=== PATIENT | female | born 1975 | race Caucasian/White ===

== ENCOUNTER 2020-02-24 18:01 | Emergency (ER) | payer OTHER, SELFPAY ==
[2020-02-24] VITALS (7 sets, daily range): BP systolic 132–161; BP diastolic 82–96; PULSE 98–150; RESP 18–24; TEMP 36.7–37.9; O2SAT 97–99; BMI 25.7
--- NOTE | 2020-02-24 18:25 | XRR_ITS ---
PROCEDURE INFORMATION: Exam: XR Chest, 1 View Exam date and time: 02/24/2020 6:40 PM Age: 44 years old Clinical indication: Cough and dyspnea; Additional info: Chest pain TECHNIQUE: Imaging protocol: XR of the chest Views: 1 view. COMPARISON: No relevant prior studies available. FINDINGS: Lungs: Unremarkable. No consolidation. Pleural space: Unremarkable. No pleural effusion. No pneumothorax. Heart/Mediastinum: There is borderline cardiomegaly. Bones/joints: No acute abnormality. XR/XR chest 1V portable [id number] IMPRESSION: No acute findings.
--- NOTE | 2020-02-24 18:26 | ECG_ITS ---
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 Measurements Intervals [place] Rate: 138 P: 66 AL: 134 QRS: 67 QRSD: 73 T: 43 QT: 294 QTc: 447 Interpretive Statements SINUS TACHYCARDIA MINIMAL VOLTAGE CRITERIA FOR LVH, CONSIDER NORMAL VARIANT MODERATE ST DEPRESSION [0.05+ mV ST DEPRESSION] Compared to ECG 08/16/2017 20:55:45 ST (T wave) deviation now present Electronically Signed On 02-25-2020 15:10:17 CDT by Gilma Liu M.D. [id number] f
[2020-02-24 18:36] LABS: Basophils # 0.1 10^3/uL (0.0-0.1); Basophils % 0.4 %; Eosinophils # 0.1 10^3/uL (0.0-0.8); Eosinophils % 0.5 %; Hematocrit 40.6 % (37.0-47.0); Hemoglobin 13.5 g/dL (11.5-15.3); Lymphocytes # 0.9 10^3/uL (0.8-4.8); Lymphocytes % 6.7 %; Mean Corpuscular HGB Conc 33.3 g/dL (30.0-36.0); Mean Corpuscular Hemoglobin 32.3 pg (28.0-34.0); Mean Corpuscular Volume 97.1 fL (81-99); Mean Platelet Volume 9.5 fL (7.4-10.4); Monocytes # 0.3 10^3/uL (0.2-0.9); Monocytes % 2.4 %; Neutrophils # 11.42 10^3/uL (1.8-7.7); Neutrophils % 89.4 %; Nucleated Red Blood Cells % 0 %; Platelet Count 234 10^3/cmm (130-400); Red Blood Count 4.18 10^6/uL (4.1-5.3); Red Cell Distribution Width 14.1 % (12.1-15.1); White Blood Count 12.8 10^3/uL (4.0-10.0)
--- NOTE | 2020-02-24 18:40 | ED_ITS ---
HPI - General Adult General: Chief complaint: General Medical Stated complaint: multiple complaints Time Seen by Provider: 02/24/20 18:24 History of Present Illness: HPI narrative: 44-year-old female presents with body aches, shortness of breath, elevated temperature, and chest tightness. Symptoms developed today per she was walking home from work, and they begin to worsen. Symptoms actually started out with back pain, what she called sciatica , as well as aches in her lower body particularly her thighs and shins. Onset (ago): hour(s) Location: head, chest, back and lower extremity Radiation: non-radiation Severity: moderate Quality: aching Pain Consistency: constant Associated symptoms: Reports chest pain, cough, dyspnea, fevers/chills, headache(s) and short of breath; Deny confusion, nausea, rash or vomiting Review of Systems Const: Reports: fever(s) and chills Eyes: Denies: blurry vision ENMT: Denies: swelling of lips/tongue or sinus pain Card: Reports: chest pain Resp: Reports: dyspnea and non-productive cough; Denies: productive cough or wheezing GI: Denies: abdominal pain, nausea or vomiting : Denies: dysuria or hematuria Musc: Reports: back pain; Denies: neck pain, joint redness or joint warmth Skin/Breast: Denies: rash or erythema Neuro: Reports: headache(s); Denies: dizziness, vertigo or confusion Psych: Denies: anxiety or auditory hallucinations Physical Exam Const: GENERAL APPEARANCE: well developed ORIENTATION/CONSCIOUSNESS: Yes oriented to person, Yes oriented to place and Yes oriented to time HENMT: COMMON NORMALS: normocephalic, external ears normal and Normal external nose present HEAD & SCALP: normocephalic FACE & SINUS: normal facial exam NOSE: Normal external nose present and No nasal discharge present EXTERNAL EAR: Yes external ears normal Eye: COMMON NORMALS: Equal, round and reactive pupils present, EOMs intact bilaterally and conjunctivae normal EYELID: eyelids normal CONJUNCTIVA: Yes conjunctivae normal PUPIL: Yes Equal, round and reactive pupils present Neck/C-Spine: COMMON NORMALS: full ROM GENERAL: No tracheal deviation CERVICAL SPINE: Yes normal cervical lordosis and No Cervical spine tenderness Chest: COMMONS NORMALS: normal inspection of the chest CHEST: No tenderness Resp: COMMON NORMALS: clear to auscultation bilaterally EFFORT & INSPECTION: Yes tachypneic, Yes respiratory distress, No retractions, No uses accessory muscles and No tracheal deviation AUSCULTATION: clear to auscultation bilaterally, no rhonchi, no wheezes and diminished lung sounds Cardio: COMMON NORMALS: regular rhythm RATE: tachycardic RHYTHM: regular rhythm HEART SOUNDS: no murmurs PERIPHERAL PULSES: radial pulses present GI: INSPECTION: No abdominal distension AUSCULTATION: No Hyperactive bowel sounds present and No Hypoactive bowel sounds present PALPATION: No Guarding due to palpation present (GI) and No Rigid due to palpation PERCUSSION: no dullness to percussion and no tympanic to percussion Neuro: SENSORIUM/ORIENTATION: Yes oriented to person, Yes oriented to place and Yes oriented to time Psych: COMMON NORMALS: mental status grossly normal Course Vital Signs: Vital signs: Vital Signs Temperature 98.1 F 02/24/20 22:56 Pulse Rate 98 02/24/20 22:56 Respiratory Rate 20 H 02/24/20 22:56 Blood Pressure 145/88 02/24/20 22:56 Pulse Oximetry 99 02/24/20 22:56 MDM - General Adult MDM Narrative: Medical decision making narrative: This lady presents tachycardic in the 140s, with tachypnea, and symptoms of shortness of breath. EKG reveals sinus tachycardia. No acute ST changes. Her white blood cell count is 12.8. Hemoglobin 13.5. Bicarbonate level is 21. Blood gas reveals a mild respiratory alkalosis with mild decrease in PO2. She has a negative chest x- ray. Her d-dimer was elevated slightly. CTA of the chest reveals no PE. There are findings of pneumonitis that is mild bilaterally. She has a mild elevation in her troponin level. It did not elevate at 2 hours. After a couple liters of fluid, some pain medication, and 1 dose of dexamethasone her heart rate is gone from 140s to 100. Her blood pressure is 138/78. Her temperature after Tylenol is much improved. Her oxygen saturation has been 97 to 98% on room air, and her respiratory rate is come down to 20. She was offered observation, as she likely has COVID-19 given her presentation, and with pneumonitis she could worsen. She would like to go home since she is not requiring oxygen. She was told to drink plenty of fluids, and to come back immediately if she begins to get short of breath. She knows the risks of going home. Despite encouraging her to stay, she remains adamant about going home. We will allow this. Lab Data: Labs: Lab Results 02/24/20 02/24/20 02/24/20 Range/Units 18:20 18:20 18:20 WBC 12.8 H (4.0-10.0) 10^3/ uL RBC 4.18 (4.1-5.3) 10^6/u L Hgb 13.5 (11.5-15.3) g/dL Hct 40.6 (37.0-47.0) % MCV 97.1 (81-99) fL MCH 32.3 (28.0-34.0) pg MCHC 33.3 (30.0-36.0) g/dL RDW 14.1 (12.1-15.1) % Plt Count 234 (130-400) 10^3/c mm MPV 9.5 (7.4-10.4) fL Neut % (Auto) 89.4 % Lymph % (Auto) 6.7 % [place] % (Auto) 2.4 % Eos % (Auto) 0.5 % Baso % (Auto) 0.4 % Neut # (Auto) 11.42 H (1.8-7.7) 10^3/u L Lymph # (Auto) 0.9 (0.8-4.8) 10^3/u L [place] # (Auto) 0.3 (0.2-0.9) 10^3/u L Eos # (Auto) 0.1 (0.0-0.8) 10^3/u L Baso # (Auto) 0.1 (0.0-0.1) 10^3/u L Nucleated RBC % (a uto) 0 % Nucleated RBCs # 0.0 /100WBC PT 12.30 (12.1-14.9) SECO NDS INR 0.89 (0.8-1.2) APTT 24.5 (23.9-36.7) SECO NDS D-Dimer 0.70 H (0-0.59) ug/mIFE U Specimen Type Sample Site ABG pH (7.35-7.45) ABG pCO2 (35-45) mmHg ABG pO2 (80.0-100.0) mmH g ABG HCO3 (22-26) mmol/L ABG Base Excess (-2.0-2.0) mmol/ L Patricio Test Hematocrit (37-47) % O2 Delivery Device FiO2 % Concrete Truck Driver ID Sodium 138 (136-145) mmol/L Potassium 3.5 (3.5-5.1) mmol/L Chloride 103 (98-107) mmol/L Carbon Dioxide 21 L (22-29) mmol/L Anion Gap 17.5 (5-19) BUN 12 (6-20) mg/dL Creatinine 0.6 (0.5-0.9) mg/dL GFR Calculation 108.1 (90-130) mL/min Glucose 111 (65-115) mg/dL Calculated Osmolal ity 283 L (285-295) mOsm/k g Calcium 8.9 (8.5-10.5) mg/dL Magnesium 1.6 L (1.7-2.3) mg/dL Total Bilirubin 0.3 (0.15-1.2) mg/dL AST 29 (0-32) U/L ALT 26 (0-33) U/L Alkaline Phosphata se 80 (35-105) IU/L Creatine Kinase (26-192) U/L Troponin T Baselin e (0-10) ng/L Troponin T 120 Min douglas (0-10) ng/L Delta Troponin T (0-10) ABS# NT-Pro-B Natriuret Pep 340 H (0-125) pg/mL Total Protein 6.9 (6.6-8.7) g/dL Albumin 4.4 (3.5-5.2) g/dL Globulin 2.5 (1.3-4.6) g/dL Free T4 1.05 (0.82-1.77) ng/d L HCG, Qual (Negative) Urine Color (Yellow) Urine Appearance (CLEAR) Urine pH (5-7) Ur Specific Gravit y (1.005-1.030) Urine Protein (Negative) Urine Glucose (UA) (Normal) Urine Ketones (Negative) Urine Blood (Negative) Urine Nitrate (Negative) Urine Bilirubin (NEGATIVE) Urine Urobilinogen (Negative) mg/dL Ur Leukocyte Laila ase (Negative) 02/24/20 02/24/20 02/24/20 Range/Units 18:20 18:20 18:20 WBC (4.0-10.0) 10^3/ uL RBC (4.1-5.3) 10^6/u L Hgb (11.5-15.3) g/dL Hct (37.0-47.0) % MCV (81-99) fL MCH (28.0-34.0) pg MCHC (30.0-36.0) g/dL RDW (12.1-15.1) % Plt Count (130-400) 10^3/c mm MPV (7.4-10.4) fL Neut % (Auto) % Lymph % (Auto) % [place] % (Auto) % Eos % (Auto) % Baso % (Auto) % Neut # (Auto) (1.8-7.7) 10^3/u L Lymph # (Auto) (0.8-4.8) 10^3/u L [place] # (Auto) (0.2-0.9) 10^3/u L Eos # (Auto) (0.0-0.8) 10^3/u L Baso # (Auto) (0.0-0.1) 10^3/u L Nucleated RBC % (a uto) % Nucleated RBCs # /100WBC PT (12.1-14.9) SECO NDS INR (0.8-1.2) APTT (23.9-36.7) SECO NDS D-Dimer (0-0.59) ug/mIFE U Specimen Type Sample Site ABG pH (7.35-7.45) ABG pCO2 (35-45) mmHg ABG pO2 (80.0-100.0) mmH g ABG HCO3 (22-26) mmol/L ABG Base Excess (-2.0-2.0) mmol/ L Patricio Test Hematocrit (37-47) % O2 Delivery Device FiO2 % Concrete Truck Driver ID Sodium (136-145) mmol/L Potassium (3.5-5.1) mmol/L Chloride (98-107) mmol/L Carbon Dioxide (22-29) mmol/L Anion Gap (5-19) BUN (6-20) mg/dL Creatinine (0.5-0.9) mg/dL GFR Calculation (90-130) mL/min Glucose (65-115) mg/dL Calculated Osmolal ity (285-295) mOsm/k g Calcium (8.5-10.5) mg/dL Magnesium (1.7-2.3) mg/dL Total Bilirubin (0.15-1.2) mg/dL AST (0-32) U/L ALT (0-33) U/L Alkaline Phosphata se (35-105) IU/L Creatine Kinase 110 (26-192) U/L Troponin T Baselin e 17 H (0-10) ng/L Troponin T 120 Min douglas (0-10) ng/L Delta Troponin T (0-10) ABS# NT-Pro-B Natriuret Pep (0-125) pg/mL Total Protein (6.6-8.7) g/dL Albumin (3.5-5.2) g/dL Globulin (1.3-4.6) g/dL Free T4 (0.82-1.77) ng/d L HCG, Qual Negative (Negative) Urine Color (Yellow) Urine Appearance (CLEAR) Urine pH (5-7) Ur Specific Gravit y (1.005-1.030) Urine Protein (Negative) Urine Glucose (UA) (Normal) Urine Ketones (Negative) Urine Blood (Negative) Urine Nitrate (Negative) Urine Bilirubin (NEGATIVE) Urine Urobilinogen (Negative) mg/dL Ur Leukocyte Laila ase (Negative) 02/24/20 02/24/20 02/24/20 Range/Units 18:38 18:45 20:35 WBC (4.0-10.0) 10^3/ uL RBC (4.1-5.3) 10^6/u L Hgb (11.5-15.3) g/dL Hct (37.0-47.0) % MCV (81-99) fL MCH (28.0-34.0) pg MCHC (30.0-36.0) g/dL RDW (12.1-15.1) % Plt Count (130-400) 10^3/c mm MPV (7.4-10.4) fL Neut % (Auto) % Lymph % (Auto) % [place] % (Auto) % Eos % (Auto) % Baso % (Auto) % Neut # (Auto) (1.8-7.7) 10^3/u L Lymph # (Auto) (0.8-4.8) 10^3/u L [place] # (Auto) (0.2-0.9) 10^3/u L Eos # (Auto) (0.0-0.8) 10^3/u L Baso # (Auto) (0.0-0.1) 10^3/u L Nucleated RBC % (a uto) % Nucleated RBCs # /100WBC PT (12.1-14.9) SECO NDS INR (0.8-1.2) APTT (23.9-36.7) SECO NDS D-Dimer (0-0.59) ug/mIFE U Specimen Type Arterial Sample Site Radial, left ABG pH 7.47 H (7.35-7.45) ABG pCO2 33.8 L (35-45) mmHg ABG pO2 84.2 (80.0-100.0) mmH g ABG HCO3 24.4 (22-26) mmol/L ABG Base Excess 1.2 (-2.0-2.0) mmol/ L Patricio Test Pos Hematocrit 43.0 (37-47) % O2 Delivery Device None FiO2 21.0 % Concrete Truck Driver ID Ed Sodium (136-145) mmol/L Potassium (3.5-5.1) mmol/L Chloride (98-107) mmol/L Carbon Dioxide (22-29) mmol/L Anion Gap (5-19) BUN (6-20) mg/dL Creatinine (0.5-0.9) mg/dL GFR Calculation (90-130) mL/min Glucose (65-115) mg/dL Calculated Osmolal ity (285-295) mOsm/k g Calcium (8.5-10.5) mg/dL Magnesium (1.7-2.3) mg/dL Total Bilirubin (0.15-1.2) mg/dL AST (0-32) U/L ALT (0-33) U/L Alkaline Phosphata se (35-105) IU/L Creatine Kinase (26-192) U/L Troponin T Baselin e (0-10) ng/L Troponin T 120 Min douglas 16.78 H (0-10) ng/L Delta Troponin T -0.22 L (0-10) ABS# NT-Pro-B Natriuret Pep (0-125) pg/mL Total Protein (6.6-8.7) g/dL Albumin (3.5-5.2) g/dL Globulin (1.3-4.6) g/dL Free T4 (0.82-1.77) ng/d L HCG, Qual (Negative) Urine Color Yellow (Yellow) Urine Appearance Clear (CLEAR) Urine pH 7 (5-7) Ur Specific Gravit y 1.000 L (1.005-1.030) Urine Protein Neg (Negative) Urine Glucose (UA) Norm (Normal) Urine Ketones Negative (Negative) Urine Blood Neg (Negative) Urine Nitrate Negative (Negative) Urine Bilirubin Neg (NEGATIVE) Urine Urobilinogen Norm (Negative) mg/dL Ur Leukocyte Laila ase Negative (Negative) Discharge Plan Discharge Patient Disposition: Home Clinical Impression: COVID-19, Pneumonia due to virus Condition: Stable Prescriptions: [place] 7.5-325 mg tablet 1 tab PO Q6H PRN (Reason: pain) Qty: 10 RF: 0 dexamethasone 4 mg tablet 6 mg PO DAILY Qty: 8 RF: 0 No Action Tylenol Extra Strength 500 mg Tablet 1,000 mg PO PRN RF: 0 ibuprofen 200 mg Tablet 600 - 800 mg PO PRN RF: 0 Discharge Orders: Discharge Order (Routine); Ordered 02/24/20 Ordered By: Miki Gar Discharge Diet: Advance as tolerated Discharge Activity: Limit activity as instructed Patient Instructions: Viral Pneumonia (ED) Activity Restrictions/Additional Instructions: Drink plenty of liquids, and control your fever with Tylenol. Return immediately to the emergency department for any worsening shortness of breath. Return also for worsening chest discomfort, worsening headache despite treatment, mental status changes, other concerning symptoms. You should quarantine until you hear back from your COVID-19 test. Discharge Date/Time: 02/24/20 23:23 Coding Level of Care Code ED Chauffeur Motorbus for Isiah Fwharman Exam Comprehensive
[2020-02-24 18:43] LABS: INR 0.89 (0.8-1.2); Partial Thromboplastin Time 24.5 SECONDS (23.9-36.7)
[2020-02-24 18:49] LABS: ABG PCO2 33.8 mmHg (35-45); ABG PH Result 7.47 (7.35-7.45); Base Excess ABG 1.2 mmol/L (-2.0-2.0); Blood Gas Allen Test Pos; Blood Gas Operator Identificat ED; Blood Gas Sample Site Radial, left; Blood Gas Sample Type Arterial; HCO3 ABG 24.4 mmol/L (22-26); PO2 ABG 84.2 mmHg (80.0-100.0)
[2020-02-24 18:49] LABS: HCG, Serum Qual Negative (Negative)
[2020-02-24 18:52] LABS: Troponin(5th) Baseline 17 ng/L (0-10)
[2020-02-24] MEDS: sodium chloride 0.9% 1,000 ML 999 ML IV (18:54)
[2020-02-24] MEDS: fentaNYL 50 mcg/mL INJ 2mL 100 MCG IVP (18:54)
[2020-02-24] MEDS: sodium chloride 0.9% 1,000 ML 100 ML IV (19:00)
[2020-02-24 19:02] LABS: Alanine Aminotransferase 26 U/L (0-33); Albumin Level 4.4 g/dL (3.5-5.2); Alkaline Phosphatase 80 IU/L (35-105); Anion Gap 17.5 (5-19); Aspartate Amino Transferase 29 U/L (0-32); Blood Urea Nitrogen 12 mg/dL (6-20); Calcium 8.9 mg/dL (8.5-10.5); Carbon Dioxide 21 mmol/L (22-29); Chloride 103 mmol/L (98-107); Globulin 2.5 g/dL (1.3-4.6); Glomerular Filtration Rate 108.1 mL/min (90-130); Glucose 111 mg/dL (65-115); Magnesium 1.6 mg/dL (1.7-2.3); NT Pro B Type Natriuretic Pept 340 pg/mL (0-125); Osmolality Calculated 283 mOsm/kg (285-295); Potassium 3.5 mmol/L (3.5-5.1); Sodium 138 mmol/L (136-145); Total Bilirubin 0.3 mg/dL (0.15-1.2); Total Protein 6.9 g/dL (6.6-8.7)
[2020-02-24] MEDS: acetaminophen 500 mg Tablet 1000 MG PO (19:10)
--- NOTE | 2020-02-24 19:22 | CTR_ITS ---
PROCEDURE INFORMATION: Exam: CT Angiography Chest With Contrast Exam date and time: 02/24/2020 8:18 PM Age: 44 years old Clinical indication: Shortness of breath; Patient HX: C/O SOB weakness fatigue; Additional info: Chest pain TECHNIQUE: Imaging protocol: Computed tomographic angiography of the chest with intravenous contrast. 3D rendering (Not supervised by radiologist): MIP and/or 3D reconstructed images were created by the technologist. Radiation optimization: All CT scans at this facility use at least one of these dose optimization techniques: automated exposure control; mA and/or kV adjustment per patient size (includes targeted exams where dose is matched to clinical indication); or iterative reconstruction. Contrast material: OMNI 350; Contrast volume: 95 ml; Contrast route: INTRAVENOUS (IV); COMPARISON: CR XR chest 1V portable [id number] 02/24/2020 6:24 PM RADIATION DOSE METRICS: Total DLP (mGy-cm): 624.24 FINDINGS: Pulmonary arteries: There is no pulmonary embolus. Aorta: Unremarkable. No aortic aneurysm. No aortic dissection. Lungs: There is mild bibasilar ground-glass opacity compatible with mild atelectasis versus pneumonitis. There is no lobar consolidation. Pleural space: Unremarkable. No pneumothorax. No pleural effusion. Heart: Unremarkable. No cardiomegaly. No pericardial effusion. Lymph nodes: Unremarkable. No enlarged lymph nodes. Bones/joints: Unremarkable. No acute fracture. Soft tissues: Unremarkable. CT/CT angio chest PE protcl [id number] IMPRESSION: 1. There is no pulmonary embolus. 2. There is mild bibasilar ground-glass opacity compatible with mild atelectasis versus pneumonitis. Radiation Dose CTDIVOL = (mGy): DLP = 624.24 (mGy-cm)
[2020-02-24 19:26] LABS: Creatine Phosphokinase 110 U/L (26-192)
[2020-02-24 20:10] LABS: Add Urine Microscopic? NO
[2020-02-24] MEDS: dexamethasone 10 mg/mL INJ IVP (20:10)
--- NOTE | 2020-02-24 20:26 | ECG_ITS ---
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 Measurements Intervals [place] Rate: 105 P: 64 FL: 116 QRS: 64 QRSD: 82 T: 50 QT: 358 QTc: 475 Interpretive Statements SINUS TACHYCARDIA WITH SHORT FL INTERVAL POSSIBLE LEFT ATRIAL ENLARGEMENT [-0.1mV P WAVE IN V1/V2] ABNORMAL RHYTHM ECG Compared to ECG 08/16/2017 20:55:45 Short FL interval now present Left ventricular hypertrophy no longer present Electronically Signed On 02-25-2020 20:56:25 CDT by Bryon Fontanez M.D. [id number]
[2020-02-24 20:27] LABS: Bilirubin Urine Neg (NEGATIVE); Blood Urine Neg (Negative); Glucose Urine UA Norm (Normal); Ketones Urine Negative (Negative); Leukocyte Esterase Urine Negative (Negative); Nitrate Urine Negative (Negative); Protein Urine Neg (Negative); Urine Appearance Clear (CLEAR); Urine Color Yellow (Yellow); Urobilinogen Urine Norm (Negative); pH Urine 7 (5-7)
[2020-02-24 20:35] LABS: Free T4 Free Thyroxine 1.05 ng/dL (0.82-1.77)
[2020-02-24] MEDS: iohexol 350 mg/mL 100 mL Btl IV (20:51)
[2020-02-24 21:02] LABS: Troponin 5 2HR 16.78 ng/L (0-10)
[2020-02-24 21:04] LABS: Troponin 5 2HR Delta -0.22 ABS# (0-10)
[2020-02-24] MEDS: fentaNYL 50 mcg/mL INJ 2mL IVP (22:25)
[2020-02-24] MEDS: ketorolac 30 mg/mL INJ IVP (22:33)
[2020-02-24] MEDS: metoprolol tartrate 1 mg/1 mL SDV 5 mL 5 MG IV (22:44)
[2020-02-24] MEDS: metoprolol tartrate 1 mg/1 mL SDV 5 mL 2.5 MG IV (22:44)
[2020-02-25 18:17] LABS: Coronavirus Lab Test PTC Negative
--- NOTE | 2020-02-25 18:46 | PC.NURSE ---
Pt called requesting her COVID results, pt notified of negative results.
--- NOTE | 2020-02-27 10:43 | PC.NURSE ---
Pt had critical blood culture results, returned to ED on 02/27/20, seen and treated by physician in ED for BC.
== END 2020-02-24 23:23 | disposition home or self-care (01) ==
PROVIDERS: Emergency Medicine; Emergency Provider Emergency Medicine
DX: U07.1 COVID-19 (principal); J12.89 Other viral pneumonia; R07.9 Chest pain, unspecified; R50.9 Fever, unspecified
CPT/HCPCS: 12345; 36600; 71045; 71275; 80053; 81003; 82550; 82803; 83735; 83880; 84439; 84484; 84703; 85025; 85378; 85610; 85730; 87040; 87077; 87205; 87635; 93005; 96361; 96374; 96375; 96376; 99283; 99284; J1100; J1885; J3010; J3490; J7030; Q9967

== ENCOUNTER 2020-02-27 07:22 | Emergency (ER) | payer SELFPAY ==
[2020-02-27 07:27] VITALS: BP 151/89; PULSE 108; RESP 18; TEMP 36.8; O2SAT 97; BMI 25.7
--- NOTE | 2020-02-27 07:35 | ED_ITS ---
HPI - Fall General: Chief Complaint: Fall Stated Complaint: R HAND & R FOOT INJURY Time Seen by Provider: 02/27/20 07:29 History of Present Illness: HPI Narrative: 44-year-old female presents after a fall over the weekend she has complaints of right wrist and right ankle pain. She fell 2 days ago off a porch. She denies striking her head denies any loss conscious no other injuries. She was seen last week for a upper respiratory infection thought to have COVID. Her nasal swab was negative. She did have positive blood cultures 2 out of 4. She is not been running a fever through the weekend or having any upper respiratory infections MD complaint: fall Onset (ago): day(s) (2) Fall from: from height (distance) (About 3 feet) Fall witnessed: yes, by family Place fall occurred: home Loss of consciousness: None Prolonged down time: no Symptoms prior to fall: none Context: tripped/slipped Location of injury - extremities: Right: hand and ankle Severity: moderate Quality: aching and throbbing Associated symptoms-after fall: Reports no associated symptoms; Denies abdominal pain or chest pain Review of Systems Const: Denies: fever(s), chills, body aches, change in appetite, fatigue or malaise ENMT: Denies: throat pain, ear or mastoid pain, nasal discharge or nasal congestion Card: Denies: chest pain, edema, dyspnea on exertion or orthopnea Resp: Denies: dyspnea, productive cough or non-productive cough GI: Denies: abdominal pain, nausea, vomiting, hematemesis, coffee ground emesis, diarrhea, constipation, bloating, hematochezia or melena : Denies: flank pain, difficulty voiding, dysuria, urinary frequency or urinary urgency Skin/Breast: Denies: rash or pruritus Physical Exam Const: COMMON NORMALS: no acute distress GENERAL APPEARANCE: cooperative and comfortable ORIENTATION/CONSCIOUSNESS: Yes awake, Yes oriented to person, Yes oriented to place and Yes oriented to time HENMT: COMMON NORMALS: normocephalic, atraumatic and hearing grossly normal bilaterally HEAD & SCALP: normocephalic and atraumatic Eye: COMMON NORMALS: Equal, round and reactive pupils present, EOMs intact bilaterally, conjunctivae normal and no scleral icterus CONJUNCTIVA: Yes conjunctivae normal PUPIL: Yes Equal, round and reactive pupils present Neck/C-Spine: COMMON NORMALS: no JVD Resp: COMMON NORMALS: normal respiratory effort, No retractions, No use of accessory muscles and clear to auscultation bilaterally AUSCULTATION: clear to auscultation bilaterally Cardio: COMMON NORMALS: no JVD, regular rate, regular rhythm and No murmurs present (Cardio) RATE: regular rate RHYTHM: regular rhythm GI: COMMON NORMALS: Soft to palpation and No hepatosplenomegaly present AUSCULTATION: Yes normoactive bowel sounds PALPATION: Yes Soft to palpation, No Tenderness to palpation present (GI), No Guarding due to palpation present (GI) and Yes No hepatosplenomegaly present Extremity: COMMON NORMALS: normal to inspection, capillary refill normal, no clubbing, cyanosis or edema, no calf tenderness and no pedal edema Neuro: SENSORIUM/ORIENTATION: Yes oriented to person, Yes oriented to place and Yes oriented to time Skin: COMMON NORMALS: no rashes or lesions noted GENERAL SKIN EXAM: no rashes or lesions noted Course Vital Signs: Vital signs: Vital Signs Temperature 98.3 F 02/27/20 07:27 Pulse Rate 85 02/27/20 09:43 Respiratory Rate 20 H 02/27/20 09:43 Blood Pressure 125/85 02/27/20 09:43 Pulse Oximetry 97 02/27/20 09:43 MDM - Fall MDM Narrative: Medical decision making narrative: Right ankle x-ray is negative there is a question of a small avulsion fracture on proximal metacarpals on lateral film we will splint her hand and refer to Ortho for that. Finally that she was recently here and had a positive blood culture was started on cefdinir for that it was 2 out of 4 positive bottles. If she has any worsening or change symptoms return. Discharge Plan Discharge Patient Disposition: Home Clinical Impression: Fracture, metacarpal, Positive blood culture Condition: Stable Prescriptions: New cefdinir 300 mg capsule 300 mg PO BID 10 Days Qty: 20 RF: 0 No Action Tylenol Extra Strength 500 mg Tablet 1,000 mg PO PRN RF: 0 ibuprofen 200 mg Tablet 600 - 800 mg PO PRN RF: 0 [place] 7.5-325 mg tablet 1 tab PO Q6H PRN (Reason: pain) Qty: 10 RF: 0 dexamethasone 4 mg tablet 6 mg PO DAILY Qty: 8 RF: 0 Discharge Orders: Discharge Order (Routine); Ordered 02/27/20 Ordered By: Oziel Walton Discharge Diet: Usual diet Discharge Activity: Limit activity as instructed Activity Restrictions/Additional Instructions: No use of the right hand. Keep the hand in a splint until removed by orthopedics. Case management will call with an appointment for orthopedics for further evaluation. Your blood culture from previous visit was positive in 2 out of 4 bottles. As a precaution we are prescribing antibiotics for 10 days. Follow-up with your primary care doctor Stand Alone Forms: Work/School Release Discharge Date/Time: 02/27/20 09:46 Coding Level of Care Code ED Sound Installation Worker for Aceg Fwd Exam Comprehensive
--- NOTE | 2020-02-27 07:37 | XR_ITS ---
WS: [id number] RIGHT ANKLE: 3 VIEW(S) TECHNIQUE: AP, oblique(s) and lateral. HISTORY: pain trauma COMPARISON: 02/15/2011 Normal anatomic alignment with no fracture or dislocation. Small well-circumscribed osseous density s een on the lateral projection in the anterior calcaneus were present on the prior study from 2010. No joint effusion or widening of the ankle mortise. No significant degenerative changes at the joint spaces. No soft tissue abnormality. XR/XR ankle RT min 3V* [id number] IMPRESSION: Normal RIGHT ankle.
--- NOTE | 2020-02-27 07:37 | XR_ITS ---
WS: [id number] RIGHT WRIST: 3 VIEW(S) TECHNIQUE: PA, oblique and lateral. HISTORY: pain COMPARISON: None available. Seen on the oblique projection along the dorsal surface of the hand at the level of the proximal meta carpals is a possible small avulsion fracture without displacement. There is adjacent soft tissue arthur ma. No joint space abnormality. Soft tissue edema along the dorsal surface of the hand. XR/XR wrist RT min 3V* [id number] IMPRESSION: 1. Indeterminate for nondisplaced avulsion fracture from one of the proximal m etacarpals. This may be due to the third or fourth metacarpal. 2. Soft tissue edema along the dorsal surface of the hand.
[2020-02-27 09:43] VITALS: BP 125/85; PULSE 85; RESP 20; O2SAT 97
--- NOTE | 2020-02-27 12:05 | DCPLANNER ---
international logistics manager was asked to schedule a follow up appointment for patient with ortho. international logistics manager called the ortho clinic, spoke with Pat, gave clinic the patients information. international logistics manager was told that patients information would be printed and reviewed. Clinic will call patient with appointment information.
--- NOTE | 2020-02-28 14:08 | DCPLANNER ---
Patient has a follow up appointment scheduled for Monday, March 02, 2020 at 8:[address] Black. Clinic will call patient with appointment information.
--- NOTE | 2020-03-08 07:45 | DCPLANNER ---
Patient did attend appointment scheduled for 03.02.20 with ortho.
== END 2020-02-27 09:46 | disposition home or self-care (01) ==
PROVIDERS: Emergency Provider Family Medicine
DX: S62.399A Other fracture of unspecified metacarpal bone, initial encounter for closed fracture (principal); W19.XXXA Unspecified fall, initial encounter
CPT/HCPCS: 12345; 29105; 73110; 73610; 99281; 99283; A4590

== ENCOUNTER → 2020-03-02 08:57 | Outpatient (BNVA) | payer SELFPAY | PROVIDERS: Referring Provider Family Medicine; Visit Provider Orthopaedic Surgery | DX: M25.572 Pain in left ankle and joints of left foot (principal) | CPT/HCPCS: 73610 ==

== ENCOUNTER 2020-03-10 09:35 | Emergency (ER) | payer SELFPAY ==
[2020-03-10 09:45] VITALS: BP 193/119; PULSE 122; RESP 18; TEMP 36.5; O2SAT 98; BMI 26.2
--- NOTE | 2020-03-10 09:52 | XRR_ITS ---
PROCEDURE INFORMATION: Exam: XR Right Wrist Exam date and time: 03/10/2020 9:55 AM Age: 44 years old Clinical indication: Swelling; Hand; Right; Additional info: Recent injury/continued pain TECHNIQUE: Imaging protocol: XR Right wrist. Views: 3 or more views. 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 No relevant prior studies available. FINDINGS: Bones/joints: Normal. Soft tissues: Normal. XR/XR wrist RT min 3V* [id number] IMPRESSION: No acute findings.
--- NOTE | 2020-03-10 09:52 | XRR_ITS ---
PROCEDURE INFORMATION: Exam: XR Left Ankle Exam date and time: 03/10/2020 9:55 AM Age: 44 years old Clinical indication: Swelling, leg or foot; Additional info: Injury/swelling TECHNIQUE: Imaging protocol: XR Left ankle. Views: 3 or more views. COMPARISON: No relevant prior studies available. FINDINGS: Bones/joints: No evidence of fracture or dislocation. Normal ankle mortise. Soft tissues: Diffuse soft tissue swelling. XR/XR ankle LT min 3V* [id number] IMPRESSION: No evidence of fracture or dislocation. Diffuse soft tissue swelling.
--- NOTE | 2020-03-10 09:52 | XRR_ITS ---
PROCEDURE INFORMATION: Exam: XR Right Hand Exam date and time: 03/10/2020 9:55 AM Age: 44 years old Clinical indication: Swelling; Hand; Right; Additional info: Recent injury/continued pain TECHNIQUE: Imaging protocol: XR Right hand. Views: 3 or more views. COMPARISON: Dress Designer right wrist. No relevant prior studies available. FINDINGS: Bones/joints: Normal. Soft tissues: Normal. XR/XR hand RT min 3V* [id number] IMPRESSION: No acute findings.
[2020-03-10 09:59] VITALS: BP 150/96; PULSE 118; RESP 18; O2SAT 98
--- NOTE | 2020-03-10 10:02 | ED_ITS ---
HPI - Extremity Problem General: Chief complaint: Extremity Problem,Nontraumatic Stated complaint: LEFT ANKLE AND RIGHT ELBOW AND FACE SWELLING Time Seen by Provider: 03/10/20 09:38 Source: patient Mode of arrival: ambulatory Limitations: no limitations History of Present Illness: HPI Narrative: Patient is a 44-year-old female who presents to ED today for reevaluation of several extremity injuries. Patient was seen here recently after a fall and injured her right hand and right ankle. On that visit there was a questionable fracture of the right hand so patient was splinted and sent to orthopedics. Dr. Black did not believe the abnormality on the x-ray represented an acute fracture. She was placed in a Velcro wrist splint and given follow-up for this Thursday. At that visit she was also complaining of left ankle pain therefore x-rays were obtained and found to be normal. Patient is here in the emergency department again because she continues to have pain in her right hand but also her right wrist. She has been ambulatory on the ankle and stating it continues to hurt and has noticed worsening swelling. MD Complaint: extremity pain, extremity swelling, joint swelling and joint pain Onset (ago): day(s) Exacerbating factors: range of motion, weight bearing and palpation Associated symptoms: Reports no associated symptoms; Deny chest pain, fever(s) or rash Review of Systems Const: Denies: fever(s), chills, body aches or fatigue Card: Denies: chest pain Resp: Denies: dyspnea GI: Denies: abdominal pain, nausea or vomiting Musc: Reports: extremity pain, extremity swelling, joint pain and joint swelling; Denies: neck pain or back pain Skin/Breast: Denies: rash, erythema, sores or new lesions Neuro: Denies: numbness in extremities or sensory changes Physical Exam Const: COMMON NORMALS: no acute distress, patient oriented x3, no limitations and alert Extremity: GENERAL: Yes normal exam except as noted OTHER: TTP throughout ulnar R wrist and dorsum of R hand; there is mild swelling noted here; no redness or obvious deformity noted; radial pulses and cap refill normal; maintains full but painful ROM pt with TTP and moderate swelling/pitting edema throughout lateral L ankle; ecchymosis present; DP/PT pulses and cap refill normal; no swelling to remainder of leg or calf; negative Cyn's Neuro: COMMON NORMALS: patient oriented x3, moves all extremities, no focal motor deficits and no sensory deficits noted SENSORIUM/ORIENTATION: Yes alert GAIT: Yes Other gait observations present (limping gait) Skin: COMMON NORMALS: no rashes or lesions noted GENERAL SKIN EXAM: no rashes or lesions noted Course Vital Signs: Vital signs: Vital Signs Temperature 97.7 F 03/10/20 09:45 Pulse Rate 118 H 03/10/20 09:59 Respiratory Rate 18 03/10/20 09:59 Blood Pressure 150/96 03/10/20 09:59 Pulse Oximetry 98 03/10/20 09:59 MDM - Extremity (Nontraumatic) MDM Narrative: Medical decision making narrative: repeat XRs showing no changes from previous films-no fractures noted at this time; pt told to continue to wear wrist splint; will ROLAN wrap and give crutches for her L ankle pain and swelling; pt to follow up with orthopedics as scheduled on Thursday Imaging Data^: XR L ankle: Radiologist's impression: [place] [address] XRay Report Signed Patient: Jaz Posada Unit #: [id number] : 1975 Age/Sex: 44 / F ADM Date: 03/10/20 Loc: ER Room/Bed: Attending Dr: Ordering Provider/Ordering MD: Donna Gonsalez Date of Service: 03/10/20 Procedure(s): XR ankle LT min 3V* 21930 Accession Number(s): [id number] Report Number: [id number] PROCEDURE INFORMATION: Exam: XR Left Ankle Exam date and time: 03/10/2020 9:55 AM Age: 44 years old Clinical indication: Swelling, leg or foot; Additional info: Injury/swelling TECHNIQUE: Imaging protocol: XR Left ankle. Views: 3 or more views. COMPARISON: No relevant prior studies available. FINDINGS: Bones/joints: No evidence of fracture or dislocation. Normal ankle mortise. Soft tissues: Diffuse soft tissue swelling. XR/XR ankle LT min 3V* [id number] IMPRESSION: No evidence of fracture or dislocation. Diffuse soft tissue swelling. Dictated By: Ant Power MD Signed By: Ant Power MD Signed Date/Time: 03/10/20 1026 DD/ 1025 XR R wrist: Radiologist's impression: [address] [address] XRay Report Signed Patient: Jaz Posada Unit #: [id number] : 1975 Age/Sex: 44 / F ADM Date: 03/10/20 Loc: ER Room/Bed: Attending Dr: Ordering Provider/Ordering MD: Donna Gonsalez Date of Service: 03/10/20 Procedure(s): XR wrist RT min 3V* 16415 Accession Number(s): [id number] Report Number: [id number] PROCEDURE INFORMATION: Exam: XR Right Wrist Exam date and time: 03/10/2020 9:55 AM Age: 44 years old Clinical indication: Swelling; Hand; Right; Additional info: Recent injury/continued pain TECHNIQUE: Imaging protocol: XR Right wrist. Views: 3 or more views. COMPARISON: Registered Nurse Fetal right hand. No relevant prior studies available. FINDINGS: Bones/joints: Normal. Soft tissues: Normal. XR/XR wrist RT min 3V* [id number] IMPRESSION: No acute findings. Dictated By: Ant Power MD Signed By: Ant Power MD Signed Date/Time: 03/10/20 1031 DD/ 1030 XR R hand: Radiologist's impression: [address] [address] XRay Report Signed Patient: Jaz Posada Unit #: [id number] : 1975 Age/Sex: 44 / F ADM Date: 03/10/20 Loc: ER Room/Bed: Attending Dr: Ordering Provider/Ordering MD: Donna Gonsalez Date of Service: 03/10/20 Procedure(s): XR hand RT min 3V* 17941 Accession Number(s): [id number] Report Number: [id number] PROCEDURE INFORMATION: Exam: XR Right Hand Exam date and time: 03/10/2020 9:55 AM Age: 44 years old Clinical indication: Swelling; Hand; Right; Additional info: Recent injury/continued pain TECHNIQUE: Imaging protocol: XR Right hand. Views: 3 or more views. COMPARISON: Registered Nurse Fetal right wrist. No relevant prior studies available. FINDINGS: Bones/joints: Normal. Soft tissues: Normal. XR/XR hand RT min 3V* [id number] IMPRESSION: No acute findings. Dictated By: Ant Power MD Signed By: Ant Power MD Signed Date/Time: 03/10/20 103 DD/ 103 Discharge Plan Discharge Patient Disposition: Home Clinical Impression: Sprain of right wrist Qualifiers: Encounter type: initial encounter Qualified Code(s): S63.501A - Unspecified sprain of right wrist, initial encounter Sprain of left ankle Qualifiers: Encounter type: initial encounter Involved ligament of ankle: unspecified ligament Qualified Code(s): S93.402A - Sprain of unspecified ligament of left ankle, initial encounter Condition: Stable Prescriptions: No Action (DME) cock up wrist splint See Rx Instructions .Route .MEDSUPPLY Qty: 1 RF: 0 (DME) Air cast Air-stirrup ankle brace See Rx Instructions .Route .MEDSUPPLY Qty: 1 RF: 0 hydrocodone-acetaminophen [[place]] 5-325 mg tablet 1 tab PO Q4H PRN (Reason: pain) 7 Days Qty: 30 RF: 0 Tylenol Extra Strength 500 mg Tablet 1,000 mg PO PRN RF: 0 ibuprofen 200 mg Tablet 600 - 800 mg PO PRN RF: 0 [place] 7.5-325 mg tablet 1 tab PO Q6H PRN (Reason: pain) Qty: 10 RF: 0 dexamethasone 4 mg tablet 6 mg PO DAILY Qty: 8 RF: 0 Discharge Orders: Discharge Order (Routine); Ordered 03/10/20 Ordered By: Donna Gonsalez Activity Restrictions/Additional Instructions: Followup with Dr. Black on Thursday as scheduled. Discharge Date/Time: 03/10/20 10:39 Coding Level of Care Code ED Car Audio Installer for Isiah Mao
[2020-03-10 10:36] VITALS: BP 144/76; PULSE 110; RESP 14; O2SAT 97
== END 2020-03-10 10:39 | disposition home or self-care (01) ==
PROVIDERS: Emergency Provider Family Medicine
DX: S63.501A Unspecified sprain of right wrist, initial encounter (principal); S93.402A Sprain of unspecified ligament of left ankle, initial encounter; W19.XXXA Unspecified fall, initial encounter
CPT/HCPCS: 12345; 73110; 73130; 73610; 99281; 99283; E0114

== ENCOUNTER → 2020-03-21 08:32 | Outpatient (BNVA) | payer SELFPAY | PROVIDERS: Visit Provider Orthopaedic Surgery | DX: S63.501A Unspecified sprain of right wrist, initial encounter (principal); X58.XXXA Exposure to other specified factors, initial encounter | CPT/HCPCS: 73110 ==

== ENCOUNTER 2020-04-26 12:30 | Emergency (ER) | payer SELFPAY ==
[2020-04-26 12:44] VITALS: BP 169/98; PULSE 113; RESP 20; TEMP 36.7; O2SAT 97; BMI 26.1
--- NOTE | 2020-04-26 13:07 | XR_ITS ---
WS: [id number] Exam: XR chest 1V portable [id number] Date/Time of Exam: 04/26/2020 1:07 PM Reason For Exam: syncope Comparison 02/24/2020. Findings: The lungs are clear and fully expanded. Costophrenic angles are sharp. No infiltrates. Bronchovascula r relief appears normal. Cardiac silhouette is unremarkable. Bony elements are intact. XR/XR chest 1V portable [id number] IMPRESSION: Unremarkable chest radiograph.
--- NOTE | 2020-04-26 13:08 | ECG_ITS ---
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
--- NOTE | 2020-04-26 13:08 | W.ED.SOB ---
HPI - SOB/Dyspnea General: Chief Complaint: Shortness of Breath/Dyspnea Stated Complaint: CONGESTION, TROUBLE BREATHING Time Seen by Provider: 04/26/20 12:58 History of Present Illness: HPI Narrative: 44-year-old female patient presents to the emergency department due to shortness of breath, heart racing, palpitations and chest discomfort. She reports nausea vomiting x48 hours with last emesis episode this morning. She reports positive cough, production of green sputum, positive hoarseness that started several weeks ago. States diagnosed with pneumonia back in January 2020, states symptoms never resolved, has felt worse past 2 weeks. She denies fever chills. Reports large amount of emotional stress, recent separation from her for 25 years. Reports drinking 1 pint of whiskey daily due to anxiety. She reports history of hysterectomy, denies diabetes hypertension or cardiac disease. Reports also stressed in regards to right wrist surgery. Reports no health insurance and inability to have needed surgery of the right wrist due to financial restraints. MD elicited complaint: shortness of breath, cough, chest pain and anxiety Onset (ago): week(s) (2) Timing: progressively worsening Severity: moderate Exacerbating factors: exertion and coughing Relieving factors: rest Associated symptoms: Reports chest congestion, chest pain, cough, lightheadedness, nausea, palpitations and vomiting; Deny fever(s) or hemoptysis Treatment prior to arrival: none Review of Systems General: Reports: 10 or more systems reviewed and unremarkable except in HPI and below Const: Reports: change in appetite, fatigue and malaise; Denies: fever(s) or chills Eyes: Denies: blurry vision or eye redness ENMT: Denies: throat pain, dental pain or disequilibrium Card: Reports: chest pain, palpitations and lightheadedness Resp: Reports: productive cough, change in phlegm color and chest congestion; Denies: dyspnea, non-productive cough, wheezing or hemoptysis GI: Reports: nausea and vomiting : Denies: difficulty voiding or dysuria Musc: Denies: neck pain or back pain Skin/Breast: Denies: rash or pruritus Neuro: Denies: headache(s), weakness in extremities or behavioral changes Psych: Reports: anxiety, depression, panic attacks and change in appetite; Denies: visual hallucinations, auditory hallucinations, suicidal ideation or homicidal ideation Vlad/Lymph: Denies: easy bruising Physical Exam Const: COMMON NORMALS: patient oriented x3, healthy appearing, alert and well nourished GENERAL APPEARANCE: cooperative, anxious and well hydrated; no odor of alcohol detected ORIENTATION/CONSCIOUSNESS: Yes awake, Yes oriented to person, Yes oriented to place and Yes oriented to time HENMT: COMMON NORMALS: normocephalic, atraumatic, EAC's normal, TM's normal bilaterally, Normal external nose present and moist oral mucous membranes HEAD & SCALP: normal to inspection, normocephalic and atraumatic FACE & SINUS: normal facial exam, sinuses nontender and face symmetric NOSE: Normal external nose present EXTERNAL AUDITORY CANAL: EAC's normal TYMPANIC MEMBRANE: TM's normal bilaterally MOUTH: Normal oral and palatal mucosa present THROAT: posterior oropharynx normal Eye: COMMON NORMALS: Equal, round and reactive pupils present and EOMs intact bilaterally GENERAL EYE: appearance normal, both eyes and all related structures PUPIL: Yes Equal, round and reactive pupils present Neck/C-Spine: COMMON NORMALS: full ROM and no lymphadenopathy GENERAL: Yes normal visual inspection and Yes trachea midline CERVICAL SPINE: Yes cervical ROM normal Lymph: LYMPHATIC: no lymphadenopathy noted Chest: COMMONS NORMALS: normal inspection of the chest and normal palpation of entire chest wall CHEST: No localized rib tenderness with anteroposterior compression Resp: COMMON NORMALS: normal respiratory effort and clear to auscultation bilaterally EFFORT & INSPECTION: No paradoxical thoraco-abdominal movements AUSCULTATION: clear to auscultation bilaterally Cardio: COMMON NORMALS: regular rhythm, S1 normal heart sound present, S2 normal heart sound present and Peripheral pulses 2+ throughout RHYTHM: regular rhythm HEART SOUNDS: S1 normal heart sound present and S2 normal heart sound present PERIPHERAL PULSES: Peripheral pulses 2+ throughout GI: COMMON NORMALS: Normal to inspection, nondistended, normoactive bowel sounds present and Soft to palpation; negative for No hepatosplenomegaly present INSPECTION: Yes normal to inspection PALPATION: Yes Soft to palpation, Yes Tenderness to palpation present (GI) Details: other (epigastric tenderness - mild), No No hepatosplenomegaly present, No Splenomegaly present, No Hernia present and No Rebound tenderness present : COMMON NORMALS: Yes no CVA tenderness BLADDER/KIDNEY EXAM: Yes no CVA tenderness EXTERNAL FEMALE EXAM: No Hernia present Back/Pelvis: COMMON NORMALS: no CVA tenderness and thoracic and lumbar spine normal to inspection THORACIC SPINE/UPPER BACK: Yes normal to inspection LUMBAR SPINE/LOWER BACK: Yes normal to inspection Extremity: COMMON NORMALS: normal to inspection and capillary refill normal NARRATIVE EXTREMITY EXAM: Right wrist Velcro splint in place, distal circulation intact. Neuro: COMMON NORMALS: patient oriented x3 and no focal motor deficits SENSORIUM/ORIENTATION: Yes alert, Yes oriented to person, Yes oriented to place and Yes oriented to time Psych: COMMON NORMALS: mental status grossly normal, Normal thought process present, cooperative and speech normal ACTIVITY/MOTOR BEHAVIOR: Yes appropriate eye contact SPEECH: Yes normal speech MOOD & AFFECT: Yes anxious and Yes tearful THOUGHT PROCESS: Normal thought process present ATTENTION/CONCENTRATION: Yes attention grossly intact MEMORY/COGNITION: Yes memory grossly intact JUDGEMENT: Good judgement present (Psych) Skin: COMMON NORMALS: no rashes or lesions noted and turgor normal GENERAL SKIN EXAM: no rashes or lesions noted and turgor normal Course ED course: 44-year-old female patient presents to the emergency department with acute bronchitis, anxiety symptoms. Lorazepam 0.5 mg administered here in the ED due to anxiety symptoms. She was complaining of palpitations, bronchial, Covid symptoms. D-dimer found to be slightly elevated, CTA chest, PE protocol without pulmonary emboli or pneumonia/Covid findings present. Cardiac enzymes negative for elevation. Potassium found to be low, 3.1 and was supplemented. Discussed with patient my concern with anxiety, she agrees to follow-up with behavioral health, agrees to follow-up with a primary care provider next week for repeat potassium level and follow-up with hypertension. Clonidine administered here in the ED due to elevated blood pressure 180/120, she is requesting to go home, she states that the longer she stays, the more anxious she gets which correlates with elevation of blood pressure. Will supply of Vistaril to help with anxiety. Lisinopril prescription due to hypertension. I discussed with her alcohol intake and hypertension. She states will think about cutting back. Serology and radiology results discussed with the patient, I also discussed case with Dr. Wise. No further orders. She agrees to return to the emergency department for worsening /concerning symptoms. Vital Signs: Vital signs: Vital Signs Temperature 98.1 F 04/26/20 12:44 Pulse Rate 100 04/26/20 14:55 Respiratory Rate 18 04/26/20 14:55 Blood Pressure 166/105 04/26/20 16:37 Pulse Oximetry 95 04/26/20 14:55 MDM - SOB/Dyspnea Lab Data: Labs: Lab Results 04/26/20 04/26/20 04/26/20 Range/Units 13:35 13:35 13:35 WBC 7.2 (4.0-10.0) 10^3/ uL RBC 4.32 (4.1-5.3) 10^6/u L Hgb 13.9 (11.5-15.3) g/dL Hct 42.0 (37.0-47.0) % MCV 97.2 (81-99) fL MCH 32.2 (28.0-34.0) pg MCHC 33.1 (30.0-36.0) g/dL RDW 14.5 (12.1-15.1) % Plt Count 226 (130-400) 10^3/c mm MPV 9.5 (7.4-10.4) fL Neut % (Auto) 48.8 % Lymph % (Auto) 32.5 % [place] % (Auto) 14.4 % Eos % (Auto) 3.2 % Baso % (Auto) 0.8 % Neut # (Auto) 3.52 (1.8-7.7) 10^3/u L Lymph # (Auto) 2.4 (0.8-4.8) 10^3/u L [place] # (Auto) 1.0 H (0.2-0.9) 10^3/u L Eos # (Auto) 0.2 (0.0-0.8) 10^3/u L Baso # (Auto) 0.1 (0.0-0.1) 10^3/u L Nucleated RBC % (a uto) 0 % Nucleated RBCs # 0.0 /100WBC D-Dimer 1.00 H (0-0.59) ug/mIFE U Sodium 139 (136-145) mmol/L Potassium 3.1 L (3.5-5.1) mmol/L Chloride 104 (98-107) mmol/L Carbon Dioxide 23 (22-29) mmol/L Anion Gap 15.1 (5-19) BUN 12 (6-20) mg/dL Creatinine 0.5 (0.5-0.9) mg/dL GFR Calculation 133.4 H (90-130) mL/min Glucose 102 (65-115) mg/dL Calculated Osmolal ity 288 (285-295) mOsm/k g Calcium 8.8 (8.5-10.5) mg/dL Total Bilirubin 0.2 (0.15-1.2) mg/dL AST 80 H (0-32) U/L ALT 51 H (0-33) U/L Alkaline Phosphata se 118 H (35-105) IU/L Troponin T Baselin e (0-10) ng/L Troponin T 120 Min richard (0-10) ng/L Delta Troponin T (0-10) ABS# Total Protein 7.3 (6.6-8.7) g/dL Albumin 4.2 (3.5-5.2) g/dL Globulin 3.1 (1.3-4.6) g/dL Lipase 16 (13-60) U/L 04/26/20 04/26/20 Range/Units 13:35 16:15 WBC (4.0-10.0) 10^3/ uL RBC (4.1-5.3) 10^6/u L Hgb (11.5-15.3) g/dL Hct (37.0-47.0) % MCV (81-99) fL MCH (28.0-34.0) pg MCHC (30.0-36.0) g/dL RDW (12.1-15.1) % Plt Count (130-400) 10^3/c mm MPV (7.4-10.4) fL Neut % (Auto) % Lymph % (Auto) % [place] % (Auto) % Eos % (Auto) % Baso % (Auto) % Neut # (Auto) (1.8-7.7) 10^3/u L Lymph # (Auto) (0.8-4.8) 10^3/u L [place] # (Auto) (0.2-0.9) 10^3/u L Eos # (Auto) (0.0-0.8) 10^3/u L Baso # (Auto) (0.0-0.1) 10^3/u L Nucleated RBC % (a uto) % Nucleated RBCs # /100WBC D-Dimer (0-0.59) ug/mIFE U Sodium (136-145) mmol/L Potassium (3.5-5.1) mmol/L Chloride (98-107) mmol/L Carbon Dioxide (22-29) mmol/L Anion Gap (5-19) BUN (6-20) mg/dL Creatinine (0.5-0.9) mg/dL GFR Calculation (90-130) mL/min Glucose (65-115) mg/dL Calculated Osmolal ity (285-295) mOsm/k g Calcium (8.5-10.5) mg/dL Total Bilirubin (0.15-1.2) mg/dL AST (0-32) U/L ALT (0-33) U/L Alkaline Phosphata se (35-105) IU/L Troponin T Baselin e 6 (0-10) ng/L Troponin T 120 Min richard 9.49 (0-10) ng/L Delta Troponin T 3.49 (0-10) ABS# Total Protein (6.6-8.7) g/dL Albumin (3.5-5.2) g/dL Globulin (1.3-4.6) g/dL Lipase (13-60) U/L Imaging Data^: CXR: Radiologist's impression: [address] [address] XRay Report Signed Patient: Jaz Posada Unit #: [id number] : 1975 Age/Sex: 44 / F ADM Date: 04/26/20 Loc: ER Room/Bed: Attending Dr: Ordering Provider/Ordering MD: Rekha Harris Date of Service: 04/26/20 Procedure(s): XR chest 1V portable [id number] Accession Number(s): [id number] Report Number: [id number] WS: [id number] Exam: XR chest 1V portable [id number] Date/Time of Exam: 04/26/2020 1:07 PM Reason For Exam: syncope Comparison 02/24/2020. Findings: The lungs are clear and fully expanded. Costophrenic angles are sharp. No infiltrates. Bronchovascular relief appears normal. Cardiac silhouette is unremarkable. Bony elements are intact. XR/XR chest 1V portable [id number] IMPRESSION: Unremarkable chest radiograph. Dictated By: Huseyin Rascon DO Signed By: Huseyin Rascon DO Signed Date/Time: 04/26/20 1351 DD/ 1351 CT Chest: Radiologist's impression: [facility] [address] [place] [address] CT Scan Report Signed Patient: Jaz Posada Unit #: [id number] : 1975 Age/Sex: 44 / F ADM Date: 04/26/20 Loc: ER Room/Bed: Attending Dr: Ordering Provider/Ordering MD: Rekha Harris Date of Service: 04/26/20 Procedure(s): CT angio chest PE protcl [id number] Accession Number(s): [id number] Report Number: [id number] WS: [id number] CT CHEST ANGIOGRAPHY WITH REFORMATS HISTORY: elevated d-dimer TECHNIQUE: Contiguous axial images are obtained through the chest during arterial injection of intravenous contrast. Images are reconstructed to evaluate the pulmonary arteries. MIP imaging also reviewed. All CT scans at [facility] use at least one of these dose optimization techniques: automated exposure control; mA and/or kV adjustment per patient size (includes targeted exams where dose is matched to clinical indication); or iterative reconstruction. CONTRAST: Omnipaque 350; 95 mL IV. DLP: 613.91 mGy.cm COMPARISON: 02/24/2020 Very good opacification of the pulmonary arteries. There are no filling defects or pulmonary emboli. Normal size aorta. No dissection or aneurysm. Normal size pulmonary artery. Heart size is normal with no pericardial or pleural effusions. Lungs are clear. Small benign-appearing hilar lymph nodes. Largest diameter 7 mm on the RIGHT. Moderate hepatomegaly and hepatic steatosis. No adrenal mass. No osteoblastic or osteolytic bone disease. CT/CT angio chest PE protcl [id number] IMPRESSION: 1. No pulmonary embolism. 2. No pneumonia. Dictated By: Eli Stephens DO Signed By: Eli Stephens DO Signed Date/Time: 04/26/20 1554 DD/ 1550 EKG Data^: EKG 1: EKG Interpretation Date: 04/26/20 EKG interpretation time: 13:10 Computer Generated Interpretation: Sinus rhythm, possible left atrial enlargement, possible left ventricular hypertrophy, abnormal ECG EKG 2: EKG Interpretation Date: 04/26/20 EKG interpretation time: 15:21 Prior EKG tracings: available for review Computer Generated Interpretation: Sinus rhythm with occasional PVCs, possible left atrial enlargement, abnormal ECG, possible left ventricular hypertrophy Discharge Plan Discharge Patient Disposition: Home Clinical Impression: Anxiety HTN (hypertension) Qualifiers: Hypertension type: essential hypertension Qualified Code(s): I10 - Essential (primary) hypertension Acute bronchitis Qualifiers: Bronchitis organism: other organism Qualified Code(s): J20.8 - Acute bronchitis due to other specified organisms Condition: Stable Prescriptions: New lisinopril 20 mg tablet 20 mg PO DAILY Qty: 20 RF: 0 hydroxyzine HCl 25 mg tablet 50 mg PO TID PRN (Reason: anxiety) Qty: 30 RF: 0 Zofran 4 mg tablet 4 mg PO TID PRN (Reason: nausea and vomiting) 4 Days Qty: 6 RF: 0 Discontinued dexamethasone 4 mg tablet 6 mg PO DAILY Qty: 8 RF: 0 No Action (DME) cock up wrist splint See Rx Instructions .Route .MEDSUPPLY Qty: 1 RF: 0 (DME) Air cast Air-stirrup ankle brace See Rx Instructions .Route .MEDSUPPLY Qty: 1 RF: 0 hydrocodone-acetaminophen [[place]] 5-325 mg tablet 1 tab PO Q4H PRN (Reason: pain) 7 Days Qty: 30 RF: 0 hydrocodone-acetaminophen [[place]] 5-325 mg tablet 1 tab PO Q4H PRN (Reason: pain) 7 Days Qty: 30 RF: 0 tramadol 50 mg tablet 50 mg PO Q6H PRN (Reason: pain) Qty: 30 RF: 0 hydrocodone-acetaminophen [[place]] 5-325 mg tablet 1 tab PO Q4H PRN (Reason: pain) 7 Days Qty: 30 RF: 0 Tylenol Extra Strength 500 mg Tablet 1,000 mg PO PRN RF: 0 ibuprofen 200 mg Tablet 600 - 800 mg PO PRN RF: 0 [place] 7.5-325 mg tablet 1 tab PO Q6H PRN (Reason: pain) Qty: 10 RF: 0 Discharge Orders: Discharge Order (Routine); Ordered 04/26/20 Ordered By: Rekha Harris Discharge Diet: Cardiac and Low Salt Discharge Activity: Limit activity as instructed Patient Instructions: Hypokalemia (ED), Acute Bronchitis (ED), Hypertension (ED), Anxiety (ED) Activity Restrictions/Additional Instructions: Take your blood pressure daily, at rest, record readings and take to your primary care provider at follow-up Low-salt diet recommended Avoid fried greasy fatty meals as this could cause stomach upset Take blood pressure medication daily, lisinopril Contact behavioral health, open appointments are daily at 8 AM to talk to somebody about your anxiety and stress, medication sometimes is not recommended but counseling can be helpful Return to the emergency department if you experience chest pain, increased shortness of breath, worsening symptoms Take Vistaril, hydroxyzine 1 to 2 tablets as needed for anxiety. Note that refills provided today will not be prescribed to the emergency department, you will need to contact your primary care provider for refills. Coding Level of Care Code ED Graphite Disk Assembler for Chg Fwd Exam Comprehensive
[2020-04-26 13:24] VITALS: BP 154/109; PULSE 102; RESP 18; O2SAT 95
[2020-04-26] MEDS: ondansetron 2 mg/ML SDV 2 mL 4 MG IVP (13:24)
[2020-04-26] MEDS: LORazepam 0.5 mg Tablet 0.25 MG PO (13:24)
[2020-04-26 13:47] LABS: Basophils # 0.1 10^3/uL (0.0-0.1); Basophils % 0.8 %; Eosinophils # 0.2 10^3/uL (0.0-0.8); Eosinophils % 3.2 %; Hemoglobin 13.9 g/dL (11.5-15.3); Lymphocytes # 2.4 10^3/uL (0.8-4.8); Lymphocytes % 32.5 %; Mean Corpuscular HGB Conc 33.1 g/dL (30.0-36.0); Mean Corpuscular Hemoglobin 32.2 pg (28.0-34.0); Mean Corpuscular Volume 97.2 fL (81-99); Mean Platelet Volume 9.5 fL (7.4-10.4); Monocytes % 14.4 %; Neutrophils # 3.52 10^3/uL (1.8-7.7); Neutrophils % 48.8 %; Nucleated Red Blood Cells % 0 %; Platelet Count 226 10^3/cmm (130-400); Red Blood Count 4.32 10^6/uL (4.1-5.3); Red Cell Distribution Width 14.5 % (12.1-15.1); White Blood Count 7.2 10^3/uL (4.0-10.0)
[2020-04-26 14:08] LABS: Alanine Aminotransferase 51 U/L (0-33); Albumin Level 4.2 g/dL (3.5-5.2); Alkaline Phosphatase 118 IU/L (35-105); Anion Gap 15.1 (5-19); Aspartate Amino Transferase 80 U/L (0-32); Blood Urea Nitrogen 12 mg/dL (6-20); Calcium 8.8 mg/dL (8.5-10.5); Carbon Dioxide 23 mmol/L (22-29); Chloride 104 mmol/L (98-107); Globulin 3.1 g/dL (1.3-4.6); Glomerular Filtration Rate 133.4 mL/min (90-130); Glucose 102 mg/dL (65-115); Lipase 16 U/L (13-60); Osmolality Calculated 288 mOsm/kg (285-295); Potassium 3.1 mmol/L (3.5-5.1); Sodium 139 mmol/L (136-145); Total Bilirubin 0.2 mg/dL (0.15-1.2); Total Protein 7.3 g/dL (6.6-8.7)
[2020-04-26 14:10] LABS: Troponin(5th) Baseline 6 ng/L (0-10)
--- NOTE | 2020-04-26 14:17 | CT_ITS ---
WS: [id number] CT CHEST ANGIOGRAPHY WITH REFORMATS HISTORY: elevated d-dimer TECHNIQUE: Contiguous axial images are obtained through the chest during arterial injection of intrav enous contrast. Images are reconstructed to evaluate the pulmonary arteries. MIP imaging also reviewe d. All CT scans at [facility] use at least one of these dose optimization techniques: aut omated exposure control; mA and/or kV adjustment per patient size (includes targeted exams where dose is matched to clinical indication); or iterative reconstruction. CONTRAST: Omnipaque 350; 95 mL IV. DLP: 613.91 mGy.cm COMPARISON: 02/24/2020 Very good opacification of the pulmonary arteries. There are no filling defects or pulmonary emboli. Normal size aorta. No dissection or aneurysm. Normal size pulmonary artery. Heart size is normal with no pericardial or pleural effusions. Lungs are clear. Small benign-appearing hilar lymph nodes. Larg est diameter 7 mm on the RIGHT. Moderate hepatomegaly and hepatic steatosis. No adrenal mass. No osteoblastic or osteolytic bone dise ase. CT/CT angio chest PE protcl [id number] IMPRESSION: 1. No pulmonary embolism. 2. No pneumonia.
[2020-04-26 14:55] VITALS: BP 165/104; PULSE 100; RESP 18; O2SAT 95
[2020-04-26] MEDS: potassium chloride ER 10 mEq Tablet 40 MEQ PO (14:55)
--- NOTE | 2020-04-26 15:08 | ECG_ITS ---
[facility] Test Date: 2020-04-26 Pat Name: Jaz Posada Department: Room: Gender: Female Analyst Sales: : 1975 Requested By: Rekha Levi Order Number: [id number] Reading MD: FRANCINE BORRERO Measurements Intervals [place] Rate: 97 P: 65 NE: 146 QRS: 62 QRSD: 80 T: 39 QT: 377 QTc: 479 Interpretive Statements SINUS RHYTHM WITH OCCASIONAL SUPRAVENTRICULAR PREMATURE COMPLEXES POSSIBLE LEFT ATRIAL ENLARGEMENT [-0.1mV P WAVE IN V1/V2] POSSIBLE LEFT VENTRICULAR HYPERTROPHY [VOLTAGE CRITERIA PLUS LAE OR QRS WIDENING] WARNING: DATA QUALITY MAY AFFECT INTERPRETATION Compared to ECG 04/26/2020 13:09:27 No significant changes Electronically Signed On 04-26-2020 21:05:40 CDT by FRANCINE BORRERO [id number] f
[2020-04-26] MEDS: iohexol 350 mg/mL 100 mL Btl IV (15:48)
[2020-04-26 16:37] VITALS: BP 166/105
[2020-04-26] MEDS: cloNIDine 0.1 mg Tablet PO (16:37)
[2020-04-26 17:00] LABS: Troponin 5 2HR 9.49 ng/L (0-10); Troponin 5 2HR Delta 3.49 ABS# (0-10)
[2020-04-26 17:30] VITALS: BP 185/120; PULSE 101; RESP 20; O2SAT 95
--- NOTE | 2020-04-27 09:10 | DCPLANNER ---
millinery department manager had message to speak with patient about getting established with a primary care physician. millinery department manager called phone number [phone], unable to speak with anyone at this time, just got a busy signal when calling that number. millinery department manager unable to speak with patient or leave a voicemail for patient.
[2020-04-28 10:03] LABS: Quest SARS-CoV-2 RNA NOT DETECTED (NOT DETECTED)
== END 2020-04-26 17:23 | disposition home or self-care (01) ==
PROVIDERS: Emergency Provider Nurse Practitioner Family
DX: F41.9 Anxiety disorder, unspecified (principal); I10 Essential (primary) hypertension; J20.8 Acute bronchitis due to other specified organisms
CPT/HCPCS: 12345; 71045; 71275; 80053; 83690; 84484; 85025; 85378; 87635; 93005; 96374; 96375; 99283; 99284; J2405; Q9967

== ENCOUNTER 2020-05-12 04:33 | Emergency (ER) | payer SELFPAY ==
[2020-05-12 04:37] VITALS: BP 171/111; PULSE 124; RESP 18; TEMP 36.2; O2SAT 95; BMI 25.7
--- NOTE | 2020-05-12 04:48 | PC.NURSE ---
EKG done at 0440 and shown to ER doctor
[2020-05-12 04:50] VITALS: BP 171/111; PULSE 116; RESP 15; O2SAT 97
--- NOTE | 2020-05-12 04:53 | XRR_ITS ---
PROCEDURE INFORMATION: Exam: XR Chest, 1 View Exam date and time: 05/12/2020 5:02 AM Age: 44 years old Clinical indication: Shortness of breath; Chest pain; Additional info: Cp TECHNIQUE: Imaging protocol: XR of the chest Views: 1 view. COMPARISON: CR XR chest 1V portable [id number] 04/26/2020 1:11 PM FINDINGS: Lungs: Unremarkable. No consolidation. Pleural space: Unremarkable. No pleural effusion. No pneumothorax. Heart/Mediastinum: Unremarkable. No cardiomegaly. Bones/joints: Unremarkable. XR/XR chest 1V portable [id number] IMPRESSION: No acute findings.
--- NOTE | 2020-05-12 04:53 | ECG_ITS ---
[facility] Test Date: 2020-05-12 Pat Name: Jaz Posada Department: Room: Gender: Female Revenue Specialist: : 1975 Requested By: Miki Cerna Order Number: [id number] Nellie MD: Bryon Fontanez M.D. Measurements Intervals [place] Rate: 122 P: 67 PA: 112 QRS: 74 QRSD: 80 T: 43 QT: 320 QTc: 456 Interpretive Statements SINUS TACHYCARDIA WITH SHORT PA INTERVAL MODERATE ST DEPRESSION [0.05+ mV ST DEPRESSION] Compared to ECG 04/26/2020 15:20:33 Short PA interval now present ST (T wave) deviation now present Sinus rhythm no longer present Electronically Signed On 05-12-2020 18:55:30 MATURITY CHECKER by Bryon Fontanez M.D. [id number]
[2020-05-12 05:06] LABS: Basophils # 0.1 10^3/uL (0.0-0.1); Eosinophils # 0.6 10^3/uL (0.0-0.8); Hematocrit 43.2 % (37.0-47.0); Hemoglobin 14.2 g/dL (11.5-15.3); Lymphocytes # 5.1 10^3/uL (0.8-4.8); Lymphocytes % 43.8 %; Mean Corpuscular HGB Conc 32.9 g/dL (30.0-36.0); Mean Corpuscular Volume 97.3 fL (81-99); Mean Platelet Volume 9.5 fL (7.4-10.4); Monocytes # 0.8 10^3/uL (0.2-0.9); Neutrophils # 4.98 10^3/uL (1.8-7.7); Neutrophils % 42.9 %; Nucleated Red Blood Cells % 0 %; Platelet Count 314 10^3/cmm (130-400); Red Blood Count 4.44 10^6/uL (4.1-5.3); Red Cell Distribution Width 14.4 % (12.1-15.1); White Blood Count 11.6 10^3/uL (4.0-10.0)
[2020-05-12] MEDS: LORazepam 2 mg/mL INJ 1 mL IVP (05:08)
[2020-05-12] MEDS: metoprolol tartrate 1 mg/1 mL SDV 5 mL 5 MG IV (05:08)
[2020-05-12 05:10] LABS: INR 0.91 (0.8-1.2)
[2020-05-12 05:17] LABS: Alanine Aminotransferase 29 U/L (0-33); Albumin Level 4.2 g/dL (3.5-5.2); Alkaline Phosphatase 94 IU/L (35-105); Anion Gap 17.3 (5-19); Aspartate Amino Transferase 67 U/L (0-32); Blood Urea Nitrogen 11 mg/dL (6-20); Calcium 8.9 mg/dL (8.5-10.5); Carbon Dioxide 24 mmol/L (22-29); Chloride 105 mmol/L (98-107); Creatine Phosphokinase 110 U/L (26-192); Globulin 2.4 g/dL (1.3-4.6); Glomerular Filtration Rate 108.1 mL/min (90-130); Glucose 107 mg/dL (65-115); Osmolality Calculated 296 mOsm/kg (285-295); Potassium 3.3 mmol/L (3.5-5.1); Sodium 143 mmol/L (136-145); Total Bilirubin 0.2 mg/dL (0.15-1.2); Total Protein 6.6 g/dL (6.6-8.7)
[2020-05-12 05:18] LABS: Troponin(5th) Baseline 6 ng/L (0-10)
[2020-05-12 05:25] VITALS: BP 146/104; PULSE 83; RESP 21; O2SAT 94
--- NOTE | 2020-05-12 05:43 | ED_ITS ---
HPI - Chest Pain General: Chief Complaint: Chest Pain Stated Complaint: Chest Pain Time Seen by Provider: 05/12/20 04:42 History of Present Illness: HPI narrative: 44-year-old female with a history of alcoholism, anxiety, and bronchitis presents with chest discomfort, and some shortness of breath. She awoke this way acutely this morning. states her last drink was just before midnight. She complains of heart racing, chest discomfort, trouble breathing, nausea, and feeling very anxious. She was recently treated from the ER for bronchitis. She has had of couple of COVID-19 tests that have been negative. She has not had any known contact with anyone with the virus. MD complaint: chest pain Pertinent past history: other Onset (ago): minute(s) Timing of current episode: constant Prior episodes: Yes Onset: during rest and awoke with symptoms Pain location: left chest and right chest Pain radiation: none Severity: moderate Relieving factors: nothing Exacerbating factors: nothing Context: recent illness Associated symptoms: Reports dyspnea, nausea and palpitations; Deny fever(s), leg edema or vomiting Review of Systems Const: Denies: fever(s) Eyes: Denies: change in vision ENMT: Denies: odynophagia or sinus pain Card: Reports: chest pain and palpitations; Denies: irregular heart rhythm Resp: Reports: dyspnea GI: Reports: nausea; Denies: vomiting : Denies: dysuria, urinary frequency or hematuria Musc: Denies: neck pain or joint warmth Skin/Breast: Denies: rash or erythema Neuro: Denies: headache(s), dizziness or vertigo Psych: Reports: anxiety Physical Exam Const: GENERAL APPEARANCE: in distress and anxious ORIENTATION/CONSCIOUSNESS: Yes oriented to person, Yes oriented to place and Yes oriented to time HENMT: COMMON NORMALS: normocephalic, external ears normal and Normal external nose present HEAD & SCALP: normocephalic FACE & SINUS: normal facial exam NOSE: Normal external nose present and No nasal discharge present EXTERNAL EAR: Yes external ears normal Eye: COMMON NORMALS: Equal, round and reactive pupils present, EOMs intact bilaterally and conjunctivae normal EYELID: eyelids normal CONJUNCTIVA: Yes conjunctivae normal PUPIL: Yes Equal, round and reactive pupils present Neck/C-Spine: GENERAL: No tracheal deviation Chest: COMMONS NORMALS: normal inspection of the chest CHEST: Yes tenderness Resp: COMMON NORMALS: clear to auscultation bilaterally EFFORT & INSPECTION: Yes tachypneic, No respiratory distress, No retractions, No uses accessory muscles and No tracheal deviation AUSCULTATION: clear to auscultation bilaterally, no rhonchi, no wheezes and lung sounds not diminished Cardio: COMMON NORMALS: regular rhythm RATE: tachycardic RHYTHM: regular rhythm HEART SOUNDS: no murmurs PERIPHERAL PULSES: radial pulses present GI: INSPECTION: No abdominal distension AUSCULTATION: No Hyperactive bowel sounds present and No Hypoactive bowel sounds present PALPATION: No Guarding due to palpation present (GI) and No Rigid due to palpation PERCUSSION: no dullness to percussion and no tympanic to percussion Neuro: SENSORIUM/ORIENTATION: Yes oriented to person, Yes oriented to place and Yes oriented to time Psych: COMMON NORMALS: mental status grossly normal Skin: COMMON NORMALS: no rashes or lesions noted GENERAL SKIN EXAM: no rashes or lesions noted Course Vital Signs: Vital signs: Vital Signs Temperature 97.2 F L 05/12/20 04:37 Pulse Rate 76 05/12/20 05:45 Respiratory Rate 23 H 05/12/20 05:45 Blood Pressure 139/91 05/12/20 05:45 Pulse Oximetry 93 05/12/20 05:45 MDM - Chest Pain MDM Narrative: Medical decision making narrative: She was quite tachycardic on arrival. She was shaking and quite anxious. White blood cell count is 11.6. Hemoglobin 14. Potassium is 3.3 and will be repleted. She was hypertensive as well. Her first troponin is 6. She was given Ativan and metoprolol. This resolved her tachycardia, which is sinus at 75 currently. She is feeling improved. Will await the second troponin, if negative will allow home. Suspect alcohol withdrawal. Lab Data: Labs: Lab Results 05/12/20 05/12/20 05/12/20 Range/Units 04:43 04:43 04:43 WBC 11.6 H (4.0-10.0) 10^3/ uL RBC 4.44 (4.1-5.3) 10^6/u L Hgb 14.2 (11.5-15.3) g/dL Hct 43.2 (37.0-47.0) % MCV 97.3 (81-99) fL MCH 32.0 (28.0-34.0) pg MCHC 32.9 (30.0-36.0) g/dL RDW 14.4 (12.1-15.1) % Plt Count 314 (130-400) 10^3/c mm MPV 9.5 (7.4-10.4) fL Neut % (Auto) 42.9 % Lymph % (Auto) 43.8 % [place] % (Auto) 7.0 % Eos % (Auto) 5.0 % Baso % (Auto) 1.0 % Neut # (Auto) 4.98 (1.8-7.7) 10^3/u L Lymph # (Auto) 5.1 H (0.8-4.8) 10^3/u L [place] # (Auto) 0.8 (0.2-0.9) 10^3/u L Eos # (Auto) 0.6 (0.0-0.8) 10^3/u L Baso # (Auto) 0.1 (0.0-0.1) 10^3/u L Nucleated RBC % (a uto) 0 % Nucleated RBCs # 0.0 /100WBC PT 12.50 (12.1-14.9) SECO NDS INR 0.91 (0.8-1.2) Sodium 143 (136-145) mmol/L Potassium 3.3 L (3.5-5.1) mmol/L Chloride 105 (98-107) mmol/L Carbon Dioxide 24 (22-29) mmol/L Anion Gap 17.3 (5-19) BUN 11 (6-20) mg/dL Creatinine 0.6 (0.5-0.9) mg/dL GFR Calculation 108.1 (90-130) mL/min Glucose 107 (65-115) mg/dL Calculated Osmolal ity 296 H (285-295) mOsm/k g Calcium 8.9 (8.5-10.5) mg/dL Total Bilirubin 0.2 (0.15-1.2) mg/dL AST 67 H (0-32) U/L ALT 29 (0-33) U/L Alkaline Phosphata se 94 (35-105) IU/L Creatine Kinase 110 (26-192) U/L Troponin T Baselin e (0-10) ng/L Total Protein 6.6 (6.6-8.7) g/dL Albumin 4.2 (3.5-5.2) g/dL Globulin 2.4 (1.3-4.6) g/dL 05/12/20 Range/Units 04:43 WBC (4.0-10.0) 10^3/ uL RBC (4.1-5.3) 10^6/u L Hgb (11.5-15.3) g/dL Hct (37.0-47.0) % MCV (81-99) fL MCH (28.0-34.0) pg MCHC (30.0-36.0) g/dL RDW (12.1-15.1) % Plt Count (130-400) 10^3/c mm MPV (7.4-10.4) fL Neut % (Auto) % Lymph % (Auto) % [place] % (Auto) % Eos % (Auto) % Baso % (Auto) % Neut # (Auto) (1.8-7.7) 10^3/u L Lymph # (Auto) (0.8-4.8) 10^3/u L [place] # (Auto) (0.2-0.9) 10^3/u L Eos # (Auto) (0.0-0.8) 10^3/u L Baso # (Auto) (0.0-0.1) 10^3/u L Nucleated RBC % (a uto) % Nucleated RBCs # /100WBC PT (12.1-14.9) SECO NDS INR (0.8-1.2) Sodium (136-145) mmol/L Potassium (3.5-5.1) mmol/L Chloride (98-107) mmol/L Carbon Dioxide (22-29) mmol/L Anion Gap (5-19) BUN (6-20) mg/dL Creatinine (0.5-0.9) mg/dL GFR Calculation (90-130) mL/min Glucose (65-115) mg/dL Calculated Osmolal ity (285-295) mOsm/k g Calcium (8.5-10.5) mg/dL Total Bilirubin (0.15-1.2) mg/dL AST (0-32) U/L ALT (0-33) U/L Alkaline Phosphata se (35-105) IU/L Creatine Kinase (26-192) U/L Troponin T Baselin e 6 (0-10) ng/L Total Protein (6.6-8.7) g/dL Albumin (3.5-5.2) g/dL Globulin (1.3-4.6) g/dL Discharge Plan Discharge Patient Disposition: Home Clinical Impression: Atypical chest pain Alcohol withdrawal Qualifiers: Complication of substance-induced condition: with unspecified complication Qualified Code(s): F10.239 - Alcohol dependence with withdrawal, unspecified Condition: Stable Prescriptions: New chlordiazepoxide HCl 25 mg capsule 25 mg PO TID Qty: 20 RF: 0 No Action (DME) cock up wrist splint See Rx Instructions .Route .MEDSUPPLY Qty: 1 RF: 0 (DME) Air cast Air-stirrup ankle brace See Rx Instructions .Route .MEDSUPPLY Qty: 1 RF: 0 hydrocodone-acetaminophen [[place]] 5-325 mg tablet 1 tab PO Q4H PRN (Reason: pain) 7 Days Qty: 30 RF: 0 hydrocodone-acetaminophen [[place]] 5-325 mg tablet 1 tab PO Q4H PRN (Reason: pain) 7 Days Qty: 30 RF: 0 tramadol 50 mg tablet 50 mg PO Q6H PRN (Reason: pain) Qty: 30 RF: 0 hydrocodone-acetaminophen [[place]] 5-325 mg tablet 1 tab PO Q4H PRN (Reason: pain) 7 Days Qty: 30 RF: 0 lisinopril 20 mg tablet 20 mg PO DAILY Qty: 20 RF: 0 hydroxyzine HCl 25 mg tablet 50 mg PO TID PRN (Reason: anxiety) Qty: 30 RF: 0 Tylenol Extra Strength 500 mg Tablet 1,000 mg PO PRN RF: 0 ibuprofen 200 mg Tablet 600 - 800 mg PO PRN RF: 0 [place] 7.5-325 mg tablet 1 tab PO Q6H PRN (Reason: pain) Qty: 10 RF: 0 Discharge Orders: Discharge Order (Routine); Ordered 05/12/20 Ordered By: Miki Gar Discharge Diet: Advance as tolerated Discharge Activity: Resume usual activity Patient Instructions: Chest Pain (ED), Alcohol Withdrawal (ED) Activity Restrictions/Additional Instructions: Take the medication as prescribed for alcohol withdrawal. It can help prevent shaking and anxiety symptoms. Abstain from alcohol while on the medication. Return for continued chest pain, fever greater than 100, worsening shortness of breath despite treatment, other concerning symptoms. Coding Level of Care Code ED Pants Cutter for Isiah Fwharman Exam Comprehensive
[2020-05-12 05:45] VITALS: BP 139/91; PULSE 76; RESP 23; O2SAT 93
[2020-05-12 06:15] VITALS: BP 137/79; PULSE 95; RESP 17; O2SAT 96
== END 2020-05-12 06:15 | disposition home or self-care (01) ==
PROVIDERS: Emergency Provider Emergency Medicine
DX: R07.89 Other chest pain (principal); F10.239 Alcohol dependence with withdrawal, unspecified
CPT/HCPCS: 12345; 71045; 80053; 82550; 84484; 85025; 85610; 93005; 96374; 96375; 99283; 99284; J2060; J3490

== ENCOUNTER 2020-05-18 07:53 | Emergency (ER) | payer SELFPAY ==
[2020-05-18 08:02] VITALS: BP 176/111; PULSE 110; RESP 20; TEMP 36.7; O2SAT 96; BMI 25.7
--- NOTE | 2020-05-18 08:05 | XR_ITS ---
WS: [id number] PORTABLE CHEST HISTORY: dyspnea/cough COMPARISON: 05/12/2020 Mild pulmonary interstitial thickening. No dense consolidation or pneumonia. Most significant thicken ing at the RIGHT lung base. No pleural effusion or pneumothorax. Cardiac size: Normal. Mediastinum/Aorta: Normal mediastinum. No osseous abnormality seen. XR/XR chest 1V portable [id number] IMPRESSION: Mild emphysema and interstitial thickening. No acute findings.
--- NOTE | 2020-05-18 08:05 | ECG_ITS ---
[facility] Test Date: 2020-05-18 Pat Name: Jaz Posada Department: Room: Gender: Female Director Of Cloud Services: : 1975 Requested By: Oziel Mcclure Order Number: [id number] Nellie MD: Gilma Liu M.D. Measurements Intervals [place] Rate: 102 P: 61 [place]: 145 QRS: 52 QRSD: 76 T: 37 QT: 352 QTc: 459 Interpretive Statements SINUS TACHYCARDIA POSSIBLE LEFT ATRIAL ENLARGEMENT [-0.1mV P WAVE IN V1/V2] Compared to ECG 05/12/2020 04:38:30 Short [place] interval no longer present ST (T wave) deviation no longer present Electronically Signed On 05-18-2020 10:24:36 WATER PUMPING STATION ENGINEER by Gilma Liu M.D. [id number] f
[2020-05-18 09:17] LABS: Basophils # 0.1 10^3/uL (0.0-0.1); Basophils % 1.2 %; Eosinophils # 0.3 10^3/uL (0.0-0.8); Eosinophils % 4.5 %; Hematocrit 41.6 % (37.0-47.0); Hemoglobin 13.7 g/dL (11.5-15.3); Lymphocytes # 1.7 10^3/uL (0.8-4.8); Lymphocytes % 26.7 %; Mean Corpuscular HGB Conc 32.9 g/dL (30.0-36.0); Mean Corpuscular Hemoglobin 31.8 pg (28.0-34.0); Mean Corpuscular Volume 96.5 fL (81-99); Mean Platelet Volume 9.7 fL (7.4-10.4); Monocytes # 0.9 10^3/uL (0.2-0.9); Monocytes % 13.2 %; Neutrophils # 3.48 10^3/uL (1.8-7.7); Neutrophils % 54.2 %; Nucleated Red Blood Cells % 0 %; Platelet Count 212 10^3/cmm (130-400); Red Blood Count 4.31 10^6/uL (4.1-5.3); Red Cell Distribution Width 14.1 % (12.1-15.1); White Blood Count 6.4 10^3/uL (4.0-10.0)
[2020-05-18 09:32] LABS: Alanine Aminotransferase 77 U/L (0-33); Albumin Level 4.3 g/dL (3.5-5.2); Alcohol Level 49 mg/dL (0-10); Alkaline Phosphatase 83 IU/L (35-105); Anion Gap 17.4 (5-19); Aspartate Amino Transferase 123 U/L (0-32); Blood Urea Nitrogen 16 mg/dL (6-20); Calcium 8.9 mg/dL (8.5-10.5); Carbon Dioxide 22 mmol/L (22-29); Chloride 104 mmol/L (98-107); Globulin 2.4 g/dL (1.3-4.6); Glomerular Filtration Rate 133.4 mL/min (90-130); Glucose 91 mg/dL (65-115); Osmolality Calculated 291 mOsm/kg (285-295); Potassium 3.4 mmol/L (3.5-5.1); Sodium 140 mmol/L (136-145); Total Bilirubin 0.3 mg/dL (0.15-1.2); Total Protein 6.7 g/dL (6.6-8.7)
[2020-05-18 09:34] LABS: Troponin(5th) Baseline 6 ng/L (0-10)
[2020-05-18 09:45] VITALS: BP 169/97; PULSE 98; RESP 17; O2SAT 99
--- NOTE | 2020-05-18 09:56 | W.ED.CHESTPA ---
HPI - Chest Pain General: Chief Complaint: Chest Pain Stated Complaint: cp Time Seen by Provider: 05/18/20 08:04 History of Present Illness: HPI narrative: 44-year-old female presents emergency room complaining of which she describes as chest pain, panic attacks, stress. She was seen last week and given Librium for alcohol withdrawal she has been taking that regularly and is still having what she describes as anxiety attacks. She feels a pressure in the center of her chest she feels very anxious at times with numbness and tingling perioral and in her distal extremities. She states the only thing that seems to help is drinking alcohol her last drink was 48 hours ago. MD complaint: chest discomfort Pertinent past history: other (Alcoholism) Onset (ago): day(s) Timing of current episode: episodic Prior episodes: Yes Onset: during rest Pain location: substernal Pain radiation: none Severity: mild Quality: tightness Relieving factors: other (drinking alcohol) Exacerbating factors: stress Context: other (attempting to abstain from ETOH) Associated symptoms: Reports diaphoresis, dyspnea, nausea, palpitations and sense of impending doom; Deny abdominal pain, fever(s), leg edema, syncope or vomiting Treatment prior to arrival: other (Librium, alcohol) Review of Systems Const: Reports: diaphoresis; Denies: fever(s) ENMT: Denies: throat pain, ear or mastoid pain, nasal discharge or nasal congestion Card: Reports: palpitations; Denies: syncope Resp: Reports: dyspnea GI: Reports: nausea; Denies: abdominal pain or vomiting : Denies: flank pain, difficulty voiding, dysuria, urinary frequency or urinary urgency Skin/Breast: Denies: rash or pruritus PFS ED PFSH: Medical History (Updated 05/18/20 @ 10:10 by Oziel Walton DO) Hidradenitis HTN (hypertension) Seizures Surgical History (Updated 05/18/20 @ 10:05 by Oziel Walton DO) History of hysterectomy Physical Exam Const: COMMON NORMALS: no acute distress GENERAL APPEARANCE: anxious and disheveled ORIENTATION/CONSCIOUSNESS: Yes awake, Yes oriented to person, Yes oriented to place and Yes oriented to time HENMT: COMMON NORMALS: normocephalic, atraumatic and hearing grossly normal bilaterally HEAD & SCALP: normocephalic and atraumatic Eye: COMMON NORMALS: Equal, round and reactive pupils present, EOMs intact bilaterally, conjunctivae normal and no scleral icterus CONJUNCTIVA: Yes conjunctivae normal PUPIL: Yes Equal, round and reactive pupils present Neck/C-Spine: COMMON NORMALS: no JVD Resp: COMMON NORMALS: normal respiratory effort, No retractions, No use of accessory muscles and clear to auscultation bilaterally AUSCULTATION: clear to auscultation bilaterally Cardio: COMMON NORMALS: no JVD, regular rate, regular rhythm and No murmurs present (Cardio) RATE: regular rate RHYTHM: regular rhythm GI: COMMON NORMALS: Soft to palpation and No hepatosplenomegaly present AUSCULTATION: Yes normoactive bowel sounds PALPATION: Yes Soft to palpation, No Tenderness to palpation present (GI), No Guarding due to palpation present (GI) and Yes No hepatosplenomegaly present Extremity: COMMON NORMALS: normal to inspection, capillary refill normal, no clubbing, cyanosis or edema, no calf tenderness and no pedal edema Neuro: SENSORIUM/ORIENTATION: Yes oriented to person, Yes oriented to place and Yes oriented to time Skin: COMMON NORMALS: no rashes or lesions noted GENERAL SKIN EXAM: no rashes or lesions noted Course Vital Signs: Vital signs: Vital Signs Temperature 98.0 F 05/18/20 08:02 Pulse Rate 98 05/18/20 09:45 Respiratory Rate 17 05/18/20 09:45 Blood Pressure 169/97 05/18/20 09:45 Pulse Oximetry 99 05/18/20 09:45 MDM - Chest Pain MDM Narrative: Medical decision making narrative: Patient became extremely anxious to talk with her discussed that we cannot ensure that she does not have a cardiac issue going on if we do not complete the last time she has been along and if we did seem to do an EKG and 1 more troponin she refuses to have those done despite the warnings. Discussed with her that if it were to be a cardiac problem it could cause serious injury to her health or even she expresses understanding of this discussed further further I think most of this is driven by her dealing with anxiety as she is to maintain abstinence. Offered referral to treatment programs. Her significant other who is with her became quite angry and confrontational demanded that we let her go immediately that they were not putting her in any kind of treatment program but they would handle this. Encouraged him to reconsider offered to him at any point they can return and we would be happy to provide assistance and further evaluate. She continues to refuse. Lab Data: Labs: Lab Results 05/18/20 05/18/20 05/18/20 Range/Units 08:55 08:55 08:55 WBC 6.4 (4.0-10.0) 10^3/ uL RBC 4.31 (4.1-5.3) 10^6/u L Hgb 13.7 (11.5-15.3) g/dL Hct 41.6 (37.0-47.0) % MCV 96.5 (81-99) fL MCH 31.8 (28.0-34.0) pg MCHC 32.9 (30.0-36.0) g/dL RDW 14.1 (12.1-15.1) % Plt Count 212 (130-400) 10^3/c mm MPV 9.7 (7.4-10.4) fL Neut % (Auto) 54.2 % Lymph % (Auto) 26.7 % [place] % (Auto) 13.2 % Eos % (Auto) 4.5 % Baso % (Auto) 1.2 % Neut # (Auto) 3.48 (1.8-7.7) 10^3/u L Lymph # (Auto) 1.7 (0.8-4.8) 10^3/u L [place] # (Auto) 0.9 (0.2-0.9) 10^3/u L Eos # (Auto) 0.3 (0.0-0.8) 10^3/u L Baso # (Auto) 0.1 (0.0-0.1) 10^3/u L Nucleated RBC % (a uto) 0 % Nucleated RBCs # 0.0 /100WBC Sodium 140 (136-145) mmol/L Potassium 3.4 L (3.5-5.1) mmol/L Chloride 104 (98-107) mmol/L Carbon Dioxide 22 (22-29) mmol/L Anion Gap 17.4 (5-19) BUN 16 (6-20) mg/dL Creatinine 0.5 (0.5-0.9) mg/dL GFR Calculation 133.4 H (90-130) mL/min Glucose 91 (65-115) mg/dL Calculated Osmolal ity 291 (285-295) mOsm/k g Calcium 8.9 (8.5-10.5) mg/dL Total Bilirubin 0.3 (0.15-1.2) mg/dL AST 123 H (0-32) U/L ALT 77 H (0-33) U/L Alkaline Phosphata se 83 (35-105) IU/L Troponin T Baselin e 6 (0-10) ng/L Total Protein 6.7 (6.6-8.7) g/dL Albumin 4.3 (3.5-5.2) g/dL Globulin 2.4 (1.3-4.6) g/dL Ethyl Alcohol 49 H (0-10) mg/dL Discharge Plan Discharge Patient Disposition: Left Against Medical Advice Clinical Impression: Atypical chest pain, ETOH abuse, Anxiety Condition: Stable Prescriptions: No Action (DME) cock up wrist splint See Rx Instructions .Route .MEDSUPPLY Qty: 1 RF: 0 (DME) Air cast Air-stirrup ankle brace See Rx Instructions .Route .MEDSUPPLY Qty: 1 RF: 0 hydrocodone-acetaminophen [[place]] 5-325 mg tablet 1 tab PO Q4H PRN (Reason: pain) 7 Days Qty: 30 RF: 0 hydrocodone-acetaminophen [[place]] 5-325 mg tablet 1 tab PO Q4H PRN (Reason: pain) 7 Days Qty: 30 RF: 0 tramadol 50 mg tablet 50 mg PO Q6H PRN (Reason: pain) Qty: 30 RF: 0 hydrocodone-acetaminophen [[place]] 5-325 mg tablet 1 tab PO Q4H PRN (Reason: pain) 7 Days Qty: 30 RF: 0 lisinopril 20 mg tablet 20 mg PO DAILY Qty: 20 RF: 0 hydroxyzine HCl 25 mg tablet 50 mg PO TID PRN (Reason: anxiety) Qty: 30 RF: 0 Tylenol Extra Strength 500 mg Tablet 1,000 mg PO PRN RF: 0 ibuprofen 200 mg Tablet 600 - 800 mg PO PRN RF: 0 [place] 7.5-325 mg tablet 1 tab PO Q6H PRN (Reason: pain) Qty: 10 RF: 0 chlordiazepoxide HCl 25 mg capsule 25 mg PO TID Qty: 20 RF: 0 Coding Level of Care Code ED Newspaper Illustrator for Isiah Mao
== END 2020-05-18 10:12 | disposition left against medical advice (07) ==
PROVIDERS: Emergency Provider Family Medicine
DX: R07.89 Other chest pain (principal); F10.10 Alcohol abuse, uncomplicated; F41.9 Anxiety disorder, unspecified; Z53.21 Procedure and treatment not carried out due to patient leaving prior to being seen by health care provider; I10 Essential (primary) hypertension
CPT/HCPCS: 12345; 71045; 80053; 80307; 84484; 85025; 93005; 99281; 99283

== ENCOUNTER 2020-05-19 20:57 | Emergency (ER) | payer SELFPAY ==
[2020-05-19 21:18] VITALS: BP 143/94; PULSE 102; RESP 30; TEMP 37; O2SAT 99; BMI 25.7
[2020-05-19] MEDS: sodium chloride 0.9% 1,000 ML 999 ML IV (21:44)
[2020-05-19] MEDS: LORazepam 2 mg/mL INJ 1 mL 1 MG IVP (21:44)
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
[2020-05-19 22:13] LABS: Basophils # 0.1 10^3/uL (0.0-0.1); Eosinophils # 0.4 10^3/uL (0.0-0.8); Eosinophils % 4.6 %; Hematocrit 40.9 % (37.0-47.0); Hemoglobin 13.8 g/dL (11.5-15.3); Lymphocytes # 3.8 10^3/uL (0.8-4.8); Lymphocytes % 48.3 %; Mean Corpuscular HGB Conc 33.7 g/dL (30.0-36.0); Mean Corpuscular Hemoglobin 31.9 pg (28.0-34.0); Mean Corpuscular Volume 94.5 fL (81-99); Mean Platelet Volume 9.9 fL (7.4-10.4); Monocytes # 0.7 10^3/uL (0.2-0.9); Monocytes % 8.4 %; Neutrophils # 2.94 10^3/uL (1.8-7.7); Neutrophils % 37.4 %; Nucleated Red Blood Cells % 0 %; Platelet Count 231 10^3/cmm (130-400); Red Blood Count 4.33 10^6/uL (4.1-5.3); Red Cell Distribution Width 14.2 % (12.1-15.1); White Blood Count 7.9 10^3/uL (4.0-10.0)
[2020-05-19 22:24] LABS: Total Protein 6.8 g/dL (6.6-8.7)
[2020-05-19 22:33] LABS: HCG, Serum Qual Negative (Negative)
[2020-05-19 22:34] LABS: Alanine Aminotransferase 81 U/L (0-33); Alcohol Level 284 mg/dL (0-10); Anion Gap 19.4 (5-19); Aspartate Amino Transferase 125 U/L (0-32); Blood Urea Nitrogen 11 mg/dL (6-20); Calcium 9.3 mg/dL (8.5-10.5); Carbon Dioxide 20 mmol/L (22-29); Chloride 108 mmol/L (98-107); Glomerular Filtration Rate 108.1 mL/min (90-130); Glucose 178 mg/dL (65-115); Lipase 51 U/L (13-60); Osmolality Calculated 304 mOsm/kg (285-295); Sodium 145 mmol/L (136-145); Total Bilirubin 0.2 mg/dL (0.15-1.2)
[2020-05-19 22:35] LABS: Albumin Level 4.3 g/dL (3.5-5.2); Alkaline Phosphatase 82 IU/L (35-105); Globulin 2.5 g/dL (1.3-4.6); Potassium 2.4 mmol/L (3.5-5.1)
[2020-05-19 23:17] LABS: Magnesium 1.8 mg/dL (1.7-2.3)
[2020-05-19 23:36] VITALS: BP 157/96; PULSE 113; RESP 22; O2SAT 97
[2020-05-19] MEDS: potassium chloride ER 10 mEq Tablet 40 MEQ PO (23:36)
[2020-05-19] MEDS: potassium chloride premix 100 ML 25 MEQ IV (23:36)
[2020-05-20 02:32] LABS: Magnesium 1.6 mg/dL (1.7-2.3); Potassium 3.9 mmol/L (3.5-5.1)
[2020-05-20 03:04] VITALS: BP 142/76; PULSE 81; RESP 16; O2SAT 97
== END 2020-05-20 03:05 | disposition home or self-care (01) ==
PROVIDERS: Emergency Medicine; Emergency Provider Emergency Medicine
DX: F41.9 Anxiety disorder, unspecified (principal); F10.10 Alcohol abuse, uncomplicated; E87.6 Hypokalemia; Y90.8 Blood alcohol level of 240 mg/100 ml or more; I10 Essential (primary) hypertension
CPT/HCPCS: 12345; 80053; 80307; 83690; 83735; 84132; 84703; 85025; 96365; 96366; 96375; 99282; 99284; J2060; J3480; J7030

== ENCOUNTER 2020-05-21 20:27 | Emergency (ER) | payer SELFPAY ==
[2020-05-21 20:34] VITALS: BP 167/115; PULSE 91; RESP 18; TEMP 36.7; O2SAT 94
--- NOTE | 2020-05-21 20:48 | ECG_ITS ---
[facility] Test Date: 2020-05-21 Pat Name: Jaz Posada Department: Room: Gender: Female Sheet Heater: MAURICE : 1975 Requested By: Afia Clark Order Number: [id number] Nellie MD: FRANCINE BORRERO Measurements Intervals [place] Rate: 91 P: 75 [place]: 144 QRS: 79 QRSD: 79 T: 52 QT: 375 QTc: 462 Interpretive Statements SINUS RHYTHM POSSIBLE RIGHT ATRIAL ENLARGEMENT [0.25mV P WAVE] Compared to ECG 05/18/2020 08:10:27 Sinus tachycardia no longer present Electronically Signed On 05-24-2020 15:28:55 BUILDING SERVICEMAN by FRANCINE BORRERO [id number]
== END 2020-05-21 20:50 | disposition left against medical advice (07) ==
LOC: ER 20:33
DX: Z53.21 Procedure and treatment not carried out due to patient leaving prior to being seen by health care provider (principal)
CPT/HCPCS: 93005; 99281

== ENCOUNTER 2020-06-14 14:21 | Emergency (ER) | payer SELFPAY ==
[2020-06-14 14:24] VITALS: BP 156/106; PULSE 105; RESP 18; TEMP 37; O2SAT 95; BMI 25.7
[2020-06-14] MEDS: LORazepam 1 mg Tablet PO (15:23)
[2020-06-14 15:30] VITALS: BP 125/78; PULSE 90; RESP 18; O2SAT 97
[2020-06-14] MEDS: folic acid 1 MG, multivitamin inj 10 ML, thiamine 100 MG in sodium chloride 0.9% 1,000 ML 252.8 MG IV (15:30)
[2020-06-14 15:58] LABS: Add Urine Microscopic? NO
[2020-06-14 16:03] LABS: Basophils # 0.1 10^3/uL (0.0-0.1); Eosinophils # 0.9 10^3/uL (0.0-0.8); Eosinophils % 8.9 %; Hematocrit 41.8 % (37.0-47.0); Lymphocytes # 4.3 10^3/uL (0.8-4.8); Lymphocytes % 45.3 %; Mean Corpuscular HGB Conc 33.5 g/dL (30.0-36.0); Mean Corpuscular Hemoglobin 31.7 pg (28.0-34.0); Mean Corpuscular Volume 94.8 fL (81-99); Mean Platelet Volume 9.9 fL (7.4-10.4); Monocytes # 0.9 10^3/uL (0.2-0.9); Monocytes % 9.3 %; Neutrophils # 3.35 10^3/uL (1.8-7.7); Neutrophils % 35.2 %; Nucleated Red Blood Cells % 0 %; Platelet Count 272 10^3/cmm (130-400); Red Blood Count 4.41 10^6/uL (4.1-5.3); Red Cell Distribution Width 13.7 % (12.1-15.1); White Blood Count 9.5 10^3/uL (4.0-10.0)
[2020-06-14 16:18] LABS: Urine Appearance Clear (CLEAR); Urine Color Straw (Yellow)
[2020-06-14 16:19] LABS: Bilirubin Urine Neg (Negative); Blood Urine Neg (Negative); Glucose Urine UA Norm (Normal); Ketones Urine Negative (Negative); Leukocyte Esterase Urine Negative (Negative); Nitrate Urine Negative (Negative); Protein Urine Neg (Negative); Specific Gravity, Urine 1.005 (1.005-1.030); Urobilinogen Urine Norm (Negative)
[2020-06-14 16:20] LABS: HCG Qualitative Urine. Negative (Negative)
[2020-06-14 16:22] LABS: Alanine Aminotransferase 26 U/L (0-33); Alkaline Phosphatase 73 IU/L (35-105); Anion Gap 13.9 (5-19); Aspartate Amino Transferase 39 U/L (0-32); Blood Urea Nitrogen 11 mg/dL (6-20); C Reactive Protein 0.8 mg/L (0.0-4.9); Calcium 8.9 mg/dL (8.5-10.5); Carbon Dioxide 26 mmol/L (22-29); Chloride 103 mmol/L (98-107); Creatine Phosphokinase 59 U/L (26-192); Globulin 2.5 g/dL (1.3-4.6); Glomerular Filtration Rate 90.5 mL/min (90-130); Glucose 89 mg/dL (65-115); Lipase 30 U/L (13-60); Magnesium 1.8 mg/dL (1.7-2.3); Osmolality Calculated 287 mOsm/kg (285-295); Potassium 3.9 mmol/L (3.5-5.1); Sodium 139 mmol/L (136-145); Total Bilirubin 0.2 mg/dL (0.15-1.2); Total Protein 6.5 g/dL (6.6-8.7)
--- NOTE | 2020-06-14 16:26 | W.ED.RECABL ---
HPI - Recheck/Abnormal Lab/Rx General: Chief Complaint: Recheck/Abnormal Lab/Rx Stated Complaint: WANTING MEDS FOR DETOX Time Seen by Provider: 06/14/20 14:25 Source: patient and family (Boyfriend) History of Present Illness: HPI narrative: The patient is a 44-year-old female with a history of alcoholism. She was seen here about a month ago for chest pain and at that time she was discharged home with Librium for alcohol withdrawal. At that time she had good support and was willing to quit. She was already on Librium but on a low-dose and the doctor discharge her home with a higher dose. She however did not fill her prescription until yesterday and when she went to the pharmacy there was a note on the prescription that says this is a copy and so it was not filled. We usually get the message when the prescription is printed out twice on the same day from this facility. She has been out of Librium and she said she was going into withdrawal so she drank 1/5 of vodka yesterday. She is feeling bad and would like a refill of Librium. She has a history of hypokalemia and would like to get her potassium checked. Review of Systems General: Reports: 10 or more systems reviewed and unremarkable except in HPI and below Const: Denies: fever(s), chills or body aches Eyes: Denies: change in vision or blurry vision ENMT: Denies: throat pain, enlarged tonsils, odynophagia, hoarseness, mouth pain or swelling of lips/tongue Card: Denies: palpitations, irregular heart rhythm, edema or swelling of feet/ankles Resp: Denies: dyspnea, productive cough or non-productive cough GI: Denies: abdominal pain, nausea or vomiting : Denies: flank pain, difficulty voiding, dysuria, urinary frequency, urinary urgency or urinary hesitancy Musc: Denies: neck pain, back pain or extremity swelling Skin/Breast: Denies: rash, pruritus or erythema Neuro: Denies: headache(s), numbness in extremities or weakness in extremities Psych: Reports: anxiety Endo: Denies: polyuria, polydipsia or tired all the time PFS ED PFSH: Medical History Hidradenitis HTN (hypertension) Seizures Surgical History History of hysterectomy Physical Exam Const: COMMON NORMALS: no acute distress, average body habitus, patient oriented x3, no limitations, healthy appearing, alert and well nourished HENMT: COMMON NORMALS: normocephalic, atraumatic and moist oral mucous membranes HEAD & SCALP: normocephalic and atraumatic Neck/C-Spine: COMMON NORMALS: no meningeal signs and no JVD Resp: COMMON NORMALS: normal respiratory effort, No retractions, No use of accessory muscles, clear to auscultation bilaterally and percussion normal AUSCULTATION: clear to auscultation bilaterally PERCUSSION: percussion normal Cardio: COMMON NORMALS: no JVD, regular rate, regular rhythm, S1 normal heart sound present, S2 normal heart sound present, No gallops present (Cardio), No clicks present (Cardio), No murmurs present (Cardio), No rub (Cardio) and Peripheral pulses 2+ throughout RATE: regular rate RHYTHM: regular rhythm HEART SOUNDS: S1 normal heart sound present and S2 normal heart sound present PERIPHERAL PULSES: Peripheral pulses 2+ throughout GI: COMMON NORMALS: Normal to inspection, nondistended, normoactive bowel sounds present, Soft to palpation, non-tender, No hepatosplenomegaly present, no masses and no bruits PALPATION: Yes Soft to palpation and Yes No hepatosplenomegaly present Extremity: COMMON NORMALS: normal to inspection, full ROM, capillary refill normal, no calf tenderness and no pedal edema Neuro: COMMON NORMALS: patient oriented x3 SENSORIUM/ORIENTATION: Yes alert MENINGEAL SIGNS: Yes no meningeal signs Psych: COMMON NORMALS: mental status grossly normal and Normal thought process present MOOD & AFFECT: Yes tearful (she is crying throughout her visit) THOUGHT PROCESS: Normal thought process present Skin: COMMON NORMALS: no rashes or lesions noted, no wounds, turgor normal, no jaundice, no petechiae and no mottling GENERAL SKIN EXAM: no rashes or lesions noted and turgor normal Course Reevaluation(s): Reevaluation #1: Discussed her labs with her. Negative for acute findings. Her potassium is normal. We will discharge her home with a prescription for Librium and she understands that she is to taper it. She promises to pick it up today. Her boyfriend is with her and he appears to be quite supportive. She is in agreement with the plan. Time: 16:45 Vital Signs: Vital signs: Vital Signs Temperature 98.6 F 06/14/20 14:24 Pulse Rate 90 06/14/20 17:37 Respiratory Rate 18 06/14/20 17:37 Blood Pressure 125/75 06/14/20 17:37 Pulse Oximetry 97 06/14/20 17:37 MDM - Recheck/Abnormal Lab/Rx MDM Narrative: Medical decision making narrative: 44-year-old female patient who is a known alcoholic and who is trying to get off alcohol. She had been on Librium in the past and was given a prescription for the same about a month ago but was not able to fill it due to logistic reasons and when she eventually tried to fill it yesterday the prescription had not printed out correctly. Because she was going into withdrawal she drank some alcohol to prevent that. She therefore came here for a refill of the Librium. She has a history of hypokalemia but her potassium today was normal. Evaluation was unremarkable and she has discharged home with a prescription for Librium. She was strongly counseled on the dangers of continued alcohol use and its detrimental effect on her health. She promised to be compliant with the Librium and to taper as instructed. Medical Records: Attestation: I reviewed the patient's medical records. Lab Data: Attestation: I reviewed the patient's lab results. Labs: Lab Results 06/14/20 06/14/20 06/14/20 Range/Units 15:37 15:37 15:37 WBC 9.5 (4.0-10.0) 10^3/ uL RBC 4.41 (4.1-5.3) 10^6/u L Hgb 14.0 (11.5-15.3) g/dL Hct 41.8 (37.0-47.0) % MCV 94.8 (81-99) fL MCH 31.7 (28.0-34.0) pg MCHC 33.5 (30.0-36.0) g/dL RDW 13.7 (12.1-15.1) % Plt Count 272 (130-400) 10^3/c mm MPV 9.9 (7.4-10.4) fL Neut % (Auto) 35.2 % Lymph % (Auto) 45.3 % [place] % (Auto) 9.3 % Eos % (Auto) 8.9 % Baso % (Auto) 1.0 % Neut # (Auto) 3.35 (1.8-7.7) 10^3/u L Lymph # (Auto) 4.3 (0.8-4.8) 10^3/u L [place] # (Auto) 0.9 (0.2-0.9) 10^3/u L Eos # (Auto) 0.9 H (0.0-0.8) 10^3/u L Baso # (Auto) 0.1 (0.0-0.1) 10^3/u L Nucleated RBC % (a uto) 0 % Nucleated RBCs # 0.0 /100WBC Sodium 139 (136-145) mmol/L Potassium 3.9 (3.5-5.1) mmol/L Chloride 103 (98-107) mmol/L Carbon Dioxide 26 (22-29) mmol/L Anion Gap 13.9 (5-19) BUN 11 (6-20) mg/dL Creatinine 0.7 (0.5-0.9) mg/dL GFR Calculation 90.5 (90-130) mL/min Glucose 89 (65-115) mg/dL Calculated Osmolal ity 287 (285-295) mOsm/k g Calcium 8.9 (8.5-10.5) mg/dL Magnesium 1.8 (1.7-2.3) mg/dL Total Bilirubin 0.2 (0.15-1.2) mg/dL AST 39 H (0-32) U/L ALT 26 (0-33) U/L Alkaline Phosphata se 73 (35-105) IU/L Creatine Kinase 59 (26-192) U/L C-Reactive Protein 0.8 (0.0-4.9) mg/L Total Protein 6.5 L (6.6-8.7) g/dL Albumin 4.0 (3.5-5.2) g/dL Globulin 2.5 (1.3-4.6) g/dL Lipase 30 (13-60) U/L HCG, Qual Negative (Negative) Urine Color (Yellow) Urine Appearance (CLEAR) Urine pH (5-7) Ur Specific Gravit y (1.005-1.030) Urine Protein (Negative) Urine Glucose (UA) (Normal) Urine Ketones (Negative) Urine Blood (Negative) Urine Nitrate (Negative) Urine Bilirubin (Negative) Urine Urobilinogen (Negative) mg/dL Ur Leukocyte Laila ase (Negative) 06/14/20 Range/Units 15:37 WBC (4.0-10.0) 10^3/ uL RBC (4.1-5.3) 10^6/u L Hgb (11.5-15.3) g/dL Hct (37.0-47.0) % MCV (81-99) fL MCH (28.0-34.0) pg MCHC (30.0-36.0) g/dL RDW (12.1-15.1) % Plt Count (130-400) 10^3/c mm MPV (7.4-10.4) fL Neut % (Auto) % Lymph % (Auto) % [place] % (Auto) % Eos % (Auto) % Baso % (Auto) % Neut # (Auto) (1.8-7.7) 10^3/u L Lymph # (Auto) (0.8-4.8) 10^3/u L [place] # (Auto) (0.2-0.9) 10^3/u L Eos # (Auto) (0.0-0.8) 10^3/u L Baso # (Auto) (0.0-0.1) 10^3/u L Nucleated RBC % (a uto) % Nucleated RBCs # /100WBC Sodium (136-145) mmol/L Potassium (3.5-5.1) mmol/L Chloride (98-107) mmol/L Carbon Dioxide (22-29) mmol/L Anion Gap (5-19) BUN (6-20) mg/dL Creatinine (0.5-0.9) mg/dL GFR Calculation (90-130) mL/min Glucose (65-115) mg/dL Calculated Osmolal ity (285-295) mOsm/k g Calcium (8.5-10.5) mg/dL Magnesium (1.7-2.3) mg/dL Total Bilirubin (0.15-1.2) mg/dL AST (0-32) U/L ALT (0-33) U/L Alkaline Phosphata se (35-105) IU/L Creatine Kinase (26-192) U/L C-Reactive Protein (0.0-4.9) mg/L Total Protein (6.6-8.7) g/dL Albumin (3.5-5.2) g/dL Globulin (1.3-4.6) g/dL Lipase (13-60) U/L HCG, Qual (Negative) Urine Color Straw (Yellow) Urine Appearance Clear (CLEAR) Urine pH 7.0 (5-7) Ur Specific Gravit y 1.005 (1.005-1.030) Urine Protein Neg (Negative) Urine Glucose (UA) Norm (Normal) Urine Ketones Negative (Negative) Urine Blood Neg (Negative) Urine Nitrate Negative (Negative) Urine Bilirubin Neg (Negative) Urine Urobilinogen Norm (Negative) mg/dL Ur Leukocyte Laila ase Negative (Negative) Discharge Plan Discharge Patient Disposition: Home Clinical Impression: Alcohol withdrawal Qualifiers: Complication of substance-induced condition: uncomplicated Qualified Code(s): F10.230 - Alcohol dependence with withdrawal, uncomplicated Condition: Stable Prescriptions: New chlordiazepoxide HCl 25 mg capsule 50 mg PO Q4H PRN (Reason: alcohol withdrawal) Qty: 30 RF: 0 Continued (DME) cock up wrist splint See Rx Instructions .Route .MEDSUPPLY Qty: 1 RF: 0 (DME) Air cast Air-stirrup ankle brace See Rx Instructions .Route .MEDSUPPLY Qty: 1 RF: 0 hydroxyzine HCl 25 mg tablet 50 mg PO TID PRN (Reason: anxiety) Qty: 30 RF: 0 lisinopril 20 mg tablet 20 mg PO DAILY@0800 RF: 0 ibuprofen 200 mg Tablet 600 - 800 mg PO Q6H PRN (Reason: Pain) RF: 0 Discontinued chlordiazepoxide HCl 25 mg capsule 50 mg PO Q4H PRN (Reason: alcohol withdrawal) Qty: 30 RF: 0 Discharge Orders: Discharge ED (Routine); Ordered 06/14/20 Ordered By: Isabella Wise Discharge Diet: Usual diet Discharge Activity: Resume usual activity Patient Instructions: Alcohol Withdrawal (ED) Activity Restrictions/Additional Instructions: Return for any new or worsening symptoms. Follow-up with your primary care provider within 3 days. Use the medication as prescribed but gradually reduce the dose of the medication every 2 days. Start by taking it every 4 hours as needed, then every 6 hours as needed, and then every 12 hours, then 1 tablet every 12 hours until you can quit. It is important that you do not resume alcohol as of you take alcohol with this medication you may and the long-term effects of alcohol abuse on your health could be pretty devastating. Coding Level of Care Code ED Sales Support Administrator for [facility]iah Fwd Exam Comprehensive
[2020-06-14 16:30] VITALS: BP 148/91; PULSE 93; RESP 18; O2SAT 90
[2020-06-14] MEDS: ondansetron 2 mg/ML SDV 2 mL 4 MG IVP (16:32)
[2020-06-14 17:30] VITALS: BP 97/48; PULSE 96; RESP 20; O2SAT 94
[2020-06-14 17:37] VITALS: BP 125/75; PULSE 90; RESP 18; O2SAT 97
== END 2020-06-14 17:53 | disposition home or self-care (01) ==
PROVIDERS: Emergency Provider Family Medicine
DX: F10.230 Alcohol dependence with withdrawal, uncomplicated (principal); I10 Essential (primary) hypertension
CPT/HCPCS: 12345; 80053; 81003; 81025; 82550; 83690; 83735; 85025; 86140; 96361; 96374; 96375; 99282; 99283; J2405; J3411; J3490; J7030

== ENCOUNTER 2020-06-15 19:48 | Emergency (ER) | payer SELFPAY ==
[2020-06-15 20:01] VITALS: BP 158/112; PULSE 95; RESP 22; TEMP 37.1; O2SAT 95; BMI 25.7
--- NOTE | 2020-06-15 20:08 | CTR_ITS ---
PROCEDURE INFORMATION: Exam: CT Abdomen And Pelvis With Contrast Exam date and time: 06/15/2020 8:14 PM Age: 44 years old Clinical indication: Abdominal pain; Localized; Right lower quadrant (rlq); Patient HX: Rlq pain this p. M. TECHNIQUE: Imaging protocol: Computed tomography of the abdomen and pelvis with intravenous contrast. Radiation optimization: All CT scans at this facility use at least one of these dose optimization techniques: automated exposure control; mA and/or kV adjustment per patient size (includes targeted exams where dose is matched to clinical indication); or iterative reconstruction. Contrast material: OMNI 300; Contrast volume: 95 ml; Contrast route: INTRAVENOUS (IV); COMPARISON: CR Pelvis AP 1 or 2 views* [id number] 08/16/2017 5:42 PM RADIATION DOSE METRICS: Total DLP (mGy-cm): 648.92 FINDINGS: Mediastinal space: A small hiatal hernia is present. Liver: There is a diffuse decrease in hepatic parenchymal density, consistent with fatty infiltration. Gallbladder and bile ducts: Normal. No calcified stones. No ductal dilation. Pancreas: Normal. No ductal dilation. Spleen: Normal. No splenomegaly. Adrenal glands: Normal. No mass. Kidneys and ureters: There is no evidence of hydronephrosis. There is no evidence of renal calcifications. Stomach and bowel: There is diffuse small bowel wall thickening, consistent with infectious, ischemic, or inflammatory enteritis. There is wall thickening of the cecum and ascending colon with haziness of the adjacent fat compatible with colitis. Appendix: A normal appendix is identified. Intraperitoneal space: Unremarkable. No free air. No significant fluid collection. Vasculature: The aorta demonstrates mild atherosclerotic calcification. Lymph nodes: Unremarkable.No enlarged lymph nodes. Urinary bladder: There is nonspecific bladder wall thickening. This may be related to incomplete distention. Reproductive: There has been a hysterectomy. There are 2 [id number] left ovarian cysts with a combined measurement of 3.8 x 3.6 cm in size. The right ovary is not visualized. The right adnexa is unremarkable. Bones/joints: There are moderate to severe degenerative changes in the lower lumbar spine. No acute bony abnormality. Soft tissues: Unremarkable. CT/CT abdomen pelvis w con* [id number] IMPRESSION: 1. There is diffuse small bowel wall thickening, consistent with infectious, ischemic, or inflammatory enteritis. 2. There is wall thickening of the cecum and ascending colon with haziness of the adjacent fat compatible with colitis. Radiation Dose CTDIVOL = (mGy): DLP = 648.92 (mGy-cm)
--- NOTE | 2020-06-15 20:08 | W.ED.ABDPA2 ---
HPI - Abdominal Pain General: Chief Complaint: Abdominal Pain Stated Complaint: lower rt abdominal pain Time Seen by Provider: 06/15/20 19:59 History of Present Illness: HPI narrative: Patient arrives with complain about right lower quadrant pain been going on for day. Patient is tearful. Patient's been dry for the last couple weeks 7 to the last 2 days when she said that she encountered her ex- and she started drinking again because they got into an argument. She denies fever chills bowel or bladder problems MD elicited complaint: abdominal pain Pertinent past history: other (Alcoholism) Onset (ago): day(s) Pain Consistency: constant Location: RLQ Severity: moderate Quality: stabbing and aching Radiation: none Migration to: no migration Relieving factors: nothing Associated Symptoms: Reports no associated symptoms; Denies chills, fever(s), nausea and vomiting Review of Systems Const: Denies: fever(s), chills or body aches Eyes: Denies: change in vision or blurry vision ENMT: Denies: throat pain or nasal congestion Card: Denies: chest pain or dyspnea on exertion Resp: Denies: dyspnea, productive cough or non-productive cough GI: Reports: abdominal pain (Since yesterday worse today); Denies: nausea or vomiting Musc: Denies: extremity pain Skin/Breast: Denies: rash Neuro: Denies: headache(s) Psych: Denies: anxiety or depression Vlad/Lymph: Denies: easy bruising PFSH ED PFSH: Medical History (Reviewed 06/14/20 @ 16:37 by Isabella Wise MD, [facility] [place]) Hidradenitis HTN (hypertension) Seizures Surgical History (Reviewed 06/14/20 @ 16:37 by Isabella Wise MD, [facility] [place]) History of hysterectomy Physical Exam Const: COMMON NORMALS: no acute distress, average body habitus and patient oriented x3 HENMT: COMMON NORMALS: normocephalic HEAD & SCALP: normal to inspection and normocephalic FACE & SINUS: normal facial exam Eye: COMMON NORMALS: conjunctivae normal GENERAL EYE: appearance normal, both eyes and all related structures CONJUNCTIVA: Yes conjunctivae normal Neck/C-Spine: COMMON NORMALS: no JVD Chest: COMMONS NORMALS: normal inspection of the chest Resp: COMMON NORMALS: normal respiratory effort and clear to auscultation bilaterally AUSCULTATION: clear to auscultation bilaterally Cardio: COMMON NORMALS: no JVD, regular rate and regular rhythm RATE: regular rate RHYTHM: regular rhythm GI: COMMON NORMALS: Normal to inspection, nondistended, normoactive bowel sounds present PALPATION: Yes Tenderness to palpation present (GI) Details: RLQ and RUQ Extremity: COMMON NORMALS: normal to inspection and full ROM Neuro: COMMON NORMALS: patient oriented x3 Course Vital Signs: Vital signs: Vital Signs Temperature 98.7 F 06/15/20 20:01 Pulse Rate 83 06/15/20 20:52 Respiratory Rate 22 H 06/15/20 20:01 Blood Pressure 158/112 06/15/20 20:01 Pulse Oximetry 96 06/15/20 20:52 MDM - Abdominal Pain MDM Narrative: Medical decision making narrative: Discussed case with Dr. Wise. Patient states he is unable to provide us a stool sample said she is had diarrhea approximately week ago but had normal bowel movement since then. Lab Data: Labs: Lab Results 06/15/20 06/15/20 06/15/20 Range/Units 20:15 20:15 20:15 WBC 9.9 (4.0-10.0) 10^3/ uL RBC 4.33 (4.1-5.3) 10^6/u L Hgb 14.0 (11.5-15.3) g/dL Hct 40.4 (37.0-47.0) % MCV 93.3 (81-99) fL MCH 32.3 (28.0-34.0) pg MCHC 34.7 (30.0-36.0) g/dL RDW 13.3 (12.1-15.1) % Plt Count 249 (130-400) 10^3/c mm MPV 9.3 (7.4-10.4) fL Neut % (Auto) 38.7 % Lymph % (Auto) 43.8 % [place] % (Auto) 8.5 % Eos % (Auto) 7.8 % Baso % (Auto) 0.9 % Neut # (Auto) 3.84 (1.8-7.7) 10^3/u L Lymph # (Auto) 4.3 (0.8-4.8) 10^3/u L [place] # (Auto) 0.8 (0.2-0.9) 10^3/u L Eos # (Auto) 0.8 (0.0-0.8) 10^3/u L Baso # (Auto) 0.1 (0.0-0.1) 10^3/u L Nucleated RBC % (a uto) 0 % Nucleated RBCs # 0.0 /100WBC Sodium 141 (136-145) mmol/L Potassium 4.0 (3.5-5.1) mmol/L Chloride 104 (98-107) mmol/L Carbon Dioxide 27 (22-29) mmol/L Anion Gap 14.0 (5-19) BUN 12 (6-20) mg/dL Creatinine 0.7 (0.5-0.9) mg/dL GFR Calculation 90.5 (90-130) mL/min Glucose 102 (65-115) mg/dL Calculated Osmolal ity 292 (285-295) mOsm/k g Calcium 8.9 (8.5-10.5) mg/dL Total Bilirubin 0.2 (0.15-1.2) mg/dL AST 50 H (0-32) U/L ALT 27 (0-33) U/L Alkaline Phosphata se 78 (35-105) IU/L Total Protein 6.7 (6.6-8.7) g/dL Albumin 3.7 (3.5-5.2) g/dL Globulin 3.0 (1.3-4.6) g/dL Lipase 29 (13-60) U/L HCG, Qual Negative (Negative) Amorphous Sediment Ethyl Alcohol 251 H (0-10) mg/dL 06/15/20 Range/Units 21:04 WBC (4.0-10.0) 10^3/ uL RBC (4.1-5.3) 10^6/u L Hgb (11.5-15.3) g/dL Hct (37.0-47.0) % MCV (81-99) fL MCH (28.0-34.0) pg MCHC (30.0-36.0) g/dL RDW (12.1-15.1) % Plt Count (130-400) 10^3/c mm MPV (7.4-10.4) fL Neut % (Auto) % Lymph % (Auto) % [place] % (Auto) % Eos % (Auto) % Baso % (Auto) % Neut # (Auto) (1.8-7.7) 10^3/u L Lymph # (Auto) (0.8-4.8) 10^3/u L [place] # (Auto) (0.2-0.9) 10^3/u L Eos # (Auto) (0.0-0.8) 10^3/u L Baso # (Auto) (0.0-0.1) 10^3/u L Nucleated RBC % (a uto) % Nucleated RBCs # /100WBC Sodium (136-145) mmol/L Potassium (3.5-5.1) mmol/L Chloride (98-107) mmol/L Carbon Dioxide (22-29) mmol/L Anion Gap (5-19) BUN (6-20) mg/dL Creatinine (0.5-0.9) mg/dL GFR Calculation (90-130) mL/min Glucose (65-115) mg/dL Calculated Osmolal ity (285-295) mOsm/k g Calcium (8.5-10.5) mg/dL Total Bilirubin (0.15-1.2) mg/dL AST (0-32) U/L ALT (0-33) U/L Alkaline Phosphata se (35-105) IU/L Total Protein (6.6-8.7) g/dL Albumin (3.5-5.2) g/dL Globulin (1.3-4.6) g/dL Lipase (13-60) U/L HCG, Qual (Negative) Amorphous Sediment Not Reportable Ethyl Alcohol (0-10) mg/dL Discharge Plan Discharge Prescriptions: No Action (DME) cock up wrist splint See Rx Instructions .Route .MEDSUPPLY Qty: 1 RF: 0 (DME) Air cast Air-stirrup ankle brace See Rx Instructions .Route .MEDSUPPLY Qty: 1 RF: 0 lisinopril 20 mg tablet 20 mg PO DAILY@0800 RF: 0 chlordiazepoxide HCl 25 mg capsule 50 mg PO Q4H PRN (Reason: alcohol withdrawal) Qty: 30 RF: 0 hydroxyzine HCl 25 mg tablet 25 - 50 mg PO TID PRN (Reason: anxiety) RF: 0 ibuprofen 200 mg Tablet 600 - 800 mg PO PRN RF: 0 Coding Level of Care Code ED Octave Board Assembler for Chg Fwd Exam Comprehensive
[2020-06-15] MEDS: iohexol 300 mg/mL 100 mL Btl IV (20:21)
[2020-06-15 20:25] LABS: Basophils # 0.1 10^3/uL (0.0-0.1); Basophils % 0.9 %; Eosinophils # 0.8 10^3/uL (0.0-0.8); Eosinophils % 7.8 %; Hematocrit 40.4 % (37.0-47.0); Lymphocytes # 4.3 10^3/uL (0.8-4.8); Lymphocytes % 43.8 %; Mean Corpuscular HGB Conc 34.7 g/dL (30.0-36.0); Mean Corpuscular Hemoglobin 32.3 pg (28.0-34.0); Mean Corpuscular Volume 93.3 fL (81-99); Mean Platelet Volume 9.3 fL (7.4-10.4); Monocytes # 0.8 10^3/uL (0.2-0.9); Monocytes % 8.5 %; Neutrophils # 3.84 10^3/uL (1.8-7.7); Neutrophils % 38.7 %; Nucleated Red Blood Cells % 0 %; Platelet Count 249 10^3/cmm (130-400); Red Blood Count 4.33 10^6/uL (4.1-5.3); Red Cell Distribution Width 13.3 % (12.1-15.1); White Blood Count 9.9 10^3/uL (4.0-10.0)
[2020-06-15] MEDS: sodium chloride 0.9% 1,000 ML 999 ML IV (20:37)
[2020-06-15] MEDS: LORazepam 2 mg/mL INJ 1 mL IVP (20:37)
[2020-06-15 20:43] LABS: HCG, Serum Qual Negative (Negative)
[2020-06-15 20:48] LABS: Alanine Aminotransferase 27 U/L (0-33); Albumin Level 3.7 g/dL (3.5-5.2); Alcohol Level 251 mg/dL (0-10); Alkaline Phosphatase 78 IU/L (35-105); Aspartate Amino Transferase 50 U/L (0-32); Blood Urea Nitrogen 12 mg/dL (6-20); Calcium 8.9 mg/dL (8.5-10.5); Carbon Dioxide 27 mmol/L (22-29); Chloride 104 mmol/L (98-107); Glomerular Filtration Rate 90.5 mL/min (90-130); Glucose 102 mg/dL (65-115); Lipase 29 U/L (13-60); Osmolality Calculated 292 mOsm/kg (285-295); Sodium 141 mmol/L (136-145); Total Bilirubin 0.2 mg/dL (0.15-1.2); Total Protein 6.7 g/dL (6.6-8.7)
[2020-06-15] MEDS: ondansetron 2 mg/ML SDV 2 mL 8 MG IVP (20:49)
[2020-06-15 20:52] VITALS: PULSE 83; O2SAT 96
[2020-06-15 21:29] VITALS: BP 144/92; PULSE 93; O2SAT 95
[2020-06-15 21:29] LABS: Bilirubin Urine Neg (Negative); Blood Urine Neg (Negative); Glucose Urine UA Norm (Normal); Ketones Urine Negative (Negative); Leukocyte Esterase Urine Negative (Negative); Nitrate Urine Negative (Negative); Protein Urine Neg (Negative); RBC Urine 0-4 /hpf (0-2); Squamous Epithelial Cell Urine 0-4 /hpf (0-5); Sulfosalicylic Acid Urine Negative (Negative); Urine Appearance Clear (CLEAR); Urine Color Yellow (Yellow); Urobilinogen Urine Norm (Negative); WBC Urine 0-4 /hpf (0-5); pH Urine 8 (5-7)
[2020-06-15 21:30] LABS: Add Urine Culture? No; Bacteria Urine TRACE /hpf
[2020-06-15 21:37] LABS: Lactate (Lactic Acid level) 1.3 mmol/L (0.5-2.2)
[2020-06-15 21:48] VITALS: PULSE 88; O2SAT 96
== END 2020-06-15 21:49 | disposition home or self-care (01) ==
PROVIDERS: Emergency Medicine; Emergency Provider Nurse Practitioner Family
DX: R10.9 Unspecified abdominal pain (principal); I10 Essential (primary) hypertension
CPT/HCPCS: 12345; 74177; 80053; 80307; 81001; 83605; 83690; 84703; 85025; 96361; 96374; 96375; 99283; J2060; J2405; J7030; Q9967

== ENCOUNTER 2020-06-16 15:02 | Emergency (ER) | payer SELFPAY ==
[2020-06-16 15:06] VITALS: BP 151/95; PULSE 103; RESP 18; TEMP 36.6; O2SAT 97; BMI 25.7
[2020-06-16 15:10] VITALS: BP 157/97; PULSE 98; RESP 18; O2SAT 105
--- NOTE | 2020-06-16 15:17 | XRR_ITS ---
PROCEDURE INFORMATION: Exam: XR Left Ankle Exam date and time: 06/16/2020 3:20 PM Age: 44 years old Clinical indication: Injury or trauma; Fall; Blunt trauma; Ankle; Left TECHNIQUE: Imaging protocol: XR Left ankle. Views: 3 or more views. COMPARISON: No relevant prior studies available. FINDINGS: Bones/joints: Tiny calcification adjacent to the fibula is noted compatible with age indeterminate avulsion fracture fragment. The talar dome is smooth. There is no osteochondral defect. The ankle mortise is intact. No additional acute fracture. No dislocation. Soft tissues: There is lateral soft tissue edema. No foreign body. XR/XR ankle LT min 3V* [id number] IMPRESSION: There is soft tissue edema with age-indeterminate tiny avulsion fracture of the tip of the fibula.
[2020-06-16 15:19] VITALS: PULSE 107
--- NOTE | 2020-06-16 15:24 | ED_ITS ---
HPI - Extremity Problem General: Chief complaint: Extremity Injury, Lower Stated complaint: LLE INJURY Time Seen by Provider: 06/16/20 15:17 Source: patient Mode of arrival: ambulatory Limitations: no limitations History of Present Illness: HPI Narrative: 44-year-old female comes in with injury to the left lower extremity. Patient reports stepping off the porch and misjudging it causing her to twist her left ankle. Patient states that she felt a pop and became real nauseated. Patient appears well. Patient reports pain to the lateral side of the ankle. No obvious deformity is noted. Some mild swelling is noted to the lateral ankle. Complaint: extremity pain Review of Systems General: Reports: 10 or more systems reviewed and unremarkable except in HPI and below Musc: Reports: other [facility] ED PFSH: Medical History Hidradenitis HTN (hypertension) Seizures Surgical History History of hysterectomy Physical Exam Const: COMMON NORMALS: no acute distress and patient oriented x3 GENERAL APPEARANCE: cooperative HENMT: COMMON NORMALS: normocephalic and Normal external nose present HEAD & SCALP: normal to inspection and normocephalic NOSE: Normal external nose present MOUTH: Normal oral and palatal mucosa present Eye: GENERAL EYE: appearance normal, both eyes and all related structures Neck/C-Spine: COMMON NORMALS: full ROM Chest: COMMONS NORMALS: normal inspection of the chest Resp: COMMON NORMALS: normal respiratory effort EFFORT & INSPECTION: Yes able to speak in complete sentences Cardio: COMMON NORMALS: regular rate and regular rhythm RATE: regular rate RHYTHM: regular rhythm GI: COMMON NORMALS: non-tender Back/Pelvis: COMMON NORMALS: thoracic and lumbar spine normal to inspection Extremity: NARRATIVE EXTREMITY EXAM: Swelling and tenderness is noted to the posterior lateral left ankle. Pulses are intact to the dorsal pedis and tibia. No obvious deformity is noted. Neuro: COMMON NORMALS: patient oriented x3 and moves all extremities Psych: COMMON NORMALS: mental status grossly normal and cooperative Skin: COMMON NORMALS: no rashes or lesions noted GENERAL SKIN EXAM: no rashes or lesions noted Course Vital Signs: Vital signs: Vital Signs Temperature 97.9 F 06/16/20 15:06 Pulse Rate 107 H 06/16/20 15:19 Respiratory Rate 18 06/16/20 15:10 Blood Pressure 157/97 06/16/20 15:10 Pulse Oximetry 105 H 06/16/20 15:10 MDM - Extremity (Nontraumatic) MDM Narrative: Medical decision making narrative: 44-year-old female comes in with injury to the left ankle to be evaluated. On exam there is some tenderness and swelling to the left lateral ankle. Pulses are intact. No obvious deformity. Differential diagnosis includes fracture, sprain, contusion. X-ray noted no fractures. Exam noted only tenderness to the distal fibula area. Reviewed exam with patient recommended limit activity, use crutches, Jose Ramon wrap. Patient reported understanding agreed to plan. Discharge Plan Discharge Patient Disposition: Home Clinical Impression: Ankle sprain and strain Condition: Stable Prescriptions: No Action (DME) cock up wrist splint See Rx Instructions .Route .MEDSUPPLY Qty: 1 RF: 0 (DME) Air cast Air-stirrup ankle brace See Rx Instructions .Route .MEDSUPPLY Qty: 1 RF: 0 lisinopril 20 mg tablet 20 mg PO DAILY@0800 RF: 0 chlordiazepoxide HCl 25 mg capsule 50 mg PO Q4H PRN (Reason: alcohol withdrawal) Qty: 30 RF: 0 hydroxyzine HCl 25 mg tablet 25 - 50 mg PO TID PRN (Reason: anxiety) RF: 0 Zofran 4 mg tablet 4 mg PO TID PRN (Reason: nausea and vomiting) 3 Days Qty: 10 RF: 0 ibuprofen 200 mg Tablet 600 - 800 mg PO PRN RF: 0 Discharge Orders: Discharge ED (Routine); Ordered 06/16/20 Ordered By: Edilson Dickens Discharge Diet: Usual diet Discharge Activity: Use walker/crutches as instructed Patient Instructions: Ankle Sprain (ED) Activity Restrictions/Additional Instructions: Activity as tolerated. Use Jose Ramon wrap for comfort. Use crutches until he can bear weight comfortably. Use acetaminophen and ibuprofen for pain. Follow-up with primary care for further treatment. Return to the emergency department for new concerns. Coding Level of Care Code ED Quality Engineer Medical Device for Isiah Fwharman Exam Comprehensive
[2020-06-16] MEDS: ibuprofen 800 mg tablet PO (15:29)
[2020-06-16 16:05] VITALS: BP 153/105; PULSE 104; RESP 18; TEMP 36.6; O2SAT 96
== END 2020-06-16 16:12 | disposition home or self-care (01) ==
PROVIDERS: Emergency Provider Nurse Practitioner Family
DX: S93.402A Sprain of unspecified ligament of left ankle, initial encounter (principal); S96.912A Strain of unspecified muscle and tendon at ankle and foot level, left foot, initial encounter; I10 Essential (primary) hypertension; X50.1XXA Overexertion from prolonged static or awkward postures, initial encounter
CPT/HCPCS: 12345; 73610; 99281; 99283

== ENCOUNTER 2020-11-11 11:20 | Emergency (ER) | payer SELFPAY ==
[2020-11-11] VITALS (7 sets, daily range): BP systolic 125–174; BP diastolic 70–111; PULSE 59–93; RESP 15–23; TEMP 36.9–37; O2SAT 93–98; BMI 25.2
--- NOTE | 2020-11-11 11:38 | XRR_ITS ---
PROCEDURE INFORMATION: Exam: XR Chest Exam date and time: 11/11/2020 12:00 PM Age: 45 years old Clinical indication: Pain; Chest pressure; Additional info: Cp TECHNIQUE: Imaging protocol: XR of the chest. Views: 1 view. COMPARISON: CR XR chest 1V portable [id number] 05/18/2020 8:12 AM FINDINGS: Lungs: There is unchanged hyperinflation with mild reticular density in the lung bases compatible probable mild atelectasis versus mild fibrosis. No consolidation. Pulmonary vascularity is within normal limits. Pleural spaces: Unremarkable. No pleural effusion. No pneumothorax. Heart/Mediastinum: Borderline cardiomegaly. Bones/joints: No acute abnormality. XR/XR chest 1V portable [id number] IMPRESSION: No acute findings. Unchanged exam.
--- NOTE | 2020-11-11 11:38 | ECG_ITS ---
[facility] Test Date: 2020-11-11 Pat Name: Jaz Posada Department: Room: Gender: Female Manager Of Product: : 1975 Requested By: Isabella Wise I Order Number: [id number] Nellie MD: Bryon Fontanez M.D. Measurements Intervals [place] Rate: 74 P: 56 OR: 131 QRS: 68 QRSD: 83 T: 41 QT: 419 QTc: 466 Interpretive Statements SINUS RHYTHM POSSIBLE LEFT ATRIAL ENLARGEMENT [-0.1mV P WAVE IN V1/V2] Compared to ECG 05/21/2020 20:38:57 No significant changes Electronically Signed On 11-11-2020 20:45:57 CDT by Bryon Fontanez M.D. [id number]
--- NOTE | 2020-11-11 11:41 | ED_ITS ---
HPI - Chest Pain General: Chief Complaint: Chest Pain Stated Complaint: CP Time Seen by Provider: 11/11/20 11:26 Source: patient and family () Mode of arrival: ambulatory Limitations: no limitations History of Present Illness: HPI narrative: 45-year-old female patient with no cardiac history, but has a history of anxiety presents to the emergency department with complaints of chest pain of 1 weeks duration. She has an extensive family history of cardiac illness including her father. She smokes at least 1 pack of cigarettes a day and drinks a lot of alcohol but am unable to get how much she drinks. She states that she is trying to quit alcohol. Chest pain has been more in the epigastric region for the last week and has been constant, however today while they were driving about an hour ago the pain started radiating to her left shoulder and down her left upper extremity. She also has some associated numbness there. This worried her and so she decided to come to the emergency department to be evaluated. She denies any nausea, but has some dizziness. No diaphoresis. MD complaint: chest pain Onset (ago): week(s) (1) Timing of current episode: constant Prior episodes: No Onset: during rest Pain location: epigastric Pain radiation: left arm and left shoulder Severity: moderate Quality: heaviness Relieving factors: nothing Exacerbating factors: nothing Associated symptoms: Deny abdominal pain, diaphoresis, dyspnea, fever(s), leg edema, nausea, palpitations, sense of impending doom, syncope or vomiting Treatment prior to arrival: none Review of Systems General: Reports: 10 or more systems reviewed and unremarkable except in HPI and below Const: Denies: fever(s) or diaphoresis Card: Denies: palpitations or syncope Resp: Denies: dyspnea GI: Denies: abdominal pain, nausea or vomiting [facility] ED PFSH: Medical History (Reviewed 11/11/20 @ 11:45 by Isabella Wise MD, [facility] [place]) Hidradenitis HTN (hypertension) Seizures Surgical History (Reviewed 11/11/20 @ 11:45 by Isabella Wise MD, [facility] [place]) History of hysterectomy Physical Exam Const: COMMON NORMALS: no acute distress, average body habitus, patient oriented x3, no limitations, healthy appearing, alert and well nourished HENMT: COMMON NORMALS: normocephalic, atraumatic and moist oral mucous membranes HEAD & SCALP: normocephalic and atraumatic Neck/C-Spine: COMMON NORMALS: no meningeal signs and no JVD Chest: COMMONS NORMALS: normal inspection of the chest and normal palpation of entire chest wall Resp: COMMON NORMALS: normal respiratory effort, No retractions, No use of accessory muscles, clear to auscultation bilaterally and percussion normal AUSCULTATION: clear to auscultation bilaterally PERCUSSION: percussion normal Cardio: COMMON NORMALS: no JVD, regular rate, regular rhythm, S1 normal heart sound present, S2 normal heart sound present, No gallops present (Cardio), No clicks present (Cardio), No murmurs present (Cardio), No rub (Cardio) and Peripheral pulses 2+ throughout RATE: regular rate RHYTHM: regular rhythm HEART SOUNDS: S1 normal heart sound present and S2 normal heart sound present PERIPHERAL PULSES: Peripheral pulses 2+ throughout GI: COMMON NORMALS: Normal to inspection, nondistended, normoactive bowel sounds present, Soft to palpation, No hepatosplenomegaly present, no masses and no bruits PALPATION: Yes Soft to palpation, Yes Tenderness to palpation present (GI) (epigastric) and Yes No hepatosplenomegaly present Extremity: COMMON NORMALS: normal to inspection, full ROM, capillary refill normal, no calf tenderness and no pedal edema Neuro: COMMON NORMALS: patient oriented x3 SENSORIUM/ORIENTATION: Yes alert MENINGEAL SIGNS: Yes no meningeal signs Skin: COMMON NORMALS: no rashes or lesions noted, no wounds, turgor normal, no jaundice, no petechiae and no mottling GENERAL SKIN EXAM: no rashes or lesions noted and turgor normal Course Reevaluation(s): Reevaluation #1: Pain much improved following the GI cocktail. Discussed her lab and imaging findings with her. Negative high-sensi tivity troponin x2. Negative lipase, other tests and imaging negative. Will discharge her home and manage as a case of gastritis. She voiced understanding and is in agreement with the plan. Time: 15:18 Vital Signs: Vital signs: Vital Signs Temperature 98.4 F 11/11/20 15:36 Pulse Rate 76 11/11/20 15:36 Respiratory Rate 18 11/11/20 15:36 Blood Pressure 153/89 11/11/20 15:36 Pulse Oximetry 96 11/11/20 15:36 MDM - Chest Pain MDM Narrative: Medical decision making narrative: 45-year-old female patient presents with epigastric pain which he described as chest pain. Evaluation in the emergency department is consistent with alcoholic gastritis. She takes a significant amount of alcohol and has been having epigastric pain for about a week. GI cocktail relieved her pain. She is discharged home with a prescription for a PPI and sucralfate. Medical Records: Attestation: I reviewed the patient's medical records. Lab Data: Attestation: I reviewed the patient's lab results. Labs: Lab Results 11/11/20 11/11/20 11/11/20 Range/Units 12:03 12:03 12:03 WBC 7.4 (4.0-10.0) 10^3/ uL RBC 4.63 (4.1-5.3) 10^6/u L Hgb 14.9 (11.5-15.3) g/dL Hct 44.0 (37.0-47.0) % MCV 95.0 (81-99) fL MCH 32.2 (28.0-34.0) pg MCHC 33.9 (30.0-36.0) g/dL RDW 13.7 (12.1-15.1) % Plt Count 257 (130-400) 10^3/c mm MPV 10.1 (7.4-10.4) fL Neut % (Auto) 43.5 % Lymph % (Auto) 36.9 % [place] % (Auto) 11.5 % Eos % (Auto) 6.9 % Baso % (Auto) 1.1 % Neut # (Auto) 3.23 (1.8-7.7) 10^3/u L Lymph # (Auto) 2.7 (0.8-4.8) 10^3/u L [place] # (Auto) 0.9 (0.2-0.9) 10^3/u L Eos # (Auto) 0.5 (0.0-0.8) 10^3/u L Baso # (Auto) 0.1 (0.0-0.1) 10^3/u L Nucleated RBC % (a uto) 0 % Nucleated RBCs # 0.0 /100WBC Sodium 136 (136-145) mmol/L Potassium 3.4 L (3.5-5.1) mmol/L Chloride 101 (98-107) mmol/L Carbon Dioxide 27 (22-29) mmol/L Anion Gap 11.4 (5-19) BUN 18 (6-20) mg/dL Creatinine 0.5 (0.5-0.9) mg/dL GFR Calculation 132.8 H (90-130) mL/min Glucose 98 (65-115) mg/dL Calculated Osmolal ity 284 L (285-295) mOsm/k g Calcium 8.9 (8.5-10.5) mg/dL Total Bilirubin 0.4 (0.15-1.2) mg/dL AST 25 (0-32) U/L ALT 18 (0-33) U/L Alkaline Phosphata se 77 (35-105) IU/L Troponin T Baselin e 6 (0-10) ng/L Troponin T 120 Min [place] (0-10) ng/L Delta Troponin T (0-10) ABS# NT-Pro-B Natriuret Pep 194 H (0-125) pg/mL Total Protein 6.8 (6.6-8.7) g/dL Albumin 4.1 (3.5-5.2) g/dL Globulin 2.7 (1.3-4.6) g/dL Lipase 13 (13-60) U/L /16/ Range/Units 14:25 WBC (4.0-10.0) 10^3/ uL RBC (4.1-5.3) 10^6/u L Hgb (11.5-15.3) g/dL Hct (37.0-47.0) % MCV (81-99) fL MCH (28.0-34.0) pg MCHC (30.0-36.0) g/dL RDW (12.1-15.1) % Plt Count (130-400) 10^3/c mm MPV (7.4-10.4) fL Neut % (Auto) % Lymph % (Auto) % [place] % (Auto) % Eos % (Auto) % Baso % (Auto) % Neut # (Auto) (1.8-7.7) 10^3/u L Lymph # (Auto) (0.8-4.8) 10^3/u L [place] # (Auto) (0.2-0.9) 10^3/u L Eos # (Auto) (0.0-0.8) 10^3/u L Baso # (Auto) (0.0-0.1) 10^3/u L Nucleated RBC % (a uto) % Nucleated RBCs # /100WBC Sodium (136-145) mmol/L Potassium (3.5-5.1) mmol/L Chloride (98-107) mmol/L Carbon Dioxide (22-29) mmol/L Anion Gap (5-19) BUN (6-20) mg/dL Creatinine (0.5-0.9) mg/dL GFR Calculation (90-130) mL/min Glucose (65-115) mg/dL Calculated Osmolal ity (285-295) mOsm/k g Calcium (8.5-10.5) mg/dL Total Bilirubin (0.15-1.2) mg/dL AST (0-32) U/L ALT (0-33) U/L Alkaline Phosphata se (35-105) IU/L Troponin T Baselin e (0-10) ng/L Troponin T 120 Min [place] 6.00 (0-10) ng/L Delta Troponin T 0 (0-10) ABS# NT-Pro-B Natriuret Pep (0-125) pg/mL Total Protein (6.6-8.7) g/dL Albumin (3.5-5.2) g/dL Globulin (1.3-4.6) g/dL Lipase (13-60) U/L Imaging Data^: CXR: Attestation: I personally reviewed and interpreted this imaging study as follows: Radiologist's impression: [address] [id number] ReportSigned Patient: Jaz Posada #: [id number]: 1975Acct#:[id number]/Sex: 45 / FADM Date: 11/11/20Loc: ERRoom/Bed:Attending Dr: Ordering Provider/Ordering MD: Isabella Wise MD, [facility] [place] Date of Service: 11/11/20 Procedure(s): XR chest 1V portable [id number] Accession Number(s): [id number] Report Number: [id number] PROCEDURE INFORMATION: Exam: XR Chest Exam date and time: 11/11/2020 12:00 PM Age: 45 years old Clinical indication: Pain; Chest pressure; Additional info: Cp TECHNIQUE: Imaging protocol: XR of the chest. Views: 1 view. COMPARISON: CR XR chest 1V portable [id number] 05/18/2020 8:12 AM FINDINGS: Lungs: There is unchanged hyperinflation with mild reticular density in the lung bases compatible probable mild atelectasis versus mild fibrosis. No consolidation. Pulmonary vascularity is within normal limits. Pleural spaces: Unremarkable. No pleural effusion. No pneumothorax. Heart/Mediastinum: Borderline cardiomegaly. Bones/joints: No acute abnormality. XR/XR chest 1V portable [id number] IMPRESSION: No acute findings. Unchanged exam. Dictated By:Roberta Bandaigned By:Matilda Banda Date/Time:11/11/20 1400DD/ 1359 EKG Data^: EKG 1: Attestation: I personally reviewed and interpreted this EKG as follows: EKG interpretation date: 11/11/20 EKG interpretation time: 11:30 Prior EKG tracings: not available for review Interpretation: Sinus tachycardia with occasional PVCs. Heart rate 103 bpm. Left atrial enlargement. No ST changes. EKG 2: Attestation: I personally reviewed and interpreted this EKG as follows: EKG interpretation date: 11/11/20 EKG interpretation time: 13:56 Prior EKG tracings: available for review Interpretation: Sinus bradycardia. Heart rate 57 bpm. Left atrial enlargement. No ST changes. Discharge Plan Discharge Patient Disposition: Home Clinical Impression: Gastritis Qualifiers: Gastritis type: alcoholic Chronicity: acute Gastritis bleeding: without bleeding Qualified Code(s): K29.20 - Alcoholic gastritis without bleeding Condition: Stable Prescriptions: New omeprazole 40 mg capsule,delayed release(DR/EC) 40 mg PO DAILY 28 Days RF: 0 sucralfate 1 gram tablet 1 g PO TID 28 Days Qty: 84 RF: 0 Discharge Orders: Discharge ED (Routine); Ordered 11/11/20 Ordered By: Isabella Wise Discharge Diet: As Directed Discharge Activity: Resume usual activity Patient Instructions: Gastritis (ED), Diet for Ulcers and Gastritis (ED) Activity Restrictions/Additional Instructions: Return for any new or worsening symptoms. Follow-up with your primary care provider within 3 days. Take your medications as prescribed. Coding Level of Care Code ED Cloth Winder for Aceg Fwd Exam Comprehensive
[2020-11-11] MEDS: lidocaine 2% viscous 15 ML, aluminum-mag hydrox-simethicon 30 ML, sucralfate oral liq 1 GM PO (11:53)
[2020-11-11] MEDS: aspirin 81 mg Chew Tablet 324 MG PO (11:53)
[2020-11-11] MEDS: nitroglycerin 1 gm/inch oint Pkt 0.5 INCH TOPICAL (11:53)
[2020-11-11 12:10] LABS: Basophils # 0.1 10^3/uL (0.0-0.1); Basophils % 1.1 %; Eosinophils # 0.5 10^3/uL (0.0-0.8); Eosinophils % 6.9 %; Hemoglobin 14.9 g/dL (11.5-15.3); Lymphocytes # 2.7 10^3/uL (0.8-4.8); Lymphocytes % 36.9 %; Mean Corpuscular HGB Conc 33.9 g/dL (30.0-36.0); Mean Corpuscular Hemoglobin 32.2 pg (28.0-34.0); Mean Platelet Volume 10.1 fL (7.4-10.4); Monocytes # 0.9 10^3/uL (0.2-0.9); Monocytes % 11.5 %; Neutrophils # 3.23 10^3/uL (1.8-7.7); Neutrophils % 43.5 %; Nucleated Red Blood Cells % 0 %; Platelet Count 257 10^3/cmm (130-400); Red Blood Count 4.63 10^6/uL (4.1-5.3); Red Cell Distribution Width 13.7 % (12.1-15.1); White Blood Count 7.4 10^3/uL (4.0-10.0)
[2020-11-11 12:31] LABS: Troponin(5th) Baseline 6 ng/L (0-10)
[2020-11-11 12:40] LABS: Alanine Aminotransferase 18 U/L (0-33); Albumin Level 4.1 g/dL (3.5-5.2); Alkaline Phosphatase 77 IU/L (35-105); Anion Gap 11.4 (5-19); Aspartate Amino Transferase 25 U/L (0-32); Blood Urea Nitrogen 18 mg/dL (6-20); Calcium 8.9 mg/dL (8.5-10.5); Carbon Dioxide 27 mmol/L (22-29); Chloride 101 mmol/L (98-107); Globulin 2.7 g/dL (1.3-4.6); Glomerular Filtration Rate 132.8 mL/min (90-130); Glucose 98 mg/dL (65-115); Lipase 13 U/L (13-60); NT Pro B Type Natriuretic Pept 194 pg/mL (0-125); Osmolality Calculated 284 mOsm/kg (285-295); Potassium 3.4 mmol/L (3.5-5.1); Sodium 136 mmol/L (136-145); Total Bilirubin 0.4 mg/dL (0.15-1.2); Total Protein 6.8 g/dL (6.6-8.7)
--- NOTE | 2020-11-11 13:38 | ECG_ITS ---
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 Measurements Intervals [place] Rate: 57 P: 46 WV: 150 QRS: 64 QRSD: 80 T: 47 QT: 479 QTc: 469 Interpretive Statements SINUS BRADYCARDIA POSSIBLE LEFT ATRIAL ENLARGEMENT [-0.1mV P WAVE IN V1/V2] PROLONGED QT INTERVAL Compared to ECG 11/11/2020 12:17:53 Prolonged QT interval now present Sinus rhythm no longer present Electronically Signed On 11-11-2020 20:52:01 CDT by Bryon Fontanez M.D. [email or web address]/[id number]
[2020-11-11 14:55] LABS: Troponin 5 2HR Delta 0 ABS# (0-10)
--- NOTE | 2020-11-11 17:38 | ECG_ITS ---
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 Measurements Intervals [place] Rate: 103 P: 59 ID: [id number] QRS: 57 QRSD: 79 T: 33 QT: 368 QTc: 483 Interpretive Statements SINUS TACHYCARDIA WITH OCCASIONAL VENTRICULAR PREMATURE COMPLEXES POSSIBLE LEFT ATRIAL ENLARGEMENT [-0.1mV P WAVE IN V1/V2] POSSIBLE LEFT VENTRICULAR HYPERTROPHY [VOLTAGE CRITERIA PLUS LAE OR QRS WIDENING] Compared to ECG 05/21/2020 20:38:57 Ventricular premature complex(es) now present Sinus rhythm no longer present Electronically Signed On 11-11-2020 20:50:40 CDT by Bryon Fontanez M.D. [email or web address]/[id number] f
== END 2020-11-11 15:44 | disposition home or self-care (01) ==
PROVIDERS: Emergency Provider Family Medicine
DX: K29.20 Alcoholic gastritis without bleeding (principal); I10 Essential (primary) hypertension
CPT/HCPCS: 36415; 71045; 80053; 83690; 83880; 84484; 85025; 93005; 99284

== ENCOUNTER 2021-01-28 00:57 | Emergency (ER) | payer MEDICAID, SELFPAY ==
[2021-01-28 01:07] VITALS: BP 155/90; PULSE 101; RESP 23; TEMP 36.6; O2SAT 96; BMI 26.6
[2021-01-28] MEDS: ondansetron 2 mg/ML SDV 2 mL 4 MG IVP (01:59)
[2021-01-28] MEDS: sodium chloride 0.9% 1,000 ML 999 ML IV (02:00)
[2021-01-28 02:20] VITALS: BP 181/121; PULSE 92; RESP 18; O2SAT 97
[2021-01-28 02:31] LABS: Basophils % 0.5 %; Eosinophils # 0.3 10^3/uL (0.0-0.8); Eosinophils % 3.6 %; Hematocrit 41.2 % (37.0-47.0); Hemoglobin 14.5 g/dL (11.5-15.3); Lymphocytes # 1.6 10^3/uL (0.8-4.8); Lymphocytes % 20.9 %; Mean Corpuscular HGB Conc 35.2 g/dL (30.0-36.0); Mean Corpuscular Hemoglobin 32.8 pg (28.0-34.0); Mean Corpuscular Volume 93.2 fL (81-99); Mean Platelet Volume 9.4 fL (7.4-10.4); Monocytes # 0.9 10^3/uL (0.2-0.9); Monocytes % 11.9 %; Neutrophils # 4.66 10^3/uL (1.8-7.7); Nucleated Red Blood Cells % 0 %; Platelet Count 259 10^3/cmm (130-400); Red Blood Count 4.42 10^6/uL (4.1-5.3); Red Cell Distribution Width 13.3 % (12.1-15.1); White Blood Count 7.4 10^3/uL (4.0-10.0)
[2021-01-28] MEDS: lidocaine 2% viscous 15 ML, aluminum-mag hydrox-simethicon 30 ML, sucralfate oral liq 1 GM PO (02:37)
[2021-01-28] MEDS: morphine 4 mg/mL SDV 1 mL IVP (02:41)
[2021-01-28] MEDS: metoprolol tartrate 1 mg/1 mL SDV 5 mL 5 MG IV (02:41)
[2021-01-28] MEDS: LORazepam 2 mg/mL INJ 1 mL 1.5 MG IVP (02:41)
[2021-01-28 02:43] LABS: Alanine Aminotransferase 22 U/L (0-33); Alcohol Level 121 mg/dL (0-10); Alkaline Phosphatase 95 IU/L (35-105); Anion Gap 14.3 (5-19); Aspartate Amino Transferase 48 U/L (0-32); Blood Urea Nitrogen 11 mg/dL (6-20); C Reactive Protein 0.3 mg/L (0.0-4.9); Calcium 8.5 mg/dL (8.5-10.5); Carbon Dioxide 23 mmol/L (22-29); Chloride 106 mmol/L (98-107); Globulin 2.6 g/dL (1.3-4.6); Glomerular Filtration Rate 107.6 mL/min (90-130); Glucose 109 mg/dL (65-115); Lipase 25 U/L (13-60); Magnesium 1.9 mg/dL (1.7-2.3); Osmolality Calculated 290 mOsm/kg (285-295); Potassium 3.3 mmol/L (3.5-5.1); Sodium 140 mmol/L (136-145); Total Bilirubin 0.3 mg/dL (0.15-1.2); Total Protein 6.6 g/dL (6.6-8.7)
[2021-01-28 03:18] LABS: Add Urine Microscopic? YES; Bilirubin Urine Neg (Negative); Blood Urine 2+ (Negative); Glucose Urine UA Norm (Normal); Ketones Urine Negative (Negative); Leukocyte Esterase Urine Negative (Negative); Nitrate Urine Negative (Negative); Protein Urine Neg (Negative); Urine Appearance Clear (CLEAR); Urine Color Yellow (Yellow); Urobilinogen Urine Norm (Negative); pH Urine 7 (5-7)
[2021-01-28 03:25] LABS: Amphetamines Screen Urine Negative (Negative); Barbiturates Screen Urine Negative (Negative); Benzodiazepines Screen Urine Negative (Negative); Cocaine Screen Urine Negative (Negative); Opiate Screen Urine Positive (Negative); PCP Screen Urine Negative (Negative); THC Screen Urine Positive (Negative)
[2021-01-28 03:29] LABS: Add Urine Culture? No; Amorphous Sediment Urine 1+ /hpf; Bacteria Urine TRACE /hpf; RBC Urine 0-4 /hpf (0-2); Squamous Epithelial Cell Urine 0-4 /hpf (0-5); WBC Urine 0-4 /hpf (0-5)
[2021-01-28 03:41] VITALS: BP 169/119; PULSE 90; RESP 18; O2SAT 97
[2021-01-28] MEDS: potassium chloride ER 20 mEq Tablet 40 MEQ PO (04:00)
[2021-01-28 04:05] VITALS: BP 156/117; PULSE 80; RESP 16; O2SAT 94
--- NOTE | 2021-01-28 04:06 | PC.NURSE ---
Pt resting, eyes closed, easily awakened. Significant other in room. Pt reports feeling much better now.
--- NOTE | 2021-01-28 04:48 | ED_ITS ---
HPI - Alcohol General: Chief Complaint: Alcohol Stated Complaint: Alchol Withdrawal Time Seen by Provider: 01/28/21 02:01 History of Present Illness: HPI narrative: 45-year-old female who states she usually drinks 10-15 shots of alcohol per day, stops drinking yesterday. Since that time she has begun to experience cramps in her legs, cramps in her belly, vomiting, nausea, and some shaking. She is trying to get off the alcohol. complaint: alcohol withdrawal and alcohol dependence Last drink: Hours (ago) Chronic alcohol use: Yes Previous visits for alcohol intoxication: Yes Recent trauma: No Associated symptoms: Reports abdominal pain, nausea and vomiting; Deny hematemesis, involuntary movements or suicidal ideation Treatments prior to arrival: none Review of Systems Const: Denies: fever(s) or chills Card: Denies: chest pain Resp: Denies: dyspnea or productive cough GI: Reports: abdominal pain, nausea and vomiting; Denies: hematemesis Neuro: Denies: involuntary movements Psych: Denies: suicidal ideation PFS ED PFSH: Medical History (Reviewed 11/11/20 @ 11:45 by Isabella Wise MD, [facility]) Hidradenitis HTN (hypertension) Seizures Surgical History (Reviewed 11/11/20 @ 11:45 by Isabella Wise MD, [facility]) History of hysterectomy Physical Exam Const: COMMON NORMALS: patient oriented x3 GENERAL APPEARANCE: cooperative and in distress Chest: COMMONS NORMALS: normal inspection of the chest Resp: COMMON NORMALS: normal respiratory effort, No use of accessory muscles and clear to auscultation bilaterally AUSCULTATION: clear to auscultation bilaterally Cardio: RATE: tachycardic GI: COMMON NORMALS: Normal to inspection, nondistended, normoactive bowel sounds present PALPATION: Yes Tenderness to palpation present (GI) (epigastric) Neuro: COMMON NORMALS: patient oriented x3 Course Vital Signs: Vital signs: Vital Signs Temperature 97.9 F 01/28/21 01:07 Pulse Rate 80 01/28/21 04:05 Respiratory Rate 16 01/28/21 04:05 Blood Pressure 156/117 01/28/21 04:05 Pulse Oximetry 94 01/28/21 04:05 MDM - Alcohol MDM Narrative: Medical decision making narrative: Hypokalemia repleted. Patient was given Ativan, and metoprolol for the hypertension which improved significantly. She will go home on metoprolol, check her blood pressure twice daily, and heart rate, and give if needed. She will take Librium and decreasing doses for alcohol withdrawal. She is nonsuicidal. Lab Data: Labs: Lab Results 01/28/21 01/28/21 01/28/21 Range/Units 01:30 01:30 03:00 WBC 7.4 (4.0-10.0) 10^3/ uL RBC 4.42 (4.1-5.3) 10^6/u L Hgb 14.5 (11.5-15.3) g/dL Hct 41.2 (37.0-47.0) % MCV 93.2 (81-99) fL MCH 32.8 (28.0-34.0) pg MCHC 35.2 (30.0-36.0) g/dL RDW 13.3 (12.1-15.1) % Plt Count 259 (130-400) 10^3/c mm MPV 9.4 (7.4-10.4) fL Neut % (Auto) 63.0 % Lymph % (Auto) 20.9 % [place] % (Auto) 11.9 % Eos % (Auto) 3.6 % Baso % (Auto) 0.5 % Neut # (Auto) 4.66 (1.8-7.7) 10^3/u L Lymph # (Auto) 1.6 (0.8-4.8) 10^3/u L [place] # (Auto) 0.9 (0.2-0.9) 10^3/u L Eos # (Auto) 0.3 (0.0-0.8) 10^3/u L Baso # (Auto) 0.0 (0.0-0.1) 10^3/u L Nucleated RBC % (a uto) 0 % Nucleated RBCs # 0.0 /100WBC Sodium 140 (136-145) mmol/L Potassium 3.3 L (3.5-5.1) mmol/L Chloride 106 (98-107) mmol/L Carbon Dioxide 23 (22-29) mmol/L Anion Gap 14.3 (5-19) BUN 11 (6-20) mg/dL Creatinine 0.6 (0.5-0.9) mg/dL GFR Calculation 107.6 (90-130) mL/min Glucose 109 (65-115) mg/dL Calculated Osmolal ity 290 (285-295) mOsm/k g Calcium 8.5 (8.5-10.5) mg/dL Magnesium 1.9 (1.7-2.3) mg/dL Total Bilirubin 0.3 (0.15-1.2) mg/dL AST 48 H (0-32) U/L ALT 22 (0-33) U/L Alkaline Phosphata se 95 (35-105) IU/L C-Reactive Protein 0.3 (0.0-4.9) mg/L Total Protein 6.6 (6.6-8.7) g/dL Albumin 4.0 (3.5-5.2) g/dL Globulin 2.6 (1.3-4.6) g/dL Lipase 25 (13-60) U/L Urine Color (Yellow) Urine Appearance (CLEAR) Urine pH (5-7) Ur Specific Gravit y (1.005-1.030) Urine Protein (Negative) Urine Glucose (UA) (Normal) Urine Ketones (Negative) Urine Blood (Negative) Urine Nitrate (Negative) Urine Bilirubin (Negative) Urine Urobilinogen (Negative) mg/dL Ur Leukocyte Laila ase (Negative) Urine RBC (0-2) /hpf Urine WBC (0-5) /hpf Ur Squamous Epith Cells (0-5) /hpf Amorphous Sediment /hpf Urine Bacteria (NONE) /hpf Urine Opiates Scre en Positive H (Negative) ng/mL Ur Barbiturates Sc reen Negative (Negative) ng/mL Ur Phencyclidine S crn Negative (Negative) ng/mL Ur Amphetamines Sc reen Negative (Negative) ng/mL U Benzodiazepines Scrn Negative (Negative) ng/mL Urine Cocaine Scre en Negative (Negative) ng/mL U Marijuana (THC) Screen Positive H (Negative) ng/mL Ethyl Alcohol 121 H (0-10) mg/dL 01/28/21 Range/Units 03:00 WBC (4.0-10.0) 10^3/ uL RBC (4.1-5.3) 10^6/u L Hgb (11.5-15.3) g/dL Hct (37.0-47.0) % MCV (81-99) fL MCH (28.0-34.0) pg MCHC (30.0-36.0) g/dL RDW (12.1-15.1) % Plt Count (130-400) 10^3/c mm MPV (7.4-10.4) fL Neut % (Auto) % Lymph % (Auto) % [place] % (Auto) % Eos % (Auto) % Baso % (Auto) % Neut # (Auto) (1.8-7.7) 10^3/u L Lymph # (Auto) (0.8-4.8) 10^3/u L [place] # (Auto) (0.2-0.9) 10^3/u L Eos # (Auto) (0.0-0.8) 10^3/u L Baso # (Auto) (0.0-0.1) 10^3/u L Nucleated RBC % (a uto) % Nucleated RBCs # /100WBC Sodium (136-145) mmol/L Potassium (3.5-5.1) mmol/L Chloride (98-107) mmol/L Carbon Dioxide (22-29) mmol/L Anion Gap (5-19) BUN (6-20) mg/dL Creatinine (0.5-0.9) mg/dL GFR Calculation (90-130) mL/min Glucose (65-115) mg/dL Calculated Osmolal ity (285-295) mOsm/k g Calcium (8.5-10.5) mg/dL Magnesium (1.7-2.3) mg/dL Total Bilirubin (0.15-1.2) mg/dL AST (0-32) U/L ALT (0-33) U/L Alkaline Phosphata se (35-105) IU/L C-Reactive Protein (0.0-4.9) mg/L Total Protein (6.6-8.7) g/dL Albumin (3.5-5.2) g/dL Globulin (1.3-4.6) g/dL Lipase (13-60) U/L Urine Color Yellow (Yellow) Urine Appearance Clear (CLEAR) Urine pH 7 (5-7) Ur Specific Gravit y 1.010 (1.005-1.030) Urine Protein Neg (Negative) Urine Glucose (UA) Norm (Normal) Urine Ketones Negative (Negative) Urine Blood 2+ H (Negative) Urine Nitrate Negative (Negative) Urine Bilirubin Neg (Negative) Urine Urobilinogen Norm (Negative) mg/dL Ur Leukocyte Laila ase Negative (Negative) Urine RBC 0-4 H (0-2) /hpf Urine WBC 0-4 H (0-5) /hpf Ur Squamous Epith Cells 0-4 H (0-5) /hpf Amorphous Sediment 1+ /hpf Urine Bacteria Trace (NONE) /hpf Urine Opiates Scre en (Negative) ng/mL Ur Barbiturates Sc reen (Negative) ng/mL Ur Phencyclidine S crn (Negative) ng/mL Ur Amphetamines Sc reen (Negative) ng/mL U Benzodiazepines Scrn (Negative) ng/mL Urine Cocaine Scre en (Negative) ng/mL U Marijuana (THC) Screen (Negative) ng/mL Ethyl Alcohol (0-10) mg/dL Discharge Plan Discharge Patient Disposition: Home Clinical Impression: Alcohol withdrawal syndrome Qualifiers: Complication of substance-induced condition: uncomplicated Qualified Code(s): F10.230 - Alcohol dependence with withdrawal, uncomplicated Condition: Stable Prescriptions: New Zofran 4 mg tablet 4 mg PO Q6H PRN (Reason: nausea and vomiting) Qty: 10 RF: 0 metoprolol tartrate 25 mg tablet 25 mg PO BID Qty: 30 RF: 0 chlordiazepoxide HCl 25 mg capsule 25 mg PO TID PRN (Reason: alcohol withdrawal) Qty: 14 RF: 0 Discharge Orders: Discharge ED (Routine); Ordered 01/28/21 Ordered By: Miki Gar Patient Instructions: Alcohol Withdrawal (ED) Activity Restrictions/Additional Instructions: Use the chlordiazepoxide and decreasing doses over the next 3 days to prevent your withdrawal symptoms. Take your blood pressure twice daily. If your blood pressure and heart rate are up, take the metoprolol for this. The other medication is for nausea. Abstain from alcohol. Return for any problems such as mental status changes, lethargy, vomiting liquids or medications, delusions, other concerning symptoms. Coding Level of Care Code ED Ux Developer for Isiah Mao
== END 2021-01-28 04:15 | disposition home or self-care (01) ==
PROVIDERS: Emergency Provider Emergency Medicine
DX: F10.230 Alcohol dependence with withdrawal, uncomplicated (principal); I10 Essential (primary) hypertension
CPT/HCPCS: 80053; 80306; 80307; 81001; 83690; 83735; 85025; 86140; 96361; 96374; 96375; 99284; J2060; J2270; J2405; J3490; J7030

== ENCOUNTER 2021-03-29 11:01 | Emergency (ER) | payer MEDICAID, SELFPAY ==
[2021-03-29 11:22] VITALS: BP 175/100; PULSE 83; RESP 20; TEMP 36.4; O2SAT 96; BMI 28.5
--- NOTE | 2021-03-29 11:34 | ED_ITS ---
HPI - Abdominal Pain General: Chief Complaint: Nausea/Vomiting/Diarrhea Stated Complaint: N/V HURTING ALL OVER UPPER ABD PAINS Time Seen by Provider: 03/29/21 11:33 History of Present Illness: HPI narrative: Ms. Posada is a 45-year-old lady with significant past medical history of hypertension and alcohol abuse who presents emergency department due to abdominal pain, nausea, vomiting. Her abdominal pain started gradually approximately 1 week ago. She has noticed increased distention. Since that time she has had multiple episodes of nausea and emesis. She notes small amounts of blood in recent emesis as well as dark stools. Urine output is decreased. She reports a longstanding history of drinking approximately 8 shots per day. She has been sober in the past approximately 6 months ago that abdominal pain is not typical of her withdrawal symptoms. Overall the intensity of symptoms has been worsening and is now moderate to severe. She has had decreased p.o. intake. No other specific exacerbating or alleviating factors identified. Review of Systems General: Reports: 10 or more systems reviewed and unremarkable except in HPI and below PFSH ED PFSH: Medical History Hidradenitis HTN (hypertension) Seizures Surgical History History of hysterectomy Physical Exam Narrative: EXAM NARRATIVE: GENERAL/CONSTITUTIONAL - somewhat ill-appearing. Uncomfortable due to abdominal pain Eyes - PERRL, no conjunctival injection. No scleral icterus ENMT - Atraumatic external nose and ears. Dry mucous membranes NECK - supple. trachea midline CARDIOVASCULAR - regular rate and rhythm. Peripheral pulses 2+ and equal RESPIRATORY -clear to auscultation bilaterally. No retractions or accessory muscle use. ABDOMEN/GI - generalized tenderness to palpation, worse in the right upper hubert drant. No fluid wave appreciated. No tenderness to percussion or evidence of peritonitis MSK - Extremities without obvious deformity or tenderness to palpation SKIN - Warm, Dry NEURO - alert and appropriately oriented. Moves all extremities equally. No tremor. PSYCH - mildly anxious. Course ED course: - Patient was seen and evaluated by me at bedside - Patient placed on cardiac monitors, IV access obtained - Initial evaluation notable for exam as above. Given that abdominal pain and shortness of breath is atypical for her history of alcohol abuse and cessation further evaluation warranted. - Symptom treatment ordered - Labs notable for no leukocytosis, metabolic panel with mild transaminitis, lipase normal. Urinalysis not concerning for urinary tract infection. - Imaging notable for no acute abnormality to explain patient's shortness of breath or abdominal symptoms. - Upon serial reexamination after treatment the patient was improved. She was able to tolerate p.o. intake - Based on patient history, evaluation, labs, and imaging as interpreted the most likely cause of the patient's condition is unclear though likely related to alcohol abuse. Patient does have Librium at home still and plans to resume taking this. - The results of ED evaluation were discussed with the patient including prescriptions and/or symptomatic cares (if applicable) including appropriate and responsible use, followup plan, and return precautions. The patient verbalized understanding and felt safe for discharge. - Patient discharged in satisfactory condition. Vital Signs: Vital signs: Vital Signs Temperature 97.5 F L 03/29/21 11:22 Pulse Rate 83 03/29/21 15:53 Respiratory Rate 14 03/29/21 14:56 Blood Pressure 187/130 03/29/21 15:53 Pulse Oximetry 99 03/29/21 15:53 MDM - Abdominal Pain Medical Records: Attestation: I reviewed the patient's medical records. Lab Data: Attestation: I reviewed the patient's lab results. Labs: Lab Results 03/29/21 03/29/21 03/29/21 12:01 12:01 12:01 WBC 9.2 10^3/uL 10^3/ uL (4.0-10.0) RBC 3.99 10^6/uL L 10 ^6/uL (4.1-5.3) Hgb 13.6 g/dL g/dL (11.5-15.3) Hct 38.0 % % (37.0-47.0) MCV 95.2 fl fl (81-99) MCH 34.1 pg H pg (28.0-34.0) MCHC 35.8 g/dL g/dL (30.0-36.0) RDW 13.9 % % (12.1-15.1) Plt Count 272 10^3/cmm 10^3 /cmm (130-400) MPV 10.0 fL fL (7.4-10.4) Neut % (Auto) 47.5 % % Lymph % (Auto) 38.2 % % [place] % (Auto) 7.7 % % Eos % (Auto) 5.3 % % Baso % (Auto) 1.0 % % Neut # (Auto) 4.35 10^3/uL 10^3 /uL (1.8-7.7) Lymph # (Auto) 3.5 10^3/uL 10^3/ uL (0.8-4.8) [place] # (Auto) 0.7 10^3/uL 10^3/ uL (0.2-0.9) Eos # (Auto) 0.5 10^3/uL 10^3/ uL (0.0-0.8) Baso # (Auto) 0.1 10^3/uL 10^3/ uL (0.0-0.1) Nucleated RBC % (a uto) 0 % % Nucleated RBCs # 0.0 /100WBC /100W BC PT 13.80 SECONDS SEC ONDS (12.1-14.9) INR 1.03 (0.8-1.2) Sodium 136 mmol/L mmol/L (136-145) Potassium 4.2 mmol/L mmol/L (3.5-5.1) Chloride 104 mmol/L mmol/L (98-107) Carbon Dioxide 21 mmol/L L mmol/ L (22-29) Anion Gap 15.2 (5-19) BUN 14 mg/dL mg/dL (6-20) Creatinine 0.4 mg/dL L mg/dL (0.5-0.9) GFR Calculation 171.8 mL/min H mL /min (90-130) Glucose 99 mg/dL mg/dL (65-115) Calculated Osmolal ity 283 mOsm/kg L mOs m/kg (285-295) Lactate Calcium 8.1 mg/dL L mg/dL (8.5-10.5) Total Bilirubin 0.3 mg/dL mg/dL (0.15-1.2) AST 59 U/L H U/L (0-32) ALT 35 U/L H U/L (0-33) Alkaline Phosphata se 75 IU/L IU/L (35-105) NT-Pro-B Natriuret Pep 102 pg/mL pg/mL (0-125) Total Protein 6.5 g/dL L g/dL (6.6-8.7) Albumin 4.0 g/dL g/dL (3.5-5.2) Globulin 2.5 g/dL g/dL (1.3-4.6) Lipase 24 U/L U/L (13-60) HCG, Qual Urine Color Urine Appearance Urine pH Ur Specific Gravit y Urine Protein Urine Glucose (UA) Urine Ketones Urine Blood Urine Nitrate Urine Bilirubin Urine Urobilinogen Ur Leukocyte Laila ase 03/29/21 03/29/21 03/29/21 12:01 13:15 13:15 WBC RBC Hgb Hct MCV MCH MCHC RDW Plt Count MPV Neut % (Auto) Lymph % (Auto) [place] % (Auto) Eos % (Auto) Baso % (Auto) Neut # (Auto) Lymph # (Auto) [place] # (Auto) Eos # (Auto) Baso # (Auto) Nucleated RBC % (a uto) Nucleated RBCs # PT INR Sodium Potassium Chloride Carbon Dioxide Anion Gap BUN Creatinine GFR Calculation Glucose Calculated Osmolal ity Lactate 1.1 mmol/L mmol/L (0.5-2.2) Calcium Total Bilirubin AST ALT Alkaline Phosphata se NT-Pro-B Natriuret Pep Total Protein Albumin Globulin Lipase HCG, Qual Negative (Negative) Urine Color Straw (Yellow) Urine Appearance Clear (CLEAR) Urine pH 5 (5-7) Ur Specific Gravit y 1.020 (1.005-1.030) Urine Protein Neg (Negative) Urine Glucose (UA) Norm (Normal) Urine Ketones Negative (Negative) Urine Blood Neg (Negative) Urine Nitrate Negative (Negative) Urine Bilirubin Neg (Negative) Urine Urobilinogen Norm mg/dL mg/dL (Negative) Ur Leukocyte Laila ase Negative (Negative) Discharge Plan Discharge Patient Disposition: Home Clinical Impression: Abdominal pain, Shortness of breath, Nausea & vomiting, Alcohol abuse, Transaminitis Condition: Stable Prescriptions: New ondansetron 4 mg tablet,disintegrating 4 mg PO Q8H PRN (Reason: nausea and vomiting) Qty: 20 RF: 0 No Action metoprolol tartrate 25 mg tablet 25 mg PO BID MDD see pharmacy comment Qty: 30 RF: 0 chlordiazepoxide HCl 25 mg capsule 25 mg PO TID PRN (Reason: alcohol withdrawal) Qty: 14 RF: 0 lisinopril 20 mg Tablet 20 mg PO DAILY RF: 0 hydroxyzine pamoate 25 mg Capsule 25 mg PO BID PRN (Reason: Anxiety) RF: 0 Lexapro 20 mg Tablet 5 mg PO DAILY RF: 0 Discharge Orders: Discharge ED (Routine); Ordered 03/29/21 Ordered By: Bj Olivas Discharge Diet: Usual diet Discharge Activity: Resume usual activity Patient Instructions: Abuse of Alcohol (ED), Acute Nausea and Vomiting (ED), Abdominal Pain (ED) Activity Restrictions/Additional Instructions: Thank you for visiting the emergency department. You were seen and evaluated fo r various concerns. The most likely cause of the symptoms is related to alcohol abuse. Please follow-up with your primary care provider. Please continue to take your chlordiazepoxide. Please return to the emergency department for anything that you are concerned about and feel needs emergency department evaluation. Coding Level of Care Code ED Service Person for Isiah Mao
--- NOTE | 2021-03-29 11:45 | XR_ITS ---
WS: [id number] Exam: XR chest 1V portable [id number] Date/Time of Exam: 03/29/2021 11:45 AM Reason For Exam: sob Comparison 11/11/2020. Findings: The lungs are clear and fully expanded. Costophrenic angles are sharp. No infiltrates. Bronchovascula r relief appears normal. Cardiac silhouette is unremarkable. Bony elements are intact. XR/XR chest 1V portable [id number] IMPRESSION: Unremarkable chest radiograph.
[2021-03-29 12:04] VITALS: BP 200/136; PULSE 89; O2SAT 98
[2021-03-29 12:19] LABS: Basophils # 0.1 10^3/uL (0.0-0.1); Eosinophils # 0.5 10^3/uL (0.0-0.8); Eosinophils % 5.3 %; Hemoglobin 13.6 g/dL (11.5-15.3); Lymphocytes # 3.5 10^3/uL (0.8-4.8); Lymphocytes % 38.2 %; Mean Corpuscular HGB Conc 35.8 g/dL (30.0-36.0); Mean Corpuscular Hemoglobin 34.1 pg (28.0-34.0); Mean Corpuscular Volume 95.2 fl (81-99); Monocytes # 0.7 10^3/uL (0.2-0.9); Monocytes % 7.7 %; Neutrophils # 4.35 10^3/uL (1.8-7.7); Neutrophils % 47.5 %; Nucleated Red Blood Cells % 0 %; Platelet Count 272 10^3/cmm (130-400); Red Blood Count 3.99 10^6/uL (4.1-5.3); Red Cell Distribution Width 13.9 % (12.1-15.1); White Blood Count 9.2 10^3/uL (4.0-10.0)
[2021-03-29] MEDS: ondansetron 2 mg/ML SDV 2 mL 4 MG IVP (12:26)
[2021-03-29] MEDS: sodium chloride 0.9% 1,000 ML 999 ML IV (12:26)
--- NOTE | 2021-03-29 12:31 | PC.NURSE ---
Pt blood pressure 219/130. Dr Olivas ordered 1L of NS. The nurse (Ken Davis) asked if pt should still recieve fluids. When questioned, Dr Olivas ordered fluids to be given.
[2021-03-29 12:33] LABS: INR 1.03 (0.8-1.2)
[2021-03-29 12:36] VITALS: RESP 18
[2021-03-29] MEDS: morphine 4 mg/mL SDV 1 mL IVP ×2 (12:36→14:56)
[2021-03-29 12:38] LABS: Lactate (Lactic Acid level) 1.1 mmol/L (0.5-2.2)
--- NOTE | 2021-03-29 12:46 | CT_ITS ---
WS: [id number] CT ABDOMEN AND PELVIS WITH CONTRAST HISTORY: Diffuse abdominal pain. TECHNIQUE: Imaging performed of the abdomen and pelvis with IV contrast. Single phase imaging of the abdomen. Coronal and sagittal reformats are submitted. All CT scans at [facility] use at [facility] one of these dose optimization techniques: automated exposure control; mA and/or kV adjustment per patient size (includes targeted exams where dose is matched to clinical indication); or iterative re construction. IV CONTRAST: Omnipaque 300; 95 mL IV. Oral contrast: No DLP: 1577.71 mGy.cm COMPARISON: 06/15/2020 Lower thorax: Lung bases are clear. Heart is normal size. Small hiatal hernia. Liver/biliary system: Normal. Gallbladder: Normal. No gallstones or wall thickening. No pericholecystic fluid. Pancreas: Normal size pancreas and pancreatic duct. No adjacent inflammation. Spleen: Normal size spleen. No mass or infarct. Adrenal glands: Normal. Right kidney: Normal. Left kidney: Normal. Aorta: Mild atherosclerosis with no aneurysm. Lymphadenopathy: None. Free fluid: None. GI tract: Normal appendix. No GI tract obstruction. No pericolonic inflammation. There are a few scat tered diverticula with no acute diverticulitis. Abdominal wall: Unremarkable abdominal wall. No hernia. Pelvis: Prior hysterectomy. Cluster of LEFT ovarian cysts measures 3.2 x 3.2 cm. Bones: Moderate degenerative disc disease at L4-5 and L5-S1. CT/CT abdomen pelvis w con* [id number] IMPRESSION: 1. No GI tract obstruction or acute abdominal abnormality. 2. No appendicitis. 3. No renal obstruction. 4. Cluster of small cysts within the LEFT ovary similar to the prior study of 06/15/2020.
[2021-03-29 12:47] LABS: Alanine Aminotransferase 35 U/L (0-33); Alkaline Phosphatase 75 IU/L (35-105); Anion Gap 15.2 (5-19); Aspartate Amino Transferase 59 U/L (0-32); Blood Urea Nitrogen 14 mg/dL (6-20); Calcium 8.1 mg/dL (8.5-10.5); Carbon Dioxide 21 mmol/L (22-29); Chloride 104 mmol/L (98-107); Globulin 2.5 g/dL (1.3-4.6); Glomerular Filtration Rate 171.8 mL/min (90-130); Glucose 99 mg/dL (65-115); Lipase 24 U/L (13-60); NT Pro B Type Natriuretic Pept 102 pg/mL (0-125); Osmolality Calculated 283 mOsm/kg (285-295); Potassium 4.2 mmol/L (3.5-5.1); Sodium 136 mmol/L (136-145); Total Bilirubin 0.3 mg/dL (0.15-1.2); Total Protein 6.5 g/dL (6.6-8.7)
[2021-03-29 13:22] VITALS: BP 187/130; PULSE 83; O2SAT 99
[2021-03-29 13:27] LABS: HCG Qualitative Urine. Negative (Negative)
[2021-03-29] MEDS: iohexol 300 mg/mL 100 mL Btl IV (14:40)
[2021-03-29 14:41] LABS: Add Urine Microscopic? NO; Charge for UA Resulting for Rev
[2021-03-29 14:55] LABS: Bilirubin Urine Neg (Negative); Blood Urine Neg (Negative); Glucose Urine UA Norm (Normal); Ketones Urine Negative (Negative); Leukocyte Esterase Urine Negative (Negative); Nitrate Urine Negative (Negative); Protein Urine Neg (Negative); Urine Appearance Clear (CLEAR); Urine Color Straw (Yellow); Urobilinogen Urine Norm (Negative); pH Urine 5 (5-7)
[2021-03-29 14:56] VITALS: RESP 14
[2021-03-29 15:53] VITALS: BP 187/130; PULSE 83; O2SAT 99
== END 2021-03-29 15:54 | disposition home or self-care (01) ==
PROVIDERS: Emergency Provider Emergency Medicine
DX: R10.9 Unspecified abdominal pain (principal); R06.02 Shortness of breath; R11.2 Nausea with vomiting, unspecified; F10.10 Alcohol abuse, uncomplicated; R74.01 Elevation of levels of liver transaminase levels; I10 Essential (primary) hypertension
CPT/HCPCS: 71045; 74177; 80053; 81003; 81025; 83605; 83690; 83880; 85025; 85610; 96361; 96374; 96375; 99284; J2270; J2405; J7030; Q9967

== ENCOUNTER 2021-05-18 08:47 | Emergency (ER) | payer BC, MEDICAID, SELFPAY ==
[2021-05-18 08:56] VITALS: BP 187/110; PULSE 97; RESP 20; TEMP 36.5; O2SAT 96; BMI 28.3
--- NOTE | 2021-05-18 09:10 | ED_ITS ---
HPI - General Adult General: Chief complaint: Nausea/Vomiting/Diarrhea Stated complaint: Vomiting, alcohol withdraw Time Seen by Provider: 05/18/21 08:53 History of Present Illness: HPI narrative: Patient presents with abdominal discomfort related to chronic alcoholism. Patient states that her abdominal discomfort is no different than what she has had in the past. Been bothering her the last day or 2 worse. Denies any blood in her emesis. Patient says she continues drink daily. Denies any fever chills. Onset (ago): day(s) Associated symptoms: Reports decreased appetite, nausea and vomiting; Deny chest pain, headache(s) or rash Review of Systems Const: Denies: fever(s), chills or body aches Eyes: Denies: eye discharge ENMT: Denies: throat pain, oral sores or nasal congestion Card: Denies: chest pain or dyspnea on exertion Resp: Denies: productive cough, wheezing or stridor GI: Reports: abdominal pain, nausea and vomiting Musc: Denies: extremity pain Skin/Breast: Denies: rash Neuro: Denies: headache(s) Psych: Denies: anxiety or depression Vlad/Lymph: Denies: easy bruising PFSH ED PFSH: Medical History Hidradenitis HTN (hypertension) Seizures Surgical History History of hysterectomy Physical Exam Const: COMMON NORMALS: no acute distress, average body habitus and patient oriented x3 HENMT: COMMON NORMALS: normocephalic HEAD & SCALP: normal to inspection and normocephalic FACE & SINUS: normal facial exam Eye: COMMON NORMALS: conjunctivae normal GENERAL EYE: appearance normal, both eyes and all related structures CONJUNCTIVA: Yes conjunctivae normal Neck/C-Spine: COMMON NORMALS: no JVD Chest: COMMONS NORMALS: normal inspection of the chest Resp: COMMON NORMALS: normal respiratory effort and clear to auscultation bilaterally AUSCULTATION: clear to auscultation bilaterally Cardio: COMMON NORMALS: no JVD, regular rate and regular rhythm RATE: regular rate RHYTHM: regular rhythm GI: COMMON NORMALS: Soft to palpation AUSCULTATION: Yes normoactive bowel sounds PALPATION: Yes Soft to palpation and Yes Tenderness to palpation present (GI) (Epigastric area) Extremity: COMMON NORMALS: normal to inspection and full ROM Neuro: COMMON NORMALS: patient oriented x3 Course Vital Signs: Vital signs: Vital Signs Temperature 97.7 F 05/18/21 08:56 Pulse Rate 104 H 05/18/21 12:07 Respiratory Rate 19 H 05/18/21 12:07 Blood Pressure 140/96 05/18/21 12:07 Pulse Oximetry 97 05/18/21 12:07 MDM - General Adult MDM Narrative: Medical decision making narrative: Patient presented with anxiety and alcohol abuse. Patient complained about gastritis. Patient is well-known to us with the symptoms. Patient was given IV Zofran and a liter of fluid and Ativan. Patient responded well and settle down and had no more pain and no more anxiety. Patient was sleeping throughout most of visit here. Labs were stable consistent with previous labs. Patient is encouraged to follow-up primary care provider encouraged to quit drinking and get into a rehab facility (boyfriend says she does not want to go into a rehab facility or does not want help from anybody} patient given prescription for Prilosec 40 mg Librax and will follow up with primary care provider this coming week. Case was discussed with Dr. Olivas and handed over to him. Lab Data: Labs: Lab Results 05/18/21 05/18/21 05/18/21 09:17 09:17 09:21 WBC 10.0 10^3/uL 10^3 /uL (4.0-10.0) RBC 4.38 10^6/uL 10^6 /uL (4.1-5.3) Hgb 14.9 g/dL g/dL (11.5-15.3) Hct 40.6 % % (37.0-47.0) MCV 92.7 fl fl (81-99) MCH 34.0 pg pg (28.0-34.0) MCHC 36.7 g/dL H g/dL (30.0-36.0) RDW 11.6 % L % (12.1-15.1) Plt Count 323 10^3/cmm 10^3 /cmm (130-400) MPV 9.1 fL fL (7.4-10.4) Neut % (Auto) 53.8 % % Lymph % (Auto) 33.6 % % Tama % (Auto) 7.5 % % Eos % (Auto) 3.8 % % Baso % (Auto) 1.0 % % Neut # (Auto) 5.41 10^3/uL 10^3 /uL (1.8-7.7) Lymph # (Auto) 3.4 10^3/uL 10^3/ uL (0.8-4.8) Tama # (Auto) 0.8 10^3/uL 10^3/ uL (0.2-0.9) Eos # (Auto) 0.4 10^3/uL 10^3/ uL (0.0-0.8) Baso # (Auto) 0.1 10^3/uL 10^3/ uL (0.0-0.1) Nucleated RBC % (a uto) 0 % % Nucleated RBCs # 0.0 /100WBC /100W BC Sodium 136 mmol/L mmol/L (136-145) Potassium 4.2 mmol/L mmol/L (3.5-5.1) Chloride 104 mmol/L mmol/L (98-107) Carbon Dioxide 18 mmol/L L mmol/ L (22-29) Anion Gap 18.2 (5-19) BUN 19 mg/dL mg/dL (6-20) Creatinine 0.7 mg/dL mg/dL (0.5-0.9) GFR Calculation 90.1 mL/min mL/mi n (90-130) Glucose 114 mg/dL mg/dL (65-115) Calculated Osmolal ity 285 mOsm/kg mOsm/ kg (285-295) Calcium 7.9 mg/dL L mg/dL (8.5-10.5) Total Bilirubin 0.3 mg/dL mg/dL (0.15-1.2) AST 69 U/L H U/L (0-32) ALT 41 U/L H U/L (0-33) Alkaline Phosphata se 77 IU/L IU/L (35-105) Total Protein 7.2 g/dL g/dL (6.6-8.7) Albumin 4.0 g/dL g/dL (3.5-5.2) Globulin 3.2 g/dL g/dL (1.3-4.6) Lipase 26 U/L U/L (13-60) Urine Color Yellow (Yellow) Urine Appearance Clear (CLEAR) Urine pH 5 (5-7) Ur Specific Gravit y 1.015 (1.005-1.030) Urine Protein Neg (Negative) Urine Glucose (UA) Norm (Normal) Urine Ketones Negative (Negative) Urine Blood Neg (Negative) Urine Nitrate Negative (Negative) Urine Bilirubin Neg (Negative) Urine Urobilinogen Norm mg/dL mg/dL (Negative) Ur Leukocyte Laila ase Negative (Negative) Discharge Plan Discharge Patient Disposition: Home Clinical Impression: Alcoholism Alcoholic gastritis Qualifiers: Chronicity: chronic Gastritis bleeding: without bleeding Qualified Code(s): K29.20 - Alcoholic gastritis without bleeding Condition: Stable Prescriptions: New Librax (with clidinium) 5-2.5 mg capsule 1 cap PO TID Qty: 20 RF: 0 promethazine 12.5 mg tablet 12.5 mg PO TID PRN (Reason: nausea and vomiting) Qty: 7 RF: 0 Nexium 40 mg capsule,delayed release(DR/EC) 40 mg PO DAILY 28 Days Qty: 28 RF: 0 Discontinued chlordiazepoxide HCl 25 mg capsule 25 mg PO TID PRN (Reason: alcohol withdrawal) Qty: 14 RF: 0 hydroxyzine pamoate 25 mg Capsule 25 mg PO BID PRN (Reason: Anxiety) RF: 0 ondansetron 4 mg tablet,disintegrating 4 mg PO Q8H PRN (Reason: nausea and vomiting) Qty: 20 RF: 0 No Action metoprolol tartrate 25 mg tablet 25 mg PO BID MDD see pharmacy comment Qty: 30 RF: 0 lisinopril 20 mg Tablet 20 mg PO DAILY RF: 0 Lexapro 20 mg Tablet 5 mg PO DAILY RF: 0 Discharge Orders: Discharge ED (Routine); Ordered 05/18/21 Ordered By: Deon Rojas Discharge Diet: As Directed Discharge Activity: Increase activity as tolerated Patient Instructions: Gastritis (ED), Abuse of Alcohol (ED), Anxiety (ED) Activity Restrictions/Additional Instructions: Follow-up with medical provider as directed. Take medications as prescribed. Return to the ER or your medical provider if condition worsens. Please read and understand discharge instructions. If any questions ask please. Consider checking rehab or [facility] for your alcoholism. Continue try to cut back on alcohol on a daily basis. Coding Level of Care Code ED Supervisor Safety Deposit for Isiah Fwd Exam Comprehensive
[2021-05-18] MEDS: sodium chloride 0.9% 1,000 ML 999 ML IV (09:21)
[2021-05-18] MEDS: ondansetron 2 mg/ML SDV 2 mL 4 MG IVP (09:21)
[2021-05-18] MEDS: LORazepam 2 mg/mL INJ 1 mL IVP (09:21)
[2021-05-18 09:37] VITALS: BP 131/88; PULSE 92; RESP 18; O2SAT 95
[2021-05-18 09:41] LABS: Basophils # 0.1 10^3/uL (0.0-0.1); Eosinophils # 0.4 10^3/uL (0.0-0.8); Eosinophils % 3.8 %; Hematocrit 40.6 % (37.0-47.0); Hemoglobin 14.9 g/dL (11.5-15.3); Lymphocytes # 3.4 10^3/uL (0.8-4.8); Lymphocytes % 33.6 %; Mean Corpuscular HGB Conc 36.7 g/dL (30.0-36.0); Mean Corpuscular Volume 92.7 fl (81-99); Mean Platelet Volume 9.1 fL (7.4-10.4); Monocytes # 0.8 10^3/uL (0.2-0.9); Monocytes % 7.5 %; Neutrophils # 5.41 10^3/uL (1.8-7.7); Neutrophils % 53.8 %; Nucleated Red Blood Cells % 0 %; Platelet Count 323 10^3/cmm (130-400); Red Blood Count 4.38 10^6/uL (4.1-5.3); Red Cell Distribution Width 11.6 % (12.1-15.1)
[2021-05-18 09:48] LABS: Add Urine Microscopic? NO; Charge for UA Resulting for Rev
[2021-05-18 10:09] LABS: Alanine Aminotransferase 41 U/L (0-33); Alkaline Phosphatase 77 IU/L (35-105); Anion Gap 18.2 (5-19); Aspartate Amino Transferase 69 U/L (0-32); Blood Urea Nitrogen 19 mg/dL (6-20); Calcium 7.9 mg/dL (8.5-10.5); Carbon Dioxide 18 mmol/L (22-29); Chloride 104 mmol/L (98-107); Globulin 3.2 g/dL (1.3-4.6); Glomerular Filtration Rate 90.1 mL/min (90-130); Glucose 114 mg/dL (65-115); Lipase 26 U/L (13-60); Osmolality Calculated 285 mOsm/kg (285-295); Potassium 4.2 mmol/L (3.5-5.1); Sodium 136 mmol/L (136-145); Total Bilirubin 0.3 mg/dL (0.15-1.2); Total Protein 7.2 g/dL (6.6-8.7)
[2021-05-18 10:17] LABS: Bilirubin Urine Neg (Negative); Blood Urine Neg (Negative); Glucose Urine UA Norm (Normal); Ketones Urine Negative (Negative); Leukocyte Esterase Urine Negative (Negative); Nitrate Urine Negative (Negative); Protein Urine Neg (Negative); Specific Gravity, Urine 1.015 (1.005-1.030); Urine Appearance Clear (CLEAR); Urine Color Yellow (Yellow); Urobilinogen Urine Norm (Negative); pH Urine 5 (5-7)
[2021-05-18 10:27] VITALS: BP 117/92; PULSE 75; RESP 20; O2SAT 96
[2021-05-18 12:07] VITALS: BP 140/96; PULSE 104; RESP 19; O2SAT 97
== END 2021-05-18 12:14 | disposition home or self-care (01) ==
PROVIDERS: Emergency Provider Nurse Practitioner Family
DX: K29.20 Alcoholic gastritis without bleeding (principal); F10.20 Alcohol dependence, uncomplicated; I10 Essential (primary) hypertension
CPT/HCPCS: 80053; 81003; 83690; 85025; 96361; 96374; 96375; 99284; J2060; J2405; J7030

== ENCOUNTER 2021-06-24 07:55 | Emergency (ER) | payer BC, MEDICAID, SELFPAY ==
[2021-06-24 08:00] VITALS: PULSE 126; RESP 24; O2SAT 94; BMI 29.7
--- NOTE | 2021-06-24 08:08 | XR_ITS ---
WS: [email or web address] Right hand, 3 views, 06/24/2021 Clinical Data: trauma/pain Comparison: None. Findings: No fractures or dislocations are seen. The soft tissues are unremarkable. The joint space s are normal There is sclerosis and erosion of the medial distal right radius. XR/XR hand RT min 3V* 58112 Impression: 1. Negative right hand. 2. Sclerosis and erosion of the medial distal right radius.
--- NOTE | 2021-06-24 08:08 | XR_ITS ---
WS: [email or web address] Right wrist, 3 views, 06/24/2021 Clinical Data: trauma/pain Comparison: Right wrist, 03/21/2020. Findings: There is sclerosis and erosion of the medial distal right radius which has occurred since the prior e xamination. No fractures are seen. The carpal bones are intact. There is no soft tissue swelling. XR/XR wrist RT min 3V* 46930 Impression: Sclerosis and erosion of the medial distal right radius which may be secondary to trauma, infection or arthritic change.
--- NOTE | 2021-06-24 08:09 | W.ED.UPPEXIN ---
HPI - Extremity Injury (Upper) General: Chief Complaint: Extremity Injury, Upper Stated Complaint: R WRIST PAIN, GOING TO ELBOW Time Seen by Provider: 06/24/21 07:57 Source: patient Mode of arrival: ambulatory Limitations: no limitations History of Present Illness: HPI narrative: Patient is a 45-year-old female who presents to ED today for evaluation of a right wrist injury. Patient tells me 48h ago she was doing some form of exercise and heard a pop in her right wrist and has had a tremendous amount of discomfort following this. Patient states that she injured her wrist/hand initially back in January of 2020. She had x-rays here showing a small possible avulsion fracture to one of her proximal metacarpals. She followed up with orthopedics on who stated that the x-rays were inconclusive for a fracture. Patient was seen in the ED again following that and had normal hand/wrist x-rays. She followed up with orthopedics again yet again and orthopedist at that time stated on the lateral view of repeat x-rays there was a shearing type fracture of her volar lunate and dorsiflexion of the lunate suggesting ligamentous injury. She was referred to hand surgery at [facility]. Patient states no form of surgery was ever performed secondary to her not having insurance. complaint: injury to: right, wrist and hand Onset (ago): day(s) Place: home Severity: severe Relieving factors: none Exacerbating factors: movement of extremity Associated symptoms: Reports no associated symptoms; Denies weakness in extremities Review of Systems Musc: Reports: joint pain (R wrist) and limited range of motion; Denies: extremity pain, extremity swelling or joint warmth Neuro: Denies: numbness in extremities, weakness in extremities or sensory changes [facility] ED PFSH: Medical History Hidradenitis HTN (hypertension) Seizures Surgical History History of hysterectomy Physical Exam Const: COMMON NORMALS: average body habitus, patient oriented x3, no limitations, healthy appearing, alert and well nourished GENERAL APPEARANCE: cooperative and in distress (appears very uncomfortable secondary to pain) Neuro: COMMON NORMALS: patient oriented x3 SENSORIUM/ORIENTATION: Yes alert Course Vital Signs: Vital signs: Vital Signs Pulse Rate 126 H 06/24/21 08:00 Respiratory Rate 24 H 06/24/21 08:00 Pulse Oximetry 94 06/24/21 08:00 MDM - Extremity Injury (Upper) MDM Narrative: Medical decision making narrative: Pt has bony erosion or sclerosis of distal radius. Radiologist commented this could be secondary to trauma, infection, or arthritic change. Based on patient's history and physical exam I have no suspicion for infection. She has had no penetrating trauma. Joint is not red or warm to the touch. Patient is adamant she does not want to follow-up with orthopedics at [facility] and is requesting referral back to [facility] in [place]. She states it has been over a year since her last appointment. Will have CM try to contact them and get her set up to be seen again. Patient has ROLAN wrap/velcro wrist brace she can wear in the meantime. Requesting something for pain as she has been taking large amounts of Ibuprofen without relief. Imaging Data^: XR R hand: Radiologist's impression: [address] [id number] ReportSigned Patient: aJz Posada #: [id number]: 1975Acct#:[id number]/Sex: 45 / FADM Date: 06/24/21Loc: [facility]/Bed:Attending Dr: Ordering Provider/Ordering MD: Donna Gonsalez Date of Service: 06/24/21 Procedure(s): XR hand RT min 3V* 72155 Accession Number(s): [id number] Report Number: [id number] WS: [email or web address] Right hand, 3 views, 06/24/2021 Clinical Data: trauma/pain Comparison: None. Findings: No fractures or dislocations are seen. The soft tissues are unremarkable. The joint spaces are normal There is sclerosis and erosion of the medial distal right radius. XR/XR hand RT min 3V* 73615 Impression: 1. Negative right hand. 2. Sclerosis and erosion of the medial distal right radius. Dictated By:Lucille Simeon MDSigned By:Lucille Simeon MDSigned Date/Time:06/24/2122DD/ 9 XR R wrist: Radiologist's impression: [address] [address] XRay Report Signed Patient: Jaz Posada Unit #: [id number] : 1975 Age/Sex: 45 / F ADM Date: 06/24/21 Loc: ER Room/Bed: Attending Dr: Ordering Provider/Ordering MD: Donna Gonsalez Date of Service: 06/24/21 Procedure(s): XR wrist RT min 3V* 70817 Accession Number(s): [id number] Report Number: [id number] WS: [email or web address] Right wrist, 3 views, 06/24/2021 Clinical Data: trauma/pain Comparison: Right wrist, 03/21/2020. Findings: There is sclerosis and erosion of the medial distal right radius which has occurred since the prior examination. No fractures are seen. The carpal bones are intact. There is no soft tissue swelling. XR/XR wrist RT min 3V* 65743 Impression: Sclerosis and erosion of the medial distal right radius which may be secondary to trauma, infection or arthritic change. Dictated By: Lucille Simeon MD Signed By: Lucille Simeon MD Signed Date/Time: 06/24/21824 DD/ 1 Discharge Plan Discharge Patient Disposition: Home Clinical Impression: Right wrist pain Condition: Stable Prescriptions: New hydrocodone-acetaminophen 5-325 mg tablet 1 tab PO Q6H PRN (Reason: pain) Qty: 14 RF: 0 No Action metoprolol tartrate 25 mg tablet 25 mg PO BID MDD see pharmacy comment Qty: 30 RF: 0 lisinopril 20 mg Tablet 20 mg PO DAILY RF: 0 Lexapro 20 mg Tablet 5 mg PO DAILY RF: 0 Librax (with clidinium) 5-2.5 mg capsule 1 cap PO TID Qty: 20 RF: 0 promethazine 12.5 mg tablet 12.5 mg PO TID PRN (Reason: nausea and vomiting) Qty: 7 RF: 0 Discharge Orders: Discharge ED (Routine); Ordered 06/24/21 Ordered By: Donna Gonsalez Patient Instructions: Opioid Safety Activity Restrictions/Additional Instructions: [facility] is committed to fighting the nationwide opiate epidemic. We are providing ALL patients with information regarding opiate safety. If you received opiate pain medication during your stay or if you received a prescription for opiate pain medication-please review this handout. If not, you may disregard. Thank you. As we discussed your x-rays today showed sclerosis or bony erosion of your distal radius. You have indicated you would like to follow-up with [facility] orthopedics in [place]. I will have case management try to assist you in getting you an appointment with them. Coding Level of Care Code ED Organ Tuner Electronic for Isiah Mao
[2021-06-24 10:09] VITALS: PULSE 122; RESP 22; O2SAT 96
--- NOTE | 2021-06-24 14:24 | DCPLANNER ---
Addendum entered by Olivia Quick 06/25/21 10:46: transplant case manager called [facility] and confirmed that clinic received patients information. transplant case manager was told that clinic did receive patients information that it would be reviewed and that clinic will call patient with appointment information. Original Note: transplant case manager had message to schedule a followup appointment for patient with [facility]. transplant case manager faxed patients information to the [facility] ortho clinic. Clinic will call patient with appointment information.
== END 2021-06-24 10:11 | disposition home or self-care (01) ==
PROVIDERS: Emergency Provider Physician Assistant
DX: M25.531 Pain in right wrist (principal); I10 Essential (primary) hypertension
CPT/HCPCS: 73110; 73130; 99282

== ENCOUNTER 2021-06-26 19:27 | Emergency (ER) | payer BC, MEDICAID, SELFPAY ==
[2021-06-26 20:17] VITALS: BP 144/80; PULSE 92; RESP 22; TEMP 37.3; O2SAT 100
[2021-06-26 21:24] LABS: Basophils # 0.1 10^3/uL (0.0-0.1); Basophils % 0.7 %; Eosinophils # 0.1 10^3/uL (0.0-0.8); Eosinophils % 0.7 %; Hematocrit 41.6 % (37.0-47.0); Hemoglobin 14.2 g/dL (11.5-15.3); Lymphocytes # 0.7 10^3/uL (0.8-4.8); Lymphocytes % 6.9 %; Mean Corpuscular HGB Conc 34.1 g/dL (30.0-36.0); Mean Corpuscular Hemoglobin 32.1 pg (28.0-34.0); Mean Corpuscular Volume 94.1 fl (81-99); Mean Platelet Volume 10.1 fL (7.4-10.4); Monocytes # 0.4 10^3/uL (0.2-0.9); Monocytes % 4.1 %; Neutrophils # 9.24 10^3/uL (1.8-7.7); Neutrophils % 86.6 %; Nucleated Red Blood Cells % 0 %; Platelet Count 140 10^3/cmm (130-400); Red Blood Count 4.42 10^6/uL (4.1-5.3); Red Cell Distribution Width 13.2 % (12.1-15.1); White Blood Count 10.7 10^3/uL (4.0-10.0)
[2021-06-26 21:45] LABS: Alanine Aminotransferase 64 U/L (0-33); Albumin Level 3.7 g/dL (3.5-5.2); Alkaline Phosphatase 156 IU/L (35-105); Anion Gap 19.2 (5-19); Aspartate Amino Transferase 92 U/L (0-32); Blood Urea Nitrogen 12 mg/dL (6-20); Calcium 8.7 mg/dL (8.5-10.5); Carbon Dioxide 15 mmol/L (22-29); Chloride 104 mmol/L (98-107); Globulin 2.5 g/dL (1.3-4.6); Glomerular Filtration Rate 90.1 mL/min (90-130); Glucose 123 mg/dL (65-115); Osmolality Calculated 281 mOsm/kg (285-295); Potassium 3.2 mmol/L (3.5-5.1); Sodium 135 mmol/L (136-145); Total Bilirubin 0.3 mg/dL (0.15-1.2); Total Protein 6.2 g/dL (6.6-8.7)
== END 2021-06-27 01:56 | disposition left against medical advice (07) ==
PROVIDERS: Emergency Medicine; Emergency Provider Family Medicine
DX: Z53.21 Procedure and treatment not carried out due to patient leaving prior to being seen by health care provider (principal)
CPT/HCPCS: 36415; 80053; 85025

== ENCOUNTER 2021-06-29 09:58 | Emergency (ER) | payer BC, MEDICAID, SELFPAY ==
--- NOTE | 2021-06-29 | CTR_ITS ---
PROCEDURE INFORMATION: Exam: CT Right Upper Extremity With Contrast Exam date and time: 06/29/2021 11:47 AM Age: 45 years old Clinical indication: Swelling; Arm, lower and hand and wrist; Right; Additional info: Swellin in right wrist, iv drug use TECHNIQUE: Imaging protocol: CT of the Right upper extremity with intravenous contrast was performed. Radiation optimization: All CT scans at this facility use at least one of these dose optimization techniques: automated exposure control; mA and/or kV adjustment per patient size (includes targeted exams where dose is matched to clinical indication); or iterative reconstruction. Contrast material: OMNI 350; Contrast volume: 95 ml; Contrast route: INTRAVENOUS (IV); COMPARISON: CR XR wrist RT min 3V* 77031 06/24/2021 8:19 AM RADIATION DOSE METRICS: Total DLP (mGy-cm): 2444.96 FINDINGS: Bones/joints: There appears to be fluid-filled loculated distension of the radiocarpal and carpal joint spaces over the dorsum and volar aspect of the wrist. Some fluid is also present in the extensor tendon sheaths. There appears to be enhancement of the synovium with injected contrast material. These findings are suspicious for infected joint fluid. One might consider joint aspiration for further evaluation. Soft tissues: There is subcutaneous infiltration predominantly over the dorsum of the wrist and hand consistent with edema and/or cellulitis.. There is a lobulated 1.6 cm fluid collection in the flexor digitorum profundus muscle with peripheral enhancement. This may represent an intramuscular abscess. CT/CT wrist RT w con [id number] IMPRESSION: 1. The radiocarpal and carpal joint spaces distended and fluid-filled with peripheral enhancement suspicious for infected joints. One might consider joint aspiration for further evaluation. 2. There is fluid in the extensor tendon sheaths over the dorsum of the hand consistent with a tenosynovitis and possible infection. 3. Cellulitis around the hand. 4. There is a poorly defined 1.6 cm fluid collection in the flexor digitorum profundus muscle which may represent an intramuscular abscess.
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
[2021-06-29 10:10] VITALS: BP 132/84; PULSE 107; RESP 18; TEMP 37.1; O2SAT 96
--- NOTE | 2021-06-29 10:25 | XRR_ITS ---
PROCEDURE INFORMATION: Exam: XR Right Wrist Exam date and time: 06/29/2021 10:25 AM Age: 45 years old Clinical indication: Injury or trauma; Other: Prior break was doing pushup and heard it snap; Blunt trauma (contusions or hematomas); Wrist; Right; Additional info: Pain, redness, swelling TECHNIQUE: Imaging protocol: XR Right wrist. Views: 3 or more views. COMPARISON: CT wrist RT w con [id number] 06/29/2021 11:27 AM FINDINGS: Bones/joints: Prominent chronic degenerative osteoarthritis is present especially in the carpometacarpal joint with joint space narrowing, bony erosion sclerosis and osteophytes. There is subchondral cyst formation in the lunate and radius. Soft tissues: There is soft tissue swelling around the hand and wrist. No gas or foreign bodies are seen. XR/XR wrist RT min 3V* [id number] IMPRESSION: 1. Prominent soft tissue swelling. 2. Prominent DJD.
--- NOTE | 2021-06-29 10:34 | USR_ITS ---
PROCEDURE INFORMATION: Exam: US Duplex Right Upper Extremity Veins, Limited Exam date and time: 06/29/2021 10:34 AM Age: 45 years old Clinical indication: Swelling (edema) of limb; Upper extremity, right; Additional info: Wrist/hand swelling, redness, iv drug use TECHNIQUE: Imaging protocol: Real-time Duplex ultrasound of the Right Upper Extremity with 2-D buck scale, color Doppler flow and spectral waveform analysis with image documentation. Limited exam focused on the right upper extremity veins. COMPARISON: CT abdomen pelvis w con* [id number] 06/15/2020 8:15 PM FINDINGS: Right deep veins: Unremarkable. Axillary and brachial veins are patent throughout without thrombus. Normal Doppler waveforms. Normal compressibility and/or augmentation response. Visualized internal jugular and subclavian veins are patent. Right superficial veins: There is nonocclusive thrombosis of the distal cephalic vein and antecubital vein. Visualized basilic vein is patent without thrombus. Soft tissues: Unremarkable. US/[place] [id number] IMPRESSION: 1. No evidence of deep vein thrombosis. 2. Superficial venous thrombosis involving the right antecubital and distal cephalic veins.
[2021-06-29] MEDS: morphine 4 mg/mL SDV 1 mL IVP (10:50)
[2021-06-29] MEDS: ondansetron 2 mg/ML SDV 2 mL 4 MG IVP (10:50)
[2021-06-29 11:07] LABS: Basophils # 0.1 10^3/uL (0.0-0.1); Basophils % 0.7 %; Eosinophils # 0.2 10^3/uL (0.0-0.8); Eosinophils % 1.6 %; Hematocrit 38.7 % (37.0-47.0); Hemoglobin 13.3 g/dL (11.5-15.3); Lymphocytes # 2.5 10^3/uL (0.8-4.8); Lymphocytes % 27.2 %; Mean Corpuscular HGB Conc 34.4 g/dL (30.0-36.0); Mean Corpuscular Volume 93.3 fl (81-99); Mean Platelet Volume 11.1 fL (7.4-10.4); Monocytes # 0.7 10^3/uL (0.2-0.9); Monocytes % 7.4 %; Neutrophils # 5.69 10^3/uL (1.8-7.7); Nucleated Red Blood Cells % 0 %; Platelet Count 109 10^3/cmm (130-400); Red Blood Count 4.15 10^6/uL (4.1-5.3); Red Cell Distribution Width 15.3 % (12.1-15.1); White Blood Count 9.2 10^3/uL (4.0-10.0)
[2021-06-29] MEDS: vancomycin 1,000 MG in sodium chloride 0.9% 250 ML 250 MG IV (11:16)
[2021-06-29] MEDS: iohexol 350 mg/mL 100 mL Btl IV (11:55)
[2021-06-29 12:58] LABS: Lactic Sepsis W/Reflex 1.5 mmol/L (0.5-2.2)
[2021-06-29 12:59] LABS: Alanine Aminotransferase 502 U/L (0-33); Albumin Level 3.3 g/dL (3.5-5.2); Alkaline Phosphatase 204 IU/L (35-105); Anion Gap 18.8 (5-19); Aspartate Amino Transferase 297 U/L (0-32); Blood Urea Nitrogen 16 mg/dL (6-20); C Reactive Protein 200.3 mg/L (0.0-4.9); Calcium 8.6 mg/dL (8.5-10.5); Carbon Dioxide 18 mmol/L (22-29); Chloride 102 mmol/L (98-107); Globulin 3.3 g/dL (1.3-4.6); Glomerular Filtration Rate 90.1 mL/min (90-130); Glucose 93 mg/dL (65-115); Osmolality Calculated 283 mOsm/kg (285-295); Sodium 136 mmol/L (136-145); Total Bilirubin 0.6 mg/dL (0.15-1.2); Total Protein 6.6 g/dL (6.6-8.7)
[2021-06-29 13:10] LABS: Potassium 2.8 mmol/L (3.5-5.1)
[2021-06-29] MEDS: HYDROmorphone 1 mg/mL INJ 1 mL 0.5 MG IVP ×2 (14:26→19:12)
[2021-06-29] MEDS: cefepime 2,000 MG in sodium chloride 0.9% (plus) 50 ML 100 MG IV (14:26)
[2021-06-29 14:34] VITALS: BP 145/99; PULSE 97; O2SAT 99
[2021-06-29 15:02] LABS: Hepatitis A Antibody IgM Non-Reactive (Nonreactive); Hepatitis B Core IgM Non-Reactive (Nonreactive); Hepatitis B Surface Antigen Non-Reactive (Nonreactive)
[2021-06-29 15:23] LABS: SARS Covid-2 Antigen Negative (Negative)
--- NOTE | 2021-06-29 15:27 | P.CONIM_ITS ---
Providers/Reason For Consult Consulting Physician/Specialty*: ER Reason for Consult*: hand swelling History of Present Illness History of Present Illness Jaz Posada is a 45 year old female evaluation of her right wrist. Patient was seen by myself on 06/24 after she stated she had injured her wrist while exercising. Patient had previously injured her wrist in January 2020. She follow ed up with [facility] orthopedics and eventually was referred to [facility] hand surgery. Patient states no surgery was ever performed secondary to lack of insurance. Patient tells me since I last saw her, the wrist has become extremely swollen, red, and warm to the touch. When asked if there is anything she can think of that could have introduced bacterial into the joint (i.e cuts, scrapes, etc) she breaks down and begins crying and states she recently relapsed on IV drug use. She states she was not forthcoming with this information on her last visit because she was scared she would be judged or treated differently. MD complaint: injury to: right and wrist Place: home Severity: severe Severity scale (1-10): 10 Relieving factors: none Exacerbating factors: movement of extremity Associated symptoms: Reports no associated symptoms; Denies weakness in extremities Review of Systems Const: Reports: body aches and fatigue; Denies: fever(s), chills or malaise ENMT: Denies: enlarged tonsils Card: Denies: chest pain Resp: Denies: dyspnea GI: Denies: abdominal pain, nausea, vomiting or diarrhea Musc: Reports: extremity pain (R hand), extremity swelling (R hand), joint pain (R wrist), joint swelling (R wrist), joint redness, joint warmth and limited range of motion Neuro: Denies: numbness in extremities, weakness in extremities or sensory changes Meds/Allergies Home Medications and Allergies Home Medications Medication Instructions Recorded Confirmed Last Taken Type metoprolol tartrate 25 mg PO BID #30 tab MDD see 01/28/21 03/29/21 Unknown Rx pharmacy comment escitalopram oxalate [Lexapro] 5 mg PO DAILY 03/29/21 03/29/21 03/29/21 History lisinopril 20 mg PO DAILY 03/29/21 03/29/21 03/29/21 History chlordiazepoxide-clidinium [Librax 1 cap PO TID #20 cap 05/18/21 Unknown Rx (with clidinium)] promethazine 12.5 mg PO TID PRN #7 tab 05/18/21 Unknown Rx hydrocodone-acetaminophen 1 tab PO Q6H PRN #14 tab 06/24/21 Unknown Rx Allergies Allergy/AdvReac Type Severity Reaction Status Date / Time duloxetine [From Cymbalta] Allergy Unknown Verified 05/18/21 08:55 erythromycin base Allergy Unknown Verified 05/18/21 08:55 levofloxacin [From Levaquin] Allergy Unknown Verified 05/18/21 08:55 Penicillins Allergy Unknown Verified 05/18/21 08:55 sulfamethoxazole Allergy Unknown Verified 05/18/21 08:55 [From Bactrim] trimethoprim [From Bactrim] Allergy Unknown Verified 05/18/21 08:55 venlafaxine [From Effexor] Allergy Unknown Verified 05/18/21 08:55 PFSH Acute PFSH: Medical History Hidradenitis HTN (hypertension) Seizures Surgical History History of hysterectomy Vitals/I&O/Wt Last Vital Signs Temp 98.7 F 06/29/21 10:10 Pulse 97 06/29/21 14:34 Resp 18 06/29/21 10:10 BP 145/99 06/29/21 14:34 Pulse Ox 99 06/29/21 14:34 Weight last 48 hrs Weight 175 lb Physical Exam Narrative: EXAM NARRATIVE: Right hand Red swollen. Extreme pain. minimally able to move fingers but extremely painful Data Micro: Micro: Microbiology 06/29/21 12:15 Blood Culture - Pr eliminary Blood SPECIMEN [facility] 06/29/21 10:55 Blood Culture - Pr eliminary Blood SPECIMEN [facility] RAFAEL A&P Assessment and plan (1) Abscess of tendon sheath, right hand: Patient likely needs surgical intervention from a hand surgeon. Recommend transfer to facility with hand specialty coverage. Status: Acute Consult Attestations Medical Necessity Statement: recommend transfer for hand surgical intervention Coding Level of Care Code Acute Lead Loader for Chg Fwd Diagnoses Abscess of tendon sheath, right hand M65.041
[2021-06-29] MEDS: potassium chloride ER 20 mEq Tablet 40 MEQ PO (15:52)
[2021-06-29] MEDS: potassium chloride premix 100 ML 50 MEQ IV (15:52)
[2021-06-29] MEDS: lidocaine 1% INJ 20 mL 5 ML IV (15:52)
[2021-06-29 16:31] LABS: Hepatitis C Virus Antibody Reactive (Nonreactive)
[2021-06-29 18:49] VITALS: PULSE 96; O2SAT 99
[2021-06-29 22:11] VITALS: RESP 16; O2SAT 98
[2021-06-29] MEDS: HYDROmorphone 1 mg/mL INJ 1 mL IVP (22:11)
[2021-06-30 00:51] VITALS: RESP 16; O2SAT 99
[2021-06-30] MEDS: HYDROmorphone 1 mg/mL INJ 1 mL IVP (00:51)
[2021-06-30 01:27] VITALS: BP 135/75; PULSE 98; RESP 16; O2SAT 99
[2021-07-03 08:27] LABS: HEP C RNA Viral Load Quant 5.89 Log IU/mL (NOT DETECTED); HEP C RNA Viral Load Quant 773000 IU/mL (NOT DETECTED)
== END 2021-06-30 01:29 | disposition short-term general hospital (02) ==
PROVIDERS: Physician Assistant; Emergency Provider Emergency Medicine
DX: M65.131 Other infective (teno)synovitis, right wrist (principal); M65.041 Abscess of tendon sheath, right hand; E87.6 Hypokalemia; M00.9 Pyogenic arthritis, unspecified; B17.10 Acute hepatitis C without hepatic coma; I80.8 Phlebitis and thrombophlebitis of other sites; I10 Essential (primary) hypertension; Z20.822 Contact with and (suspected) exposure to COVID-19
CPT/HCPCS: 73110; 73201; 80053; 80074; 83605; 83735; 85025; 86140; 87040; 87077; 87186; 87205; 87426; 87522; 93971; 96365; 96366; 96367; 96375; 96376; 99285; J0692; J1170; J2270; J2405; J3370; J3480; J7050; Q9967

== ENCOUNTER → 2021-07-06 08:09 | Day surgery (SDC) | payer BC, MEDICAID, SELFPAY ==
--- NOTE | 2021-07-06 09:12 | PC.NURSE ---
IV STARTED BY DOMONIQUE CALHOUN RN. IV ATTEMPTED 5 TIMES, 2 BY ALPA NURSE AND 3 BY DOMONIQUE. PT TOLERATED WELL.
[2021-07-06 09:24] VITALS: BP 158/102; PULSE 82; RESP 18; TEMP 36.6; O2SAT 98
[2021-07-06] MEDS: cefTRIAXone 2,000 MG in sodium chloride 0.9% (plus) 50 ML 100 MG IV (09:35)
== END ==
LOC: GILAB 08:13
PROVIDERS: Visit Provider Pediatrics
DX: M00.031 Staphylococcal arthritis, right wrist (principal)
CPT/HCPCS: 96365; J0696

== ENCOUNTER → 2021-07-07 08:15 | Day surgery (SDC) | payer BC, MEDICAID, SELFPAY ==
[2021-07-07 08:21] VITALS: BP 176/100; PULSE 109; RESP 18; TEMP 36.1; O2SAT 98
[2021-07-07] MEDS: cefTRIAXone 2,000 MG in sodium chloride 0.9% (plus) 50 ML 100 MG IV (08:26)
== END ==
PROVIDERS: Visit Provider Pediatrics
DX: M00.0 Staphylococcal arthritis and polyarthritis (principal)
CPT/HCPCS: 96365; J0696

== ENCOUNTER 2021-07-29 08:19 | Outpatient (RCR) | payer BC, MEDICAID, SELFPAY ==
[2021-07-08] MEDS: cefTRIAXone 2,000 MG in sodium chloride 0.9% (plus) 50 ML 100 MG IV (09:17)
[2021-07-08 09:18] VITALS: BP 181/97; PULSE 117; RESP 18; TEMP 36.1; O2SAT 100
[2021-07-09] MEDS: cefTRIAXone 2,000 MG in sodium chloride 0.9% (plus) 50 ML 100 MG IV (08:42)
[2021-07-09 08:47] VITALS: BP 201/110; PULSE 125; RESP 18; TEMP 36.2; O2SAT 98
--- NOTE | 2021-07-09 08:48 | PC.NURSE ---
Pt states she ran out of her BP medication. Last dose was 07/05/21 when she was discharged from [facility]. [facility]. Pt states she is going to Urgent Care after her antibiotic infusion to address her heart rate and BP.
[2021-07-10] MEDS: cefTRIAXone 2,000 MG in sodium chloride 0.9% (plus) 50 ML 100 MG IV (08:51)
[2021-07-10 09:20] LABS: Basophils # 0.1 10^3/uL (0.0-0.1); Basophils % 1.2 %; Eosinophils # 0.2 10^3/uL (0.0-0.8); Eosinophils % 2.4 %; Hematocrit 30.8 % (37.0-47.0); Lymphocytes # 3.3 10^3/uL (0.8-4.8); Lymphocytes % 34.4 %; Mean Corpuscular HGB Conc 32.5 g/dL (30.0-36.0); Mean Corpuscular Hemoglobin 31.2 pg (28.0-34.0); Mean Platelet Volume 9.4 fL (7.4-10.4); Monocytes # 1.1 10^3/uL (0.2-0.9); Monocytes % 10.9 %; Neutrophils # 4.91 10^3/uL (1.8-7.7); Neutrophils % 50.8 %; Nucleated Red Blood Cells % 0 %; Platelet Count 901 10^3/cmm (130-400); Red Blood Count 3.21 10^6/uL (4.1-5.3); Red Cell Distribution Width 14.6 % (12.1-15.1); White Blood Count 9.7 10^3/uL (4.0-10.0)
--- NOTE | 2021-07-10 09:28 | PC.NURSE ---
Pt to GI lab for Ceftriaxone infusion. Labs drawn as ordered and faxed to [facility]. Pt on new med Lisinopril 40 mg. BP and HR improved today.
[2021-07-10 10:19] LABS: Alanine Aminotransferase 30 U/L (0-33); Albumin Level 3.8 g/dL (3.5-5.2); Alkaline Phosphatase 123 IU/L (35-105); Aspartate Amino Transferase 30 U/L (0-32); Blood Urea Nitrogen 11 mg/dL (6-20); C Reactive Protein 13.9 mg/L (0.0-4.9); Calcium 8.8 mg/dL (8.5-10.5); Carbon Dioxide 19 mmol/L (22-29); Chloride 105 mmol/L (98-107); Globulin 3.2 g/dL (1.3-4.6); Glomerular Filtration Rate 132.8 mL/min (90-130); Glucose 98 mg/dL (65-115); Osmolality Calculated 287 mOsm/kg (285-295); Sodium 139 mmol/L (136-145); Total Bilirubin 0.3 mg/dL (0.15-1.2)
[2021-07-11 08:09] VITALS: BP 163/100; PULSE 124; RESP 20; TEMP 36.6; O2SAT 98
[2021-07-11] MEDS: cefTRIAXone 2,000 MG in sodium chloride 0.9% (plus) 50 ML 100 MG IV (08:19)
[2021-07-12] MEDS: cefTRIAXone 2,000 MG in sodium chloride 0.9% (plus) 50 ML 100 MG IV (08:27)
[2021-07-12 08:29] VITALS: BP 165/104; PULSE 100; RESP 18; TEMP 35.9; O2SAT 99
--- NOTE | 2021-07-12 08:45 | PC.NURSE ---
Pt to GI lab for Ceftrixone infusion. Pt states she was able to get her pain medication refilled and her right wrist pain is much better. She states that today she is having severe abdominal pain in her upper left quadrant. Rates it as 8. States it started overnight and is worse when she lays flat. Denies N/V. Pt afebrile. Pt states she plans on going to the ER or Urgent Care after her infusion to address her pain.
[2021-07-13 08:38] VITALS: BP 165/104; PULSE 100; RESP 20; TEMP 36.6; O2SAT 98
[2021-07-13] MEDS: cefTRIAXone 2,000 MG in sodium chloride 0.9% (plus) 50 ML 100 MG IV (08:42)
--- NOTE | 2021-07-14 08:49 | SUR.PREOP ---
0835 PATIENT NOT HERE AND ALL NUMBERS CALLED WITH NO ANSWER AND NO VOICEMAIL SET UP. 0845 DAUGHTER JUST CALLED AND STATED THEY WERE STUCK IN DRIVEWAY BUT NOW THEY ARE ON THEIR WAY, I STATED I WAS ABOUT TO LEAVE SINCE I HADN'T HEARD ANYTHING FROM THE PT
--- NOTE | 2021-07-14 09:05 | SUR.PREOP ---
0903 PT CALLED AND STATED SHE WOULD BE HERE IN ABOUT 15 MINUTES
[2021-07-14] MEDS: cefTRIAXone 2,000 MG in sodium chloride 0.9% (plus) 50 ML 100 MG IV (09:30)
[2021-07-14 09:36] VITALS: BP 169/98; PULSE 117; RESP 18; TEMP 36.6; O2SAT 95
[2021-07-15] MEDS: cefTRIAXone 2,000 MG in sodium chloride 0.9% (plus) 50 ML 100 MG IV (08:18)
[2021-07-15 08:21] VITALS: BP 152/106; PULSE 100; RESP 18; TEMP 36.2; O2SAT 96
[2021-07-16] MEDS: cefTRIAXone 2,000 MG in sodium chloride 0.9% (plus) 50 ML 100 MG IV (08:25)
[2021-07-16 08:26] VITALS: BP 177/89; PULSE 111; RESP 18; TEMP 36.6; O2SAT 97
[2021-07-17 08:05] VITALS: BP 159/106; PULSE 110; RESP 20; TEMP 36.1; O2SAT 97
[2021-07-17] MEDS: cefTRIAXone 2,000 MG in sodium chloride 0.9% (plus) 50 ML 100 MG IV (08:13)
[2021-07-17 08:21] LABS: Basophils # 0.1 10^3/uL (0.0-0.1); Basophils % 1.4 %; Eosinophils # 0.4 10^3/uL (0.0-0.8); Eosinophils % 3.5 %; Hematocrit 36.3 % (37.0-47.0); Hemoglobin 11.9 g/dL (11.5-15.3); Lymphocytes # 3.8 10^3/uL (0.8-4.8); Lymphocytes % 36.9 %; Mean Corpuscular HGB Conc 32.8 g/dL (30.0-36.0); Mean Corpuscular Hemoglobin 31.6 pg (28.0-34.0); Mean Corpuscular Volume 96.3 fl (81-99); Monocytes # 1.1 10^3/uL (0.2-0.9); Monocytes % 10.4 %; Neutrophils # 4.85 10^3/uL (1.8-7.7); Neutrophils % 47.5 %; Nucleated Red Blood Cells % 0 %; Platelet Count 524 10^3/cmm (130-400); Red Blood Count 3.77 10^6/uL (4.1-5.3); Red Cell Distribution Width 14.5 % (12.1-15.1); White Blood Count 10.2 10^3/uL (4.0-10.0)
[2021-07-17 08:49] LABS: Alanine Aminotransferase 30 U/L (0-33); Albumin Level 4.1 g/dL (3.5-5.2); Alkaline Phosphatase 131 IU/L (35-105); Anion Gap 20.2 (5-19); Aspartate Amino Transferase 33 U/L (0-32); Blood Urea Nitrogen 9 mg/dL (6-20); C Reactive Protein 4.7 mg/L (0.0-4.9); Calcium 8.8 mg/dL (8.5-10.5); Carbon Dioxide 17 mmol/L (22-29); Chloride 104 mmol/L (98-107); Globulin 3.2 g/dL (1.3-4.6); Glomerular Filtration Rate 132.8 mL/min (90-130); Glucose 162 mg/dL (65-115); Osmolality Calculated 288 mOsm/kg (285-295); Potassium 3.2 mmol/L (3.5-5.1); Sodium 138 mmol/L (136-145); Total Bilirubin 0.2 mg/dL (0.15-1.2); Total Protein 7.3 g/dL (6.6-8.7)
[2021-07-18] MEDS: cefTRIAXone 2,000 MG in sodium chloride 0.9% (plus) 50 ML 100 MG IV (07:42)
[2021-07-18 07:44] VITALS: BP 178/92; PULSE 120; RESP 18; TEMP 36.2; O2SAT 98
[2021-07-19] MEDS: cefTRIAXone 2,000 MG in sodium chloride 0.9% (plus) 50 ML 100 MG IV (08:18)
[2021-07-19 08:20] VITALS: BP 183/87; PULSE 114; RESP 18; TEMP 35.9; O2SAT 95
[2021-07-20] MEDS: cefTRIAXone 2,000 MG in sodium chloride 0.9% (plus) 50 ML 100 MG IV (08:25)
[2021-07-20 08:33] VITALS: BP 125/91; PULSE 93; RESP 18; TEMP 36.5; O2SAT 96
[2021-07-21] MEDS: cefTRIAXone 2,000 MG in sodium chloride 0.9% (plus) 50 ML 100 MG IV (08:25)
[2021-07-21 08:32] VITALS: BP 129/81; PULSE 90; RESP 18; TEMP 36.3; O2SAT 97
[2021-07-22] MEDS: cefTRIAXone 2,000 MG in sodium chloride 0.9% (plus) 50 ML 100 MG IV (08:26)
[2021-07-22 08:28] VITALS: BP 120/79; PULSE 92; RESP 18; TEMP 36.1; O2SAT 98
[2021-07-23] MEDS: cefTRIAXone 2,000 MG in sodium chloride 0.9% (plus) 50 ML 100 MG IV (08:18)
[2021-07-23 08:22] VITALS: BP 158/102; PULSE 102; RESP 18; TEMP 36; O2SAT 100
[2021-07-24] MEDS: cefTRIAXone 2,000 MG in sodium chloride 0.9% (plus) 50 ML 100 MG IV (07:32)
[2021-07-24 07:33] VITALS: BP 136/98; PULSE 104; RESP 18; TEMP 35.6; O2SAT 98
[2021-07-24 07:47] LABS: Basophils # 0.2 10^3/uL (0.0-0.1); Basophils % 1.5 %; Eosinophils # 0.4 10^3/uL (0.0-0.8); Eosinophils % 3.9 %; Hematocrit 34.5 % (37.0-47.0); Hemoglobin 11.5 g/dL (11.5-15.3); Lymphocytes # 3.3 10^3/uL (0.8-4.8); Lymphocytes % 30.1 %; Mean Corpuscular HGB Conc 33.3 g/dL (30.0-36.0); Mean Corpuscular Hemoglobin 31.6 pg (28.0-34.0); Mean Corpuscular Volume 94.8 fl (81-99); Mean Platelet Volume 9.8 fL (7.4-10.4); Monocytes # 0.7 10^3/uL (0.2-0.9); Monocytes % 6.3 %; Neutrophils % 57.7 %; Nucleated Red Blood Cells % 0 %; Platelet Count 297 10^3/cmm (130-400); Red Blood Count 3.64 10^6/uL (4.1-5.3); Red Cell Distribution Width 14.5 % (12.1-15.1); White Blood Count 11.1 10^3/uL (4.0-10.0)
[2021-07-24 08:09] LABS: Alanine Aminotransferase 27 U/L (0-33); Alkaline Phosphatase 120 IU/L (35-105); Anion Gap 17.7 (5-19); Aspartate Amino Transferase 28 U/L (0-32); Blood Urea Nitrogen 8 mg/dL (6-20); C Reactive Protein 4.2 mg/L (0.0-4.9); Calcium 9.6 mg/dL (8.5-10.5); Carbon Dioxide 21 mmol/L (22-29); Chloride 105 mmol/L (98-107); Globulin 2.9 g/dL (1.3-4.6); Glomerular Filtration Rate 107.2 mL/min (90-130); Glucose 142 mg/dL (65-115); Osmolality Calculated 289 mOsm/kg (285-295); Potassium 4.7 mmol/L (3.5-5.1); Sodium 139 mmol/L (136-145); Total Bilirubin 0.2 mg/dL (0.15-1.2); Total Protein 6.9 g/dL (6.6-8.7)
--- NOTE | 2021-07-24 09:01 | PC.NURSE ---
Labs drawn and sent to Dr. Shine, [facility], as requested. WBC count noted to be trending up. Pt c/o increased swelling and pain to right hand. Ananya, IV coordinator for [facility], called and notified of increased WBC. Ananya requested Dr. Valdez to be notified. Dr. Valdez office nurse notified.
[2021-07-25] MEDS: cefTRIAXone 2,000 MG in sodium chloride 0.9% (plus) 50 ML 100 MG IV (08:22)
[2021-07-25 08:23] VITALS: BP 159/107; PULSE 110; RESP 18; TEMP 36.1; O2SAT 98
[2021-07-26] MEDS: cefTRIAXone 2,000 MG in sodium chloride 0.9% (plus) 50 ML 100 MG IV (09:00)
[2021-07-26 09:06] VITALS: BP 171/110; PULSE 100; RESP 18; TEMP 35.9; O2SAT 98
[2021-07-27 08:39] VITALS: BP 141/94; PULSE 86; RESP 18; TEMP 36.2; O2SAT 99
[2021-07-27] MEDS: cefTRIAXone 2,000 MG in sodium chloride 0.9% (plus) 50 ML 100 MG IV (08:52)
[2021-07-28] MEDS: cefTRIAXone 2,000 MG in sodium chloride 0.9% (plus) 50 ML 100 MG IV (08:47)
[2021-07-28 08:55] VITALS: BP 168/99; PULSE 89; RESP 16; TEMP 36.1; O2SAT 98
[2021-07-29] MEDS: cefTRIAXone 2,000 MG in sodium chloride 0.9% (plus) 50 ML 100 MG IV (08:24)
[2021-07-29 08:26] VITALS: BP 167/97; PULSE 106; RESP 18; TEMP 36.1; O2SAT 99
[2021-07-29 08:41] LABS: Basophils # 0.1 10^3/uL (0.0-0.1); Basophils % 1.2 %; Eosinophils # 0.6 10^3/uL (0.0-0.8); Eosinophils % 6.2 %; Hematocrit 35.1 % (37.0-47.0); Hemoglobin 11.5 g/dL (11.5-15.3); Lymphocytes # 3.9 10^3/uL (0.8-4.8); Lymphocytes % 37.2 %; Mean Corpuscular HGB Conc 32.8 g/dL (30.0-36.0); Mean Corpuscular Hemoglobin 31.8 pg (28.0-34.0); Mean Platelet Volume 9.7 fL (7.4-10.4); Monocytes # 0.8 10^3/uL (0.2-0.9); Monocytes % 7.4 %; Neutrophils # 4.94 10^3/uL (1.8-7.7); Neutrophils % 47.7 %; Nucleated Red Blood Cells % 0 %; Platelet Count 335 10^3/cmm (130-400); Red Blood Count 3.62 10^6/uL (4.1-5.3); Red Cell Distribution Width 14.1 % (12.1-15.1); White Blood Count 10.3 10^3/uL (4.0-10.0)
[2021-07-29 09:01] LABS: Alanine Aminotransferase 27 U/L (0-33); Albumin Level 3.9 g/dL (3.5-5.2); Alkaline Phosphatase 107 IU/L (35-105); Anion Gap 15.6 (5-19); Aspartate Amino Transferase 25 U/L (0-32); Blood Urea Nitrogen 12 mg/dL (6-20); C Reactive Protein 5.6 mg/L (0.0-4.9); Calcium 9.2 mg/dL (8.5-10.5); Carbon Dioxide 18 mmol/L (22-29); Chloride 107 mmol/L (98-107); Globulin 2.9 g/dL (1.3-4.6); Glomerular Filtration Rate 132.2 mL/min (90-130); Glucose 126 mg/dL (65-115); Osmolality Calculated 285 mOsm/kg (285-295); Potassium 3.6 mmol/L (3.5-5.1); Sodium 137 mmol/L (136-145); Total Bilirubin 0.2 mg/dL (0.15-1.2); Total Protein 6.8 g/dL (6.6-8.7)
== END 2021-07-29 23:59 | disposition home or self-care (01) ==
LOC: GILAB 08:19
PROVIDERS: Visit Provider Internal Medicine Infectious Disease
DX: M00.0 Staphylococcal arthritis and polyarthritis (principal)
CPT/HCPCS: 36415; 80053; 85025; 86140; 96365; J0696

== ENCOUNTER 2021-08-08 17:13 | Outpatient (CLI) | payer BC, MEDICAID, SELFPAY ==
--- NOTE | 2021-08-08 | XR_ITS ---
WS: [id number] XR wrist RT w scaphoid [id number] REASON FOR EXAM: FELL ON ICE, RT WRIST PAIN, HX OF FX W/ OSTEOMYELITIS FINDINGS: Examination of 06/29/2021 near complete obliteration of the radial carpal joint space and significant d eformity of the distal radius including the articular portion due to previous fracture and infection. Significant dorsal rotation of the lunate. Very difficult to evaluate for acute injury. The orientation of the carpal bones and the radius appea rs to have changed compared to the previous examination on both the AP and more notably on the latera l view. A ventral dislocation of the carpal bones in relation to the radius is suspected. XR/XR wrist RT w scaphoid [id number] IMPRESSION: Suspect acute injury superimposed on chronic abnormality as above.
[2021-08-08 17:34] LABS: C Reactive Protein 6.3 mg/L (0.0-4.9)
== END 2021-08-08 17:14 | disposition home or self-care (01) ==
LOC: RADOUTREAD 17:16
PROVIDERS: PCP Family Medicine; Visit Provider Family Medicine
DX: B19.20 Unspecified viral hepatitis C without hepatic coma (principal); I10 Essential (primary) hypertension; D69.6 Thrombocytopenia, unspecified; E87.6 Hypokalemia
CPT/HCPCS: 86140

== ENCOUNTER 2021-08-12 08:35 | Outpatient (RCR) | payer BC, MEDICAID, SELFPAY ==
[2021-07-30] MEDS: cefTRIAXone 2,000 MG in sodium chloride 0.9% (plus) 50 ML 100 MG IV (09:12)
[2021-07-30 09:28] VITALS: BP 137/93; PULSE 88; RESP 18; TEMP 36.2; O2SAT 98
[2021-07-31] MEDS: cefTRIAXone 2,000 MG in sodium chloride 0.9% (plus) 50 ML 100 MG IV (08:51)
[2021-07-31 08:55] VITALS: BP 182/122; PULSE 119; RESP 18; TEMP 36.3; O2SAT 98
[2021-08-03 08:19] VITALS: BP 182/110; PULSE 84; RESP 18; TEMP 36.5; O2SAT 97
--- NOTE | 2021-08-03 08:20 | PC.NURSE ---
Patient's blood pressure 180/110; stated that her blood pressure has been running this high and that she just took her blood pressure medication before arriving.
[2021-08-03] MEDS: cefTRIAXone 2,000 MG in sodium chloride 0.9% (plus) 50 ML 100 MG IV (08:30)
[2021-08-04] MEDS: cefTRIAXone 2,000 MG in sodium chloride 0.9% (plus) 50 ML 100 MG IV (08:42)
[2021-08-04 08:46] VITALS: BP 150/96; PULSE 94; RESP 24; TEMP 36.1; O2SAT 95
[2021-08-05] MEDS: cefTRIAXone 2,000 MG in sodium chloride 0.9% (plus) 50 ML 100 MG IV (08:25)
[2021-08-05 08:27] VITALS: BP 158/81; PULSE 120; RESP 18; TEMP 35.6; O2SAT 99
[2021-08-06] MEDS: cefTRIAXone 2,000 MG in sodium chloride 0.9% (plus) 50 ML 100 MG IV (09:32)
[2021-08-06 09:33] VITALS: BP 175/100; PULSE 110; RESP 18; TEMP 36.1; O2SAT 96
[2021-08-07 08:15] VITALS: BP 165/101; PULSE 95; RESP 18; TEMP 36.6; O2SAT 97
[2021-08-07] MEDS: cefTRIAXone 2,000 MG in sodium chloride 0.9% (plus) 50 ML 100 MG IV (08:27)
[2021-08-07 08:32] LABS: Basophils # 0.1 10^3/uL (0.0-0.1); Basophils % 0.8 %; Eosinophils # 0.5 10^3/uL (0.0-0.8); Eosinophils % 5.1 %; Hematocrit 34.9 % (37.0-47.0); Hemoglobin 11.6 g/dL (11.5-15.3); Lymphocytes # 2.9 10^3/uL (0.8-4.8); Lymphocytes % 30.1 %; Mean Corpuscular HGB Conc 33.2 g/dL (30.0-36.0); Mean Corpuscular Hemoglobin 31.9 pg (28.0-34.0); Mean Corpuscular Volume 95.9 fl (81-99); Mean Platelet Volume 9.6 fL (7.4-10.4); Monocytes # 0.7 10^3/uL (0.2-0.9); Monocytes % 7.6 %; Neutrophils # 5.48 10^3/uL (1.8-7.7); Neutrophils % 56.2 %; Nucleated Red Blood Cells % 0 %; Platelet Count 348 10^3/cmm (130-400); Red Blood Count 3.64 10^6/uL (4.1-5.3); Red Cell Distribution Width 14.3 % (12.1-15.1); White Blood Count 9.8 10^3/uL (4.0-10.0)
[2021-08-07 08:55] LABS: Alanine Aminotransferase 18 U/L (0-33); Albumin Level 4.3 g/dL (3.5-5.2); Alkaline Phosphatase 105 IU/L (35-105); Anion Gap 17.9 (5-19); Aspartate Amino Transferase 19 U/L (0-32); Blood Urea Nitrogen 23 mg/dL (6-20); C Reactive Protein 5.7 mg/L (0.0-4.9); Calcium 9.4 mg/dL (8.5-10.5); Carbon Dioxide 18 mmol/L (22-29); Chloride 107 mmol/L (98-107); Globulin 2.7 g/dL (1.3-4.6); Glomerular Filtration Rate 107.2 mL/min (90-130); Glucose 107 mg/dL (65-115); Osmolality Calculated 292 mOsm/kg (285-295); Potassium 3.9 mmol/L (3.5-5.1); Sodium 139 mmol/L (136-145); Total Bilirubin 0.2 mg/dL (0.15-1.2)
[2021-08-08 08:35] VITALS: BP 171/99; PULSE 118; RESP 18; TEMP 36.6; O2SAT 97
[2021-08-08] MEDS: cefTRIAXone 2,000 MG in sodium chloride 0.9% (plus) 50 ML 100 MG IV (08:47)
[2021-08-09] MEDS: cefTRIAXone 2,000 MG in sodium chloride 0.9% (plus) 50 ML 100 MG IV (08:30)
[2021-08-09 08:32] VITALS: BP 167/96; PULSE 95; RESP 18; TEMP 36.4; O2SAT 97
--- NOTE | 2021-08-10 11:46 | SUR.PHASEI ---
Patient arrived early for infusion, was placed in her room while nurse finished with a different patient. Jaz came out of room and stated she needed to take insulin to her boyfriend at work as they called her and she asked if she could come back. Nurse told her yes but to keep us posted on status. Jaz called in at 11:25 and stated her boyfriend wasn't doing well and she would not be able to come back for infusion today. Stated she would be here tomorrow for the scheduled infusion
[2021-08-12] MEDS: cefTRIAXone 2,000 MG in sodium chloride 0.9% (plus) 100 ML 200 MG IV (08:35)
[2021-08-12 08:50] VITALS: BP 152/99; PULSE 96; RESP 18; TEMP 36.2; O2SAT 99
--- NOTE | 2021-08-13 14:59 | PC.NURSE ---
Ceftriaxone was due to be stopped per Dr. Shine order on 08/10/21. Dr. Ralf Galarza called on 08/08/21 to extend Ceftriaxone per Dr. Monsalve request after patient was seen at Urgent Care and cultures were drawn. Cultures back and negative. Dr. Galarza's office ([facility]) called this nurse and stated Ceftriaxone to be discontinued. Ananya at [facility] with Dr. Shine notified of pt being seen at Urgent Care in [place] and antibiotic extended past Dr. Shine order. Orders received to draw labs at next visit per Dr. Shine. Per Ananya with [facility], pt is scheduled to be seen at Dr. Shine office on Thursday08/16/21. After lab draw, no further antibiotics or labs required.
== END 2021-08-26 23:59 | disposition home or self-care (01) ==
LOC: GILAB 08:35
PROVIDERS: PCP Family Medicine; Visit Provider Internal Medicine Infectious Disease
DX: M00.031 Staphylococcal arthritis, right wrist (principal)
CPT/HCPCS: 80053; 85025; 86140; 96365; J0696

== ENCOUNTER 2021-09-22 16:37 | Emergency (ER) | payer BC, MEDICAID, SELFPAY ==
[2021-09-22 16:41] VITALS: BP 176/87; PULSE 112; RESP 18; TEMP 36.8; O2SAT 99; BMI 30.2
--- NOTE | 2021-09-22 16:47 | XRR_ITS ---
PROCEDURE INFORMATION: Exam: XR Lumbosacral Spine Exam date and time: 09/22/2021 4:56 PM Age: 46 years old Clinical indication: Lumbago; Additional info: Fall TECHNIQUE: Imaging protocol: XR of the lumbosacral spine. Views: 2 or 3 views. COMPARISON: CT Lumbar Spine [facility] [id number] 08/16/2017 7:37 PM FINDINGS: Bones/joints: Severe disc disease of L4-L5 and L5-S1. Reactive sclerosis and irregularity of vertebral endplates. No lumbar spine fracture. Unremarkable lumbar spine alignment. Soft tissues: Unremarkable. XR/XR lumbar spine 2-3V* [id number] IMPRESSION: Negative for acute osseous injury.
--- NOTE | 2021-09-22 16:52 | W.ED.BACK ---
HPI - Back Pain/Injury General: Chief Complaint: Back Pain/Injury Stated Complaint: Lower rt side back pain Time Seen by Provider: 09/22/21 16:40 Source: patient Mode of arrival: ambulatory Limitations: no limitations History of Present Illness: 46-year-old female who states she fell off a porch earlier last week states been having some right lower quadrant back pain since then states that it is tender to touch radiates down her leg slightly. She denies any midline pain denies any abdominal pain denies hitting her head. States it is worse with walking improved with rest. Rates her pain a 5 out of 10 currently. Associated symptoms: Deny abdominal pain, chills, dysuria, fever(s), nausea or vomiting Review of Systems Const: Denies: fever(s), chills, body aches or change in appetite Eyes: Denies: blurry vision or eye discomfort ENMT: Denies: throat pain or dental pain Card: Denies: chest pain Resp: Denies: dyspnea GI: Denies: abdominal pain, nausea, vomiting or diarrhea : Denies: dysuria Musc: Reports: back pain Skin/Breast: Denies: rash Neuro: Denies: headache(s) Psych: Denies: depression Vlad/Lymph: Denies: easy bruising All/Imm: Denies: urticaria PFSH ED PFSH: Medical History Hidradenitis HTN (hypertension) Seizures Surgical History History of hysterectomy Social History Smoking and tobacco status: never smoked Alcohol intake: current Physical Exam Const: COMMON NORMALS: no acute distress, patient oriented x3 and healthy appearing HENMT: COMMON NORMALS: normocephalic and atraumatic HEAD & SCALP: normocephalic and atraumatic Eye: COMMON NORMALS: Equal, round and reactive pupils present and EOMs intact bilaterally PUPIL: Yes Equal, round and reactive pupils present Neck/C-Spine: COMMON NORMALS: full ROM and supple Chest: COMMONS NORMALS: normal inspection of the chest and normal palpation of entire chest wall Resp: COMMON NORMALS: normal respiratory effort, No retractions, No use of accessory muscles and clear to auscultation bilaterally AUSCULTATION: clear to auscultation bilaterally Cardio: COMMON NORMALS: regular rate, regular rhythm and No murmurs present (Cardio) RATE: regular rate RHYTHM: regular rhythm GI: COMMON NORMALS: Normal to inspection, nondistended, normoactive bowel sounds present, Soft to palpation, non-tender and no masses PALPATION: Yes Soft to palpation Back/Pelvis: OTHER: tenderness over right lower back no midline tenderness Extremity: COMMON NORMALS: normal to inspection and full ROM Neuro: COMMON NORMALS: patient oriented x3, moves all extremities and no focal motor deficits Psych: COMMON NORMALS: mental status grossly normal, Normal thought process present and cooperative THOUGHT PROCESS: Normal thought process present Skin: COMMON NORMALS: no rashes or lesions noted and no wounds GENERAL SKIN EXAM: no rashes or lesions noted Course Vital Signs: Vital signs: Vital Signs Temperature 98.3 F 09/22/21 16:41 Pulse Rate 112 H 09/22/21 16:41 Respiratory Rate 18 09/22/21 17:12 Blood Pressure 176/87 09/22/21 16:41 Pulse Oximetry 99 09/22/21 16:41 MDM - Back Pain/Injury Medical Decision Making Patient presents here with back pain from a fall likely a contusion x-ray shows no fracture blood work here is all normal she feels improved after morphine will place her on Naprosyn Robaxin at home she is to follow-up with PCP and return if worsening she understands agrees to plan. Labs : 09/22/21 17:00 09/22/21 17:00 Laboratory Results WBC 9.1 10^3/uL (4.0-10.0) 09/22/21 17:00 RBC 3.85 10^6/uL (4.1-5.3) L 09/22/21 17:00 Hgb 12.4 g/dL (11.5-15.3) 09/22/21 17:00 Hct 36.5 % (37.0-47.0) L 09/22/21 17:00 MCV 94.8 fl (81-99) 09/22/21 17:00 MCH 32.2 pg (28.0-34.0) 09/22/21 17:00 MCHC 34.0 g/dL (30.0-36.0) 09/22/21 17:00 RDW 13.9 % (12.1-15.1) 09/22/21 17:00 Plt Count 288 10^3/cmm (130-400) 09/22/21 17:00 MPV 9.0 fL (7.4-10.4) 09/22/21 17:00 Neut % (Auto) 57.4 % 09/22/21 17:00 Lymph % (Auto) 30.5 % 09/22/21 17:00 [place] % (Auto) 7.7 % 09/22/21 17:00 Eos % (Auto) 3.6 % 09/22/21 17:00 Baso % (Auto) 0.6 % 09/22/21 17:00 Neut # (Auto) 5.22 10^3/uL (1.8-7.7) 09/22/21 17:00 Lymph # (Auto) 2.8 10^3/uL (0.8-4.8) 09/22/21 17:00 [place] # (Auto) 0.7 10^3/uL (0.2-0.9) 09/22/21 17:00 Eos # (Auto) 0.3 10^3/uL (0.0-0.8) 09/22/21 17:00 Baso # (Auto) 0.1 10^3/uL (0.0-0.1) 09/22/21 17:00 Nucleated RBC % (auto) 0 % 09/22/21 17:00 Nucleated RBCs # 0.0 /100WBC 09/22/21 17:00 Sodium 138 mmol/L (136-145) 09/22/21 17:00 Potassium 3.1 mmol/L (3.5-5.1) L 09/22/21 17:00 Chloride 106 mmol/L (98-107) 09/22/21 17:00 Carbon Dioxide 21 mmol/L (22-29) L 09/22/21 17:00 Anion Gap 14.1 (5-19) 09/22/21 17:00 BUN 15 mg/dL (6-20) 09/22/21 17:00 Creatinine 0.6 mg/dL (0.5-0.9) 09/22/21 17:00 GFR Calculation 107.2 mL/min (90-130) 09/22/21 17:00 Glucose 109 mg/dL (65-115) 09/22/21 17:00 Calculated Osmolality 287 mOsm/kg (285-295) 09/22/21 17:00 Calcium 9.0 mg/dL (8.5-10.5) 09/22/21 17:00 Total Bilirubin 0.2 mg/dL (0.15-1.2) 09/22/21 17:00 AST 42 U/L (0-32) H 09/22/21 17:00 ALT 29 U/L (0-33) 09/22/21 17:00 Alkaline Phosphatase 97 IU/L (35-105) 09/22/21 17:00 Total Protein 6.8 g/dL (6.6-8.7) 09/22/21 17:00 Albumin 4.3 g/dL (3.5-5.2) 09/22/21 17:00 Globulin 2.5 g/dL (1.3-4.6) 09/22/21 17:00 Discharge Plan Discharge Patient Disposition: Home Clinical Impression: Low back pain Qualifiers: Chronicity: acute Back pain laterality: left Sciatica presence: without sciatica Qualified Code(s): M54.50 - Low back pain, unspecified Condition: Stable Prescriptions: New methocarbamol 750 mg tablet 750 mg PO Q6H PRN (Reason: spasms) Qty: 20 0RF Naprosyn 500 mg tablet 500 mg PO BID PRN (Reason: pain) Qty: 20 0RF No Action lisinopril 40 mg tablet 40 mg PO DAILY Qty: 30 5RF hydroxyzine HCl 25 mg tablet 25 mg PO TID PRN (Reason: anxiety) 30 Days Qty: 90 1RF diazepam 10 mg tablet 10 mg PO .COMPLEX Qty: 42 0RF Rx Instructions: Take 1 tab q8hrs x 7 days, then 1 tab q12hrs x 7 days, then one tab daily x 7 days. Discharge Orders: Discharge ED (Routine); Ordered 09/22/21 Ordered By: Martín Shaffer Referrals: Ralf Galarza DO [Primary Care Provider] - 1-3 days Discharge Diet: Advance as tolerated Discharge Activity: Resume usual activity Patient Instructions: Back Pain (ED) Coding Level of Care Code ED Land Surveying Manager for Chg Fwd Exam Comprehensive
[2021-09-22 17:12] VITALS: RESP 18
[2021-09-22 17:12] LABS: Basophils # 0.1 10^3/uL (0.0-0.1); Basophils % 0.6 %; Eosinophils # 0.3 10^3/uL (0.0-0.8); Eosinophils % 3.6 %; Hematocrit 36.5 % (37.0-47.0); Hemoglobin 12.4 g/dL (11.5-15.3); Lymphocytes # 2.8 10^3/uL (0.8-4.8); Lymphocytes % 30.5 %; Mean Corpuscular Hemoglobin 32.2 pg (28.0-34.0); Mean Corpuscular Volume 94.8 fl (81-99); Monocytes # 0.7 10^3/uL (0.2-0.9); Monocytes % 7.7 %; Neutrophils # 5.22 10^3/uL (1.8-7.7); Neutrophils % 57.4 %; Nucleated Red Blood Cells % 0 %; Platelet Count 288 10^3/cmm (130-400); Red Blood Count 3.85 10^6/uL (4.1-5.3); Red Cell Distribution Width 13.9 % (12.1-15.1); White Blood Count 9.1 10^3/uL (4.0-10.0)
[2021-09-22] MEDS: morphine 4 mg/mL SDV 1 mL IVP (17:12)
[2021-09-22 17:31] LABS: Alanine Aminotransferase 29 U/L (0-33); Albumin Level 4.3 g/dL (3.5-5.2); Alkaline Phosphatase 97 IU/L (35-105); Anion Gap 14.1 (5-19); Aspartate Amino Transferase 42 U/L (0-32); Blood Urea Nitrogen 15 mg/dL (6-20); Carbon Dioxide 21 mmol/L (22-29); Chloride 106 mmol/L (98-107); Creatinine Clr Calc Pharmacy 118.4886; Globulin 2.5 g/dL (1.3-4.6); Glomerular Filtration Rate 107.2 mL/min (90-130); Glucose 109 mg/dL (65-115); Osmolality Calculated 287 mOsm/kg (285-295); Potassium 3.1 mmol/L (3.5-5.1); Sodium 138 mmol/L (136-145); Total Bilirubin 0.2 mg/dL (0.15-1.2); Total Protein 6.8 g/dL (6.6-8.7)
[2021-09-22 17:51] VITALS: BP 126/51; PULSE 88; RESP 16; TEMP 36.7; O2SAT 99
== END 2021-09-22 17:52 | disposition home or self-care (01) ==
PROVIDERS: Emergency Provider Emergency Medicine; PCP Family Medicine
DX: M54.50 Low back pain, unspecified (principal); I10 Essential (primary) hypertension
CPT/HCPCS: 72100; 80053; 85025; 96374; 99283; J2270

== ENCOUNTER 2021-10-17 14:45 | Outpatient (CLI) | payer BC, MEDICAID, SELFPAY ==
[2021-10-17 16:38] LABS: Amphetamines Screen Urine Positive (Negative); Barbiturates Screen Urine Negative (Negative); Benzodiazepines Screen Urine Positive (Negative); Cocaine Screen Urine Negative (Negative); Opiate Screen Urine Negative (Negative); PCP Screen Urine Negative (Negative); THC Screen Urine Positive (Negative)
[2021-10-17 16:39] LABS: Add Urine Culture? No; Bacteria Urine TRACE /hpf; Bilirubin Urine 1+ (Negative); Blood Urine Neg (Negative); Glucose Urine UA Norm (Normal); Ketones Urine Negative (Negative); Leukocyte Esterase Urine Negative (Negative); Mucus Urine 1+ /hpf; Nitrate Urine Negative (Negative); Protein Urine Neg (Negative); RBC Urine RARE /hpf (0-2); Urine Appearance Hazy (CLEAR); Urine Color Yellow (Yellow); Urobilinogen Urine Neg (Negative); WBC Urine 0-4 /hpf (0-5); pH Urine 5 (5-7)
[2021-10-17 16:58] LABS: Alanine Aminotransferase 69 U/L (0-33); Albumin Level 4.2 g/dL (3.5-5.2); Alkaline Phosphatase 98 IU/L (35-105); Anion Gap 17.6 (5-19); Aspartate Amino Transferase 75 U/L (0-32); Blood Urea Nitrogen 26 mg/dL (6-20); CKMB 19.1 ng/mL (0-5.34); CKMB Relative Index 1.7 % (0.0-10.4); Calcium 8.8 mg/dL (8.5-10.5); Carbon Dioxide 21 mmol/L (22-29); Chloride 102 mmol/L (98-107); Globulin 3.1 g/dL (1.3-4.6); Glomerular Filtration Rate 48.2 mL/min (90-130); Glucose 119 mg/dL (65-115); Osmolality Calculated 290 mOsm/kg (285-295); Potassium 3.6 mmol/L (3.5-5.1); Sodium 137 mmol/L (136-145); Total Bilirubin 0.2 mg/dL (0.15-1.2); Total Protein 7.3 g/dL (6.6-8.7)
[2021-10-21 08:50] LABS: Creatine Phosphokinase 1063 U/L (26-192)
== END 2021-10-17 14:46 | disposition home or self-care (01) ==
LOC: LAB 14:59
PROVIDERS: PCP Family Medicine; Visit Provider Family Medicine
DX: I95.9 Hypotension, unspecified (principal); M79.89 Other specified soft tissue disorders; N23 Unspecified renal colic; V86.99XA Unspecified occupant of other special all-terrain or other off-road motor vehicle injured in nontraffic accident, initial encounter
CPT/HCPCS: 80053; 80306; 81001; 82550; 82553

== ENCOUNTER 2021-11-20 13:51 | Emergency (ER) | payer BC, MEDICAID, SELFPAY ==
[2021-11-20 14:09] VITALS: BP 140/84; PULSE 110; RESP 18; TEMP 36; O2SAT 97; BMI 28.6
[2021-11-20 16:13] LABS: Adenovirus Not Detected (NOT DETECT); Chlamydia Pneumoniae Not Detected (NOT DETECT); Coronavirus 229E,HKU1,NL63,OC4 Not Detected (NOT DETECT); Human Metapneumovirus Not Detected (NOT DETECT); Human Rhinovirus/Enterovirus Not Detected (NOT DETECT); Influenza A Not Detected (NOT DETECT); Influenza A H1 Not Detected (NOT DETECT); Influenza A H1-2009 Not Detected (NOT DETECT); Influenza A H3 Not Detected (NOT DETECT); Influenza B Not Detected (NOT DETECT); Mycoplasma Pneumoniae Not Detected (NOT DETECT); Parainfluenza Virus Type 1 Not Detected (NOT DETECT); Parainfluenza Virus Type 2 Not Detected (NOT DETECT); Parainfluenza Virus Type 3 Not Detected (NOT DETECT); Parainfluenza Virus Type 4 Not Detected (NOT DETECT); Respiratory Syncytial Virus A Not Detected (NOT DETECT); Respiratory Syncytial Virus B Not Detected (NOT DETECT); SARS-COV-2 Not Detected (NOT DETECT)
[2021-11-20 17:19] LABS: Influenza A Not Detected (NOT DETECT); Influenza A H1 Not Detected (NOT DETECT); Influenza A H1-2009 Not Detected (NOT DETECT); Influenza A H3 Not Detected (NOT DETECT); Influenza B Not Detected (NOT DETECT); Results from Genmark
== END 2021-11-20 15:40 | disposition left against medical advice (07) ==
PROVIDERS: Emergency Medicine; Emergency Provider Family Medicine; PCP Family Medicine
DX: Z53.21 Procedure and treatment not carried out due to patient leaving prior to being seen by health care provider (principal); Z20.822 Contact with and (suspected) exposure to COVID-19
CPT/HCPCS: 87631; 87635

== ENCOUNTER → 2021-11-26 10:22 | Outpatient (BNVA) | payer BC, MEDICAID, SELFPAY | PROVIDERS: PCP Family Medicine; Visit Provider Internal Medicine | DX: B19.20 Unspecified viral hepatitis C without hepatic coma (principal); F19.11 Other psychoactive substance abuse, in remission; F10.239 Alcohol dependence with withdrawal, unspecified | CPT/HCPCS: 82105; 87902 ==

== ENCOUNTER 2022-04-21 00:39 | Emergency (ER) | payer BC, MEDICAID, SELFPAY ==
[2022-04-21 00:46] VITALS: BP 158/90; PULSE 107; RESP 18; TEMP 36.9; O2SAT 97; BMI 27.4
--- NOTE | 2022-04-21 01:30 | CTR_ITS ---
PROCEDURE INFORMATION: Exam: CT Abdomen And Pelvis Without Contrast Exam date and time: 04/21/2022 1:44 AM Age: 46 years old Clinical indication: Abdominal pain; Flank; Right; Prior surgery; Surgery date: 6+ months; Surgery type: Hysterectomy; Additional info: R flank pain TECHNIQUE: Imaging protocol: Computed tomography of the abdomen and pelvis without contrast. Radiation optimization: All CT scans at this facility use at least one of these dose optimization techniques: automated exposure control; mA and/or kV adjustment per patient size (includes targeted exams where dose is matched to clinical indication); or iterative reconstruction. COMPARISON: CT abdomen pelvis w con* [id number] 03/29/2021 2:35 PM RADIATION DOSE METRICS: Total DLP (mGy-cm): 589.53 FINDINGS: Lungs: The lung bases are clear. Liver: Unremarkable. Gallbladder and bile ducts: The gallbladder appears partially contracted. No visible gallstones by CT. No biliary tree dilation. Pancreas: Unremarkable. Spleen: A few small calcified granulomas in the spleen, unchanged. Adrenal glands: Unremarkable. Kidneys and ureters: Several very small intrarenal calculi bilaterally. Moderate right hydronephrosis and hydroureter. There is a 2-3 mm distal right ureteral calculus, about 1 cm from the UVJ. No left hydronephrosis or visible left ureteral calculus. Stomach and bowel: No significant bowel distention. There are no CT findings to strongly suggest diverticulitis. Appendix: The appendix is visualized and appears normal. Intraperitoneal space: No free intraperitoneal air, or ascites. Vasculature: No evidence for abdominal aortic aneurysm. Lymph nodes: No retroperitoneal adenopathy. Urinary bladder: The urinary bladder is essentially empty, limiting evaluation. Reproductive: Prior hysterectomy. 2.5 cm left adnexal/ovarian cyst. A physiologic cyst is still likely, however other etiologies are not excluded. Ultrasound could further evaluate these ovarian findings if felt clinically indicated, and could also be used for appropriate follow-up. Appropriate follow up is recommended in this age group, to insure against a persistent or enlarging lesion/neoplasm. No significant cul-de-sac fluid. Bones/joints: Prominent degenerative/arthritic changes in the mid and lower lumbar spine, similar to the prior exam. Soft tissues: No significant acute finding. CT/CT abdomen pelvis wo con [id number] IMPRESSION: 1. 2-3 mm distal right ureteral calculus, see additional details above. 2. Moderate right hydronephrosis and hydroureter. 3. Bilateral intrarenal calculi. 4. 2.5 cm left adnexal/ovarian cyst, see above discussion. 5. Normal appendix. 6. Other findings discussed above.
[2022-04-21 01:47] LABS: Basophils # 0.1 10^3/uL (0.0-0.1); Basophils % 0.7 %; Eosinophils # 0.2 10^3/uL (0.0-0.8); Eosinophils % 2.4 %; Hematocrit 37.7 % (37.0-47.0); Hemoglobin 12.8 g/dL (11.5-15.3); Lymphocytes # 3.2 10^3/uL (0.8-4.8); Lymphocytes % 40.1 %; Mean Corpuscular Hemoglobin 35.2 pg (28.0-34.0); Mean Corpuscular Volume 103.6 fl (81-99); Mean Platelet Volume 9.3 fL (7.4-10.4); Monocytes % 11.9 %; Neutrophils # 3.59 10^3/uL (1.8-7.7); Neutrophils % 44.5 %; Nucleated Red Blood Cells % 0 %; Platelet Count 312 10^3/cmm (130-400); Red Blood Count 3.64 10^6/uL (4.1-5.3); Red Cell Distribution Width 12.9 % (12.1-15.1); White Blood Count 8.1 10^3/uL (4.0-10.0)
[2022-04-21 01:58] VITALS: RESP 18; O2SAT 98
[2022-04-21] MEDS: HYDROmorphone 1 mg/mL INJ 1 mL IVP ×2 (01:58→02:44)
[2022-04-21] MEDS: ondansetron 2 mg/ML SDV 2 mL 4 MG IVP (01:59)
[2022-04-21] MEDS: sodium chloride 0.9% 1,000 ML 999 ML IV (01:59)
[2022-04-21 02:26] LABS: HCG, Serum Qual Negative (Negative)
[2022-04-21 02:28] LABS: Alanine Aminotransferase 12 U/L (0-33); Albumin Level 3.8 g/dL (3.5-5.2); Alkaline Phosphatase 87 U/L (35-105); Anion Gap 13.8 (5-19); Aspartate Amino Transferase 15 U/L (0-32); Blood Urea Nitrogen 20 mg/dL (6-20); Calcium 9.4 mg/dL (8.5-10.5); Carbon Dioxide 20 mmol/L (22-29); Chloride 105 mmol/L (98-107); Glomerular Filtration Rate 89.7 mL/min (90-130); Glucose 90 mg/dL (65-115); Lipase 25 U/L (13-60); Osmolality Calculated 282 mOsm/kg (285-295); Potassium 3.8 mmol/L (3.5-5.1); Sodium 135 mmol/L (136-145); Total Bilirubin 0.3 mg/dL (0.15-1.2); Total Protein 6.8 g/dL (6.6-8.7)
[2022-04-21 02:44] VITALS: RESP 20
[2022-04-21 03:13] LABS: Add Urine Microscopic? YES; Bilirubin Urine Neg (Negative); Blood Urine 3+ (Negative); Glucose Urine UA Norm (Normal); Ketones Urine Negative (Negative); Leukocyte Esterase Urine Negative (Negative); Nitrate Urine Negative (Negative); Protein Urine Trace (Negative); Urine Appearance SL Hazy (CLEAR); Urine Color Yellow (Yellow); Urobilinogen Urine Neg (Negative); pH Urine 5 (5-7)
[2022-04-21 03:15] LABS: RBC Urine 15-25 /hpf (0-2); Squamous Epithelial Cell Urine 15-25 /hpf (0-5)
[2022-04-21 03:16] LABS: Add Urine Culture? No; Bacteria Urine 1+ /hpf; Calcium Oxalate Crystals Urine RARE /hpf; WBC Urine 0-4 /hpf (0-5)
[2022-04-21 03:22] VITALS: PULSE 62; RESP 16; O2SAT 95
[2022-04-21] MEDS: ketorolac 30 mg/mL INJ 15 MG IVP (03:45)
[2022-04-21 03:51] VITALS: BP 149/114; PULSE 65; RESP 17; O2SAT 95
--- NOTE | 2022-04-22 11:27 | ED_ITS ---
HPI - Abdominal Pain General: Chief Complaint: Abdominal Pain Stated Complaint: ABD Pain Time Seen by Provider: 04/21/22 01:54 Source: patient History of Present Illness: 46 year old female presenting with right lower quadrant and right flank pain. Onset was a couple hours prior to Arrival. Pain radiates to her groin a bit. She has not vomited. She is nauseated. No fever. No diarrhea. No change in her urine color. She has not been able to urinate since t he pain started. She has a history of a hysterectomy. MD elicited complaint: abdominal pain and flank pain Pertinent past history: none Onset (ago): hour(s) Pain Consistency: constant Location: R flank Severity: severe Quality: stabbing Radiation: RLQ Migration to: no migration Exacerbating factors: nothing Relieving factors: nothing Associated Symptoms: Reports nausea; Denies diarrhea, dysuria, fever(s), hematochezia and vomiting Review of Systems Const: Denies: fever(s) Eyes: Denies: change in vision Card: Denies: chest pain or palpitations Resp: Denies: dyspnea, productive cough, non-productive cough or wheezing GI: Reports: nausea; Denies: vomiting, diarrhea or hematochezia : Denies: dysuria Skin/Breast: Denies: rash Neuro: Denies: headache(s), weakness in extremities, dizziness or confusion [facility] ED PFSH: Medical History Hidradenitis HTN (hypertension) Psychiatric care Seizures Surgical History History of hysterectomy Social History Smoking and tobacco status: current every day smoker cigarettes Alcohol intake: current Desire information about alcohol rehabilitation?: Yes Physical Exam Const: GENERAL APPEARANCE: cooperative and ill appearing (mildly); not comfortable and not frail appearing HENMT: COMMON NORMALS: normocephalic, atraumatic and Normal external nose present HEAD & SCALP: normocephalic and atraumatic FACE & SINUS: normal facial exam and face symmetric NOSE: Normal external nose present Eye: COMMON NORMALS: Equal, round and reactive pupils present and EOMs intact bilaterally PUPIL: Yes Equal, round and reactive pupils present Neck/C-Spine: GENERAL: Yes trachea midline Chest: CHEST: Yes Symmetrical chest wall rise Resp: COMMON NORMALS: normal respiratory effort, No retractions, No use of accessory muscles and clear to auscultation bilaterally AUSCULTATION: clear to auscultation bilaterally Cardio: COMMON NORMALS: regular rate and regular rhythm RATE: regular rate RHYTHM: regular rhythm GI: COMMON NORMALS: Normal to inspection, nondistended, normoactive bowel sounds present PALPATION: Yes Tenderness to palpation present (GI) Details: RLQ and Yes Guarding due to palpation present (GI) : BLADDER/KIDNEY EXAM: Yes CVA tenderness on the right Back/Pelvis: GENERAL BACK: Yes CVA tenderness Extremity: COMMON NORMALS: no pedal edema Neuro: TRUMAN COMA SCALE: document GCS findings [place] coma scale eye opening: Spontaneous [place] coma scale verbal response: Orientated [place] coma scale motor response: Obey commands [place] coma scale total score: 15 SENSORY EXAM: Yes extremities (intact) Psych: COMMON NORMALS: speech normal SPEECH: Yes normal speech Skin: COMMON NORMALS: no rashes or lesions noted GENERAL SKIN EXAM: no rashes or lesions noted Course Vital Signs: Vital signs: Vital Signs Temperature 98.4 F 04/21/22 00:46 Pulse Rate 65 04/21/22 03:51 Respiratory Rate 17 04/21/22 03:51 Blood Pressure 149/114 04/21/22 03:51 Pulse Oximetry 95 04/21/22 03:51 Oxygen Delivery Me thod 04/21/22 00:46 MDM - Abdominal Pain Medical Decision Making Pain is controlled after medication administration. She has had fluid. No urinary tract infection. CT shows A 2 to 3 millimeter distal ureter stone. There is hydronephrosis. she should be able to pass this. She'll be allowed home with medication for symptoms. Lab Data : 04/21/22 01:37 04/21/22 01:37 Labs/Radiology: Radiology Impressions Abdomen/Pelvis CT 04/21/22 01:30 IMPRESSION: 1. 2-3 mm distal right ureteral calculus, see additional details above. 2. Moderate right hydronephrosis and hydroureter. 3. Bilateral intrarenal calculi. 4. 2.5 cm left adnexal/ovarian cyst, see above discussion. 5. Normal appendix. 6. Other findings discussed above. Laboratory Results WBC 8.1 10^3/uL (4.0-10.0) 04/21/22 01:37 RBC 3.64 10^6/uL (4.1-5.3) L 04/21/22 01:37 Hgb 12.8 g/dL (11.5-15.3) 04/21/22 01:37 Hct 37.7 % (37.0-47.0) 04/21/22 01:37 MCV 103.6 fl (81-99) H 04/21/22 01:37 MCH 35.2 pg (28.0-34.0) H 04/21/22 01:37 MCHC 34.0 g/dL (30.0-36.0) 04/21/22 01:37 RDW 12.9 % (12.1-15.1) 04/21/22 01:37 Plt Count 312 10^3/cmm (130-400) 04/21/22 01:37 MPV 9.3 fL (7.4-10.4) 04/21/22 01:37 Neut % (Auto) 44.5 % 04/21/22 01:37 Lymph % (Auto) 40.1 % 04/21/22 01:37 [place] % (Auto) 11.9 % 04/21/22 01:37 Eos % (Auto) 2.4 % 04/21/22 01:37 Baso % (Auto) 0.7 % 04/21/22 01:37 Neut # (Auto) 3.59 10^3/uL (1.8-7.7) 04/21/22 01:37 Lymph # (Auto) 3.2 10^3/uL (0.8-4.8) 04/21/22 01:37 [place] # (Auto) 1.0 10^3/uL (0.2-0.9) H 04/21/22 01:37 Eos # (Auto) 0.2 10^3/uL (0.0-0.8) 04/21/22 01:37 Baso # (Auto) 0.1 10^3/uL (0.0-0.1) 04/21/22 01:37 Nucleated RBC % (auto) 0 % 04/21/22 01:37 Nucleated RBCs # 0.0 /100WBC 04/21/22 01:37 Sodium 135 mmol/L (136-145) L 04/21/22 01:37 Potassium 3.8 mmol/L (3.5-5.1) 04/21/22 01:37 Chloride 105 mmol/L (98-107) 04/21/22 01:37 Carbon Dioxide 20 mmol/L (22-29) L 04/21/22 01:37 Anion Gap 13.8 (5-19) 04/21/22 01:37 BUN 20 mg/dL (6-20) 04/21/22 01:37 Creatinine 0.7 mg/dL (0.5-0.9) 04/21/22 01:37 GFR Calculation 89.7 mL/min (90-130) L 04/21/22 01:37 Glucose 90 mg/dL (65-115) 04/21/22 01:37 Calculated Osmolality 282 mOsm/kg (285-295) L 04/21/22 01:37 Calcium 9.4 mg/dL (8.5-10.5) 04/21/22 01:37 Total Bilirubin 0.3 mg/dL (0.15-1.2) 04/21/22 01:37 AST 15 U/L (0-32) 04/21/22 01:37 ALT 12 U/L (0-33) 04/21/22 01:37 Alkaline Phosphatase 87 U/L (35-105) 04/21/22 01:37 C-Reactive Protein 3.0 mg/L (0.0-4.9) 04/21/22 01:37 Total Protein 6.8 g/dL (6.6-8.7) 04/21/22 01:37 Albumin 3.8 g/dL (3.5-5.2) 04/21/22 01:37 Globulin 3.0 g/dL (1.3-4.6) 04/21/22 01:37 Lipase 25 U/L (13-60) 04/21/22 01:37 HCG, Qual Negative (Negative) 04/21/22 01:37 Urine Color Yellow (Yellow) 04/21/22 02:45 Urine Appearance Sl hazy (CLEAR) A 04/21/22 02:45 Urine pH 5 (5-7) 04/21/22 02:45 Ur Specific [place] 1.030 (1.005-1.030) 04/21/22 02:45 Urine Protein Trace (Negative) 04/21/22 02:45 Urine Glucose (UA) Norm (Normal) 04/21/22 02:45 Urine Ketones Negative (Negative) 04/21/22 02:45 Urine Blood 3+ (Negative) H 04/21/22 02:45 Urine Nitrate Negative (Negative) 04/21/22 02:45 Urine Bilirubin Neg (Negative) 04/21/22 02:45 Urine Urobilinogen Neg mg/dL (Negative) 04/21/22 02:45 Ur Leukocyte Esterase Negative (Negative) 04/21/22 02:45 Urine RBC 15-25 /hpf (0-2) H 04/21/22 02:45 Urine WBC 0-4 /hpf (0-5) H 04/21/22 02:45 Ur Squamous Epith Cells 15-25 /hpf (0-5) H 04/21/22 02:45 Calcium Oxalate Crystal Rare /hpf 04/21/22 02:45 Amorphous Sediment Not Reportable 04/21/22 02:45 Urine Bacteria 1+ /hpf (NONE) H 04/21/22 02:45 Discharge Plan Discharge Patient Disposition: Home Clinical Impression: Ureterolithiasis Condition: Stable Prescriptions: New Percocet 7.5-325 mg tablet 1 tab PO Q6H PRN (Reason: pain) Qty: 10 0RF ondansetron 4 mg film 4 mg PO DAILY PRN (Reason: nausea and vomiting) Qty: 10 0RF No Action lisinopril 40 mg tablet 40 mg PO DAILY Qty: 30 5RF hydroxyzine HCl 25 mg tablet 25 mg PO TID PRN (Reason: anxiety) 30 Days Qty: 90 1RF chlordiazepoxide HCl 25 mg capsule 25 mg PO BID PRN methocarbamol 750 mg tablet 750 mg PO Q6H PRN (Reason: spasms) Qty: 30 1RF [place] 100-40 mg tablet 3 tab PO DAILY Qty: 84 1RF Rx Instructions: must administer with a meal/food Naprosyn 500 mg tablet 500 mg PO BID PRN (Reason: pain) Qty: 20 0RF Discharge Orders: Discharge ED (Routine); Ordered 04/21/22 Ordered By: Miki Gar Referrals: Antoni Flower MD [Physician] - 4-7 days Patient Instructions: Kidney Stones (ED), Opioid Safety, Pain Management Activity Restrictions/Additional Instructions: Return for fever, vomiting liquids or medications despite treatment, inability to control pain, other concerning symptoms. You may alternate pain medication with ibuprofen for best results. Follow-up with urology. Coding Level of Care Code ED [place] [employer] for Isiah Mao
== END 2022-04-21 03:50 | disposition home or self-care (01) ==
PROVIDERS: Emergency Provider Emergency Medicine
DX: N20.1 Calculus of ureter (principal); I10 Essential (primary) hypertension; F17.210 Nicotine dependence, cigarettes, uncomplicated
CPT/HCPCS: 74176; 80053; 81001; 83690; 84703; 85025; 86140; 96361; 96374; 96375; 96376; 99285; J1170; J1885; J2405; J7030

== ENCOUNTER 2022-07-13 03:52 | Emergency (ER) | payer BC, MEDICAID, SELFPAY ==
[2022-07-13 04:10] VITALS: BP 162/100; PULSE 102; RESP 18; TEMP 36.8; O2SAT 99; BMI 27.4
--- NOTE | 2022-07-13 04:51 | ED_ITS ---
Documented by User: Martín Shaffer MD 07/13/22 04:52 HPI - Abdominal Pain General: Chief Complaint: Abdominal Pain Stated Complaint: abdomen pain Time Seen by Provider: 07/13/22 03:56 Source: patient Mode of arrival: ambulatory Limitations: no limitations History of Present Illness: 46-year-old female has a history of alcoholism she had pancreatitis in the past as well states that she has stopped drinking recently over the last 2 days she has been having epigastric abdominal pain with nausea and vomiting states the pain is sharp in nature rates an 8 out of 10 states it feels like when she has had pancreatitis in the past. It is worse with movement and palpation improved with rest denies any fevers. Associated Symptoms: Reports nausea and vomiting; Denies chills, dysuria and fever(s) Review of Systems Const: Denies: fever(s), chills, body aches or change in appetite Eyes: Denies: blurry vision or eye discomfort ENMT: Denies: throat pain or dental pain Card: Denies: chest pain Resp: Denies: dyspnea GI: Reports: abdominal pain, nausea and vomiting : Denies: dysuria Musc: Denies: neck pain or back pain Skin/Breast: Denies: rash Neuro: Denies: headache(s) Psych: Denies: depression Vlad/Lymph: Denies: easy bruising All/Imm: Denies: urticaria PFSH ED PFSH: Medical History Hidradenitis HTN (hypertension) Psychiatric care Seizures Surgical History History of hysterectomy Social History Smoking and tobacco status: current every day smoker cigarettes Alcohol intake: current Desire information about alcohol rehabilitation?: Yes Physical Exam Const: COMMON NORMALS: no acute distress, patient oriented x3 and healthy appearing HENMT: COMMON NORMALS: normocephalic and atraumatic HEAD & SCALP: normocephalic and atraumatic Eye: COMMON NORMALS: Equal, round and reactive pupils present and EOMs intact bilaterally PUPIL: Yes Equal, round and reactive pupils present Neck/C-Spine: COMMON NORMALS: full ROM and supple Chest: COMMONS NORMALS: normal inspection of the chest and normal palpation of entire chest wall Resp: COMMON NORMALS: normal respiratory effort, No retractions, No use of accessory muscles and clear to auscultation bilaterally AUSCULTATION: clear to auscultation bilaterally Cardio: COMMON NORMALS: regular rate, regular rhythm and No murmurs present (Cardio) RATE: regular rate RHYTHM: regular rhythm GI: COMMON NORMALS: Normal to inspection, nondistended, normoactive bowel sounds present, Soft to palpation and no masses PALPATION: Yes Soft to palpation OTHER: epigastric tenderness Extremity: COMMON NORMALS: normal to inspection and full ROM Neuro: COMMON NORMALS: patient oriented x3, moves all extremities and no focal motor deficits Psych: COMMON NORMALS: mental status grossly normal, Normal thought process present and cooperative THOUGHT PROCESS: Normal thought process present Skin: COMMON NORMALS: no rashes or lesions noted and no wounds GENERAL SKIN EXAM: no rashes or lesions noted Course Vital Signs: Vital signs: Vital Signs Temperature 98.2 F 07/13/22 04:10 Pulse Rate 102 H 07/13/22 04:10 Respiratory Rate 22 H 07/13/22 05:08 Blood Pressure 162/100 07/13/22 04:10 Pulse Oximetry 99 07/13/22 04:10 MDM - Abdominal Pain Lab Data 07/13/22 05:00 07/13/22 05:00 Labs/Radiology: Radiology Impressions Abdomen/Pelvis CT 07/13/22 05:11 IMPRESSION: 1. The mild wall thickening of the distal descending colon and the sigmoid colon suspicious for mild colitis. 2. 3 mm nonobstructing left renal pelvis stone. 3. There are multiple nonobstructing right renal pelvis stones, largest of which measures 3 mm.. Laboratory Results WBC 8.9 10^3/uL (4.0-10.0) 07/13/22 05:00 RBC 3.94 10^6/uL (4.1-5.3) L 07/13/22 05:00 Hgb 13.7 g/dL (11.5-15.3) 07/13/22 05:00 Hct 40.5 % (37.0-47.0) 07/13/22 05:00 MCV 102.8 fl (81-99) H 07/13/22 05:00 MCH 34.8 pg (28.0-34.0) H 07/13/22 05:00 MCHC 33.8 g/dL (30.0-36.0) 07/13/22 05:00 RDW 12.7 % (12.1-15.1) 07/13/22 05:00 Plt Count 248 10^3/cmm (130-400) 07/13/22 05:00 MPV 9.2 fL (7.4-10.4) 07/13/22 05:00 Neut % (Auto) 61.8 % 07/13/22 05:00 Lymph % (Auto) 25.4 % 07/13/22 05:00 [place] % (Auto) 9.9 % 07/13/22 05:00 Eos % (Auto) 2.2 % 07/13/22 05:00 Baso % (Auto) 0.4 % 07/13/22 05:00 Neut # (Auto) 5.49 10^3/uL (1.8-7.7) 07/13/22 05:00 Lymph # (Auto) 2.3 10^3/uL (0.8-4.8) 07/13/22 05:00 [place] # (Auto) 0.9 10^3/uL (0.2-0.9) 07/13/22 05:00 Eos # (Auto) 0.2 10^3/uL (0.0-0.8) 07/13/22 05:00 Baso # (Auto) 0.0 10^3/uL (0.0-0.1) 07/13/22 05:00 Nucleated RBC % (auto) 0 % 07/13/22 05:00 Nucleated RBCs # 0.0 /100WBC 07/13/22 05:00 Sodium 135 mmol/L (136-145) L 07/13/22 05:00 Potassium 4.0 mmol/L (3.5-5.1) 07/13/22 05:00 Chloride 105 mmol/L (98-107) 07/13/22 05:00 Carbon Dioxide 22 mmol/L (22-29) 07/13/22 05:00 Anion Gap 12.0 (5-19) 07/13/22 05:00 BUN 22 mg/dL (6-20) H 07/13/22 05:00 Creatinine 0.9 mg/dL (0.5-0.9) 07/13/22 05:00 GFR Calculation 67.1 mL/min (90-130) L 07/13/22 05:00 Glucose 102 mg/dL (65-115) 07/13/22 05:00 Calculated Osmolality 284 mOsm/kg (285-295) L 07/13/22 05:00 Calcium 9.3 mg/dL (8.5-10.5) 07/13/22 05:00 Total Bilirubin 0.3 mg/dL (0.15-1.2) 07/13/22 05:00 AST 66 U/L (0-32) H 07/13/22 05:00 ALT 25 U/L (0-33) 07/13/22 05:00 Alkaline Phosphatase 77 U/L (35-105) 07/13/22 05:00 Total Protein 6.4 g/dL (6.6-8.7) L 07/13/22 05:00 Albumin 4.0 g/dL (3.5-5.2) 07/13/22 05:00 Globulin 2.4 g/dL (1.3-4.6) 07/13/22 05:00 Lipase 35 U/L (13-60) 07/13/22 05:00 HCG, Qual Negative (Negative) 07/13/22 05:00 Urine Color Yellow (Yellow) 07/13/22 05:03 Urine Appearance Clear (CLEAR) 07/13/22 05:03 Urine pH 5 (5-7) 07/13/22 05:03 Ur Specific [place] 1.025 (1.005-1.030) 07/13/22 05:03 Urine Protein Neg (Negative) 07/13/22 05:03 Urine Glucose (UA) Norm (Normal) 07/13/22 05:03 Urine Ketones Negative (Negative) 07/13/22 05:03 Urine Blood 2+ (Negative) H 07/13/22 05:03 Urine Nitrate Negative (Negative) 07/13/22 05:03 Urine Bilirubin Neg (Negative) 07/13/22 05:03 Urine Urobilinogen Neg mg/dL (Negative) 07/13/22 05:03 Ur Leukocyte Esterase Negative (Negative) 07/13/22 05:03 Urine RBC 0-4 /hpf (0-2) H 07/13/22 05:03 Urine WBC 0-4 /hpf (0-5) H 07/13/22 05:03 Ur Squamous Epith Cells 5-10 /hpf (0-5) H 07/13/22 05:03 Amorphous Sediment Not Reportable 07/13/22 05:03 Urine Bacteria Trace /hpf (NONE) 07/13/22 05:03 Urine Mucus 2+ /hpf 07/13/22 05:03 Ethyl Alcohol < 10 mg/dL (0-10) 07/13/22 05:00 Discharge Plan Discharge Patient Disposition: Home Clinical Impression: Alcohol withdrawal, Colitis Condition: Stable Prescriptions: New chlordiazepoxide HCl 25 mg capsule 25 mg PO Q6H MDD 150 PRN (Reason: alcohol withdrawal) Qty: 14 0RF No Action hydroxyzine HCl 25 mg tablet 25 mg PO TID PRN (Reason: anxiety) 30 Days Qty: 90 1RF chlordiazepoxide HCl 25 mg capsule 25 mg PO BID PRN lisinopril 40 mg tablet 40 mg PO DAILY Qty: 30 5RF ondansetron 8 mg tablet,disintegrating 8 mg PO Q8H 5 Days Qty: 15 2RF pantoprazole [Protonix] 40 mg tablet,delayed release (DR/EC) 40 mg PO DAILY 28 Days Qty: 30 0RF methocarbamol 750 mg tablet 750 mg PO Q6H PRN (Reason: spasms) Qty: 30 1RF Naprosyn 500 mg tablet 500 mg PO BID PRN (Reason: pain) Qty: 20 0RF ondansetron 4 mg film 4 mg PO DAILY PRN (Reason: nausea and vomiting) Qty: 10 0RF Discharge Orders: Discharge ED (Routine); Ordered 07/13/22 Ordered By: Alfredo Amin Discharge Diet: Advance as tolerated Discharge Activity: Resume usual activity Patient Instructions: Opioid Safety, Pain Management Sign Out Sign Out Data: Patient Sign Out occurred on 07/13/22 at 06:01. Patient's care was discussed, and care was transferred from to Alfredo Amin DO. Coding Level of Care Code ED Business Improvement Manager for Chg Fwd Exam Comprehensive Documented by User: Alfredo Amin DO 07/13/22 06:25 HPI - Abdominal Pain General: Chief Complaint: Abdominal Pain Stated Complaint: abdomen pain Time Seen by Provider: 07/13/22 03:56 PFSH ED PFSH: Medical History Hidradenitis HTN (hypertension) Psychiatric care Seizures Surgical History History of hysterectomy Social History Smoking and tobacco status: current every day smoker cigarettes Alcohol intake: current Desire information about alcohol rehabilitation?: Yes Course Vital Signs: Vital signs: Vital Signs Temperature 98.2 F 07/13/22 04:10 Pulse Rate 102 H 07/13/22 04:10 Respiratory Rate 22 H 07/13/22 05:08 Blood Pressure 162/100 07/13/22 04:10 Pulse Oximetry 99 07/13/22 04:10 MDM - Abdominal Pain Medical Decision Making Reviewed patient's labs, note from previous physician and CT exam. CT exam shows a colitis. I discussed findings with patient that she has a colitis, likely self-limiting. She can try [id number] medication as needed. Patient also reports that she is trying to quit drinking that she is had a drink at 730 last night but she is starting to have some shakes and tremors and is wondering if she can get some additional chlordiazepoxide to help her while she quit drinking. I did agree to provider a few days worth. Patient should follow with her primary care provider in a couple days if she needs further treatment options. She is stable discharged home Lab Data 07/13/22 05:00 07/13/22 05:00 Labs/Radiology: Radiology Impressions Abdomen/Pelvis CT 07/13/22 05:11 IMPRESSION: 1. The mild wall thickening of the distal descending colon and the sigmoid colon suspicious for mild colitis. 2. 3 mm nonobstructing left renal pelvis stone. 3. There are multiple nonobstructing right renal pelvis stones, largest of which measures 3 mm.. Laboratory Results WBC 8.9 10^3/uL (4.0-10.0) 07/13/22 05:00 RBC 3.94 10^6/uL (4.1-5.3) L 07/13/22 05:00 Hgb 13.7 g/dL (11.5-15.3) 07/13/22 05:00 Hct 40.5 % (37.0-47.0) 07/13/22 05:00 MCV 102.8 fl (81-99) H 07/13/22 05:00 MCH 34.8 pg (28.0-34.0) H 07/13/22 05:00 MCHC 33.8 g/dL (30.0-36.0) 07/13/22 05:00 RDW 12.7 % (12.1-15.1) 07/13/22 05:00 Plt Count 248 10^3/cmm (130-400) 07/13/22 05:00 MPV 9.2 fL (7.4-10.4) 07/13/22 05:00 Neut % (Auto) 61.8 % 07/13/22 05:00 Lymph % (Auto) 25.4 % 07/13/22 05:00 [place] % (Auto) 9.9 % 07/13/22 05:00 Eos % (Auto) 2.2 % 07/13/22 05:00 Baso % (Auto) 0.4 % 07/13/22 05:00 Neut # (Auto) 5.49 10^3/uL (1.8-7.7) 07/13/22 05:00 Lymph # (Auto) 2.3 10^3/uL (0.8-4.8) 07/13/22 05:00 [place] # (Auto) 0.9 10^3/uL (0.2-0.9) 07/13/22 05:00 Eos # (Auto) 0.2 10^3/uL (0.0-0.8) 07/13/22 05:00 Baso # (Auto) 0.0 10^3/uL (0.0-0.1) 07/13/22 05:00 Nucleated RBC % (auto) 0 % 07/13/22 05:00 Nucleated RBCs # 0.0 /100WBC 07/13/22 05:00 Sodium 135 mmol/L (136-145) L 07/13/22 05:00 Potassium 4.0 mmol/L (3.5-5.1) 07/13/22 05:00 Chloride 105 mmol/L (98-107) 07/13/22 05:00 Carbon Dioxide 22 mmol/L (22-29) 07/13/22 05:00 Anion Gap 12.0 (5-19) 07/13/22 05:00 BUN 22 mg/dL (6-20) H 07/13/22 05:00 Creatinine 0.9 mg/dL (0.5-0.9) 07/13/22 05:00 GFR Calculation 67.1 mL/min (90-130) L 07/13/22 05:00 Glucose 102 mg/dL (65-115) 07/13/22 05:00 Calculated Osmolality 284 mOsm/kg (285-295) L 07/13/22 05:00 Calcium 9.3 mg/dL (8.5-10.5) 07/13/22 05:00 Total Bilirubin 0.3 mg/dL (0.15-1.2) 07/13/22 05:00 AST 66 U/L (0-32) H 07/13/22 05:00 ALT 25 U/L (0-33) 07/13/22 05:00 Alkaline Phosphatase 77 U/L (35-105) 07/13/22 05:00 Total Protein 6.4 g/dL (6.6-8.7) L 07/13/22 05:00 Albumin 4.0 g/dL (3.5-5.2) 07/13/22 05:00 Globulin 2.4 g/dL (1.3-4.6) 07/13/22 05:00 Lipase 35 U/L (13-60) 07/13/22 05:00 HCG, Qual Negative (Negative) 07/13/22 05:00 Urine Color Yellow (Yellow) 07/13/22 05:03 Urine Appearance Clear (CLEAR) 07/13/22 05:03 Urine pH 5 (5-7) 07/13/22 05:03 Ur Specific [place] 1.025 (1.005-1.030) 07/13/22 05:03 Urine Protein Neg (Negative) 07/13/22 05:03 Urine Glucose (UA) Norm (Normal) 07/13/22 05:03 Urine Ketones Negative (Negative) 07/13/22 05:03 Urine Blood 2+ (Negative) H 07/13/22 05:03 Urine Nitrate Negative (Negative) 07/13/22 05:03 Urine Bilirubin Neg (Negative) 07/13/22 05:03 Urine Urobilinogen Neg mg/dL (Negative) 07/13/22 05:03 Ur Leukocyte Esterase Negative (Negative) 07/13/22 05:03 Urine RBC 0-4 /hpf (0-2) H 07/13/22 05:03 Urine WBC 0-4 /hpf (0-5) H 07/13/22 05:03 Ur Squamous Epith Cells 5-10 /hpf (0-5) H 07/13/22 05:03 Amorphous Sediment Not Reportable 07/13/22 05:03 Urine Bacteria Trace /hpf (NONE) 07/13/22 05:03 Urine Mucus 2+ /hpf 07/13/22 05:03 Ethyl Alcohol < 10 mg/dL (0-10) 07/13/22 05:00 Discharge Plan Discharge Patient Disposition: Home Clinical Impression: Alcohol withdrawal, Colitis Condition: Stable Prescriptions: New chlordiazepoxide HCl 25 mg capsule 25 mg PO Q6H MDD 150 PRN (Reason: alcohol withdrawal) Qty: 14 0RF No Action hydroxyzine HCl 25 mg tablet 25 mg PO TID PRN (Reason: anxiety) 30 Days Qty: 90 1RF chlordiazepoxide HCl 25 mg capsule 25 mg PO BID PRN lisinopril 40 mg tablet 40 mg PO DAILY Qty: 30 5RF ondansetron 8 mg tablet,disintegrating 8 mg PO Q8H 5 Days Qty: 15 2RF pantoprazole [Protonix] 40 mg tablet,delayed release (DR/EC) 40 mg PO DAILY 28 Days Qty: 30 0RF methocarbamol 750 mg tablet 750 mg PO Q6H PRN (Reason: spasms) Qty: 30 1RF Naprosyn 500 mg tablet 500 mg PO BID PRN (Reason: pain) Qty: 20 0RF ondansetron 4 mg film 4 mg PO DAILY PRN (Reason: nausea and vomiting) Qty: 10 0RF Discharge Orders: Discharge ED (Routine); Ordered 07/13/22 Ordered By: Alfredo Amin Discharge Diet: Advance as tolerated Discharge Activity: Resume usual activity Patient Instructions: Opioid Safety, Pain Management Sign Out Sign Out Data: Patient Sign Out occurred on 07/13/22 at 06:01. Patient's care was discussed, and care was transferred from to Alfredo Amin DO. Coding Level of Care Code ED Business Improvement Manager for Isiah Fwd Exam Comprehensive
[2022-07-13 05:06] LABS: Basophils % 0.4 %; Eosinophils # 0.2 10^3/uL (0.0-0.8); Eosinophils % 2.2 %; Hematocrit 40.5 % (37.0-47.0); Hemoglobin 13.7 g/dL (11.5-15.3); Lymphocytes # 2.3 10^3/uL (0.8-4.8); Lymphocytes % 25.4 %; Mean Corpuscular HGB Conc 33.8 g/dL (30.0-36.0); Mean Corpuscular Hemoglobin 34.8 pg (28.0-34.0); Mean Corpuscular Volume 102.8 fl (81-99); Mean Platelet Volume 9.2 fL (7.4-10.4); Monocytes # 0.9 10^3/uL (0.2-0.9); Monocytes % 9.9 %; Neutrophils # 5.49 10^3/uL (1.8-7.7); Neutrophils % 61.8 %; Nucleated Red Blood Cells % 0 %; Platelet Count 248 10^3/cmm (130-400); Red Blood Count 3.94 10^6/uL (4.1-5.3); Red Cell Distribution Width 12.7 % (12.1-15.1); White Blood Count 8.9 10^3/uL (4.0-10.0)
[2022-07-13 05:08] VITALS: RESP 22
[2022-07-13] MEDS: ondansetron 2 mg/ML SDV 2 mL 4 MG IVP (05:08)
[2022-07-13] MEDS: sodium chloride 0.9% 1,000 ML 999 ML IV (05:08)
[2022-07-13] MEDS: HYDROmorphone 1 mg/mL INJ 1 mL IVP (05:08)
--- NOTE | 2022-07-13 05:11 | CTR_ITS ---
PROCEDURE INFORMATION: Exam: CT Abdomen And Pelvis With Contrast Exam date and time: 07/13/2022 5:34 AM Age: 46 years old Clinical indication: Abdominal pain; Localized; Left; Additional info: Abd pain TECHNIQUE: Imaging protocol: Computed tomography of the abdomen and pelvis with contrast. Radiation optimization: All CT scans at this facility use at least one of these dose optimization techniques: automated exposure control; mA and/or kV adjustment per patient size (includes targeted exams where dose is matched to clinical indication); or iterative reconstruction. Contrast material: OMNI 350; Contrast volume: 100 ml; Contrast route: INTRAVENOUS (IV); COMPARISON: CT abdomen pelvis wo con [id number] 04/21/2022 1:44 AM RADIATION DOSE METRICS: Total DLP (mGy-cm): 580.06 FINDINGS: Lungs: The lung bases are clear. No effusion Liver: Normal. No mass. Gallbladder and bile ducts: No wall thickening, pericholecystic fluid or stones. Pancreas: Normal. No ductal dilation. Spleen: Normal. No splenomegaly. Adrenal glands: Normal. No mass. Kidneys and ureters: 3 mm nonobstructing left renal pelvis stone. There are multiple nonobstructing right renal pelvis stones, largest of which measures 3 mm.. Stomach and bowel: The mild wall thickening of the distal descending colon and the sigmoid colon suspicious for mild colitis. Appendix: No evidence of appendicitis. Intraperitoneal space: Unremarkable. No free air. No significant fluid collection. Vasculature: There is mild atherosclerotic disease. Lymph nodes: Unremarkable. No enlarged lymph nodes. Urinary bladder: Unremarkable as visualized. Reproductive: There has been a hysterectomy. Bones/joints: Severe intervertebral disc space narrowing at L3 through S1. Soft tissues: Unremarkable. CT/CT abdomen pelvis w con* [id number] IMPRESSION: 1. The mild wall thickening of the distal descending colon and the sigmoid colon suspicious for mild colitis. 2. 3 mm nonobstructing left renal pelvis stone. 3. There are multiple nonobstructing right renal pelvis stones, largest of which measures 3 mm..
[2022-07-13 05:19] LABS: HCG, Serum Qual Negative (Negative)
[2022-07-13 05:20] LABS: Add Urine Microscopic? YES; Bilirubin Urine Neg (Negative); Blood Urine 2+ (Negative); Glucose Urine UA Norm (Normal); Ketones Urine Negative (Negative); Leukocyte Esterase Urine Negative (Negative); Nitrate Urine Negative (Negative); Protein Urine Neg (Negative); Specific Gravity, Urine 1.025 (1.005-1.030); Urine Appearance Clear (CLEAR); Urine Color Yellow (Yellow); Urobilinogen Urine Neg (Negative); pH Urine 5 (5-7)
[2022-07-13 05:24] LABS: Alanine Aminotransferase 25 U/L (0-33); Alkaline Phosphatase 77 U/L (35-105); Aspartate Amino Transferase 66 U/L (0-32); Blood Urea Nitrogen 22 mg/dL (6-20); Calcium 9.3 mg/dL (8.5-10.5); Carbon Dioxide 22 mmol/L (22-29); Chloride 105 mmol/L (98-107); Globulin 2.4 g/dL (1.3-4.6); Glomerular Filtration Rate 67.1 mL/min (90-130); Glucose 102 mg/dL (65-115); Lipase 35 U/L (13-60); Osmolality Calculated 284 mOsm/kg (285-295); Sodium 135 mmol/L (136-145); Total Bilirubin 0.3 mg/dL (0.15-1.2); Total Protein 6.4 g/dL (6.6-8.7)
[2022-07-13 05:33] LABS: Add Urine Culture? No; Bacteria Urine TRACE /hpf; Mucus Urine 2+ /hpf; RBC Urine 0-4 /hpf (0-2); WBC Urine 0-4 /hpf (0-5)
[2022-07-13 05:33] LABS: Alcohol Level < 10 mg/dL (0-10)
[2022-07-13] MEDS: iohexol 350 mg/mL 500 mL Btl (per mL) IV (05:34)
[2022-07-13] MEDS: chlordiazePOXIDE 25 mg Capsule PO (06:31)
== END 2022-07-13 06:36 | disposition home or self-care (01) ==
PROVIDERS: Emergency Medicine; Emergency Provider Student in an Organized Health Care Education/Training Program
DX: K52.9 Noninfective gastroenteritis and colitis, unspecified (principal); F10.239 Alcohol dependence with withdrawal, unspecified; N20.0 Calculus of kidney; I10 Essential (primary) hypertension; F17.210 Nicotine dependence, cigarettes, uncomplicated
CPT/HCPCS: 74177; 80053; 80307; 81001; 83690; 84703; 85025; 96374; 96375; 99285; J1170; J2405; J7030; Q9967

== ENCOUNTER 2022-09-26 11:04 | Emergency (ER) | payer BC, MEDICAID, SELFPAY ==
[2022-09-26 11:17] VITALS: BP 170/92; PULSE 114; TEMP 36.6; O2SAT 98; BMI 26.9
--- NOTE | 2022-09-26 12:16 | ED_ITS ---
HPI - Abdominal Pain General: Chief Complaint: Abdominal Pain Stated Complaint: possible gallbladder issues Time Seen by Provider: 09/26/22 11:53 Source: patient Mode of arrival: ambulatory History of Present Illness: 47-year-old female presents to the emergency room complaining of abdominal pain is focused on the pain in the left upper quadrant. She has had mucousy bloody stools with it as well this been going on for 8 days she denies dysuria urgency frequency or hematuria no hematemesis or coffee- ground emesis. No fever. She has had frequent loose stools. She has a history of colitis in the past only previous abdominal surgery was a hysterectomy. MD elicited complaint: abdominal pain Pertinent past history: other (Colitis) Onset (ago): day(s) Pain Consistency: constant Location: LUQ and LLQ Severity: moderate Quality: cramping Radiation: none Exacerbating factors: eating Relieving factors: nothing Associated Symptoms: Reports change in bowel habits, change in stool character, GI cramping, diarrhea, nausea and poor appetite; Denies no associated symptoms, anorexia, belching, bloating, chills, coffee g round emesis, constipation, dyspepsia, dysuria, excessive flatus, fever(s), heartburn, hematochezia, hematuria, hematemesis, fecal incontinence, loose stools, melena, syncope, vomiting and other Review of Systems Const: Denies: fever(s) or chills Card: Denies: syncope GI: Reports: nausea, diarrhea, GI cramping, change in bowel habits and change in stool character; Denies: vomiting, hematemesis, coffee ground emesis, heartburn, constipation, bloating, belching, excessive flatus, fecal incontinence, hematochezia, melena or other : Denies: dysuria or hematuria [facility] ED PFSH: Medical History Hidradenitis HTN (hypertension) Psychiatric care Seizures Surgical History History of hysterectomy Social History Smoking and tobacco status: current every day smoker cigarettes Alcohol intake: current Desire information about alcohol rehabilitation?: Yes Physical Exam Const: COMMON NORMALS: no acute distress GENERAL APPEARANCE: cooperative and comfortable ORIENTATION/CONSCIOUSNESS: Yes awake, Yes oriented to person, Yes oriented to place and Yes oriented to time HENMT: COMMON NORMALS: normocephalic, atraumatic and hearing grossly normal bilaterally HEAD & SCALP: normocephalic and atraumatic Resp: COMMON NORMALS: normal respiratory effort, No retractions, No use of accessory muscles and clear to auscultation bilaterally AUSCULTATION: clear to auscultation bilaterally Cardio: COMMON NORMALS: regular rate, regular rhythm and No murmurs present (Cardio) RATE: regular rate RHYTHM: regular rhythm GI: COMMON NORMALS: No hepatosplenomegaly present AUSCULTATION: Yes nor moactive bowel sounds PALPATION: Yes Tenderness to palpation present (GI) (Epigastric) Details: LUQ, No Guarding due to palpation present (GI) and Yes No hepatosplenomegaly present Extremity: COMMON NORMALS: normal to inspection, capillary refill normal, no clubbing, cyanosis or edema, no calf tenderness and no pedal edema Neuro: SENSORIUM/ORIENTATION: Yes oriented to person, Yes oriented to place and Yes oriented to time Skin: COMMON NORMALS: no rashes or lesions noted GENERAL SKIN EXAM: no rashes or lesions noted Course Vital Signs: Vital signs: Vital Signs Temperature 98 F 09/26/22 11:17 Pulse Rate 78 09/26/22 16:03 Respiratory Rate 16 09/26/22 16:03 Blood Pressure 138/74 09/26/22 16:03 Pulse Oximetry 97 09/26/22 16:03 Oxygen Delivery Me thod 09/26/22 11:17 MDM - Abdominal Pain Medical Decision Making Colitis. Patient was concerned about gallbladder no indication of gallbladder disease CT shows evidence of colitis she has multiple allergies to antibiotics list we will put her on clindamycin for now. This may be inflammatory strongly encouraged her to follow-up with her primary care doctor she should have a colonoscopy in 6 to 8 weeks once this is cleared. Medical Records I reviewed the patient's medical records. Lab Data I reviewed the patient's lab results. 09/26/22 12:26 09/26/22 13:27 Labs/Radiology: Radiology Impressions Abdomen/Pelvis CT 09/26/22 12:19 IMPRESSION: 1. Colitis involving the RIGHT colon and proximal transverse colon suspicious for infectious or inflammatory colitis. Ischemic colitis less likely in a patient this age. Consider inflammatory bowel disease. 2. No pneumatosis or free air. 3. No free fluid in the abdomen or pelvis. 4. No other acute findings. Laboratory Results WBC 7.8 10^3/uL (4.0-10.0) 09/26/22 12: RBC 3.78 10^6/uL (4.1-5.3) L 09/26/22 12: Hgb 14.0 g/dL (11.5-15.3) 09/26/22 12: Hct 40.1 % (37.0-47.0) 09/26/22 12: MCV 106.1 fl (81-99) H 09/26/22 12: MCH 37.0 pg (28.0-34.0) H 09/26/22 12: MCHC 34.9 g/dL (30.0-36.0) 09/26/22 12: RDW 12.8 % (12.1-15.1) 09/26/22 12: Plt Count 290 10^3/cmm (130-400) 09/26/22 12: MPV 9.0 fL (7.4-10.4) 09/26/22 12: Neut % (Auto) 53.8 % 09/26/22 12: Lymph % (Auto) 35.1 % 09/26/22 12: [place] % (Auto) 8.6 % 09/26/22 12: Eos % (Auto) 1.2 % 09/26/22 12: Baso % (Auto) 0.9 % 09/26/22 12: Neut # (Auto) 4.20 10^3/uL (1.8-7.7) 09/26/22 12: Lymph # (Auto) 2.7 10^3/uL (0.8-4.8) 09/26/22 12: [place] # (Auto) 0.7 10^3/uL (0.2-0.9) 09/26/22 12: Eos # (Auto) 0.1 10^3/uL (0.0-0.8) 09/26/22 12: Baso # (Auto) 0.1 10^3/uL (0.0-0.1) 09/26/22 12:26 Nucleated RBC % (auto) 0 % 09/26/22 12:26 Nucleated RBCs # 0.0 /100WBC 09/26/22 12:26 Sodium 140 mmol/L (136-145) 09/26/22 13:27 Potassium 2.8 mmol/L (3.5-5.1) L* 09/26/22 13:27 Chloride 110 mmol/L (98-107) H 09/26/22 13:27 Carbon Dioxide 19 mmol/L (22-29) L 09/26/22 13:27 Anion Gap 13.8 (5-19) 09/26/22 13:27 BUN 15 mg/dL (6-20) 09/26/22 13:27 Creatinine 0.5 mg/dL (0.5-0.9) 09/26/22 13:27 GFR Calculation 131.7 mL/min (90-130) H 09/26/22 13:27 Glucose 87 mg/dL (65-115) 09/26/22 13:27 Calculated Osmolality 290 mOsm/kg (285-295) 09/26/22 13:27 Calcium 8.2 mg/dL (8.5-10.5) L 09/26/22 13:27 Total Bilirubin 0.3 mg/dL (0.15-1.2) 09/26/22 13:27 AST 30 U/L (0-32) 09/26/22 13:27 ALT 15 U/L (0-33) 09/26/22 13:27 Alkaline Phosphatase 57 U/L (35-105) 09/26/22 13:27 Total Protein 6.1 g/dL (6.6-8.7) L 09/26/22 13:27 Albumin 3.9 g/dL (3.5-5.2) 09/26/22 13:27 Globulin 2.2 g/dL (1.3-4.6) 09/26/22 13:27 Lipase 23 U/L (13-60) 09/26/22 13:27 HCG, Qual Negative (Negative) 09/26/22 14:31 Urine Color Yellow (Yellow) 09/26/22 14:31 Urine Appearance Clear (CLEAR) 09/26/22 14:31 Urine pH 6 (5-7) 09/26/22 14:31 Ur Specific [place] 1.020 (1.005-1.030) 09/26/22 14:31 Urine Protein Neg (Negative) 09/26/22 14:31 Urine Glucose (UA) Norm (Normal) 09/26/22 14:31 Urine Ketones Negative (Negative) 09/26/22 14:31 Urine Blood 2+ (Negative) H 09/26/22 14:31 Urine Nitrate Negative (Negative) 09/26/22 14:31 Urine Bilirubin Neg (Negative) 09/26/22 14:31 Urine Urobilinogen Norm mg/dL (Negative) 09/26/22 14:31 Ur Leukocyte Esterase Negative (Negative) 09/26/22 14:31 Urine RBC Rare /hpf (0-2) 09/26/22 14:31 Urine WBC None /hpf (0-5) 09/26/22 14:31 Ur Squamous Epith Cells 0-4 /hpf (0-5) H 09/26/22 14:31 Amorphous Sediment Not Reportable 09/26/22 14:31 Urine Bacteria Trace /hpf (NONE) 09/26/22 14:31 Discharge Plan Discharge Patient Disposition: Home Clinical Impression: Colitis, Hypokalemia Condition: Stable Prescriptions: New clindamycin HCl 300 mg capsule 300 mg PO Q6H 7 Days Qty: 28 0RF potassium chloride 20 mEq tablet,ER particles/crystals 20 meq PO BID Qty: 10 0RF ondansetron HCl 4 mg tablet 4 mg PO Q6H PRN (Reason: nausea and vomiting) Qty: 20 0RF No Action lisinopril 40 mg tablet 40 mg PO DAILY Qty: 30 5RF pantoprazole [Protonix] 40 mg tablet,delayed release (DR/EC) 40 mg PO DAILY 28 Days Qty: 30 0RF acetaminophen 325 mg Tablet 650 mg PO QID PRN (Reason: Pain) ibuprofen 200 mg Tablet 400 - 600 mg PO Q6H PRN (Reason: Pain) Hair,Skin and Nails Tablet 1 tab PO DAILY potassium chloride 10 mEq Tablet,Er Particles/Crystals 10 meq PO DAILY Discharge Orders: Discharge ED (Routine); Ordered 09/26/22 Ordered By: Oziel Walton Discharge Diet: Full LIquid Discharge Activity: Increase activity as tolerated Patient Instructions: Opioid Safety, Pain Management Activity Restrictions/Additional Instructions: You are seen in the emergency room today for abdominal discomfort CT shows colitis. Recommend you take antibiotics clindamycin 1 4 times a day for 7 days. You should follow-up with your primary care doctor sometime in the next 6 to 8 weeks to be scheduled for a colonoscopy given the top number of times you had colitis recently. This does need to be further evaluated possibly have your colon biopsied. Return for worsening problems. You are also noted to be hypokalemic recommend you increase potassium supplement to 20 mEq twice daily for 5 days then return to your regular dose of 10 mEq daily. Coding Level of Care Code ED Pharmacy Technologist for Isiah Mao
--- NOTE | 2022-09-26 12:19 | CT_ITS ---
WS: [id number] CT ABDOMEN PELVIS TECHNIQUE: Noncontrast CT of the abdomen and pelvis with coronal and sagittal reformatted images. CLINICAL INFORMATION: Abdominal pain COMPARISON: CT July 13, 2022 DLP: 518.[address] scans at [facility] use at least one of these dose optimization techniques: automated e xposure control; mA and/or kV adjustment per patient size (includes targeted exams where dose is matc hed to clinical indication); or iterative reconstruction. FINDINGS: Prior hysterectomy. Normal noncontrast liver. Noncontrast spleen is normal. Normal GE junction. Lung bases are well aerated. Adrenal glands are normal. Noncontrast pancreas is normal. Normal sigmoid colon. Tiny nonobstructing calyceal tip calculi. No obstructing renal or ureteral calc rosana. Incidental pelvic phleboliths. Diffuse colonic wall thickening with induration involving the RIG HT colon extending into the transverse colon suspicious for infectious or inflammatory colitis. Ische james colitis less likely in a patient this age. No pneumatosis or free air. Inspissated material withi n the cecum. Disc space narrowing worse at L3-L5. Normal appendix CT/CT abdomen pelvis wo con [id number] IMPRESSION: 1. Colitis involving the RIGHT colon and proximal transverse colon suspicious for infectious or inflammatory colitis. Ischemic colitis less likely in a patie nt this age. Consider inflammatory bowel disease. 2. No pneumatosis or free air. 3. No free fluid in the abdomen or pelvis. 4. No other acute findings.
[2022-09-26 12:39] LABS: Basophils # 0.1 10^3/uL (0.0-0.1); Basophils % 0.9 %; Eosinophils # 0.1 10^3/uL (0.0-0.8); Eosinophils % 1.2 %; Hematocrit 40.1 % (37.0-47.0); Lymphocytes # 2.7 10^3/uL (0.8-4.8); Lymphocytes % 35.1 %; Mean Corpuscular HGB Conc 34.9 g/dL (30.0-36.0); Mean Corpuscular Volume 106.1 fl (81-99); Monocytes # 0.7 10^3/uL (0.2-0.9); Monocytes % 8.6 %; Neutrophils % 53.8 %; Nucleated Red Blood Cells % 0 %; Platelet Count 290 10^3/cmm (130-400); Red Blood Count 3.78 10^6/uL (4.1-5.3); Red Cell Distribution Width 12.8 % (12.1-15.1); White Blood Count 7.8 10^3/uL (4.0-10.0)
[2022-09-26] MEDS: morphine 4 mg/mL SDV 1 mL IVP (12:40)
[2022-09-26] MEDS: promethazine 25 mg/mL SDV 1 mL IM (12:40)
[2022-09-26] MEDS: sodium chloride 0.9% 1,000 ML 999 ML IV (12:40)
[2022-09-26 13:50] LABS: Alanine Aminotransferase 15 U/L (0-33); Albumin Level 3.9 g/dL (3.5-5.2); Alkaline Phosphatase 57 U/L (35-105); Anion Gap 13.8 (5-19); Aspartate Amino Transferase 30 U/L (0-32); Blood Urea Nitrogen 15 mg/dL (6-20); Calcium 8.2 mg/dL (8.5-10.5); Carbon Dioxide 19 mmol/L (22-29); Chloride 110 mmol/L (98-107); Globulin 2.2 g/dL (1.3-4.6); Glomerular Filtration Rate 131.7 mL/min (90-130); Glucose 87 mg/dL (65-115); Lipase 23 U/L (13-60); Osmolality Calculated 290 mOsm/kg (285-295); Sodium 140 mmol/L (136-145); Total Bilirubin 0.3 mg/dL (0.15-1.2); Total Protein 6.1 g/dL (6.6-8.7)
[2022-09-26 14:08] LABS: Potassium 2.8 mmol/L (3.5-5.1)
[2022-09-26] MEDS: potassium chloride oral liq 20 mEq/15 mL UDC 40 MEQ PO (14:28)
[2022-09-26 14:33] VITALS: BP 138/81; PULSE 74; O2SAT 97
[2022-09-26 14:42] LABS: HCG Qualitative Urine. Negative (Negative)
[2022-09-26 15:13] LABS: Add Urine Microscopic? YES; Bilirubin Urine Neg (Negative); Blood Urine 2+ (Negative); Glucose Urine UA Norm (Normal); Ketones Urine Negative (Negative); Leukocyte Esterase Urine Negative (Negative); Nitrate Urine Negative (Negative); Protein Urine Neg (Negative); Urine Appearance Clear (CLEAR); Urine Color Yellow (Yellow); Urobilinogen Urine Norm (Negative); pH Urine 6 (5-7)
[2022-09-26 15:14] LABS: Bacteria Urine TRACE /hpf; RBC Urine RARE /hpf (0-2); Squamous Epithelial Cell Urine 0-4 /hpf (0-5)
[2022-09-26 16:03] VITALS: BP 138/74; PULSE 78; RESP 16; O2SAT 97
--- NOTE | 2022-10-07 13:55 | DCPLANNER ---
airborne operations manager called patient due to no primary care physician - no answer at this time
== END 2022-09-26 16:07 | disposition home or self-care (01) ==
PROVIDERS: Emergency Medicine; Emergency Provider Family Medicine
DX: K52.9 Noninfective gastroenteritis and colitis, unspecified (principal); E87.6 Hypokalemia; I10 Essential (primary) hypertension; F17.210 Nicotine dependence, cigarettes, uncomplicated
CPT/HCPCS: 36415; 74176; 80053; 81001; 81025; 83690; 85025; 96361; 96372; 96374; 99285; J2270; J2550; J7030

== ENCOUNTER 2022-10-28 18:11 | Emergency (ER) | payer BC, MEDICAID, SELFPAY ==
[2022-10-28 18:14] VITALS: BP 176/90; PULSE 106; RESP 24; TEMP 36.6; O2SAT 97; BMI 26.6
--- NOTE | 2022-10-28 18:18 | ECG_ITS ---
[facility] Test Date: 2022-10-28 Pat Name: Jaz Posada Department: Room: Gender: Female Hearing Aid Dispenser: : 1975 Requested By: Martín Shaffer Order Number: [id number] Nellie MD: Bryon Fontanez M.D. Measurements Intervals [place] Rate: 110 P: 146 IA: 143 QRS: 138 QRSD: 86 T: 149 QT: 350 QTc: 474 Interpretive Statements SINUS TACHYCARDIA ARM LEADS REVERSED [INVERTED P AND QRS IN I] ABNORMAL RHYTHM ECG INTERPRETATION BASED ON A DEFAULT AGE OF 40 YEARS Compared to ECG 11/11/2020 13:56:38 Sinus bradycardia no longer present Prolonged QT interval no longer present Electronically Signed On 10-29-2022 0:22:22 CDT by Bryon Fontanez M.D. [email or web address] [email or web address].[employer]/store/NU/[id number] f
--- NOTE | 2022-10-28 20:08 | PC.NURSE ---
CALL TO LOBBY NO ANSWER. SPOKE WITH REGISTRATION SHE STATES THAT PT HAS NOT BEEN SEEN FOR A LONG TIME.
--- NOTE | 2022-10-31 14:48 | DCPLANNER ---
cytology laboratory manager called patient due to no primary care physician - no answer at this time.
== END 2022-10-28 20:57 | disposition left against medical advice (07) ==
PROVIDERS: Emergency Provider Family Medicine
DX: Z53.21 Procedure and treatment not carried out due to patient leaving prior to being seen by health care provider (principal)
CPT/HCPCS: 93005; 99283

== ENCOUNTER 2022-10-29 04:18 | Emergency (ER) | payer BC, MEDICAID, SELFPAY ==
--- NOTE | 2022-10-29 04:20 | XRR_ITS ---
PROCEDURE INFORMATION: Exam: XR Chest Exam date and time: 10/29/2022 4:28 AM Age: 47 years old Clinical indication: Chest pressure; Patient HX: C/O chest pain. Hypertensive; Additional info: Cp TECHNIQUE: Imaging protocol: Radiologic exam of the chest. Views: 1 view. COMPARISON: CR XR chest 1V portable [id number] 03/29/2021 11:52 AM FINDINGS: Lungs: Lungs are clear. Pleural spaces: There is no pleural effusion or pneumothorax. Heart/Mediastinum: The cardiac silhouette is within normal limits of size given AP technique. Bones/joints: Bones are unremarkable. XR/XR chest 1V portable [id number] IMPRESSION: No acute findings.
[2022-10-29 04:22] VITALS: BP 186/117; PULSE 109; RESP 24; TEMP 36.8; O2SAT 100; BMI 26.6
--- NOTE | 2022-10-29 04:26 | ED_ITS ---
HPI - Chest Pain General: Chief Complaint: Chest Pain Stated Complaint: CP Time Seen by Provider: 10/29/22 04:24 Source: patient Mode of arrival: ambulatory Limitations: no limitations History of Present Illness: 47-year-old female has a history of alcoholism states she been having chest pain not feeling well since 3 PM yesterday. She has had some shortness of breath as well. States she has not had a drink today and is feeling quite anxious as well she is obviously anxious here with some tachycardia. She denies any vomiting or diarrhea denies any worsening proving factors. Associated symptoms: Reports dyspnea and nausea; Deny abdominal pain, fever(s) or vomiting Review of Systems Const: Denies: fever(s), chills, body aches or change in appetite Eyes: Denies: eye discomfort ENMT: Denies: throat pain or dental pain Card: Reports: chest pain Resp: Reports: dyspnea GI: Reports: nausea; Denies: abdominal pain, vomiting or diarrhea : Denies: dysuria Musc: Denies: neck pain or back pain Skin/Breast: Denies: rash Neuro: Denies: headache(s) PFSH ED PFSH: Medical History Hidradenitis HTN (hypertension) Psychiatric care Seizures Surgical History History of hysterectomy Social History Smoking and tobacco status: current every day smoker cigarettes Alcohol intake: current Desire information about alcohol rehabilitation?: Yes Substance/Drug Use: current Substance/Drug use frequency: daily Physical Exam Const: COMMON NORMALS: patient oriented x3 GENERAL APPEARANCE: anxious HENMT: COMMON NORMALS: normocephalic and atraumatic HEAD & SCALP: normocephalic and atraumatic Eye: COMMON NORMALS: conjunctivae normal CONJUNCTIVA: Yes conjunctivae normal Neck/C-Spine: COMMON NORMALS: full ROM and supple Chest: COMMONS NORMALS: normal inspection of the chest and normal palpation of entire chest wall Resp: COMMON NORMALS: normal respiratory effort, No retractions, No use of acc essory muscles and clear to auscultation bilaterally AUSCULTATION: clear to auscultation bilaterally Cardio: COMMON NORMALS: regular rhythm and No murmurs present (Cardio) RATE: tachycardic RHYTHM: regular rhythm GI: COMMON NORMALS: Normal to inspection, nondistended, normoactive bowel sounds present, Soft to palpation, non-tender and no masses PALPATION: Yes Soft to palpation Extremity: COMMON NORMALS: normal to inspection and full ROM Neuro: COMMON NORMALS: patient oriented x3, moves all extremities and no focal motor deficits Psych: COMMON NORMALS: mental status grossly normal, Normal thought process present and cooperative THOUGHT PROCESS: Normal thought process present Skin: COMMON NORMALS: no rashes or lesions noted and no wounds GENERAL SKIN EXAM: no rashes or lesions noted Course Vital Signs: Vital signs: Vital Signs Temperature 98.2 F 10/29/22 04:22 Pulse Rate 86 10/29/22 05:15 Respiratory Rate 21 H 10/29/22 05:15 Blood Pressure 153/95 10/29/22 05:15 Pulse Oximetry 94 10/29/22 05:15 Oxygen Delivery Me thod Room Air 10/29/22 05:15 MDM - Chest Pain Medical Decision Making Patient presents here with chest pains atypical in nature likely some anxiety she feels much improved after Ativan her vital signs of improved including her heart rate and her blood pressure. She has no signs of severe alcohol withdrawal no signs of pulmonary rhythm her troponin here is normal she been having pain for 12 hours I do not believe she needs a 2-hour troponin no signs of acute coronary syndrome she is to follow-up with PCP and return if worsening she understands agrees to plan. Lab Data 10/29/22 04:35 10/29/22 04:35 Laboratory Results WBC 7.9 10^3/uL (4.0-10.0) 10/29/22 04:35 RBC 3.79 10^6/uL (4.1-5.3) L 10/29/22 04:35 Hgb 14.0 g/dL (11.5-15.3) 10/29/22 04:35 Hct 40.1 % (37.0-47.0) 10/29/22 04:35 MCV 105.8 fl (81-99) H 10/29/22 04:35 MCH 36.9 pg (28.0-34.0) H 10/29/22 04:35 MCHC 34.9 g/dL (30.0-36.0) 10/29/22 04:35 RDW 13.2 % (12.1-15.1) 10/29/22 04:35 Plt Count 237 10^3/cmm (130-400) 10/29/22 04:35 MPV 8.9 fL (7.4-10.4) 10/29/22 04:35 Neut % (Auto) 47.8 % 10/29/22 04:35 Lymph % (Auto) 41.9 % 10/29/22 04:35 [place] % (Auto) 7.3 % 10/29/22 04:35 Eos % (Auto) 1.9 % 10/29/22 04:35 Baso % (Auto) 0.8 % 10/29/22 04:35 Neut # (Auto) 3.78 10^3/uL (1.8-7.7) 10/29/22 04:35 Lymph # (Auto) 3.3 10^3/uL (0.8-4.8) 10/29/22 04:35 [place] # (Auto) 0.6 10^3/uL (0.2-0.9) 10/29/22 04:35 Eos # (Auto) 0.2 10^3/uL (0.0-0.8) 10/29/22 04:35 Baso # (Auto) 0.1 10^3/uL (0.0-0.1) 10/29/22 04:35 Nucleated RBC % (auto) 0 % 10/29/22 04:35 Nucleated RBCs # 0.0 /100WBC 10/29/22 04:35 Sodium 138 mmol/L (136-145) 10/29/22 04:35 Potassium 3.2 mmol/L (3.5-5.1) L 10/29/22 04:35 Chloride 102 mmol/L (98-107) 10/29/22 04:35 Carbon Dioxide 22 mmol/L (22-29) 10/29/22 04:35 Anion Gap 17.2 (5-19) 10/29/22 04:35 BUN 9 mg/dL (6-20) 10/29/22 04:35 Creatinine 0.5 mg/dL (0.5-0.9) 10/29/22 04:35 GFR Calculation 131.7 mL/min (90-130) H 10/29/22 04:35 Glucose 89 mg/dL (65-115) 10/29/22 04:35 Calculated Osmolality 284 mOsm/kg (285-295) L 10/29/22 04:35 Calcium 9.0 mg/dL (8.5-10.5) 10/29/22 04:35 Total Bilirubin 0.4 mg/dL (0.15-1.2) 10/29/22 04:35 AST 46 U/L (0-32) H 10/29/22 04:35 ALT 30 U/L (0-33) 10/29/22 04:35 Alkaline Phosphatase 92 U/L (35-105) 10/29/22 04:35 Troponin T Baseline 10 ng/L (0-10) 10/29/22 04:35 Total Protein 6.3 g/dL (6.6-8.7) L 10/29/22 04:35 Albumin 4.3 g/dL (3.5-5.2) 10/29/22 04:35 Globulin 2.0 g/dL (1.3-4.6) 10/29/22 04:35 Lipase 27 U/L (13-60) 10/29/22 04:35 Ethyl Alcohol 36 mg/dL (0-10) H 10/29/22 04:35 EKG Data EKG 1: I personally reviewed and interpreted this EKG as follows: EKG interpretation date: 10/29/22 EKG interpretation time: 04:42 Interpretation: nsr hr [address] or t wave abnormalities qrs 92 qtc 455 Discharge Plan Discharge Patient Disposition: Home Clinical Impression: Chest pain Condition: Stable Prescriptions: No Action lisinopril 40 mg tablet 40 mg PO DAILY Qty: 30 5RF pantoprazole [Protonix] 40 mg tablet,delayed release (DR/EC) 40 mg PO DAILY 28 Days Qty: 30 0RF acetaminophen 325 mg Tablet 650 mg PO QID PRN (Reason: Pain) ibuprofen 200 mg Tablet 400 - 600 mg PO Q6H PRN (Reason: Pain) Hair,Skin and Nails Tablet 1 tab PO DAILY potassium chloride 10 mEq Tablet,Er Particles/Crystals 10 meq PO DAILY potassium chloride 20 mEq tablet,ER particles/crystals 20 meq PO BID Qty: 10 0RF ondansetron HCl 4 mg tablet 4 mg PO Q6H PRN (Reason: nausea and vomiting) Qty: 20 0RF Discharge Orders: Discharge ED (Routine); Ordered 10/29/22 Ordered By: Martín Shaffer Discharge Diet: Advance as tolerated Discharge Activity: Resume usual activity Patient Instructions: Chest Pain (ED) Coding Level of Care Code ED Microbiology Quality Control Technician for Isiah Mao
--- NOTE | 2022-10-29 04:26 | ECG_ITS ---
[facility] Test Date: 2022-10-29 Pat Name: Jaz Posada Department: Room: Gender: Female Spool Hauler: : 1975 Requested By: Martín Shaffer Order Number: [id number] Nellie MD: Jorge Mcdonough M.D. Measurements Intervals [place] Rate: 115 P: 59 MD: 148 QRS: 72 QRSD: 86 T: 73 QT: 335 QTc: 465 Interpretive Statements SINUS TACHYCARDIA MODERATE VOLTAGE CRITERIA FOR LVH, CONSIDER NORMAL VARIANT [MEETS CRITERIA IN ONE OF: R(aVL), S(V1), R(V5), R(V5/V6)+S(V1)] MODERATE ST DEPRESSION [0.05+ mV ST DEPRESSION] Compared to ECG 10/28/2022 18:18:22 ST (T wave) deviation now present Electronically Signed On 10-29-2022 14:18:36 CDT by Jorge Mcdonough M.D. [email or web address]/store/NU/[id number] f
[2022-10-29] MEDS: LORazepam 2 mg/mL INJ 1 mL IVP ×2 (04:36→05:03)
[2022-10-29] MEDS: sodium chloride 0.9% 1,000 ML 999 ML IV (04:36)
[2022-10-29 04:41] VITALS: BP 186/117; PULSE 92; RESP 28; O2SAT 97
[2022-10-29 04:42] LABS: Basophils # 0.1 10^3/uL (0.0-0.1); Basophils % 0.8 %; Eosinophils # 0.2 10^3/uL (0.0-0.8); Eosinophils % 1.9 %; Hematocrit 40.1 % (37.0-47.0); Lymphocytes # 3.3 10^3/uL (0.8-4.8); Lymphocytes % 41.9 %; Mean Corpuscular HGB Conc 34.9 g/dL (30.0-36.0); Mean Corpuscular Hemoglobin 36.9 pg (28.0-34.0); Mean Corpuscular Volume 105.8 fl (81-99); Mean Platelet Volume 8.9 fL (7.4-10.4); Monocytes # 0.6 10^3/uL (0.2-0.9); Monocytes % 7.3 %; Neutrophils # 3.78 10^3/uL (1.8-7.7); Neutrophils % 47.8 %; Nucleated Red Blood Cells % 0 %; Platelet Count 237 10^3/cmm (130-400); Red Blood Count 3.79 10^6/uL (4.1-5.3); Red Cell Distribution Width 13.2 % (12.1-15.1); White Blood Count 7.9 10^3/uL (4.0-10.0)
[2022-10-29 04:44] VITALS: O2SAT 96
[2022-10-29 05:04] VITALS: BP 186/117; PULSE 108; RESP 20; O2SAT 97
[2022-10-29 05:07] LABS: Alanine Aminotransferase 30 U/L (0-33); Albumin Level 4.3 g/dL (3.5-5.2); Alcohol Level 36 mg/dL (0-10); Alkaline Phosphatase 92 U/L (35-105); Anion Gap 17.2 (5-19); Aspartate Amino Transferase 46 U/L (0-32); Blood Urea Nitrogen 9 mg/dL (6-20); Carbon Dioxide 22 mmol/L (22-29); Chloride 102 mmol/L (98-107); Glomerular Filtration Rate 131.7 mL/min (90-130); Glucose 89 mg/dL (65-115); Lipase 27 U/L (13-60); Osmolality Calculated 284 mOsm/kg (285-295); Potassium 3.2 mmol/L (3.5-5.1); Sodium 138 mmol/L (136-145); Total Bilirubin 0.4 mg/dL (0.15-1.2); Total Protein 6.3 g/dL (6.6-8.7)
[2022-10-29 05:08] LABS: Troponin(5th) Baseline 10 ng/L (0-10)
[2022-10-29] MEDS: labetalol 5 mg/mL SDV 20mL 10 MG IVP (05:09)
[2022-10-29 05:15] VITALS: BP 153/95; PULSE 86; RESP 21; O2SAT 94
[2022-10-29 05:24] VITALS: PULSE 85; RESP 20; O2SAT 93
--- NOTE | 2022-10-31 14:59 | DCPLANNER ---
materials management manager called due to no primary care physician - no answer at this time.
== END 2022-10-29 05:31 | disposition home or self-care (01) ==
PROVIDERS: Emergency Provider Emergency Medicine
DX: R07.9 Chest pain, unspecified (principal); I10 Essential (primary) hypertension; F17.210 Nicotine dependence, cigarettes, uncomplicated
CPT/HCPCS: 71045; 80053; 80307; 83690; 84484; 85025; 93005; 96361; 96374; 96375; 96376; 99285; J2060; J3490; J7030

== ENCOUNTER 2022-12-27 09:21 | Emergency (ER) | payer BC, MEDICAID, SELFPAY ==
[2022-12-27] VITALS (7 sets, daily range): BP systolic 122–170; BP diastolic 93–128; PULSE 81–104; RESP 20; TEMP 36.7; O2SAT 94–96; BMI 24.3
--- NOTE | 2022-12-27 09:25 | XRR_ITS ---
PROCEDURE INFORMATION: Exam: XR Chest Exam date and time: 12/27/2022 9:45 AM Age: 47 years old Clinical indication: Cough and dyspnea; Additional info: Dyspnea/cough TECHNIQUE: Imaging protocol: Radiologic exam of the chest. Views: 1 view. COMPARISON: CR XR chest 1V portable [id number] 10/29/2022 4:28 AM FINDINGS: Lungs: Normal lung volumes. No interstitial or air space opacities seen. Pleural spaces: No pleural effusion. No pneumothorax. Heart/Mediastinum: Normal heart size. Normal mediastinum. Midline trachea. Bones/joints: No acute osseous abnormalities seen. XR/XR chest 1V portable [id number] IMPRESSION: No acute cardiopulmonary disease seen on the chest radiograph.
--- NOTE | 2022-12-27 09:40 | ECG_ITS ---
[facility] Test Date: 2022-12-27 Pat Name: Jaz Posada Department: Room: Gender: Female Practice Performance Manager: : 1975 Requested By: Oziel Mcclure Order Number: [id number] Nellie MD: Bryon Fontanez M.D. Measurements Intervals [place] Rate: 96 P: 66 DE: 145 QRS: 67 QRSD: 83 T: 57 QT: 352 QTc: 446 Interpretive Statements SINUS RHYTHM POSSIBLE LEFT ATRIAL ENLARGEMENT [-0.1mV P-WAVE IN V1/V2] Compared to ECG 10/29/2022 04:26:42 Sinus tachycardia no longer present ST (T wave) deviation no longer present Electronically Signed On 12-27-2022 15:53:50 CDT by Bryon Fontanez M.D. [email or web address]/store/OM/[id number]
--- NOTE | 2022-12-27 09:49 | W.ED.CHESTPA ---
HPI - Chest Pain General: Chief Complaint: Chest Pain Stated Complaint: CP,SOB Time Seen by Provider: 12/27/22 09:24 Source: patient and family Mode of arrival: ambulatory History of Present Illness: 47-year-old female presents emergency room complaining of generalized abdominal pain and right-sided chest pain for the last 2 weeks generalized weakness as well. Patient drinks 8-10 shots of hard liquor per day has been trying to cut down. She has not had any hematemesis or coffee-ground emesis. Is not really taking anything new or different for her stomach. She does take ibuprofen as needed she is on pantoprazole 40 daily. She has been hypokalemic in the past and is on potassium supplement. No known history of coronary disease or diabetes. MD complaint: chest pain Onset (ago): week(s) (2) Onset: during rest Pain location: right chest Pain radiation: none Severity: moderate Quality: tightness and aching Relieving factors: nothing Exacerbating factors: other (Eating) Associated symptoms: Reports abdominal pain; Deny diaphoresis, dyspnea, fever(s), leg edema, nausea, palpitations, sense of impending doom, syncope or vomiting Review of Systems Const: Denies: fever(s), chills, fatigue, malaise or diaphoresis Card: Reports: chest pain; Denies: palpitations or syncope Resp: Denies: dyspnea GI: Reports: abdominal pain; Denies: nausea or vomiting : Denies: flank pain, difficulty voiding, dysuria, urinary frequency or urinary urgency Skin/Breast: Denies: rash or pruritus [facility] ED PFSH: Medical History Hidradenitis HTN (hypertension) Psychiatric care Seizures Surgical History History of hysterectomy Social History Smoking and tobacco status: current every day smoker cigarettes Alcohol intake: current Desire information about alcohol rehabilitation?: Yes Substance/Drug Use: current Substance/Drug use frequency: daily Physical Exam Const: GENERAL APPEARANCE: cooperative and comfortable ORIENTATION/CONSCIOUSNESS: Yes awake, Yes oriented to person, Yes oriented to place and Yes oriented to time HENMT: COMMON NORMALS: normocephalic, atraumatic and hearing grossly normal bilaterally HEAD & SCALP: normocephalic and atraumatic Resp: COMMON NORMALS: normal respiratory effort, No retractions, No use of accessory muscles and clear to auscultation bilaterally AUSCULTATION: clear to auscultation bilaterally Cardio: COMMON NORMALS: regular rate, regular rhythm and No murmurs present (Cardio) RATE: regular rate RHYTHM: regular rhythm GI: COMMON NORMALS: Soft to palpation and No hepatosplenomegaly present AUSCULTATION: Yes normoactive bowel sounds PALPATION: Yes Soft to palpation, No Tenderness to palpation present (GI), No Guarding due to palpation present (GI) and Yes No hepatosplenomegaly present Extremity: COMMON NORMALS: normal to inspection, capillary refill normal, no clubbing, cyanosis or edema, no calf tenderness and no pedal edema Neuro: SENSORIUM/ORIENTATION: Yes oriented to person, Yes oriented to place and Yes oriented to time Skin: COMMON NORMALS: no rashes or lesions noted GENERAL SKIN EXAM: no rashes or lesions noted Course Vital Signs: Vital signs: Vital Signs Temperature 98.0 F 12/27/22 09:37 Pulse Rate 87 12/27/22 13:02 Respiratory Rate 20 H 12/27/22 09:37 Blood Pressure 161/114 12/27/22 13:02 Pulse Oximetry 95 12/27/22 13:02 Oxygen Delivery Me thod Room Air 12/27/22 09:37 MDM - Chest Pain Medical Decision Making Labs and imaging reviewed patient is doing much better abdominal exam no signs of peritonitis. Patient has acute gastritis from alcohol. Discussed the findings with her encouraged alcohol abstinence. We will start her on PPI use antiemetics as needed clear liquid diet abstain from alcohol advance diet in 24 to 40 hours return if is further problems or hematemesis or coffee-ground emesis hematochezia or melena reviewed with patient. Did give her chlordiazepoxide for taper to help with stopping her alcohol use Medical Records I reviewed the patient's medical records. Lab Data I reviewed the patient's lab results. 12/27/22 09:45 12/27/22 09:45 Radiology Impressions Chest X-Ray 12/27/22 09:25 IMPRESSION: No acute cardiopulmonary disease seen on the chest radiograph. Laboratory Results WBC 8.1 10^3/uL (4.0-10.0) 12/27/22 09:45 RBC 3.99 10^6/uL (4.1-5.3) L 12/27/22 09:45 Hgb 14.9 g/dL (11.5-15.3) 12/27/22 09:45 Hct 42.0 % (37.0-47.0) 12/27/22 09:45 MCV 105.3 fl (81-99) H 12/27/22 09:45 MCH 37.3 pg (28.0-34.0) H 12/27/22 09:45 MCHC 35.5 g/dL (30.0-36.0) 12/27/22 09:45 RDW 12.6 % (12.1-15.1) 12/27/22 09:45 Plt Count 210 10^3/cmm (130-400) 12/27/22 09:45 MPV 9.0 fL (7.4-10.4) 12/27/22 09:45 Neut % (Auto) 45.5 % 12/27/22 09:45 Lymph % (Auto) 41.3 % 12/27/22 09:45 Bland % (Auto) 9.2 % 12/27/22 09:45 Eos % (Auto) 3.1 % 12/27/22 09:45 Baso % (Auto) 0.7 % 12/27/22 09:45 Neut # (Auto) 3.70 10^3/uL (1.8-7.7) 12/27/22 09:45 Lymph # (Auto) 3.4 10^3/uL (0.8-4.8) 12/27/22 09:45 Bland # (Auto) 0.8 10^3/uL (0.2-0.9) 12/27/22 09:45 Eos # (Auto) 0.3 10^3/uL (0.0-0.8) 12/27/22 09:45 Baso # (Auto) 0.1 10^3/uL (0.0-0.1) 12/27/22 09:45 Nucleated RBC % (auto) 0 % 12/27/22 09:45 Nucleated RBCs # 0.0 /100WBC 12/27/22 09:45 Sodium 139 mmol/L (136-145) 12/27/22 09:45 Potassium 4.0 mmol/L (3.5-5.1) 12/27/22 09:45 Chloride 101 mmol/L (98-107) 12/27/22 09:45 Carbon Dioxide 24 mmol/L (22-29) 12/27/22 09:45 Anion Gap 18.0 (5-19) 12/27/22 09:45 BUN 17 mg/dL (6-20) 12/27/22 09:45 Creatinine 0.6 mg/dL (0.5-0.9) 12/27/22 09:45 GFR Calculation 106.7 mL/min (90-130) 12/27/22 09:45 Glucose 93 mg/dL (65-115) 12/27/22 09:45 Calculated Osmolality 289 mOsm/kg (285-295) 12/27/22 09:45 Calcium 9.0 mg/dL (8.5-10.5) 12/27/22 09:45 Total Bilirubin 0.4 mg/dL (0.15-1.2) 12/27/22 09:45 AST 125 U/L (0-32) H 12/27/22 09:45 ALT 51 U/L (0-33) H 12/27/22 09:45 Alkaline Phosphatase 78 U/L (35-105) 12/27/22 09:45 Ammonia 37 umol/L (11-51) 12/27/22 10:35 Troponin T Baseline 9 ng/L (0-10) 12/27/22 09:45 Troponin T 120 Minute 7.53 ng/L (0-10) 12/27/22 11:54 Delta Troponin T -1.47 ABS# (0-10) L 12/27/22 11:54 Total Protein 6.2 g/dL (6.6-8.7) L 12/27/22 09:45 Albumin 4.1 g/dL (3.5-5.2) 12/27/22 09:45 Globulin 2.1 g/dL (1.3-4.6) 12/27/22 09:45 Lipase 33 U/L (13-60) 12/27/22 09:45 Discharge Plan Discharge Patient Disposition: Home Clinical Impression: Alcohol abuse, Alcoholic gastritis Condition: Stable Prescriptions: New chlordiazepoxide HCl 25 mg capsule 25 mg PO TID Qty: 15 0RF Rx Instructions: 1 p.o. 3 times daily x2 days, 1 p.o. twice daily x3 days, 1 p.o. daily x3 days No Action lisinopril 40 mg tablet 40 mg PO DAILY Qty: 30 5RF ibuprofen 200 mg Tablet 800 mg PO BID PRN (Reason: Pain) Hair,Skin and Nails Tablet 2 tab PO DAILY Tylenol Ex Str Rapid Release 500 mg Tablet 1,000 mg PO BID PRN (Reason: Pain) ProAir HFA 90 mcg/actuation Hfa Aerosol Inhaler 2 puff INHALATION QID PRN (Reason: Shortness Of Breath) potassium gluconate 595 mg (99 mg) Tablet 595 mg PO DAILY Discharge Orders: Discharge ED (Routine); Ordered 12/27/22 Ordered By: Oziel Walton Discharge Diet: Usual diet Discharge Activity: Resume usual activity Patient Instructions: Alcohol Dependence (ED), Opioid Safety, Pain Management Coding Level of Care Code ED Model And Dye Person for Isiah Mao
[2022-12-27 09:51] LABS: Basophils # 0.1 10^3/uL (0.0-0.1); Basophils % 0.7 %; Eosinophils # 0.3 10^3/uL (0.0-0.8); Eosinophils % 3.1 %; Hemoglobin 14.9 g/dL (11.5-15.3); Lymphocytes # 3.4 10^3/uL (0.8-4.8); Lymphocytes % 41.3 %; Mean Corpuscular HGB Conc 35.5 g/dL (30.0-36.0); Mean Corpuscular Hemoglobin 37.3 pg (28.0-34.0); Mean Corpuscular Volume 105.3 fl (81-99); Monocytes # 0.8 10^3/uL (0.2-0.9); Monocytes % 9.2 %; Neutrophils % 45.5 %; Nucleated Red Blood Cells % 0 %; Platelet Count 210 10^3/cmm (130-400); Red Blood Count 3.99 10^6/uL (4.1-5.3); Red Cell Distribution Width 12.6 % (12.1-15.1); White Blood Count 8.1 10^3/uL (4.0-10.0)
[2022-12-27] MEDS: LORazepam 2 mg/mL INJ 1 mL IVP (10:07)
[2022-12-27] MEDS: famotidine 20 mg/2 mL INJ 40 MG IVP (10:09)
[2022-12-27] MEDS: promethazine 25 mg/mL SDV 1 mL IM (10:10)
[2022-12-27 10:24] LABS: Troponin(5th) Baseline 9 ng/L (0-10)
[2022-12-27 10:25] LABS: Alanine Aminotransferase 51 U/L (0-33); Albumin Level 4.1 g/dL (3.5-5.2); Alkaline Phosphatase 78 U/L (35-105); Aspartate Amino Transferase 125 U/L (0-32); Blood Urea Nitrogen 17 mg/dL (6-20); Carbon Dioxide 24 mmol/L (22-29); Chloride 101 mmol/L (98-107); Globulin 2.1 g/dL (1.3-4.6); Glomerular Filtration Rate 106.7 mL/min (90-130); Glucose 93 mg/dL (65-115); Osmolality Calculated 289 mOsm/kg (285-295); Sodium 139 mmol/L (136-145); Total Bilirubin 0.4 mg/dL (0.15-1.2); Total Protein 6.2 g/dL (6.6-8.7)
[2022-12-27] MEDS: lidocaine 2% viscous 15 ML, aluminum-mag hydrox-simethicon 30 ML, sucralfate oral liq 1 GM PO (10:35)
[2022-12-27 10:42] LABS: Lipase 33 U/L (13-60)
[2022-12-27 10:57] LABS: Ammonia 37 umol/L (11-51)
--- NOTE | 2022-12-27 11:25 | ECG_ITS ---
[facility] Test Date: 2022-12-27 Pat Name: Jaz Posada Department: Room: Gender: Female [employer]ics Technician: : 1975 Requested By: Oziel Mcclure Order Number: [id number] Nellie MD: Bryon Fontanez M.D. Measurements Intervals [place] Rate: 95 P: 55 [place]: 152 QRS: 52 QRSD: 81 T: 42 QT: 376 QTc: 475 Interpretive Statements SINUS RHYTHM POSSIBLE LEFT ATRIAL ENLARGEMENT [-0.1mV P-WAVE IN V1/V2] Compared to ECG 12/27/2022 09:40:48 No significant changes Electronically Signed On 12-27-2022 15:58:53 CDT by Bryon Fontanez M.D. [email or web address] [email or web address] [email or web address]/store/[id number]
[2022-12-27 12:17] LABS: Troponin 5 2HR 7.53 ng/L (0-10)
[2022-12-27 13:02] LABS: Troponin 5 2HR Delta -1.47 ABS# (0-10)
== END 2022-12-27 13:09 | disposition home or self-care (01) ==
PROVIDERS: Emergency Provider Family Medicine
DX: K29.20 Alcoholic gastritis without bleeding (principal); F10.10 Alcohol abuse, uncomplicated; F19.90 Other psychoactive substance use, unspecified, uncomplicated; F17.210 Nicotine dependence, cigarettes, uncomplicated
CPT/HCPCS: 36415; 71045; 80053; 82140; 83690; 84484; 85025; 93005; 96372; 96374; 96375; 99285; J2060; J2550; J3490

== ENCOUNTER 2022-12-28 15:41 | Emergency (ER) | payer BC, MEDICAID, SELFPAY ==
[2022-12-28 15:46] VITALS: BP 144/88; PULSE 90; RESP 18; TEMP 36.8; O2SAT 95; BMI 24.9
--- NOTE | 2022-12-28 15:56 | W.ED.SOB ---
HPI - SOB/Dyspnea General: Chief Complaint: Shortness of Breath/Dyspnea Stated Complaint: sob, abd pain, chest pain Time Seen by Provider: 12/28/22 15:56 History of Present Illness: HPI Narrative: Patient presents to the ER today with complaining of multiple symptoms. Patient states she can eat, sleep, cannot breathe, and is confused, she only had 2 shots of alcohol today. Patient states has been sick for 7 days. Patient was just recently seen here yesterday and had a thorough work-up. These notes were reviewed. Review of Systems General: Reports: 10 or more systems reviewed and unremarkable except in HPI and below PFSH ED PFSH: Medical History Hidradenitis HTN (hypertension) Psychiatric care Seizures Surgical History History of hysterectomy Social History Smoking and tobacco status: current every day smoker cigarettes Alcohol intake: current Desire information about alcohol rehabilitation?: Yes Substance/Drug Use: current Substance/Drug use frequency: daily Physical Exam Const: COMMON NORMALS: no acute distress, average body habitus, patient oriented x3, no limitations, healthy appearing, alert and well nourished HENMT: COMMON NORMALS: normocephalic, atraumatic, hearing grossly normal bilaterally, external ears normal, Normal external nose present and moist oral mucous membranes HEAD & SCALP: normocephalic and atraumatic NOSE: Normal external nose present EXTERNAL EAR: Yes external ears normal Neck/C-Spine: COMMON NORMALS: full ROM, no lymphadenopathy, supple, no meningeal signs, no JVD and Thyroid normal THYROID: Thyroid normal Chest: COMMONS NORMALS: normal inspection of the chest and normal palpation of entire chest wall Resp: COMMON NORMALS: normal respiratory effort, No retractions, No use of accessory muscles and clear to auscultation bilaterally AUSCULTATION: clear to auscultation bilaterally Cardio: COMMON NORMALS: no JVD, regular rate, regular rhythm, S1 normal heart sound present, S2 normal heart sound present, No gallops present (Cardio), No clicks present (Cardio), No murmurs present (Cardio) and No rub (Cardio) RATE: regular rate RHYTHM: regular rhythm HEART SOUNDS: S1 normal heart sound present and S2 normal heart sound present GI: COMMON NORMALS: Normal to inspection, nondistended, normoactive bowel sounds present, Soft to palpation and No hepatosplenomegaly present; negative for non-tender (Tender to palpate over epigastric region.) PALPATION: Yes Soft to palpation and Yes No hepatosplenomegaly present Neuro: COMMON NORMALS: patient oriented x3 SENSORIUM/ORIENTATION: Yes alert MENINGEAL SIGNS: Yes no meningeal signs Course Vital Signs: Vital signs: Vital Signs Temperature 98.3 F 12/28/22 15:46 Pulse Rate 82 12/28/22 17:12 Respiratory Rate 18 12/28/22 15:46 Blood Pressure 146/106 12/28/22 17:12 Pulse Oximetry 93 12/28/22 17:12 Oxygen Delivery Me thod Room Air 12/28/22 15:46 MDM - SOB/Dyspnea Medical Decision Making Patient presents today to the ER with multiple complaints. Patient was seen and evaluated for similar complaints yesterday. Yesterday's work-up was reviewed and it was felt that we do not need to repeat yesterday's work-up but we did add on some tests such as magnesium, urine, urine drug screen and COVID, these results showed positive for amphetamines positive for benzos positive for THC, negative for COVID, patient was given 1 L normal saline bolus, 10 mg Reglan and 40 mg Pepcid IV. Patient will be discharged home with a diagnosis of gastritis. Lab Data Labs/Radiology: Laboratory Results Magnesium 1.9 mg/dL (1.7-2.3) 12/28/22 16:19 Urine Color Straw (Yellow) 12/28/22 16:22 Urine Appearance Clear (CLEAR) 12/28/22 16:22 Urine pH 7 (5-7) 12/28/22 16:22 Ur Specific [place] 1.010 (1.005-1.030) 12/28/22 16:22 Urine Protein Neg (Negative) 12/28/22 16:22 Urine Glucose (UA) Norm (Normal) 12/28/22 16:22 Urine Ketones Negative (Negative) 12/28/22 16:22 Urine Blood Neg (Negative) 12/28/22 16:22 Urine Nitrate Negative (Negative) 12/28/22 16:22 Urine Bilirubin Neg (Negative) 12/28/22 16:22 Urine Urobilinogen Norm mg/dL (Negative) 12/28/22 16:22 Ur Leukocyte Esterase Negative (Negative) 12/28/22 16:22 Urine Opiates Screen Negative ng/mL (Negative) 12/28/22 16:22 Ur Barbiturates Screen Negative ng/mL (Negative) 12/28/22 16:22 Ur Phencyclidine Scrn Negative ng/mL (Negative) 12/28/22 16:22 Ur Amphetamines Screen Positive ng/mL (Negative) H 12/28/22 16:22 U Benzodiazepines Scrn Positive ng/mL (Negative) H 12/28/22 16:22 Urine Cocaine Screen Negative ng/mL (Negative) 12/28/22 16:22 U Marijuana (THC) Screen Positive ng/mL (Negative) H 12/28/22 16:22 SARS-CoV-2 Ag (Rapid) negative (Negative) 12/28/22 16:33 Discharge Plan Discharge Patient Disposition: Home Clinical Impression: Amphetamine abuse, Marijuana use Alcoholic gastritis Qualifiers: Chronicity: unspecified Gastritis bleeding: without bleeding Qualified Code(s): K29.20 - Alcoholic gastritis without bleeding Condition: Stable Prescriptions: New Pepcid 40 mg tablet 40 mg PO DAILY Qty: 30 0RF No Action lisinopril 40 mg tablet 40 mg PO DAILY Qty: 30 5RF ibuprofen 200 mg Tablet 800 mg PO BID PRN (Reason: Pain) Hair,Skin and Nails Tablet 2 tab PO DAILY Tylenol Ex Str Rapid Release 500 mg Tablet 1,000 mg PO BID PRN (Reason: Pain) ProAir HFA 90 mcg/actuation Hfa Aerosol Inhaler 2 puff INHALATION QID PRN (Reason: Shortness Of Breath) potassium gluconate 595 mg (99 mg) Tablet 595 mg PO DAILY chlordiazepoxide HCl 25 mg capsule 25 mg PO TID Qty: 15 0RF Rx Instructions: 1 p.o. 3 times daily x2 days, 1 p.o. twice daily x3 days, 1 p.o. daily x3 days Discharge Orders: Discharge ED (Routine); Ordered 12/28/22 Ordered By: Gil Sterling Patient Instructions: Gastritis (ED), Methamphetamine Use Disorder (ED) Coding Level of Care Code ED Outside Barrel Lathe Operator for Isiah Mao
[2022-12-28] MEDS: famotidine 20 mg/2 mL INJ 40 MG IVP (16:26)
[2022-12-28] MEDS: sodium chloride 0.9% 1,000 ML 999 ML IV (16:26)
[2022-12-28] MEDS: metoclopramide 5 mg/mL SDV 2 mL 10 MG IVP (16:26)
[2022-12-28 16:31] LABS: Add Urine Microscopic? NO; Charge for UA Resulting for Rev
[2022-12-28 16:33] VITALS: BP 139/105; PULSE 89; O2SAT 97
[2022-12-28 16:34] LABS: Bilirubin Urine Neg (Negative); Blood Urine Neg (Negative); Glucose Urine UA Norm (Normal); Ketones Urine Negative (Negative); Leukocyte Esterase Urine Negative (Negative); Nitrate Urine Negative (Negative); Protein Urine Neg (Negative); Urine Appearance Clear (CLEAR); Urine Color Straw (Yellow); Urobilinogen Urine Norm (Negative); pH Urine 7 (5-7)
[2022-12-28 16:43] LABS: Amphetamines Screen Urine Positive (Negative); Barbiturates Screen Urine Negative (Negative); Benzodiazepines Screen Urine Positive (Negative); Cocaine Screen Urine Negative (Negative); Opiate Screen Urine Negative (Negative); PCP Screen Urine Negative (Negative); THC Screen Urine Positive (Negative)
[2022-12-28 16:45] LABS: Magnesium 1.9 mg/dL (1.7-2.3)
[2022-12-28 16:54] LABS: SARS Covid-2 Antigen negative (Negative)
[2022-12-28 17:12] VITALS: BP 146/106; PULSE 82; O2SAT 93
--- NOTE | 2022-12-28 17:47 | PC.NURSE ---
Patient pulled out her own IV, and stormed out of her room stating that she wanted to leave. I got her to sign an AMA form and let her out the front of ER.
[2022-12-28 17:49] VITALS: BP 146/106; PULSE 82; RESP 18; O2SAT 93
== END 2022-12-28 17:50 | disposition home or self-care (01) ==
PROVIDERS: Emergency Provider Emergency Medicine
DX: K29.20 Alcoholic gastritis without bleeding (principal); F15.10 Other stimulant abuse, uncomplicated; F12.90 Cannabis use, unspecified, uncomplicated; Z20.822 Contact with and (suspected) exposure to COVID-19; I10 Essential (primary) hypertension; F17.210 Nicotine dependence, cigarettes, uncomplicated
CPT/HCPCS: 80306; 81003; 83735; 87426; 96361; 96374; 96375; 99284; J2765; J3490; J7030

== ENCOUNTER 2023-01-19 05:32 | Emergency (ER) | payer BC, MEDICAID, SELFPAY ==
[2023-01-19 05:43] VITALS: BP 166/121; PULSE 99; RESP 22; TEMP 36.7; O2SAT 96; BMI 25.7
[2023-01-19 05:46] VITALS: BP 166/121; PULSE 87; RESP 21; O2SAT 97
--- NOTE | 2023-01-19 05:47 | ECG_ITS ---
[facility] Test Date: 2023-01-19 Pat Name: Jaz Posada Department: Room: Gender: Female Residential Living Assistant: : 1975 Requested By: Oziel Mcclure Order Number: [id number] Nellie MD: Gilma Liu M.D. Measurements Intervals [place] Rate: 90 P: 60 TN: 152 QRS: 50 QRSD: 83 T: 46 QT: 390 QTc: 479 Interpretive Statements SINUS RHYTHM POSSIBLE LEFT ATRIAL ENLARGEMENT [-0.1mV P-WAVE IN V1/V2] POSSIBLE LEFT VENTRICULAR HYPERTROPHY [VOLTAGE CRITERIA PLUS LAE OR QRS WIDENING] Compared to ECG 12/27/2022 11:33:16 No significant changes Electronically Signed On 01-19-2023 21:11:23 CDT by Gilma Liu M.D. [id number]
--- NOTE | 2023-01-19 05:50 | ED_ITS ---
HPI - Abdominal Pain General: Chief Complaint: Abdominal Pain Stated Complaint: High BP Time Seen by Provider: 01/19/23 05:48 Source: patient Mode of arrival: ambulatory History of Present Illness: 47-year-old female MD elicited complaint: abdominal pain Pertinent past history: kidney stones and other (colitis) PFS ED PFSH: Medical History Alcohol abuse Essential hypertension Hidradenitis HTN (hypertension) Nephrolithiasis Seizures Surgical History History of hysterectomy Social History Smoking and tobacco status: current every day smoker cigarettes Alcohol intake: current Desire information about alcohol rehabilitation?: Yes Substance/Drug Use: current Substance/Drug use frequency: daily Course Vital Signs: Vital signs: Vital Signs Temperature 98.1 F 01/19/23 05:43 Pulse Rate 89 01/19/23 06:39 Respiratory Rate 22 H 01/19/23 06:39 Blood Pressure 175/100 01/19/23 06:57 Pulse Oximetry 96 01/19/23 06:39 Oxygen Delivery Me thod Room Air 01/19/23 06:39 MDM - Abdominal Pain Medical Decision Making Labs and imaging reviewed. No acute abdominal pathology. She did drink straight hard liquor last night I think she has acute alcoholic gastritis. Blood pressure is elevated because she has been off of her antihypertensives. We will have her stop all NSAIDs abstain from alcohol switch from Pepcid to pantoprazole restart her lisinopril. Follow-up with her primary care doctor within the week to reevaluate blood pressure. Differential Diagnosis Likely abdominal pain, acute appendicitis, calculus of kidney, constipation, gastroenteritis, pancreatitis and small bowel obstruction Medical Records I reviewed the patient's medical records. Lab Data I reviewed the patient's lab results. 01/19/23 05:50 01/19/23 05:50 Labs/Radiology: Radiology Impressions Abdomen/Pelvis CT 01/19/23 06:01 IMPRESSION: 1. Negative for acute abdominopelvic pathology. 2. Nonobstructive bilateral nephrolithiasis. Laboratory Results WBC 8.2 10^3/uL (4.0-10.0) 01/19/23 05:50 RBC 4.05 10^6/uL (4.1-5.3) L 01/19/23 05:50 Hgb 15.3 g/dL (11.5-15.3) 01/19/23 05:50 Hct 43.4 % (37.0-47.0) 01/19/23 05:50 MCV 107.2 fl (81-99) H 01/19/23 05:50 MCH 37.8 pg (28.0-34.0) H 01/19/23 05:50 MCHC 35.3 g/dL (30.0-36.0) 01/19/23 05:50 RDW 13.2 % (12.1-15.1) 01/19/23 05:50 Plt Count 294 10^3/cmm (130-400) 01/19/23 05:50 MPV 9.1 fL (7.4-10.4) 01/19/23 05:50 Neut % (Auto) 42.7 % 01/19/23 05:50 Lymph % (Auto) 43.5 % 01/19/23 05:50 [place] % (Auto) 9.9 % 01/19/23 05:50 Eos % (Auto) 2.7 % 01/19/23 05:50 Baso % (Auto) 1.0 % 01/19/23 05:50 Neut # (Auto) 3.50 10^3/uL (1.8-7.7) 01/19/23 05:50 Lymph # (Auto) 3.6 10^3/uL (0.8-4.8) 01/19/23 05:50 [place] # (Auto) 0.8 10^3/uL (0.2-0.9) 01/19/23 05:50 Eos # (Auto) 0.2 10^3/uL (0.0-0.8) 01/19/23 05:50 Baso # (Auto) 0.1 10^3/uL (0.0-0.1) 01/19/23 05:50 Nucleated RBC % (auto) 0 % 01/19/23 05:50 Nucleated RBCs # 0.0 /100WBC 01/19/23 05:50 Sodium 139 mmol/L (136-145) 01/19/23 05:50 Potassium 3.6 mmol/L (3.5-5.1) 01/19/23 05:50 Chloride 104 mmol/L (98-107) 01/19/23 05:50 Carbon Dioxide 22 mmol/L (22-29) 01/19/23 05:50 Anion Gap 16.6 (5-19) 01/19/23 05:50 BUN 15 mg/dL (6-20) 01/19/23 05:50 Creatinine 0.6 mg/dL (0.5-0.9) 01/19/23 05:50 GFR Calculation 106.7 mL/min (90-130) 01/19/23 05:50 Glucose 108 mg/dL (65-115) 01/19/23 05:50 Calculated Osmolality 289 mOsm/kg (285-295) 01/19/23 05:50 Calcium 8.9 mg/dL (8.5-10.5) 01/19/23 05:50 Total Bilirubin 0.4 mg/dL (0.15-1.2) 01/19/23 05:50 AST 75 U/L (0-32) H 01/19/23 05:50 ALT 33 U/L (0-33) 01/19/23 05:50 Alkaline Phosphatase 87 U/L (35-105) 01/19/23 05:50 Total Protein 6.9 g/dL (6.6-8.7) 01/19/23 05:50 Albumin 4.4 g/dL (3.5-5.2) 01/19/23 05:50 Globulin 2.5 g/dL (1.3-4.6) 01/19/23 05:50 Lipase 31 U/L (13-60) 01/19/23 05:50 Urine Color Yellow (Yellow) 01/19/23 06:37 Urine Appearance Clear (CLEAR) 01/19/23 06:37 Urine pH 5 (5-7) 01/19/23 06:37 Ur Specific [place] 1.020 (1.005-1.030) 01/19/23 06:37 Urine Protein Neg (Negative) 01/19/23 06:37 Urine Glucose (UA) Norm (Normal) 01/19/23 06:37 Urine Ketones Negative (Negative) 01/19/23 06:37 Urine Blood 2+ (Negative) H 01/19/23 06:37 Urine Nitrate Negative (Negative) 01/19/23 06:37 Urine Bilirubin Neg (Negative) 01/19/23 06:37 Urine Urobilinogen Norm mg/dL (Negative) 01/19/23 06:37 Ur Leukocyte Esterase Negative (Negative) 01/19/23 06:37 Urine RBC 0-4 /hpf (0-2) H 01/19/23 06:37 Urine WBC Rare /hpf (0-5) 01/19/23 06:37 Ur Squamous Epith Cells 0-4 /hpf (0-5) H 01/19/23 06:37 Amorphous Sediment Not Reportable 01/19/23 06:37 Urine Bacteria Trace /hpf (NONE) 01/19/23 06:37 Urine Mucus Trace /hpf 01/19/23 06:37 Discharge Plan Discharge Patient Disposition: Home Clinical Impression: Acute alcoholic gastritis, HTN (hypertension) Condition: Stable Prescriptions: New lisinopril 40 mg tablet 40 mg PO DAILY Qty: 30 0RF pantoprazole 40 mg tablet,delayed release (DR/EC) 40 mg PO DAILY 28 Days Qty: 30 0RF Discontinued lisinopril 40 mg tablet 40 mg PO DAILY Qty: 30 5RF ibuprofen 200 mg Tablet 800 mg PO BID PRN (Reason: Pain) famotidine [Pepcid] 40 mg tablet 40 mg PO DAILY Qty: 30 0RF No Action Hair,Skin and Nails Tablet 2 tab PO DAILY Tylenol Ex Str Rapid Release 500 mg Tablet 1,000 mg PO BID PRN (Reason: Pain) ProAir HFA 90 mcg/actuation Hfa Aerosol Inhaler 2 puff INHALATION QID PRN (Reason: Shortness Of Breath) potassium gluconate 595 mg (99 mg) Tablet 595 mg PO DAILY chlordiazepoxide HCl 25 mg capsule 25 mg PO TID Qty: 15 0RF Rx Instructions: 1 p.o. 3 times daily x2 days, 1 p.o. twice daily x3 days, 1 p.o. daily x3 days Discharge Orders: Discharge ED (Routine); Ordered 01/19/23 Ordered By: Oziel Walton Discharge Diet: Clear Liquid Discharge Activity: Increase activity as tolerated Patient Instructions: Opioid Safety, Pain Management Activity Restrictions/Additional Instructions: You were seen today for abdominal epigastric pain. Your lipase was normal your liver enzymes did not show a pattern of significant abnormalities. Your AST was slightly elevated but your T. bili and alk phos were normal. Your pancreas enzymes normal and the CT of your abdomen was negative. Suspect that your abdominal discomfort was related to alcohol use. Recommend switching to Protoni x from Pepcid Kolm do not take ibuprofen or any other NSAIDs. Additionally you should resume your lisinopril 40 mg daily and new prescription was given to you. Your blood pressure was significantly elevated in the emergency room. Follow- up with your primary care doctor within the week to reevaluate blood pressure. Coding Level of Care Code ED Radio Station Engineer for Isiah Mao
--- NOTE | 2023-01-19 06:01 | CTR_ITS ---
PROCEDURE INFORMATION: Exam: CT Abdomen And Pelvis Without Contrast Exam date and time: 01/19/2023 6:13 AM Age: 47 years old Clinical indication: Nausea and vomiting; Abdominal pain; Localized; Right; Prior surgery; Surgery date: 6+ months; Surgery type: Hysterectomy; Patient HX: RT sided abd pain with n/v. ; Additional info: Flank pain TECHNIQUE: Imaging protocol: Computed tomography of the abdomen and pelvis without contrast. Radiation optimization: All CT scans at this facility use at least one of these dose optimization techniques: automated exposure control; mA and/or kV adjustment per patient size (includes targeted exams where dose is matched to clinical indication); or iterative reconstruction. REPORTING DATA: Count of CT and Cardiac NM exams in prior 12 months: This patient has received 3 known CTs and 0 known cardiac nuclear medicine studies in the 12 months prior to the current study. COMPARISON: CT abdomen pelvis wo con [id number] 09/26/2022 12:28 PM RADIATION DOSE METRICS: Total DLP (mGy-cm): 452.83 FINDINGS: Liver: Normal. No mass. Gallbladder and bile ducts: Normal. No calcified stones. No ductal dilation. Pancreas: Normal. No ductal dilation. Spleen: Normal. No splenomegaly. Adrenal glands: Normal. No mass. Kidneys and ureters: Several small nonobstructing bilateral kidney stones. Negative for hydronephrosis. Negative for perinephric inflammation. Negative for ureterolithiasis. Negative for renal mass. Stomach and bowel: Unremarkable. No obstruction. No mucosal thickening. Appendix: Unremarkable appendix. Intraperitoneal space: Unremarkable. No free air. No significant fluid collection. Vasculature: Unremarkable. No abdominal aortic aneurysm. Lymph nodes: Unremarkable. No enlarged lymph nodes. Urinary bladder: Unremarkable as visualized. Reproductive: Hysterectomy. Bones/joints: The lumbar spine demonstrates marked discogenic and apophyseal joint degenerative changes at multiple levels. Soft tissues: Unremarkable. CT/CT kidney stone [id number] IMPRESSION: 1. Negative for acute abdominopelvic pathology. 2. Nonobstructive bilateral nephrolithiasis.
[2023-01-19 06:04] LABS: Basophils # 0.1 10^3/uL (0.0-0.1); Eosinophils # 0.2 10^3/uL (0.0-0.8); Eosinophils % 2.7 %; Hematocrit 43.4 % (37.0-47.0); Hemoglobin 15.3 g/dL (11.5-15.3); Lymphocytes # 3.6 10^3/uL (0.8-4.8); Lymphocytes % 43.5 %; Mean Corpuscular HGB Conc 35.3 g/dL (30.0-36.0); Mean Corpuscular Hemoglobin 37.8 pg (28.0-34.0); Mean Corpuscular Volume 107.2 fl (81-99); Mean Platelet Volume 9.1 fL (7.4-10.4); Monocytes # 0.8 10^3/uL (0.2-0.9); Monocytes % 9.9 %; Neutrophils % 42.7 %; Nucleated Red Blood Cells % 0 %; Platelet Count 294 10^3/cmm (130-400); Red Blood Count 4.05 10^6/uL (4.1-5.3); Red Cell Distribution Width 13.2 % (12.1-15.1); White Blood Count 8.2 10^3/uL (4.0-10.0)
[2023-01-19 06:17] LABS: Alanine Aminotransferase 33 U/L (0-33); Albumin Level 4.4 g/dL (3.5-5.2); Alkaline Phosphatase 87 U/L (35-105); Anion Gap 16.6 (5-19); Aspartate Amino Transferase 75 U/L (0-32); Blood Urea Nitrogen 15 mg/dL (6-20); Calcium 8.9 mg/dL (8.5-10.5); Carbon Dioxide 22 mmol/L (22-29); Chloride 104 mmol/L (98-107); Globulin 2.5 g/dL (1.3-4.6); Glomerular Filtration Rate 106.7 mL/min (90-130); Glucose 108 mg/dL (65-115); Lipase 31 U/L (13-60); Osmolality Calculated 289 mOsm/kg (285-295); Potassium 3.6 mmol/L (3.5-5.1); Sodium 139 mmol/L (136-145); Total Bilirubin 0.4 mg/dL (0.15-1.2); Total Protein 6.9 g/dL (6.6-8.7)
[2023-01-19] MEDS: sodium chloride 0.9% 1,000 ML 999 ML IV (06:22)
[2023-01-19] MEDS: pantoprazole 40 mg SDV IVP (06:23)
[2023-01-19] MEDS: morphine 4 mg/mL SDV 1 mL IVP (06:24)
[2023-01-19] MEDS: ondansetron 2 mg/ML SDV 2 mL 4 MG IVP (06:24)
[2023-01-19 06:29] VITALS: BP 168/113; PULSE 84; RESP 16; O2SAT 94
[2023-01-19 06:39] VITALS: BP 173/129; PULSE 89; RESP 22; O2SAT 96
[2023-01-19 06:57] VITALS: BP 175/100
[2023-01-19 07:03] LABS: Add Urine Microscopic? YES; Bilirubin Urine Neg (Negative); Blood Urine 2+ (Negative); Glucose Urine UA Norm (Normal); Ketones Urine Negative (Negative); Leukocyte Esterase Urine Negative (Negative); Nitrate Urine Negative (Negative); Protein Urine Neg (Negative); RBC Urine 0-4 /hpf (0-2); Urine Appearance Clear (CLEAR); Urine Color Yellow (Yellow); Urobilinogen Urine Norm (Negative); WBC Urine RARE /hpf (0-5); pH Urine 5 (5-7)
[2023-01-19 07:04] LABS: Add Urine Culture? No; Bacteria Urine TRACE /hpf; Mucus Urine TRACE /hpf; Squamous Epithelial Cell Urine 0-4 /hpf (0-5)
[2023-01-19] MEDS: lisinopril 20 mg Tablet 40 MG PO (07:12)
[2023-01-19] MEDS: aluminum-mag hydrox-simethicon 30 ML, sucralfate oral liq 1 GM PO (07:12)
[2023-01-19 07:15] VITALS: BP 164/100; PULSE 84; RESP 18; O2SAT 100
--- NOTE | 2023-01-21 09:16 | DCPLANNER ---
generation manager called patient due to no primary care physician - no answer at this time.
== END 2023-01-19 07:34 | disposition home or self-care (01) ==
PROVIDERS: Emergency Provider Family Medicine
DX: K29.20 Alcoholic gastritis without bleeding (principal); I10 Essential (primary) hypertension; F17.210 Nicotine dependence, cigarettes, uncomplicated
CPT/HCPCS: 74176; 80053; 81001; 83690; 85025; 93005; 96374; 96375; 99285; C9113; J2270; J2405; J7030

== ENCOUNTER 2023-01-20 08:11 | Emergency (ER) | payer BC, MEDICAID, SELFPAY ==
[2023-01-20 08:20] VITALS: BP 170/118; PULSE 119; RESP 18; TEMP 37.1; O2SAT 98; BMI 25.2
[2023-01-20 08:55] LABS: Basophils # 0.1 10^3/uL (0.0-0.1); Basophils % 0.8 %; Eosinophils # 0.1 10^3/uL (0.0-0.8); Eosinophils % 0.9 %; Hematocrit 40.4 % (37.0-47.0); Hemoglobin 14.3 g/dL (11.5-15.3); Lymphocytes # 2.1 10^3/uL (0.8-4.8); Lymphocytes % 24.7 %; Mean Corpuscular HGB Conc 35.4 g/dL (30.0-36.0); Mean Corpuscular Hemoglobin 38.2 pg (28.0-34.0); Mean Platelet Volume 9.1 fL (7.4-10.4); Monocytes # 0.6 10^3/uL (0.2-0.9); Monocytes % 6.6 %; Neutrophils # 5.66 10^3/uL (1.8-7.7); Neutrophils % 66.6 %; Nucleated Red Blood Cells % 0 %; Platelet Count 255 10^3/cmm (130-400); Red Blood Count 3.74 10^6/uL (4.1-5.3); Red Cell Distribution Width 13.4 % (12.1-15.1); White Blood Count 8.5 10^3/uL (4.0-10.0)
[2023-01-20 08:58] LABS: Add Urine Microscopic? NO; Charge for UA Resulting for Rev
--- NOTE | 2023-01-20 08:58 | ED_ITS ---
HPI - Abdominal Pain General: Chief Complaint: Abdominal Pain Stated Complaint: sob, difficulty speaking, n/v Time Seen by Provider: 01/20/23 08:35 History of Present Illness: Patient is a 47-year-old female who comes to the ED with malaise and generalized pain. Patient admits to being an alcoholic and drinks shots of liquor daily. She was seen here in the ED for same complaint yesterday and was diagnosed with acute alcoholic gastritis and discharged home with a prescription for pantoprazole. Patient has taken first dose of pantoprazole. Today she feels like her symptoms are worse and she is complaining of having pain all over her body. She does admit to having some epigastric pain as well. She rates her pain currently a 6 out of 10. This morning patient states that she was not feeling good and thought she was having some DTs after not having a drink of alcohol from 10 PM to 7 AM. She then took 3 shots of liquor this morning. Endorses having nausea and vomiting. Patient says she has been having constipation issues as well. Symptoms of stomach pain, nausea and vomiting and constipation all started approximately 1 week ago. Associated Symptoms: Reports nausea and vomiting; Denies chills, constipation, diarrhea, dysuria, fever(s), hematochezia and hematuria Review of Systems Const: Reports: malaise and other (Pain all throughout her body); Denies: fever(s), chills or fatigue Eyes: Denies: change in vision or eye discomfort ENMT: Denies: throat pain, odynophagia, nasal discharge or nasal congestion Card: Denies: chest pain, palpitations, edema, swelling of feet/ankles, dyspnea on exertion or orthopnea Resp: Denies: dyspnea, productive cough or non-productive cough GI: Reports: abdominal pain, nausea and vomiting; Denies: diarrhea, constipation or hematochezia : Denies: flank pain, dysuria or hematuria Musc: Denies: neck pain, back pain or extremity swelling Skin/Breast: Denies: rash or new lesions Neuro: Denies: headache(s), numbness in extremities or weakness in extremities [facility] ED PFSH: Medical History Alcohol abuse Essential hypertension Hidradenitis HTN (hypertension) Nephrolithiasis Seizures Surgical History History of hysterectomy Social History Smoking and tobacco status: current every day smoker cigarettes Alcohol intake: current Desire information about alcohol rehabilitation?: Yes Substance/Drug Use: current Substance/Drug use frequency: daily Physical Exam Const: COMMON NORMALS: no acute distress, patient oriented x3 and alert GENERAL APPEARANCE: odor of alcohol detected OTHER: Patient is crying and tearful during history. She is alert and interactive and answering all my questions accordingly. Patient does not appear intoxicated HENMT: COMMON NORMALS: normocephalic HEAD & SCALP: normocephalic MOUTH: Normal oral and palatal mucosa present THROAT: posterior oropharynx normal and uvula midline Neck/C-Spine: COMMON NORMALS: supple GENERAL: Yes normal visual inspection Resp: COMMON NORMALS: normal respiratory effort, No retractions, No use of accessory muscles and clear to auscultation bilaterally AUSCULTATION: clear to auscultation bilaterally Cardio: COMMON NORMALS: regular rate, regular rhythm, S1 normal heart sound present, S2 normal heart sound present, No gallops present (Cardio), No clicks present (Cardio), No murmurs present (Cardio) and Peripheral pulses 2+ throughout RATE: regular rate RHYTHM: regular rhythm HEART SOUNDS: S1 normal heart sound present and S2 normal heart sound present PERIPHERAL PULSES: Peripheral pulses 2+ throughout GI: COMMON NORMALS: Normal to inspection, nondistended, normoactive bowel sounds present, Soft to palpation, non-tender and no masses PALPATION: Yes Soft to palpation : COMMON NORMALS: Yes no CVA tenderness BLADDER/KIDNEY EXAM: Yes no CVA tenderness Back/Pelvis: COMMON NORMALS: no CVA tenderness Extremity: COMMON NORMALS: normal to inspection Neuro: COMMON NORMALS: patient oriented x3 SENSORIUM/ORIENTATION: Yes alert GAIT: Yes Normal gait present Skin: GENERAL SKIN EXAM: dry skin Course Vital Signs: Vital signs: Vital Signs Temperature 98.7 F 01/20/23 08:20 Pulse Rate 119 H 01/20/23 08:20 Respiratory Rate 18 01/20/23 08:20 Blood Pressure 170/118 01/20/23 08:20 Pulse Oximetry 98 01/20/23 08:20 Oxygen Delivery Me thod Room Air 01/20/23 08:20 MDM - Abdominal Pain Medical Decision Making Patient is a 47-year-old female who comes to the ED with malaise and generalized pain. Patient admits to being an alcoholic and drinks shots of liquor daily. She was seen here in the ED for same complaint yesterday and was diagnosed with acute alcoholic gastritis and discharged home with a prescription for pantoprazole. Patient has taken first dose of pantoprazole. Today she feels like her symptoms are worse and she is complaining of having pain all over her body. She does admit to having some epigastric pain as well. She rates her pain currently a 6 out of 10. This morning patient states that she was not feeling good and thought she was having some DTs after not having a drink of alcohol from 10 PM to 7 AM. She then took 3 shots of liquor this morning. Endorses having nausea and vomiting. Patient says she has been having constipation issues as well. Symptoms of stomach pain, nausea and vomiting and constipation all started approximately 1 week ago. Patient's pulse was elevated at 119 bpm but rest of vitals were stable. Patient has the odor of alcohol when doing exam. She is alert and interactive and answering all my questions accordingly. Patient does not appear intoxicated. She is tearful and crying during history and exam. Rest of exam is benign. CBC and CMP are unremarkable. Lactic normal at 1.6. Chest x-ray shows no acute findings. Patient's alcohol level is 251. Patient was able to ambulate without any difficulties. Patient wanted to leave. I told patient I would like her to stay here to get some more IV fluids and not all labs were completed at that time. She understood the risk and insisted that she be discharged home. Patient signed out AMA and was told to continue taking her previously prescribed prescriptions to manage her symptoms that were given to her yesterday. Return to ED precautions given. Lab Data I reviewed the patient's lab results. 01/20/23 08:45 01/20/23 08:45 Labs/Radiology: Radiology Impressions Chest X-Ray 01/20/23 09:00 IMPRESSION: No acute findings. Laboratory Results WBC 8.5 10^3/uL (4.0-10.0) 01/20/23 08:45 RBC 3.74 10^6/uL (4.1-5.3) L 01/20/23 08:45 Hgb 14.3 g/dL (11.5-15.3) 01/20/23 08:45 Hct 40.4 % (37.0-47.0) 01/20/23 08:45 MCV 108.0 fl (81-99) H 01/20/23 08:45 MCH 38.2 pg (28.0-34.0) H 01/20/23 08:45 MCHC 35.4 g/dL (30.0-36.0) 01/20/23 08:45 RDW 13.4 % (12.1-15.1) 01/20/23 08:45 Plt Count 255 10^3/cmm (130-400) 01/20/23 08:45 MPV 9.1 fL (7.4-10.4) 01/20/23 08:45 Neut % (Auto) 66.6 % 01/20/23 08:45 Lymph % (Auto) 24.7 % 01/20/23 08:45 Greene % (Auto) 6.6 % 01/20/23 08:45 Eos % (Auto) 0.9 % 01/20/23 08:45 Baso % (Auto) 0.8 % 01/20/23 08:45 Neut # (Auto) 5.66 10^3/uL (1.8-7.7) 01/20/23 08:45 Lymph # (Auto) 2.1 10^3/uL (0.8-4.8) 01/20/23 08:45 Greene # (Auto) 0.6 10^3/uL (0.2-0.9) 01/20/23 08:45 Eos # (Auto) 0.1 10^3/uL (0.0-0.8) 01/20/23 08:45 Baso # (Auto) 0.1 10^3/uL (0.0-0.1) 01/20/23 08:45 Nucleated RBC % (auto) 0 % 01/20/23 08:45 Nucleated RBCs # 0.0 /100WBC 01/20/23 08:45 Sodium 142 mmol/L (136-145) 01/20/23 08:45 Potassium 3.6 mmol/L (3.5-5.1) 01/20/23 08:45 Chloride 107 mmol/L (98-107) 01/20/23 08:45 Carbon Dioxide 22 mmol/L (22-29) 01/20/23 08:45 Anion Gap 16.6 (5-19) 01/20/23 08:45 BUN 11 mg/dL (6-20) 01/20/23 08:45 Creatinine 0.6 mg/dL (0.5-0.9) 01/20/23 08:45 GFR Calculation 106.7 mL/min (90-130) 01/20/23 08:45 Glucose 108 mg/dL (65-115) 01/20/23 08:45 Calculated Osmolality 294 mOsm/kg (285-295) 01/20/23 08:45 Lactic Acid 1.6 mmol/L (0.5-2.2) 01/20/23 09:07 Calcium 8.6 mg/dL (8.5-10.5) 01/20/23 08:45 Total Bilirubin 0.4 mg/dL (0.15-1.2) 01/20/23 08:45 AST 103 U/L (0-32) H 01/20/23 08:45 ALT 32 U/L (0-33) 01/20/23 08:45 Alkaline Phosphatase 84 U/L (35-105) 01/20/23 08:45 Troponin T Baseline 9 ng/L (0-10) 01/20/23 08:45 Total Protein 6.4 g/dL (6.6-8.7) L 01/20/23 08:45 Albumin 4.3 g/dL (3.5-5.2) 01/20/23 08:45 Globulin 2.1 g/dL (1.3-4.6) 01/20/23 08:45 Lipase 43 U/L (13-60) 01/20/23 08:45 Urine Color Yellow (Yellow) 01/20/23 08:44 Urine Appearance Clear (CLEAR) 01/20/23 08:44 Urine pH 6 (5-7) 01/20/23 08:44 Ur Specific Ama 1.015 (1.005-1.030) 01/20/23 08:44 Urine Protein Neg (Negative) 01/20/23 08:44 Urine Glucose (UA) Norm (Normal) 01/20/23 08:44 Urine Ketones Negative (Negative) 01/20/23 08:44 Urine Blood Neg (Negative) 01/20/23 08:44 Urine Nitrate Negative (Negative) 01/20/23 08:44 Urine Bilirubin Neg (Negative) 01/20/23 08:44 Urine Urobilinogen Norm mg/dL (Negative) 01/20/23 08:44 Ur Leukocyte Esterase Negative (Negative) 01/20/23 08:44 Ethyl Alcohol 251 mg/dL (0-10) H 01/20/23 08:45 Discharge Plan Discharge Patient Disposition: Left Against Medical Advice Clinical Impression: Acute alcoholic gastritis Condition: Stable Prescriptions: No Action Hair,Skin and Nails Tablet 2 tab PO DAILY Tylenol Ex Str Rapid Release 500 mg Tablet 1,000 mg PO BID PRN (Reason: Pain) ProAir HFA 90 mcg/actuation Hfa Aerosol Inhaler 2 puff INHALATION QID PRN (Reason: Shortness Of Breath) potassium gluconate 595 mg (99 mg) Tablet 595 mg PO DAILY chlordiazepoxide HCl 25 mg capsule 25 mg PO TID Qty: 15 0RF Rx Instructions: 1 p.o. 3 times daily x2 days, 1 p.o. twice daily x3 days, 1 p.o. daily x3 days lisinopril 40 mg tablet 40 mg PO DAILY Qty: 30 0RF pantoprazole 40 mg tablet,delayed release (DR/EC) 40 mg PO DAILY 28 Days Qty: 30 0RF Discharge Diet: Advance as tolerated and Clear Liquid Discharge Activity: Increase activity as tolerated Patient Instructions: Gastritis (ED), Abuse of Alcohol (ED) Coding Level of Care Code ED [employer] for Isiah Mao
--- NOTE | 2023-01-20 09:00 | ECG_ITS ---
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 Measurements Intervals [place] Rate: 100 P: 67 DC: 154 QRS: 69 QRSD: 83 T: 62 QT: 364 QTc: 470 Interpretive Statements SINUS TACHYCARDIA MINIMAL VOLTAGE CRITERIA FOR LVH, CONSIDER NORMAL VARIANT [MEETS CRITERIA IN ONE OF: R(aVL), S(V1), R(V5), R(V5/V6)+S(V1)] Compared to ECG 01/19/2023 05:47:47 Sinus rhythm no longer present Electronically Signed On 01-20-2023 17:33:14 CDT by João Barrera M.D. [id number]
--- NOTE | 2023-01-20 09:00 | XRR_ITS ---
PROCEDURE INFORMATION: Exam: XR Chest Exam date and time: 01/20/2023 9:12 AM Age: 47 years old Clinical indication: Other: Epigastric pain TECHNIQUE: Imaging protocol: Radiologic exam of the chest. Views: 1 view. COMPARISON: CR (CHEST, ) 12/27/2022 9:45 AM FINDINGS: Lungs: Unremarkable. No consolidation. Pleural spaces: Unremarkable. No pleural effusion. No pneumothorax. Heart/Mediastinum: Unremarkable. No cardiomegaly. Bones/joints: Unremarkable. XR/XR chest 1V portable [id number] IMPRESSION: No acute findings.
[2023-01-20] MEDS: sodium chloride 0.9% 1,000 ML 999 ML IV (09:01)
[2023-01-20 09:06] LABS: Bilirubin Urine Neg (Negative); Blood Urine Neg (Negative); Glucose Urine UA Norm (Normal); Ketones Urine Negative (Negative); Leukocyte Esterase Urine Negative (Negative); Nitrate Urine Negative (Negative); Protein Urine Neg (Negative); Specific Gravity, Urine 1.015 (1.005-1.030); Urine Appearance Clear (CLEAR); Urine Color Yellow (Yellow); Urobilinogen Urine Norm (Negative); pH Urine 6 (5-7)
[2023-01-20 09:14] LABS: Alanine Aminotransferase 32 U/L (0-33); Albumin Level 4.3 g/dL (3.5-5.2); Alcohol Level 251 mg/dL (0-10); Alkaline Phosphatase 84 U/L (35-105); Anion Gap 16.6 (5-19); Aspartate Amino Transferase 103 U/L (0-32); Blood Urea Nitrogen 11 mg/dL (6-20); Calcium 8.6 mg/dL (8.5-10.5); Carbon Dioxide 22 mmol/L (22-29); Chloride 107 mmol/L (98-107); Globulin 2.1 g/dL (1.3-4.6); Glomerular Filtration Rate 106.7 mL/min (90-130); Glucose 108 mg/dL (65-115); Lipase 43 U/L (13-60); Osmolality Calculated 294 mOsm/kg (285-295); Potassium 3.6 mmol/L (3.5-5.1); Sodium 142 mmol/L (136-145); Total Bilirubin 0.4 mg/dL (0.15-1.2); Total Protein 6.4 g/dL (6.6-8.7)
[2023-01-20 09:21] LABS: Troponin(5th) Baseline 9 ng/L (0-10)
[2023-01-20 09:33] LABS: Lactic Sepsis W/Reflex 1.6 mmol/L (0.5-2.2)
--- NOTE | 2023-01-21 14:37 | DCPLANNER ---
bi manager called patient due to no primary care physician - no answer at this time.
== END 2023-01-20 11:16 | disposition left against medical advice (07) ==
PROVIDERS: Emergency Provider Physician Assistant
DX: K29.20 Alcoholic gastritis without bleeding (principal); Z53.21 Procedure and treatment not carried out due to patient leaving prior to being seen by health care provider; I10 Essential (primary) hypertension; F17.210 Nicotine dependence, cigarettes, uncomplicated
CPT/HCPCS: 36415; 71045; 80053; 80307; 81003; 83605; 83690; 84484; 85025; 93005; 99285; J7030

== ENCOUNTER 2023-01-30 15:18 | Outpatient (CLI) | payer BC, MEDICAID, SELFPAY ==
--- NOTE | 2023-01-30 15:27 | XRR_ITS ---
PROCEDURE INFORMATION: Exam: XR Right Wrist Exam date and time: 01/30/2023 3:38 PM Age: 47 years old Clinical indication: Prior surgery; Surgery date: 6+ months; Surgery type: Right wrist tendons; Patient HX: Patient has a swollen and disfigured right wrist. Patient has pain in their right hip from a fall that happened a few nights ago; Additional info: Right wrist pain TECHNIQUE: Imaging protocol: Radiologic exam of the right wrist. Views: 3 or more views. COMPARISON: CR XR wrist RT w scaphoid [id number] 08/08/2021 3:38 PM FINDINGS: Bones/joints: There is severe distortion of the proximal carpal row as well as the distal radius and its articulating surface. This has progressed since the prior examination. The hand and wrist are partially subluxed anterior to its normal articulations with the radius and ulna. Severe bony overlap and distortion limits evaluation of the individual carpal bones. Soft tissues: Normal. XR/XR wrist RT min 3V* [id number] IMPRESSION: Worsening severe distortion of the wrist as described above.
--- NOTE | 2023-01-30 15:27 | XRR_ITS ---
PROCEDURE INFORMATION: Exam: XR Pelvis Exam date and time: 01/30/2023 3:38 PM Age: 47 years old Clinical indication: Hip pain and pelvic pain; Bilateral; Patient HX: Patient has a swollen and disfigured right wrist. Patient has pain in their right hip from a fall that happened a few nights ago; Additional info: Right hip pain, painful gait TECHNIQUE: Imaging protocol: Radiologic exam of the pelvis. Views: 1 or 2 view. COMPARISON: CT kidney stone [id number] 01/19/2023 6:13 AM FINDINGS: Bones/joints: Unremarkable. No acute fracture. Soft tissues: Unremarkable. XR/XR pelvis 1-2V* [id number] IMPRESSION: No acute findings.
== END 2023-01-30 15:19 | disposition home or self-care (01) ==
LOC: RAD 15:22
PROVIDERS: Visit Provider Nurse Practitioner Family
DX: R10.2 Pelvic and perineal pain (principal); M25.531 Pain in right wrist
CPT/HCPCS: 72170; 73110

== ENCOUNTER 2023-04-27 09:11 | Emergency (ER) | payer BC, MEDICAID, SELFPAY ==
--- NOTE | 2023-04-27 09:19 | XRR_ITS ---
PROCEDURE INFORMATION: Exam: XR Chest Exam date and time: 04/27/2023 9:40 AM Age: 47 years old Clinical indication: Other: Weakness.No history of trauma or recent surgery is provided. TECHNIQUE: Imaging protocol: Radiologic exam of the chest. 1image(s) are provided. Views: 1 view. COMPARISON: 1. CR XR chest 1V portable [id number] 01/20/2023 9:12 AM 2. CR (CHEST, ) 12/27/2022 9:45 AM FINDINGS: Lungs: The lung volumes are slightly increased overall which may be effort related versus minimal air trapping.No lobar consolidation is appreciated. Pleural spaces: No pneumothorax or significant pleural effusion is appreciated. Heart/Mediastinum: The cardiomediastinal silhouette is within normal. No cardiac decompensation is appreciated. Diaphragm: The hemidiaphragms are symmetric. Bones/joints: Osseous alignment is maintained.No interval displaced fracture or dislocation is appreciated. Soft tissues: No radiopaque foreign body or subcutaneous emphysema is appreciated. XR/XR chest 1V portable [id number] IMPRESSION: No lobar consolidation is appreciated.No interval acute cardiopulmonary changes are appreciated.
[2023-04-27 09:23] VITALS: BP 135/90; PULSE 113; RESP 16; TEMP 36.7; O2SAT 97; BMI 24.5
[2023-04-27 09:41] VITALS: O2SAT 96
--- NOTE | 2023-04-27 09:42 | W.ED.GENADLT ---
HPI - General Adult General: Chief complaint: COVID symptoms Stated complaint: weakness Time Seen by Provider: 04/27/23 09:13 Source: patient and family Mode of arrival: ambulatory Limitations: no limitations History of Present Illness: Patient is a 47-year-old female presents to ED today along with her significant other stating that I just do not feel good . She states over the past 2 days or so she has had body aches, chills, subjective fevers. She reports chest congestion and a productive cough. She is an everyday smoker. She states she has not had much of an appetite and when she does eat she often vomits. Denies bloody emesis. She is also reporting some abdominal discomforts and diarrhea. Reporting sore throat as well. Patient states she has a longstanding alcoholic and is currently trying to quit. She states she took 2 shots this morning to help with her tremors. Denies sick contacts. Onset (ago): day(s) Pain Consistency: constant Relieving factors: none Exacerbating factors: none Associated symptoms: Reports nausea and vomiting; Deny chest pain, dyspnea, headache(s), rash, palpitations or syncope Treatments prior to arrival: none Review of Systems Const: Reports: fever(s) (subjective), chills, body aches and change in appetite; Denies: change in weight or night sweats Eyes: Denies: change in vision, blurry vision, photophobia, floaters or seeing flashes ENMT: Reports: throat pain and odynophagia; Denies: ear or mastoid pain, nasal discharge, nasal congestion or sinus pain Card: Denies: chest pain, palpitations, irregular heart rhythm, edema, swelling of feet/ankles, lightheadedness, syncope, pre-syncope, dyspnea on exertion, orthopnea, leg pain with exertion or acrocyanosis Resp: Reports: productive cough and chest congestion; Denies: dyspnea, wheezing, pain on inspiration or hemoptysis GI: Reports: abdominal pain, nausea, vomiting and diarrhea; Denies: hematemesis, heartburn, hematochezia or melena : Denies: flank pain, difficulty voiding, dysuria, urinary frequency, urinary urgency or urinary hesitancy Musc: Denies: neck pain, back pain, extremity pain, extremity swelling or joint pain Skin/Breast: Denies: rash Neuro: Denies: headache(s), numbness in extremities, weakness in extremities, sensory changes or dizziness PFSH ED PFSH: Medical History Alcohol abuse Essential hypertension Hidradenitis HTN (hypertension) Nephrolithiasis Seizures Surgical History History of hysterectomy Social History Smoking and tobacco/nicotine status: current every day tobacco/nicotine user cigarettes Alcohol intake: current Substance/Drug Use: current Substance/Drug use frequency: daily Physical Exam Const: COMMON NORMALS: patient oriented x3, no limitations, alert and well nourished GENERAL APPEARANCE: cooperative, disheveled, ill appearing (mild), appears older than stated age and odor of alcohol detected ORIENTATION/CONSCIOUSNESS: Yes awake, Yes oriented to person, Yes oriented to place and Yes oriented to time HENMT: COMMON NORMALS: normocephalic, atraumatic, TM's normal bilaterally and Normal external nose present HEAD & SCALP: normal to inspection, normocephalic and atraumatic FACE & SINUS: normal facial exam NOSE: Normal external nose present TYMPANIC MEMBRANE: TM's normal bilaterally MOUTH: Normal oral and palatal mucosa present, lip normal and tongue normal THROAT: posterior oropharynx normal, tonsils normal and uvula midline Eye: GENERAL EYE: appearance normal, both eyes and all related structures and normal light reflex DIRECT OPHTHALMOSCOPY: Yes normal light reflex Neck/C-Spine: COMMON NORMALS: full ROM, no lymphadenopathy, supple and no meningeal signs Chest: COMMONS NORMALS: normal inspection of the chest Resp: COMMON NORMALS: normal respiratory effort EFFORT & INSPECTION: Yes able to speak in complete sentences AUSCULTATION: other (course breath sounds throughout-somewhat improved with coughing) Cardio: COMMON NORMALS: regular rhythm RATE: tachycardic RHYTHM: regular rhythm GI: COMMON NORMALS: Normal to inspection, nondistended, normoactive bowel sounds present, Soft to palpation, No hepatosplenomegaly present and no masses INSPECTION: Yes normal to inspection AUSCULTATION: Yes normoactive bowel sounds PALPATION: Yes Soft to palpation, Yes Tenderness to palpation present (GI) (tenderness throughout abdomen-non surgical exam), No Guarding due to palpation present (GI), No Rigid due to palpation and Yes No hepatosplenomegaly present : COMMON NORMALS: Yes no CVA tenderness BLADDER/KIDNEY EXAM: Yes no CVA tenderness Back/Pelvis: COMMON NORMALS: no CVA tenderness, thoracic and lumbar spine normal to inspection, no thoracic nor lumbar tenderness and thoraco-lumbar ROM normal Extremity: COMMON NORMALS: normal to inspection, full ROM, capillary refill normal, no joint enlargement, no clubbing, cyanosis or edema, no calf tenderness and no pedal edema GENERAL: Yes normal exam except as noted Neuro: TRUMAN COMA SCALE: document GCS findings [place] coma scale eye opening: Spontaneous [place] coma scale verbal response: Orientated [place] coma scale motor response: Obey commands [place] coma scale total score: 15 COMMON NORMALS: patient oriented x3, moves all extremities, no focal motor deficits, no sensory deficits noted and gait normal SENSORIUM/ORIENTATION: Yes alert, Yes oriented to person, Yes oriented to place and Yes oriented to time MENINGEAL SIGNS: Yes no meningeal signs Skin: COMMON NORMALS: no rashes or lesions noted GENERAL SKIN EXAM: no rashes or lesions noted Course Vital Signs: Vital signs: Vital Signs Temperature 98.0 F 04/27/23 09:23 Pulse Rate 92 04/27/23 10:01 Respiratory Rate 19 H 04/27/23 10:01 Blood Pressure 128/94 04/27/23 09:58 Pulse Oximetry 100 04/27/23 10:01 Oxygen Delivery Me thod Room Air 04/27/23 10:01 MDM - General Adult Medical Decision Making Patient upon arrival appears slightly ill but certainly nontoxic. Her symptoms of chills, body aches, decreased appetite, vomiting/diarrhea all could be secondary to viral illness vs alcohol withdrawal symptoms. She was given 1mg of Ativan here with quite a substantial improvement in her symptoms making me suspect that maybe this is more alcohol withdrawal induced. Her blood work is unremarkable. CXR is normal. Respiratory panel collected and pending. Patient states she is motivated to quit and that Librium has helped in the past. She will be provided a prescription for this. She will be allowed discharge as she is feeling much better. Return to ED precautions given. Lab Data 04/27/23 09:26 04/27/23 09:26 Radiology Impressions Chest X-Ray 04/27/23 09:19 IMPRESSION: No lobar consolidation is appreciated.No interval acute cardiopulmonary changes are appreciated. Laboratory Results WBC 7.91 10^3/uL (3.29-11.43) 04/27/23 09: RBC 4.26 10^6/uL (3.85-5.65) 04/27/23 09: Hgb 15.80 g/dL (11.27-16.99) 04/27/23 09: Hct 45.0 % (36-47) 04/27/23 09: MCV 105.6 fl (85-98) H 04/27/23 09: MCH 37.1 pg (27-33) H 04/27/23 09: MCHC 35.1 g/dL (30-55) 04/27/23 09: RDW 13.1 % (12.1-15.1) 04/27/23 09: Plt Count 250 10^3/cmm (157-399) 04/27/23 09: MPV 8.9 fL (7.4-10.4) 04/27/23 09:26 Neut % (Auto) 47.3 % 04/27/23 09:26 Lymph % (Auto) 43.9 % 04/27/23 09:26 [place] % (Auto) 6.6 % 04/27/23 09:26 Eos % (Auto) 1.5 % 04/27/23 09: Baso % (Auto) 0.6 % 04/27/23 09:26 Neut # (Auto) 3.74 10^3/uL (1.8-7.7) 04/27/23 09: Lymph # (Auto) 3.5 10^3/uL (0.8-4.8) 04/27/23 09:26 [place] # (Auto) 0.5 10^3/uL (0.2-0.9) 04/27/23 09: Eos # (Auto) 0.1 10^3/uL (0.0-0.8) 04/27/23 09: Baso # (Auto) 0.1 10^3/uL (0.0-0.1) 04/27/23 09:26 Nucleated RBC % (auto) 0 % 04/27/23 09: Nucleated RBCs # 0.0 /100WBC 04/27/23 09:26 Sodium 136 mmol/L (136-145) 04/27/23 09:26 Potassium 3.6 mmol/L (3.5-5.1) 04/27/23 09:26 Chloride 102 mmol/L (98-107) 04/27/23 09:26 Carbon Dioxide 21 mmol/L (22-29) L 04/27/23 09:26 Anion Gap 16.6 (5-19) 04/27/23 09:26 BUN 15 mg/dL (6-20) 04/27/23 09:26 Creatinine 0.5 mg/dL (0.5-0.9) 04/27/23 09:26 GFR Calculation 131.7 mL/min (90-130) H 04/27/23 09:26 Glucose 112 mg/dL (65-115) 04/27/23 09:26 Calculated Osmolality 284 mOsm/kg (285-295) L 04/27/23 09:26 Calcium 9.3 mg/dL (8.5-10.5) 04/27/23 09:26 Total Bilirubin 0.4 mg/dL (0.15-1.2) 04/27/23 09:26 AST 152 U/L (0-32) H 04/27/23 09:26 ALT 59 U/L (0-33) H 04/27/23 09:26 Alkaline Phosphatase 87 U/L (35-105) 04/27/23 09:26 Total Protein 7.1 g/dL (6.6-8.7) 04/27/23 09:26 Albumin 4.7 g/dL (3.5-5.2) 04/27/23 09:26 Globulin 2.4 g/dL (1.3-4.6) 04/27/23 09:26 HCG, Qual Negative (Negative) 04/27/23 09:26 Urine Color Yellow (Yellow) 04/27/23 09:57 Urine Appearance Clear (CLEAR) 04/27/23 09:57 Urine pH 7 (5-7) 04/27/23 09:57 Ur Specific [place] 1.005 (1.005-1.030) 04/27/23 09:57 Urine Protein Neg (Negative) 04/27/23 09:57 Urine Glucose (UA) Norm (Normal) 04/27/23 09:57 Urine Ketones Negative (Negative) 04/27/23 09:57 Urine Blood Trace (Negative) H 04/27/23 09:57 Urine Nitrate Negative (Negative) 04/27/23 09:57 Urine Bilirubin Neg (Negative) 04/27/23 09:57 Urine Urobilinogen Neg mg/dL (Negative) 04/27/23 09:57 Ur Leukocyte Esterase Negative (Negative) 04/27/23 09:57 Urine RBC 0-4 /hpf (0-2) H 04/27/23 09:57 Urine WBC 0-4 /hpf (0-5) H 04/27/23 09:57 Ur Squamous Epith Cells 5-10 /hpf (0-5) H 04/27/23 09:57 Amorphous Sediment Not Reportable 04/27/23 09:57 Urine Bacteria Trace /hpf (NONE) 04/27/23 09:57 Urine Mucus Trace /hpf 04/27/23 09:57 All radiology interpretation(s) finalized by discharge Discharge Plan Discharge Patient Disposition: Home Clinical Impression: Alcohol withdrawal Qualifiers: Complication of substance-induced condition: uncomplicated Qualified Code(s): F10.930 - Alcohol use, unspecified with withdrawal, uncomplicated Condition: Stable Prescriptions: New chlordiazepoxide HCl 25 mg capsule See Rx Instructions .ROUTE .COMPLEX Qty: 27 0RF Rx Instructions: Take 4 tabs q 6 hours on day 1. Take 2 tabs q 8 hours on day 2. Take 2 tabs q 12 hours on day 3. Take one tab daily on day 4. No Action Hair,Skin and Nails Tablet 2 tab PO DAILY citalopram 10 mg tablet 10 mg PO QAM famotidine 20 mg tablet 20 mg PO BID acetaminophen [Tylenol Ex Str Rapid Release] 500 mg Tablet 1,000 mg PO BID PRN (Reason: Pain) potassium gluconate 595 mg (99 mg) Tablet 595 mg PO DAILY lisinopril 40 mg tablet 40 mg PO DAILY Qty: 30 0RF Discharge Orders: Discharge ED (Routine); Ordered 04/27/23 Ordered By: Donna Gonsalez Referrals: Karen Patrick DO [Primary Care Provider] - Activity Restrictions/Additional Instructions: As we discussed your blood work your was fairly unremarkable. Your chest x-ray was normal. As we discussed you will be contacted later today if your respiratory panel comes back positive. As we discussed it is certainly possible that you could have some type of viral illness responsible for your symptoms but I think some of this could also be secondary to alcohol withdrawal symptoms. You have been given a prescription for Librium as you have stated you are motivated to quit drinking. I agree with your plan to follow-up with your primary care provider as well as [facility] for continued treatment/therapy. Coding Level of Care Code ED Annual Giving Director for Isiah Mao
[2023-04-27 09:48] LABS: Basophils # 0.1 10^3/uL (0.0-0.1); Basophils % 0.6 %; Eosinophils # 0.1 10^3/uL (0.0-0.8); Eosinophils % 1.5 %; Lymphocytes # 3.5 10^3/uL (0.8-4.8); Lymphocytes % 43.9 %; Mean Corpuscular HGB Conc 35.1 g/dL (30-55); Mean Corpuscular Hemoglobin 37.1 pg (27-33); Mean Corpuscular Volume 105.6 fl (85-98); Mean Platelet Volume 8.9 fL (7.4-10.4); Monocytes # 0.5 10^3/uL (0.2-0.9); Monocytes % 6.6 %; Neutrophils # 3.74 10^3/uL (1.8-7.7); Neutrophils % 47.3 %; Nucleated Red Blood Cells % 0 %; Platelet Count 250 10^3/cmm (157-399); Red Blood Count 4.26 10^6/uL (3.85-5.65); Red Cell Distribution Width 13.1 % (12.1-15.1); White Blood Count 7.91 10^3/uL (3.29-11.43)
[2023-04-27] MEDS: acetaminophen 500 mg Tablet 1000 MG PO (09:51)
[2023-04-27] MEDS: ondansetron 2 mg/ML SDV 2 mL 4 MG IVP (09:55)
[2023-04-27] MEDS: sodium chloride 0.9% 1,000 ML 999 ML IV (09:55)
[2023-04-27 09:58] VITALS: BP 128/94; PULSE 93; RESP 19; O2SAT 98
[2023-04-27 10:01] VITALS: PULSE 92; RESP 19; O2SAT 100
[2023-04-27 10:05] LABS: Alanine Aminotransferase 59 U/L (0-33); Albumin Level 4.7 g/dL (3.5-5.2); Alkaline Phosphatase 87 U/L (35-105); Anion Gap 16.6 (5-19); Aspartate Amino Transferase 152 U/L (0-32); Blood Urea Nitrogen 15 mg/dL (6-20); Calcium 9.3 mg/dL (8.5-10.5); Carbon Dioxide 21 mmol/L (22-29); Chloride 102 mmol/L (98-107); Globulin 2.4 g/dL (1.3-4.6); Glomerular Filtration Rate 131.7 mL/min (90-130); Glucose 112 mg/dL (65-115); Osmolality Calculated 284 mOsm/kg (285-295); Potassium 3.6 mmol/L (3.5-5.1); Sodium 136 mmol/L (136-145); Total Bilirubin 0.4 mg/dL (0.15-1.2); Total Protein 7.1 g/dL (6.6-8.7)
[2023-04-27 10:08] LABS: HCG, Serum Qual Negative (Negative)
[2023-04-27] MEDS: LORazepam 2 mg/mL INJ 1 mL 1 MG IVP (10:22)
[2023-04-27 10:31] LABS: Bilirubin Urine Neg (Negative); Blood Urine Trace (Negative); Glucose Urine UA Norm (Normal); Ketones Urine Negative (Negative); Nitrate Urine Negative (Negative); Protein Urine Neg (Negative); Specific Gravity, Urine 1.005 (1.005-1.030); Urine Appearance Clear (CLEAR); Urine Color Yellow (Yellow); pH Urine 7 (5-7)
[2023-04-27 10:32] LABS: Add Urine Culture? No; Add Urine Microscopic? YES; Bacteria Urine TRACE /hpf; Leukocyte Esterase Urine Negative (Negative); Mucus Urine TRACE /hpf; RBC Urine 0-4 /hpf (0-2); Urobilinogen Urine Neg (Negative); WBC Urine 0-4 /hpf (0-5)
[2023-04-27 11:05] VITALS: BP 128/94; PULSE 92; RESP 19; O2SAT 100
[2023-04-27 12:00] LABS: Adenovirus Not Detected (NOT DETECT); Chlamydia Pneumoniae Not Detected (NOT DETECT); Coronavirus 229E,HKU1,NL63,OC4 Not Detected (NOT DETECT); Human Metapneumovirus Not Detected (NOT DETECT); Human Rhinovirus/Enterovirus Not Detected (NOT DETECT); Influenza A Not Detected (NOT DETECT); Influenza A H1 Not Detected (NOT DETECT); Influenza A H1-2009 Not Detected (NOT DETECT); Influenza A H3 Not Detected (NOT DETECT); Influenza B Not Detected (NOT DETECT); Mycoplasma Pneumoniae Not Detected (NOT DETECT); Parainfluenza Virus Type 1 Not Detected (NOT DETECT); Parainfluenza Virus Type 2 Not Detected (NOT DETECT); Parainfluenza Virus Type 3 Not Detected (NOT DETECT); Parainfluenza Virus Type 4 Not Detected (NOT DETECT); Respiratory Syncytial Virus A Not Detected (NOT DETECT); Respiratory Syncytial Virus B Not Detected (NOT DETECT); SARS-COV-2 Not Detected (NOT DETECT)
== END 2023-04-27 11:08 | disposition home or self-care (01) ==
PROVIDERS: Emergency Provider Physician Assistant; PCP Family Medicine
DX: F10.930 Alcohol use, unspecified with withdrawal, uncomplicated (principal); I10 Essential (primary) hypertension; F17.210 Nicotine dependence, cigarettes, uncomplicated
CPT/HCPCS: 36415; 71045; 80053; 81001; 84703; 85025; 87486; 87581; 87633; 96361; 96374; 96375; 99284; J2060; J2405; J7030

== ENCOUNTER 2023-08-15 06:47 | Emergency (ER) | payer BC, MEDICAID, SELFPAY ==
[2023-08-15 06:52] VITALS: BP 186/125; PULSE 144; RESP 25; TEMP 36.4; O2SAT 95
--- NOTE | 2023-08-15 07:03 | XRR_ITS ---
PROCEDURE INFORMATION: Exam: XR Chest Exam date and time: 08/15/2023 7:31 AM Age: 48 years old Clinical indication: Shortness of breath TECHNIQUE: Imaging protocol: Radiologic exam of the chest. Views: 1 view. COMPARISON: CR XR chest 1V portable [id number] 04/27/2023 9:40 AM FINDINGS: Lungs: Unremarkable. No consolidation. Pleural spaces: Unremarkable. No pleural effusion. No pneumothorax. Heart/Mediastinum: Unremarkable. No cardiomegaly. Bones/joints: There is mild degenerative disease of bilateral acromioclavicular joints. XR/XR chest 1V [id number] IMPRESSION: No acute cardiopulmonary process.
--- NOTE | 2023-08-15 07:05 | W.ED.NAVMDI ---
HPI - Nausea/Vomiting/Diarrhea General: Chief complaint: Nausea/Vomiting/Diarrhea Stated complaint: N/V Time Seen by Provider: 08/15/23 07:00 History of Present Illness: 48-year-old female with history of alcoholism and hypertension who presents to the emergency room with complaints of nausea and vomiting for about 4 to 5 days now and now with symptoms of withdrawal. She says she was seen by her primary care a few days ago and was told she had a pneumonia. She still has some cough. No known fevers. She is very tremulous and hypertensive and tachycardic on presentation. She says she has been trying to wean herself off of alcohol. She says she was drinking about 15-20 100 proof shots a day. She says she had weaned herself down to about 6-9 shots. She has not had any alcohol now in about 4 to 5 days secondary to throwing things back up no focal abdominal pain. No chest pain. No altered mental status. No focal motor deficits. Review of Systems Narrative: Constitutional symptoms: Negative except as documented in HPI. Skin symptoms: Negative except as documented in HPI. Eye symptoms: Negative except as documented in HPI. ENMT symptoms: Negative except as documented in HPI. Respiratory symptoms: Negative except as documented in HPI. Cardiovascular symptoms: Negative except as documented in HPI. Gastrointestinal symptoms: Negative except as documented in HPI. Genitourinary symptoms: Negative except as documented in HPI. Musculoskeletal symptoms: Negative except as documented in HPI. Neurologic symptoms: Negative except as documented in HPI. Psychiatric symptoms: Negative except as documented in HPI. Endocrine symptoms: Negative except as documented in HPI. [facility] ED PFSH: Medical History Alcohol abuse Essential hypertension Hidradenitis HTN (hypertension) Nephrolithiasis Seizures Surgical History History of hysterectomy Social History Smoking and tobacco/nicotine status: current every day tobacco/nicotine user cigarettes Alcohol intake: current Substance/Drug Use: current Substance/Drug use frequency: daily Physical Exam Narrative: EXAM NARRATIVE: General: Alert Skin: Warm, dry. Head: Normocephalic, atraumatic. Neck: Supple, trachea midline. Eye: Extraocular movements are intact. Ears, nose, mouth and throat: mucosa moist. Cardiovascular: Regular, Normal peripheral perfusion. Respiratory: Lungs are clear to auscultation, respirations are non-labored, breath sounds are equal, Symmetrical chest wall expansion. Gastrointestinal: Soft, Nontender, Non distended, Normal bowel sounds. Musculoskeletal: Normal ROM, no deformity. Neurological: Alert and oriented, No focal neurological deficit observed. Patient is quite tremulous. Hypertensive. Appears to be in active alcohol withdrawal. Psychiatric: Cooperative, appropriate mood & affect. Course Vital Signs: Vital signs: Vital Signs Temperature 97.6 F 08/15/23 06:52 Pulse Rate 113 H 08/15/23 08:15 Respiratory Rate 18 08/15/23 08:15 Blood Pressure 169/116 08/15/23 08:15 Pulse Oximetry 94 08/15/23 08:15 Oxygen Delivery Me thod Room Air 08/15/23 08:15 MDM - Nausea/Vomiting/Diarrhea Medical Decision Making Medical decision making: Differential diagnosis including but not limited to and based on the above HPI, review of systems and physical exam: Patient appears to be having alcohol withdrawals. With her history of alcohol abuse and vomiting I would have concern for pancreatitis though pancreatic enzymes were ordered. Liver enzymes ordered. Chest x-ray ordered secondary to her report of pneumonia. BMP to evaluate for dehydration and renal failure. Blood alcohol level ordered as well. Lab Review: Laboratory results were reviewed and interpreted by myself the emergency room physician. Lab work is fairly unremarkable. She does not have pancreatitis. No liver enzyme elevation at this time. Her blood alcohol level is 18. No urinary tract infection. No flu or COVID. Chest x-ray: No acute process. No pneumothorax. No infiltrate. No cardiomegaly. This was reviewed and interpreted by myself the ER physician. Reexamination: Patient has improved slightly. She says she feels much better. However she still has some tremor. She is still somewhat tachycardic although slightly improved. We discussed at length where went to go from here. She says she would like to try antiemetics at home and she is not ready to stop drinking completely. She has a plan to taper off her alcohol use at home. She says the vomiting has kept her from drinking. She still had a blood alcohol level of 18 on presentation here. Lab Data 08/15/23 07:12 08/15/23 07:12 Radiology Impressions Chest X-Ray 08/15/23 07:03 IMPRESSION: No acute cardiopulmonary process. Laboratory Results WBC 9.88 10^3/uL (3.29-11.43) 08/15/23 07:12 RBC 4.80 10^6/uL (3.85-5.65) 08/15/23 07:12 Hgb 16.90 g/dL (11.27-16.99) 08/15/23 07:12 Hct 47.6 % (36-47) H 08/15/23 07:12 MCV 99.2 fl (85-98) H 08/15/23 07:12 MCH 35.2 pg (27-33) H 08/15/23 07:12 MCHC 35.5 g/dL (30-55) 08/15/23 07:12 RDW 12.8 % (12.1-15.1) 08/15/23 07:12 Plt Count 283 10^3/cmm (157-399) 08/15/23 07:12 MPV 9.6 fL (7.4-10.4) 08/15/23 07:12 Neut % (Auto) 59.1 % 08/15/23 07:12 Lymph % (Auto) 31.2 % 08/15/23 07:12 [place] % (Auto) 8.8 % 08/15/23 07:12 Eos % (Auto) 0.2 % 08/15/23 07:12 Baso % (Auto) 0.4 % 08/15/23 07:12 Neut # (Auto) 5.84 10^3/uL (1.8-7.7) 08/15/23 07:12 Lymph # (Auto) 3.1 10^3/uL (0.8-4.8) 08/15/23 07:12 [place] # (Auto) 0.9 10^3/uL (0.2-0.9) 08/15/23 07:12 Eos # (Auto) 0.0 10^3/uL (0.0-0.8) 08/15/23 07:12 Baso # (Auto) 0.0 10^3/uL (0.0-0.1) 08/15/23 07:12 Nucleated RBC % (auto) 0 % 08/15/23 07:12 Nucleated RBCs # 0.0 /100WBC 08/15/23 07:12 Sodium 137 mmol/L (136-145) 08/15/23 07:12 Potassium 3.1 mmol/L (3.5-5.1) L 08/15/23 07:12 Chloride 98 mmol/L (98-107) 08/15/23 07:12 Carbon Dioxide 22 mmol/L (22-29) 08/15/23 07:12 Anion Gap 20.1 (5-19) H 08/15/23 07:12 BUN 13 mg/dL (6-20) 08/15/23 07:12 Creatinine 0.6 mg/dL (0.5-0.9) 08/15/23 07:12 GFR Calculation 106.3 mL/min (90-130) 08/15/23 07:12 Glucose 134 mg/dL (65-115) H 08/15/23 07:12 Calculated Osmolality 286 mOsm/kg (285-295) 08/15/23 07:12 Calcium 9.8 mg/dL (8.5-10.5) 08/15/23 07:12 Total Bilirubin 0.4 mg/dL (0.15-1.2) 08/15/23 07:12 AST 21 U/L (0-32) 08/15/23 07:12 ALT 18 U/L (0-33) 08/15/23 07:12 Alkaline Phosphatase 92 U/L (35-105) 08/15/23 07:12 Total Protein 8.0 g/dL (6.6-8.7) 08/15/23 07:12 Albumin 4.4 g/dL (3.5-5.2) 08/15/23 07:12 Globulin 3.6 g/dL (1.3-4.6) 08/15/23 07:12 Amylase 28 U/L (28-100) 08/15/23 07:12 Lipase 27 U/L (13-60) 08/15/23 07:12 Urine Color Yellow (Yellow) 08/15/23 08:10 Urine Appearance Clear (CLEAR) 08/15/23 08:10 Urine pH 6.5 (5-7) 08/15/23 08:10 Ur Specific [place] 1.010 (1.005-1.030) 08/15/23 08:10 Urine Protein 1+ (Negative) H 08/15/23 08:10 Urine Glucose (UA) Norm (Normal) 08/15/23 08:10 Urine Ketones Negative (Negative) 08/15/23 08:10 Urine Blood 2+ (Negative) H 08/15/23 08:10 Urine Nitrate Negative (Negative) 08/15/23 08:10 Urine Bilirubin Neg (Negative) 08/15/23 08:10 Urine Urobilinogen Norm mg/dL (Negative) 08/15/23 08:10 Ur Leukocyte Esterase Negative (Negative) 08/15/23 08:10 Urine RBC 0-4 /hpf (0-2) H 08/15/23 08:10 Urine WBC 0-4 /hpf (0-5) H 08/15/23 08:10 Ur Squamous Epith Cells 0-4 /hpf (0-5) H 08/15/23 08:10 Amorphous Sediment Not Reportable 08/15/23 08:10 Urine Bacteria 1+ /hpf (NONE) H 08/15/23 08:10 Ethyl Alcohol 18 mg/dL (0-10) H 08/15/23 07:12 Coronavirus 229E (PCR) Not detected (NOT DETECT) 08/15/23 07:15 Influenza Type A Ag negative (Negative) 08/15/23 07:15 Influenza Type B Ag negative (Negative) 08/15/23 07:15 SARS-CoV-2 (PCR) Not detected (NOT DETECT) 08/15/23 07:15 XR interpretation done by ED provider, pending radiology final review Other Data = Dehydration, alcohol abuse, alcohol withdrawal - Patient received a total of 4 mg IV Ativan. - IV fluids. 1 L normal saline bolus. -P.o. folate and thiamine. -IV Zofran. - Discharged home - Discussed findings and plan with patient. Answered any questions. - All laboratory values were reviewed and interpreted personally by myself, the ER physician - All imaging was reviewed and interpreted personally by myself, the ER physician. - Evaluation and treatment of this problem were appropriate in the emergency setting Discharge Plan Discharge Patient Disposition: Home Clinical Impression: Alcohol withdrawal, Alcohol abuse, Dehydration, Nausea & vomiting Condition: Stable Prescriptions: New ondansetron 8 mg tablet,disintegrating 8 mg PO .q6 PRN (Reason: nausea and vomiting) Qty: 14 0RF No Action citalopram 10 mg tablet 10 mg PO QAM famotidine 20 mg tablet 20 mg PO BID chlordiazepoxide HCl 25 mg capsule See Rx Instructions .ROUTE .COMPLEX Qty: 27 0RF Rx Instructions: Take 4 tabs q 6 hours on day 1. Take 2 tabs q 8 hours on day 2. Take 2 tabs q 12 hours on day 3. Take one tab daily on day 4. acetaminophen [Tylenol Ex Str Rapid Release] 500 mg Tablet 1,000 mg PO BID PRN (Reason: Pain) potassium gluconate 595 mg (99 mg) Tablet 595 mg PO DAILY lisinopril 40 mg tablet 40 mg PO DAILY Qty: 30 0RF azithromycin 250 mg tablet See Rx Instructions .ROUTE .COMPLEX Rx Instructions: TAKE 2 TABLETS BY MOUTH TODAY, THEN TAKE 1 TABLET DAILY ON DAYS 2-5 prednisone 20 mg tablet 20 mg PO DAILY benzonatate 100 mg capsule 100 mg PO TID PRN (Reason: Cough) Discharge Orders: Discharge ED (Routine); Ordered 08/15/23 Ordered By: Mera Chu Referrals: Karen Patrick DO [Primary Care Provider] - (You have been screened and evaluated and felt safe for discharge. Health conditions do change or evolve sometimes and as such it is important that you follow up with your Primary Doctor to be re checked, 3-5 days is a general good time frame for follow up. You are always welcome to return to the ED for re assessment if your symptoms are worsening or you have new concerns) Patient Instructions: Opioid Safety, Pain Management Coding Level of Care Code ED Rolling Machine Operator for Isiah Mao
[2023-08-15] MEDS: LORazepam 2 mg/mL INJ 10 mL MDV IV ×2 (07:12→10:49)
[2023-08-15] MEDS: sodium chloride 0.9% 1,000 ML 999 ML IV (07:12)
[2023-08-15] MEDS: ondansetron 2 mg/ML SDV 2 mL 4 MG IVP (07:14)
[2023-08-15] MEDS: thiamine 100 mg Tablet PO (07:16)
[2023-08-15] MEDS: folic acid 1 mg Tablet PO (07:16)
[2023-08-15 07:21] VITALS: BP 153/121; PULSE 111; RESP 18; O2SAT 93
[2023-08-15 07:29] LABS: Basophils % 0.4 %; Eosinophils % 0.2 %; Hematocrit 47.6 % (36-47); Lymphocytes # 3.1 10^3/uL (0.8-4.8); Lymphocytes % 31.2 %; Mean Corpuscular HGB Conc 35.5 g/dL (30-55); Mean Corpuscular Hemoglobin 35.2 pg (27-33); Mean Corpuscular Volume 99.2 fl (85-98); Mean Platelet Volume 9.6 fL (7.4-10.4); Monocytes # 0.9 10^3/uL (0.2-0.9); Monocytes % 8.8 %; Neutrophils # 5.84 10^3/uL (1.8-7.7); Neutrophils % 59.1 %; Nucleated Red Blood Cells % 0 %; Platelet Count 283 10^3/cmm (157-399); Red Cell Distribution Width 12.8 % (12.1-15.1); White Blood Count 9.88 10^3/uL (3.29-11.43)
[2023-08-15 07:39] LABS: Influenza A by IFA negative (Negative); Influenza B by IFA negative (Negative)
[2023-08-15 07:43] LABS: Alanine Aminotransferase 18 U/L (0-33); Albumin Level 4.4 g/dL (3.5-5.2); Alcohol Level 18 mg/dL (0-10); Alkaline Phosphatase 92 U/L (35-105); Amylase 28 U/L (28-100); Anion Gap 20.1 (5-19); Aspartate Amino Transferase 21 U/L (0-32); Blood Urea Nitrogen 13 mg/dL (6-20); Calcium 9.8 mg/dL (8.5-10.5); Carbon Dioxide 22 mmol/L (22-29); Chloride 98 mmol/L (98-107); Creatinine Clr Calc Pharmacy 105.8699; Globulin 3.6 g/dL (1.3-4.6); Glomerular Filtration Rate 106.3 mL/min (90-130); Glucose 134 mg/dL (65-115); Lipase 27 U/L (13-60); Osmolality Calculated 286 mOsm/kg (285-295); Potassium 3.1 mmol/L (3.5-5.1); Sodium 137 mmol/L (136-145); Total Bilirubin 0.4 mg/dL (0.15-1.2)
[2023-08-15 08:15] VITALS: BP 169/116; PULSE 113; RESP 18; O2SAT 94
[2023-08-15 08:29] LABS: Add Urine Culture? No; Bacteria Urine 1+ /hpf; Bilirubin Urine Neg (Negative); Blood Urine 2+ (Negative); Glucose Urine UA Norm (Normal); Ketones Urine Negative (Negative); Leukocyte Esterase Urine Negative (Negative); Nitrate Urine Negative (Negative); Protein Urine 1+ (Negative); RBC Urine 0-4 /hpf (0-2); Squamous Epithelial Cell Urine 0-4 /hpf (0-5); Urine Appearance Clear (CLEAR); Urine Color Yellow (Yellow); Urobilinogen Urine Norm (Negative); WBC Urine 0-4 /hpf (0-5); pH Urine 6.5 (5-7)
[2023-08-15 09:07] LABS: Adenovirus Not Detected (NOT DETECT); Chlamydia Pneumoniae Not Detected (NOT DETECT); Coronavirus 229E,HKU1,NL63,OC4 Not Detected (NOT DETECT); Human Metapneumovirus Not Detected (NOT DETECT); Human Rhinovirus/Enterovirus Not Detected (NOT DETECT); Influenza A Not Detected (NOT DETECT); Influenza A H1 Not Detected (NOT DETECT); Influenza A H1-2009 Not Detected (NOT DETECT); Influenza A H3 Not Detected (NOT DETECT); Influenza B Not Detected (NOT DETECT); Mycoplasma Pneumoniae Not Detected (NOT DETECT); Parainfluenza Virus Type 1 Not Detected (NOT DETECT); Parainfluenza Virus Type 2 Not Detected (NOT DETECT); Parainfluenza Virus Type 3 Not Detected (NOT DETECT); Parainfluenza Virus Type 4 Not Detected (NOT DETECT); Respiratory Syncytial Virus A Not Detected (NOT DETECT); Respiratory Syncytial Virus B Not Detected (NOT DETECT); SARS-COV-2 Not Detected (NOT DETECT)
== END 2023-08-15 10:53 | disposition home or self-care (01) ==
PROVIDERS: Emergency Provider Emergency Medicine; PCP Family Medicine
DX: F10.139 Alcohol abuse with withdrawal, unspecified (principal); Y90.0 Blood alcohol level of less than 20 mg/100 ml; E86.0 Dehydration; R11.2 Nausea with vomiting, unspecified; Z11.52 Encounter for screening for COVID-19; I10 Essential (primary) hypertension; F17.210 Nicotine dependence, cigarettes, uncomplicated
CPT/HCPCS: 71045; 80053; 80307; 81001; 82150; 83690; 85025; 87635; 87804; 96361; 96374; 96375; 96376; 99284; J2060; J2405; J7030

== ENCOUNTER 2023-09-16 16:42 | Emergency (ER) | payer BC, MEDICAID, SELFPAY ==
[2023-09-16 16:48] VITALS: BP 121/89; PULSE 135; RESP 20; TEMP 36.7; O2SAT 96
--- NOTE | 2023-09-16 17:23 | CTR_ITS ---
PROCEDURE INFORMATION: Exam: CT Abdomen And Pelvis With Contrast Exam date and time: 09/16/2023 6:18 PM Age: 48 years old Clinical indication: Abdominal pain; Localized; Left upper quadrant (luq); Prior surgery; Surgery date: 6+ months; Surgery type: Hyst; Additional info: Abd pain TECHNIQUE: Imaging protocol: Computed tomography of the abdomen and pelvis with contrast. Radiation optimization: All CT scans at this facility use at least one of these dose optimization techniques: automated exposure control; mA and/or kV adjustment per patient size (includes targeted exams where dose is matched to clinical indication); or iterative reconstruction. Contrast material: OMNI 350; Contrast volume: 100 ml; Contrast route: INTRAVENOUS (IV); COMPARISON: CT kidney stone [id number] 01/19/2023 6:13 AM RADIATION DOSE METRICS: Total DLP (mGy-cm): 438.26 FINDINGS: Liver: Normal. No mass. Gallbladder and bile ducts: Gallbladder is somewhat prominent, ultrasound could further evaluate this. Pancreas: Normal. No ductal dilation. Spleen: Normal. No splenomegaly. Adrenal glands: Normal. No mass. Kidneys and ureters: Right kidney punctate nonobstructing calyceal stone. Stomach and bowel: Prominent fluid in the stomach and small bowel may reflect a gastroenteritis. Appendix: No evidence of appendicitis. Intraperitoneal space: Unremarkable. No free air. No significant fluid collection. Vasculature: Unremarkable. No abdominal aortic aneurysm. Lymph nodes: Unremarkable. No enlarged lymph nodes. Urinary bladder: Unremarkable as visualized. Reproductive: Unremarkable as visualized. Bones/joints: Unremarkable. No acute fracture. Soft tissues: Unremarkable. CT/CT abdomen pelvis w con* [id number] IMPRESSION: 1. Gallbladder is somewhat prominent, ultrasound could further evaluate this. 2. Prominent fluid in the stomach and small bowel may reflect a gastroenteritis. 3. Right kidney punctate nonobstructing calyceal stone.
--- NOTE | 2023-09-16 17:23 | ED_ITS ---
HPI - Abdominal Pain 2 General: Chief Complaint: Abdominal Pain Stated Complaint: abd pain Time Seen by Provider: 09/16/23 17:16 Source: patient Mode of arrival: ambulatory Limitations: no limitations History of Present Illness: 48-year-old female who has a history of chronic alcohol abuse she had a history of pancreatitis from her alcohol abuse. Patient states she has been drinking all week but she has been having epigastric abdominal pain for the last 4 to 5 days with multiple episodes of nausea and vomiting. States her pain worsened today epigastric rates it a 8 out of 10. She denies any fever or diarrhea. Associated Symptoms: Reports nausea and vomiting; Denies chills, diarrhea, dysuria and fever(s) Review of Systems 2 Const: Denies: fever(s), chills, body aches or change in appetite ENMT: Denies: throat pain or dental pain Card: Denies: chest pain Resp: Denies: dyspnea GI: Reports: abdominal pain, nausea and vomiting; Denies: diarrhea : Denies: dysuria Musc: Denies: neck pain or back pain Skin/Breast: Denies: rash Neuro: Denies: headache(s) PFSH ED 2 PFSH: Medical History Nephrolithiasis Alcohol abuse Essential hypertension Hidradenitis HTN (hypertension) Seizures Surgical History History of hysterectomy Social History Smoking and tobacco/nicotine status: current every day tobacco/nicotine user cigarettes Alcohol intake: current Substance/Drug Use: current Substance/Drug use frequency: daily Physical Exam 2 Const: COMMON NORMALS: patient oriented x3 HENMT: COMMON NORMALS: normocephalic and atraumatic HEAD & SCALP: n ormocephalic and atraumatic Eye: COMMON NORMALS: Equal, round and reactive pupils present and EOMs intact bilaterally PUPIL: Yes Equal, round and reactive pupils present Neck/C-Spine: COMMON NORMALS: full ROM and supple Chest: COMMONS NORMALS: normal inspection of the chest Resp: COMMON NORMALS: normal respiratory effort Cardio: COMMON NORMALS: regular rhythm and No murmurs present (Cardio) R ATE: tachycardic RHYTHM: regular rhythm GI: COMMON NORMALS: Normal to inspection, nondistended, normoactive bowel sounds present, Soft to palpation and no masses PALPATION: Yes Soft to palpation OTHER: epigastric tenderness Extremity: COMMON NORMALS: normal to inspection and full ROM Neuro: COMMON NORMALS: patient oriented x3, moves all extremities and no focal motor deficits Psych: COMMON NORMALS: mental status grossly normal, Normal thought process present and cooperative THOUGHT PROCESS: Normal thought process present Skin: COMMON NORMALS: no rashes or lesions noted and no wounds GENERAL SKIN EXAM: no rashes or lesions noted Course 2 Vital Signs: Vital signs: Vital Signs Temperature 98.1 F 09/16/23 16:48 Pulse Rate 96 09/16/23 19:50 Respiratory Rate 23 H 09/16/23 19:50 Blood Pressure 149/104 09/16/23 19:50 Pulse Oximetry 94 09/16/23 19:50 MDM - Abdominal Pain Medical Decision Making Patient presents here with abdominal pain could be alcoholic gastritis she does take Prilosec [id number] we will prescribe her pain meds CT scan showed no acute findings ultrasound showed no signs of cholecystitis her pain is improved here she is stable for discharge she is follow-up with PCP and return if worsening Medical Records I reviewed the patient's medical records. Lab Data I reviewed the patient's lab results. 09/16/23 17:18 09/16/23 17:18 Labs/Radiology: Radiology Impressions Abdomen/Pelvis CT 09/16/23 17:23 IMPRESSION: 1. Gallbladder is somewhat prominent, ultrasound could further evaluate this. 2. Prominent fluid in the stomach and small bowel may reflect a gastroenteritis. 3. Right kidney punctate nonobstructing calyceal stone. Laboratory Results WBC 10.95 10^3/uL (3.29-11.43) 09/16/23 17:18 RBC 4.42 10^6/uL (3.85-5.65) 09/16/23 17:18 Hgb 15.80 g/dL (11.27-16.99) 09/16/23 17:18 Hct 44.1 % (36-47) 09/16/23 17:18 MCV 99.8 fl (85-98) H 09/16/23 17:18 MCH 35.7 pg (27-33) H 09/16/23 17:18 MCHC 35.8 g/dL (30-55) 09/16/23 17:18 RDW 13.0 % (12.1-15.1) 09/16/23 17:18 Plt Count 272 10^3/cmm (157-399) 09/16/23 17:18 MPV 9.0 fL (7.4-10.4) 09/16/23 17:18 Neut % (Auto) 57.2 % 09/16/23 17:18 Lymph % (Auto) 28.4 % 09/16/23 17:18 [place] % (Auto) 12.9 % 09/16/23 17:18 Eos % (Auto) 0.6 % 09/16/23 17:18 Baso % (Auto) 0.5 % 09/16/23 17:18 Neut # (Auto) 6.27 10^3/uL (1.8-7.7) 09/16/23 17:18 Lymph # (Auto) 3.1 10^3/uL (0.8-4.8) 09/16/23 17:18 [place] # (Auto) 1.4 10^3/uL (0.2-0.9) H 09/16/23 17:18 Eos # (Auto) 0.1 10^3/uL (0.0-0.8) 09/16/23 17:18 Baso # (Auto) 0.1 10^3/uL (0.0-0.1) 09/16/23 17:18 Nucleated RBC % (auto) 0 % 09/16/23 17:18 Nucleated RBCs # 0.0 /100WBC 09/16/23 17:18 Sodium 136 mmol/L (136-145) 09/16/23 17:18 Potassium 3.5 mmol/L (3.5-5.1) 09/16/23 17:18 Chloride 96 mmol/L (98-107) L 09/16/23 17:18 Carbon Dioxide 20 mmol/L (22-29) L 09/16/23 17:18 Anion Gap 23.5 (5-19) H 09/16/23 17:18 BUN 25 mg/dL (6-20) H 09/16/23 17:18 Creatinine 1.9 mg/dL (0.5-0.9) H 09/16/23 17:18 GFR Calculation 28.1 mL/min (90-130) L 09/16/23 17:18 Glucose 105 mg/dL (65-115) 09/16/23 17:18 Calculated Osmolality 287 mOsm/kg (285-295) 09/16/23 17:18 Calcium 9.5 mg/dL (8.5-10.5) 09/16/23 17:18 Total Bilirubin 0.2 mg/dL (0.15-1.2) 09/16/23 17:18 AST 28 U/L (0-32) 09/16/23 17:18 ALT 18 U/L (0-33) 09/16/23 17:18 Alkaline Phosphatase 93 U/L (35-105) 09/16/23 17:18 Total Protein 6.7 g/dL (6.6-8.7) 09/16/23 17:18 Albumin 4.3 g/dL (3.5-5.2) 09/16/23 17:18 Globulin 2.4 g/dL (1.3-4.6) 09/16/23 17:18 Lipase 42 U/L (13-60) 09/16/23 17:18 Urine Color Yellow (Yellow) 09/16/23 17:15 Urine Appearance Hazy (CLEAR) A 09/16/23 17:15 Urine pH 5 (5-7) 09/16/23 17:15 Ur Specific [place] 1.010 (1.005-1.030) 09/16/23 17:15 Urine Protein Trace (Negative) 09/16/23 17:15 Urine Glucose (UA) Norm (Normal) 09/16/23 17:15 Urine Ketones Negative (Negative) 09/16/23 17:15 Urine Blood 2+ (Negative) H 09/16/23 17:15 Urine Nitrate Negative (Negative) 09/16/23 17:15 Urine Bilirubin 1+ (Negative) H 09/16/23 17:15 Urine Urobilinogen Norm mg/dL (Negative) 09/16/23 17:15 Ur Leukocyte Esterase Trace (Negative) H 09/16/23 17:15 Urine RBC 0-4 /hpf (0-2) H 09/16/23 17:15 Urine WBC 5-10 /hpf (0-5) H 09/16/23 17:15 Ur Squamous Epith Cells 5-10 /hpf (0-5) H 09/16/23 17:15 Amorphous Sediment Trace /hpf 09/16/23 17:15 Urine Bacteria Trace /hpf (NONE) 09/16/23 17:15 Ethyl Alcohol 157 mg/dL (0-10) H 09/16/23 17:18 All radiology interpretation(s) finalized by discharge Discharge Plan Discharge Patient Disposition: Home Clinical Impression: Abdominal pain Qualifiers: Abdominal location: generalized Qualified Code(s): R10.84 - Generalized abdominal pain Condition: Stable Prescriptions: New hydrocodone-acetaminophen 5-325 mg tablet 1 tab PO Q6H PRN (Reason: pain) Qty: 10 0RF ondansetron 4 mg tablet,disintegrating 4 mg PO Q6H PRN (Reason: nausea and vomiting) Qty: 14 0RF No Action citalopram 10 mg tablet 10 mg PO QAM famotidine 20 mg tablet 20 mg PO BID chlordiazepoxide HCl 25 mg capsule See Rx Instructions .ROUTE .COMPLEX Qty: 27 0RF Rx Instructions: Take 4 tabs q 6 hours on day 1. Take 2 tabs q 8 hours on day 2. Take 2 tabs q 12 hours on day 3. Take one tab daily on day 4. acetaminophen [Tylenol Ex Str Rapid Release] 500 mg Tablet 1,000 mg PO BID PRN (Reason: Pain) potassium gluconate 595 mg (99 mg) Tablet 595 mg PO DAILY lisinopril 40 mg tablet 40 mg PO DAILY Qty: 30 0RF azithromycin 250 mg tablet See Rx Instructions .ROUTE .COMPLEX Rx Instructions: TAKE 2 TABLETS BY MOUTH TODAY, THEN TAKE 1 TABLET DAILY ON DAYS 2-5 prednisone 20 mg tablet 20 mg PO DAILY benzonatate 100 mg capsule 100 mg PO TID PRN (Reason: Cough) ondansetron 8 mg tablet,disintegrating 8 mg PO .q6 PRN (Reason: nausea and vomiting) Qty: 14 0RF Discharge Orders: Discharge ED (Routine); Ordered 09/16/23 Ordered By: Martín Shaffer Referrals: Tyshawn Terrazas MD [Physician] - 1-3 days Karen Patrick DO [Primary Care Provider] - Discharge Diet: Advance as tolerated Discharge Activity: Resume usual activity Patient Instructions: Abdominal Pain (ED) Coding Level of Care 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
[2023-09-16 17:24] LABS: Basophils # 0.1 10^3/uL (0.0-0.1); Basophils % 0.5 %; Eosinophils # 0.1 10^3/uL (0.0-0.8); Eosinophils % 0.6 %; Hematocrit 44.1 % (36-47); Lymphocytes # 3.1 10^3/uL (0.8-4.8); Lymphocytes % 28.4 %; Mean Corpuscular HGB Conc 35.8 g/dL (30-55); Mean Corpuscular Hemoglobin 35.7 pg (27-33); Mean Corpuscular Volume 99.8 fl (85-98); Monocytes # 1.4 10^3/uL (0.2-0.9); Monocytes % 12.9 %; Neutrophils # 6.27 10^3/uL (1.8-7.7); Neutrophils % 57.2 %; Nucleated Red Blood Cells % 0 %; Platelet Count 272 10^3/cmm (157-399); Red Blood Count 4.42 10^6/uL (3.85-5.65); White Blood Count 10.95 10^3/uL (3.29-11.43)
[2023-09-16 18:11] LABS: Alanine Aminotransferase 18 U/L (0-33); Albumin Level 4.3 g/dL (3.5-5.2); Alcohol Level 157 mg/dL (0-10); Alkaline Phosphatase 93 U/L (35-105); Anion Gap 23.5 (5-19); Aspartate Amino Transferase 28 U/L (0-32); Blood Urea Nitrogen 25 mg/dL (6-20); Calcium 9.5 mg/dL (8.5-10.5); Carbon Dioxide 20 mmol/L (22-29); Chloride 96 mmol/L (98-107); Creatinine Clr Calc Pharmacy 33.0223; Globulin 2.4 g/dL (1.3-4.6); Glomerular Filtration Rate 28.1 mL/min (90-130); Glucose 105 mg/dL (65-115); Lipase 42 U/L (13-60); Osmolality Calculated 287 mOsm/kg (285-295); Potassium 3.5 mmol/L (3.5-5.1); Sodium 136 mmol/L (136-145); Total Bilirubin 0.2 mg/dL (0.15-1.2); Total Protein 6.7 g/dL (6.6-8.7)
[2023-09-16] MEDS: iohexol 350 mg/mL 500 mL Btl (per mL) IV (18:18)
--- NOTE | 2023-09-16 18:38 | USR_ITS ---
PROCEDURE INFORMATION: Exam: US Abdomen, Limited; Right Upper Quadrant Exam date and time: 09/16/2023 7:58 PM Age: 48 years old Clinical indication: Abdominal pain; Localized; Left upper quadrant (luq); Patient HX: Patient and CT report both say left upper quadrant pain x 2 days. ; Additional info: Ruq pain TECHNIQUE: Imaging protocol: Real time ultrasound of the abdomen with image documentation. Limited exam focused on the right upper quadrant. COMPARISON: CT abdomen pelvis w con* [id number] 09/16/2023 6:18 PM FINDINGS: Liver: Normal. No masses. Gallbladder: Normal. No gallstones. There is no gallbladder wall thickening. Biliary ducts: Normal. No stones. No dilation. Pancreas: Visualized pancreas is unremarkable. Right kidney: Right kidney 14 mm calculus, negative for hydronephrosis. US/US gall bladder [id number] IMPRESSION: 1. Negative for cholelithiasis or cholecystitis. 2. Right kidney 14 mm calculus, negative for hydronephrosis.
[2023-09-16] MEDS: lidocaine 2% viscous 15 ML, aluminum-mag hydrox-simethicon 30 ML, sucralfate oral liq 1 GM PO (18:44)
[2023-09-16] MEDS: sodium chloride 0.9% 1,000 ML 999 ML IV ×2 (18:46→19:34)
[2023-09-16] MEDS: ondansetron 2 mg/ML SDV 2 mL 4 MG IVP (18:47)
[2023-09-16 18:48] VITALS: RESP 26; O2SAT 96
[2023-09-16] MEDS: HYDROmorphone 1 mg/mL INJ 1 mL IVP (18:48)
[2023-09-16 19:50] VITALS: BP 149/104; PULSE 96; RESP 23; O2SAT 94
[2023-09-16 19:51] LABS: Urine Appearance Hazy (CLEAR); Urine Color Yellow (Yellow)
[2023-09-16 19:52] LABS: Add Urine Microscopic? YES; Bilirubin Urine 1+ (Negative); Blood Urine 2+ (Negative); Glucose Urine UA Norm (Normal); Ketones Urine Negative (Negative); Leukocyte Esterase Urine Trace (Negative); Nitrate Urine Negative (Negative); Protein Urine Trace (Negative); RBC Urine 0-4 /hpf (0-2); Urobilinogen Urine Norm (Negative); pH Urine 5 (5-7)
[2023-09-16 19:53] LABS: Add Urine Culture? No; Amorphous Sediment Urine TRACE /hpf; Bacteria Urine TRACE /hpf
[2023-09-16 20:42] VITALS: BP 137/113; PULSE 104; RESP 19; O2SAT 95
== END 2023-09-16 20:35 | disposition home or self-care (01) ==
PROVIDERS: Emergency Provider Emergency Medicine; PCP Family Medicine
DX: R10.84 Generalized abdominal pain (principal); I10 Essential (primary) hypertension; F17.210 Nicotine dependence, cigarettes, uncomplicated
CPT/HCPCS: 36415; 74177; 76705; 80053; 80307; 81001; 83690; 85025; 96361; 96374; 96375; 99285; J1170; J2405; J7030; Q9967

== ENCOUNTER 2023-09-19 09:25 | Emergency (ER) | payer BC, MEDICAID, SELFPAY ==
[2023-09-19 09:28] VITALS: BP 177/115; PULSE 98; RESP 20; TEMP 37.1; O2SAT 95; BMI 24.9
--- NOTE | 2023-09-19 09:37 | XRR_ITS ---
PROCEDURE INFORMATION: Exam: XR Chest Exam date and time: 09/19/2023 9:43 AM Age: 48 years old Clinical indication: Cough and dyspnea; Additional info: Dyspnea/cough TECHNIQUE: Imaging protocol: Radiologic exam of the chest. Views: 1 view. COMPARISON: CR (CHEST, ) 08/15/2023 7:31 AM FINDINGS: Lungs: No focal lung consolidation. Pleural spaces: No pleural effusion. No pneumothorax. Heart/Mediastinum: Unremarkable. No cardiomegaly. Bones/joints: No acute bony abnormality. XR/XR chest 1V portable [id number] IMPRESSION: No focal lung consolidation.
--- NOTE | 2023-09-19 09:38 | ECG_ITS ---
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 Measurements Intervals [place] Rate: 102 P: 66 MN: 120 QRS: 71 QRSD: 79 T: 65 QT: 357 QTc: 465 Interpretive Statements SINUS TACHYCARDIA POSSIBLE LEFT ATRIAL ENLARGEMENT [-0.1mV P-WAVE IN V1/V2] POSSIBLE LEFT VENTRICULAR HYPERTROPHY [VOLTAGE CRITERIA PLUS LAE OR QRS WIDENING] Compared to ECG 01/20/2023 09:06:33 No significant changes Electronically Signed On 09-19-2023 15:51:43 CDT by João Barrera M.D. [id number] f
[2023-09-19 09:42] VITALS: BP 179/101; PULSE 88; RESP 15; O2SAT 97
[2023-09-19 09:56] LABS: Basophils % 0.5 %; Eosinophils # 0.3 10^3/uL (0.0-0.8); Eosinophils % 3.7 %; Hematocrit 39.5 % (36-47); Lymphocytes # 3.3 10^3/uL (0.8-4.8); Lymphocytes % 38.7 %; Mean Corpuscular HGB Conc 34.4 g/dL (30-55); Mean Corpuscular Hemoglobin 35.5 pg (27-33); Mean Corpuscular Volume 103.1 fl (85-98); Mean Platelet Volume 8.9 fL (7.4-10.4); Monocytes # 0.5 10^3/uL (0.2-0.9); Monocytes % 5.9 %; Neutrophils # 4.36 10^3/uL (1.8-7.7); Neutrophils % 50.9 %; Nucleated Red Blood Cells % 0 %; Platelet Count 244 10^3/cmm (157-399); Red Blood Count 3.83 10^6/uL (3.85-5.65); White Blood Count 8.58 10^3/uL (3.29-11.43)
--- NOTE | 2023-09-19 09:59 | W.ED.CHESTPA ---
HPI - Chest Pain General: Chief Complaint: Chest Pain Stated Complaint: chest pains Time Seen by Provider: 09/19/23 09:32 Source: patient Mode of arrival: ambulatory History of Present Illness: 48-year-old female presents emergency room with complaint of generally not feeling well. She states she had a sinus infection a long time spent on route courses of antibiotics she is having chest pain with radiation to her left arm productive cough nausea vomiting generalized abdominal pain. She has been taking hydrocodone and Zofran. She has no known history of cardiac disease. She does regularly use alcohol smells strongly of alcohol at that time she is assessed. She denies any hemoptysis coffee-ground emesis no melena no hematochezia no hematemesis. [facility] ED PFSH: Medical History Nephrolithiasis Alcohol abuse Essential hypertension Hidradenitis HTN (hypertension) Seizures Surgical History History of hysterectomy Social History Smoking and tobacco/nicotine status: current every day tobacco/nicotine user cigarettes Alcohol intake: current Substance/Drug Use: current Substance/Drug use frequency: daily Course Vital Signs: Vital signs: Vital Signs Temperature 98.8 F 09/19/23 09:28 Pulse Rate 86 09/19/23 11:51 Respiratory Rate 15 09/19/23 11:51 Blood Pressure 160/84 09/19/23 10:56 Pulse Oximetry 94 09/19/23 11:51 Oxygen Delivery Me thod Room Air 09/19/23 10:56 MDM - Chest Pain Medical Decision Making Reviewed lab findings with patient. No sign of acute infection she is feeling better after the fluids. Discussed with her blood alcohol was pretty significantly elevated this morning. Recommended abstinence from alcohol. Also recommended that she pursue assistance with this use through [facility], [facility], or going to the crisis center. Patient expressed interest in medication to help her with drawl. Recommend that she go to the crisis center and they can assist her with that and help her get long-term follow-up. Patient becomes very upset at this point. She is angry that she feels no one will help her. Pointed out to her that we are offering her options to which she responded I do not want to do those things, no one will help me. Discussed with the patient that we have given her options we are willing to help her but unless she is willing to pursue them there is not much that we can do for her in regards to her alcohol addiction. Medical Records I reviewed the patient's medical records. Lab Data I reviewed the patient's lab results. 09/19/23 09:36 09/19/23 09:36 Radiology Impressions Chest X-Ray 09/19/23 09:37 IMPRESSION: No focal lung consolidation. Laboratory Results WBC 8.58 10^3/uL (3.29-11.43) 09/19/23 09:36 RBC 3.83 10^6/uL (3.85-5.65) L 09/19/23 09:36 Hgb 13.60 g/dL (11.27-16.99) 09/19/23 09:36 Hct 39.5 % (36-47) 09/19/23 09:36 MCV 103.1 fl (85-98) H 09/19/23 09:36 MCH 35.5 pg (27-33) H 09/19/23 09:36 MCHC 34.4 g/dL (30-55) 09/19/23 09:36 RDW 13.0 % (12.1-15.1) 09/19/23 09:36 Plt Count 244 10^3/cmm (157-399) 09/19/23 09:36 MPV 8.9 fL (7.4-10.4) 09/19/23 09:36 Neut % (Auto) 50.9 % 09/19/23 09:36 Lymph % (Auto) 38.7 % 09/19/23 09:36 [place] % (Auto) 5.9 % 09/19/23 09:36 Eos % (Auto) 3.7 % 09/19/23 09:36 Baso % (Auto) 0.5 % 09/19/23 09:36 Neut # (Auto) 4.36 10^3/uL (1.8-7.7) 09/19/23 09:36 Lymph # (Auto) 3.3 10^3/uL (0.8-4.8) 09/19/23 09:36 [place] # (Auto) 0.5 10^3/uL (0.2-0.9) 09/19/23 09:36 Eos # (Auto) 0.3 10^3/uL (0.0-0.8) 09/19/23 09:36 Baso # (Auto) 0.0 10^3/uL (0.0-0.1) 09/19/23 09:36 Nucleated RBC % (auto) 0 % 09/19/23 09:36 Nucleated RBCs # 0.0 /100WBC 09/19/23 09:36 Sodium 136 mmol/L (136-145) 09/19/23 09:36 Potassium 3.7 mmol/L (3.5-5.1) 09/19/23 09:36 Chloride 102 mmol/L (98-107) 09/19/23 09:36 Carbon Dioxide 23 mmol/L (22-29) 09/19/23 09:36 Anion Gap 14.7 (5-19) 09/19/23 09:36 BUN 15 mg/dL (6-20) 09/19/23 09:36 Creatinine 0.5 mg/dL (0.5-0.9) 09/19/23 09:36 GFR Calculation 131.1 mL/min (90-130) H 09/19/23 09:36 Glucose 102 mg/dL (65-115) 09/19/23 09:36 Calculated Osmolality 283 mOsm/kg (285-295) L 09/19/23 09:36 Calcium 8.3 mg/dL (8.5-10.5) L 09/19/23 09:36 Total Bilirubin 0.3 mg/dL (0.15-1.2) 09/19/23 09:36 AST 24 U/L (0-32) 09/19/23 09:36 ALT 14 U/L (0-33) 09/19/23 09:36 Alkaline Phosphatase 78 U/L (35-105) 09/19/23 09:36 Ammonia 39 umol/L (11-51) 09/19/23 09:36 Troponin T Baseline 8 ng/L (0-10) 09/19/23 09:36 Troponin T 120 Minute 7.96 ng/L (0-10) 09/19/23 11:29 Delta Troponin T -0.04 ABS# (0-10) L 09/19/23 11:29 Total Protein 6.2 g/dL (6.6-8.7) L 09/19/23 09:36 Albumin 3.8 g/dL (3.5-5.2) 09/19/23 09:36 Globulin 2.4 g/dL (1.3-4.6) 09/19/23 09:36 Lipase 26 U/L (13-60) 09/19/23 09:36 Urine Color Yellow (Yellow) 09/19/23 11:03 Urine Appearance Hazy (CLEAR) A 09/19/23 11:03 Urine pH 7 (5-7) 09/19/23 11:03 Ur Specific [place] 1.010 (1.005-1.030) 09/19/23 11:03 Urine Protein Neg (Negative) 09/19/23 11:03 Urine Glucose (UA) Norm (Normal) 09/19/23 11:03 Urine Ketones Negative (Negative) 09/19/23 11:03 Urine Blood Neg (Negative) 09/19/23 11:03 Urine Nitrate Negative (Negative) 09/19/23 11:03 Urine Bilirubin Neg (Negative) 09/19/23 11:03 Urine Urobilinogen Neg mg/dL (Negative) 09/19/23 11:03 Ur Leukocyte Esterase Negative (Negative) 09/19/23 11:03 Urine RBC Rare /hpf (0-2) 09/19/23 11:03 Urine WBC 0-4 /hpf (0-5) H 09/19/23 11:03 Ur Squamous Epith Cells 10-15 /hpf (0-5) H 09/19/23 11:03 Amorphous Sediment Not Reportable 09/19/23 11:03 Urine Bacteria 1+ /hpf (NONE) H 09/19/23 11:03 Urine Mucus Trace /hpf 09/19/23 11:03 Ethyl Alcohol 137 mg/dL (0-10) H 09/19/23 09:36 All radiology interpretation(s) finalized by discharge Discharge Plan Discharge Condition: Stable Prescriptions: No Action albuterol sulfate 90 mcg/actuation Hfa Aerosol Inhaler 2 puff INHALATION QID PRN (Reason: Shortness Of Breath) Hair Skin Nails Gummies 2 tab PO DAILY lisinopril 40 mg tablet 40 mg PO QAM acetaminophen [Tylenol Ex Str Rapid Release] 500 mg Tablet 1,000 mg PO BID PRN (Reason: Pain) potassium gluconate 595 mg (99 mg) Tablet 595 mg PO DAILY hydrocodone-acetaminophen 5-325 mg tablet 1 tab PO Q6H PRN (Reason: pain) Qty: 10 0RF ondansetron 4 mg tablet,disintegrating 4 mg PO Q6H PRN (Reason: nausea and vomiting) Qty: 14 0RF Referrals: Karen Patrick DO [Primary Care Provider] - Coding Level of Care Code ED Obiee Architect for Isiah Mao
[2023-09-19 10:06] LABS: Alanine Aminotransferase 14 U/L (0-33); Albumin Level 3.8 g/dL (3.5-5.2); Alcohol Level 137 mg/dL (0-10); Alkaline Phosphatase 78 U/L (35-105); Anion Gap 14.7 (5-19); Aspartate Amino Transferase 24 U/L (0-32); Blood Urea Nitrogen 15 mg/dL (6-20); Calcium 8.3 mg/dL (8.5-10.5); Carbon Dioxide 23 mmol/L (22-29); Chloride 102 mmol/L (98-107); Creatinine Clr Calc Pharmacy 127.0439; Globulin 2.4 g/dL (1.3-4.6); Glomerular Filtration Rate 131.1 mL/min (90-130); Glucose 102 mg/dL (65-115); Osmolality Calculated 283 mOsm/kg (285-295); Potassium 3.7 mmol/L (3.5-5.1); Sodium 136 mmol/L (136-145); Total Bilirubin 0.3 mg/dL (0.15-1.2); Total Protein 6.2 g/dL (6.6-8.7); Troponin(5th) Baseline 8 ng/L (0-10)
[2023-09-19] MEDS: sodium chloride 0.9% 1,000 ML 999 ML IV ×2 (10:10→11:02)
[2023-09-19 10:21] LABS: Lipase 26 U/L (13-60)
[2023-09-19 10:27] LABS: Ammonia 39 umol/L (11-51)
[2023-09-19 10:56] VITALS: BP 160/84; RESP 18
[2023-09-19] MEDS: lidocaine 2% viscous 15 ML, aluminum-mag hydrox-simethicon 30 ML, sucralfate oral liq 1 GM PO (11:02)
[2023-09-19 11:23] LABS: Glucose Urine UA Norm (Normal); Ketones Urine Negative (Negative); Protein Urine Neg (Negative); Urine Appearance Hazy (CLEAR); Urine Color Yellow (Yellow); pH Urine 7 (5-7)
[2023-09-19 11:24] LABS: Bilirubin Urine Neg (Negative); Blood Urine Neg (Negative); Leukocyte Esterase Urine Negative (Negative); Nitrate Urine Negative (Negative); Urobilinogen Urine Neg (Negative)
[2023-09-19 11:25] LABS: Add Urine Microscopic? YES; RBC Urine RARE /hpf (0-2); WBC Urine 0-4 /hpf (0-5)
[2023-09-19 11:26] LABS: Add Urine Culture? No; Bacteria Urine 1+ /hpf; Mucus Urine TRACE /hpf
[2023-09-19 11:51] VITALS: PULSE 86; RESP 15; O2SAT 94
--- NOTE | 2023-09-19 12:09 | ECG_ITS ---
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 Measurements Intervals [place] Rate: 94 P: 68 CT: 143 QRS: 67 QRSD: 83 T: 57 QT: 375 QTc: 469 Interpretive Statements SINUS RHYTHM POSSIBLE LEFT ATRIAL ENLARGEMENT [-0.1mV P-WAVE IN V1/V2] Compared to ECG 09/19/2023 09:32:06 Sinus tachycardia no longer present Electronically Signed On 09-19-2023 15:58:01 CDT by João Barrera M.D. [id number]
[2023-09-19 12:10] LABS: Troponin 5 2HR 7.96 ng/L (0-10)
[2023-09-19 12:11] LABS: Troponin 5 2HR Delta -0.04 ABS# (0-10)
[2023-09-19 12:49] VITALS: BP 174/108; PULSE 96; RESP 17; O2SAT 94
[2023-09-19 12:57] LABS: Adenovirus Not Detected (NOT DETECT); Chlamydia Pneumoniae Not Detected (NOT DETECT); Human Metapneumovirus Not Detected (NOT DETECT); Human Rhinovirus/Enterovirus Not Detected (NOT DETECT); Influenza A Not Detected (NOT DETECT); Influenza A H1 Not Detected (NOT DETECT); Influenza A H1-2009 Not Detected (NOT DETECT); Influenza A H3 Not Detected (NOT DETECT); Influenza B Not Detected (NOT DETECT); Mycoplasma Pneumoniae Not Detected (NOT DETECT); Parainfluenza Virus Type 1 Not Detected (NOT DETECT); Parainfluenza Virus Type 2 Not Detected (NOT DETECT); Parainfluenza Virus Type 3 Not Detected (NOT DETECT); Parainfluenza Virus Type 4 Not Detected (NOT DETECT); Respiratory Syncytial Virus A Not Detected (NOT DETECT); Respiratory Syncytial Virus B Not Detected (NOT DETECT); SARS-COV-2 Not Detected (NOT DETECT)
[2023-09-19 13:00] LABS: Coronavirus 229E,HKU1,NL63,OC4 Detected (NOT DETECT)
== END 2023-09-19 12:52 | disposition home or self-care (01) ==
PROVIDERS: Emergency Provider Family Medicine; PCP Family Medicine
DX: R07.9 Chest pain, unspecified (principal); I10 Essential (primary) hypertension; F17.210 Nicotine dependence, cigarettes, uncomplicated
CPT/HCPCS: 36415; 71045; 80053; 80307; 81001; 82140; 83690; 84484; 85025; 87486; 87581; 87633; 93005; 96360; 96361; 99285; J7030

== ENCOUNTER 2024-02-27 11:11 | Emergency (ER) | payer BC, MEDICAID, SELFPAY ==
[2024-02-27 11:24] VITALS: BP 132/98; PULSE 120; RESP 20; TEMP 37; O2SAT 93
--- NOTE | 2024-02-27 11:30 | XRR_ITS ---
PROCEDURE INFORMATION: Exam: XR Chest Exam date and time: 02/27/2024 11:45 AM Age: 48 years old Clinical indication: Shortness of breath; Patient HX: SOB; Lt side rib pain post fall TECHNIQUE: Imaging protocol: Radiologic exam of the chest. Views: 1 view. COMPARISON: CR XR chest 1V portable [id number] 09/19/2023 9:43 AM FINDINGS: Lungs: Unremarkable. No consolidation or mass. Pleural spaces: Unremarkable. No pleural effusion. No pneumothorax. Heart/Mediastinum: Unremarkable. No cardiomegaly. Bones/joints: Unremarkable. XR/XR chest 1V portable [id number] IMPRESSION: No acute findings.
--- NOTE | 2024-02-27 11:30 | CTR_ITS ---
PROCEDURE INFORMATION: Exam: CT Cervical Spine Without Contrast Exam date and time: 02/27/2024 12:26 PM Age: 48 years old Clinical indication: Injury or trauma; Fall; Blunt trauma TECHNIQUE: Imaging protocol: Computed tomography of the cervical spine without contrast. Radiation optimization: All CT scans at this facility use at least one of these dose optimization techniques: automated exposure control; mA and/or kV adjustment per patient size (includes targeted exams where dose is matched to clinical indication); or iterative reconstruction. COMPARISON: CT head wo con* [id number] 02/27/2024 12:26 PM RADIATION DOSE METRICS: Total DLP (mGy-cm): 1128.5 FINDINGS: Bones: There is multilevel degenerative disc disease along with vertebral body spurring and facet arthropathy. No fracture or subluxation. Lungs: Lung apices are normal. Soft tissues: Unremarkable. CT/CT cervical spin wo con* [id number] IMPRESSION: 1. No acute findings. 2. Multilevel arthritic changes noted
--- NOTE | 2024-02-27 11:30 | ED_ITS ---
HPI - Alcohol 2 General: Chief Complaint: Alcohol Stated Complaint: Sob, stomach, left side ribs Time Seen by Provider: 02/27/24 11:24 History of Present Illness: Patient presents with left-sided rib pain after a fall. She fell down a flight of steps yesterday after she was drinking alcohol. She admits to daily heavy alcohol use. She has had 2 shots today. She states she has been drinking heavily for the past year due to the of her 6-month-old grandchild. She fell down approximately 6 steps, falling backwards, striking her head. She had no loss of consciousness. She complains of headache, neck pain, back pain and left-sided chest wall pain. She is also had associated nausea and vomiting today. She states she did have streaks of bright red blood after she had vomited several times. She denies a prior history of cirrhosis or esophageal varices. She is not on chronic anticoagulant therapy. She denies hematuria. She denies extremity pain, weakness or numbness. Related Data Home Medications Medication Instructions Recorded Confirmed acetaminophen 500 mg tablet 1,000 mg PO BID PRN Pain 12/27/22 09/19/23 potassium gluconate 595 mg (99 mg) 595 mg PO DAILY 12/27/22 09/19/23 tablet Hair Skin Nails Gummies 2 tab PO DAILY 09/19/23 09/19/23 albuterol sulfate 90 mcg/actuation 2 puff inhalation QID PRN 09/19/23 09/19/23 aerosol inhaler Shortness Of Breath lisinopril 40 mg tablet 40 mg PO QAM 09/19/23 09/19/23 Previous Rx's Medication Instructions Recorded hydrocodone 5 mg-acetaminophen 325 1 tab PO Q6H PRN pain #10 tabs 09/16/23 mg tablet ondansetron 4 mg disintegrating 4 mg PO Q6H PRN nausea and 09/16/23 tablet vomiting #14 tabs promethazine 25 mg tablet 25 mg PO Q4H PRN nausea and 02/27/24 vomiting #20 tabs Allergies Allergy/AdvReac Type Severity Reaction Status Date / Time duloxetine [From Cymbalta] Allergy ADR-Halluci Verified 09/19/23 10:08 nating erythromycin base Allergy ADR-Itching Verified 09/19/23 10:08 levofloxacin [From Levaquin] Allergy ADR-Itching Verified 09/19/23 10:08 Penicillins Allergy ADR-Itching Verified 09/19/23 10:08 sulfamethoxazole Allergy ADR-Itching Verified 09/19/23 10:08 [From Bactrim] trimethoprim [From Bactrim] Allergy ADR-Itching Verified 09/19/23 10:08 vancomycin Allergy ADR-Itching Verified 09/19/23 10:08 venlafaxine [From Effexor] Allergy ADR-Halluci Verified 09/19/23 10:08 crissy Review of Systems 2 General: Reports: 10 or more systems reviewed and unremarkable except in HPI and below PFSH ED 2 PFSH: Medical History Nephrolithiasis Alcohol abuse Essential hypertension Hidradenitis HTN (hypertension) Seizures Surgical History History of hysterectomy Social History Smoking and tobacco/nicotine status: current every day tobacco/nicotine user cigarettes Alcohol intake: current Substance/Drug Use: current Substance/Drug use frequency: daily Physical Exam 2 Narrative: EXAM NARRATIVE: Patient appears uncomfortable due to her pain HENMT: COMMON NORMALS: normocephalic and atraumatic HEAD & SCALP: normal to inspection, normocephalic and atraumatic Neck/C-Spine: OTHER: Diffuse midline cervical spine tenderness, no step-offs or crepitance, trachea is midline Chest: OTHER: Bruising noted to the left lateral lower chest wall area. Diffuse tenderness in the left lateral rib area. There is no palpable crepitance Resp: OTHER: Equal breath sounds bilaterally. No respiratory distress Cardio: OTHER: Tachycardia, heart rhythm is regular GI: OTHER: Mild diffuse tenderness, nonrigid, no ecchymosis of the abdomen : OTHER: No CVA tenderness Back/Pelvis: OTHER: Patient has mid thoracic and diffuse lumbar spine tenderness in the midline. No step-offs Extremity: NARRATIVE EXTREMITY EXAM: No obvious trauma to extremities. Full range of motion without discomfort or deformity. Intact distal neurovascular function. Neuro: OTHER: Alert and oriented x 3, motor and sensory function are intact; cranial nerves are intact Course 2 ED course: Patient had an IV placed and labs obtained. She has been given IV Zofran for nausea. She was given IV Ativan as well as morphine for pain. She has had a chest x-ray which per my interpretation shows no rib fractures, no pneumothorax or effusion or pulmonary contusion. She has had a CT of her head, cervical spine, chest abdomen and pelvis with spine reformations which per the radiologist showed no acute findings. The patient had ongoing nausea and vomiting so she subsequently has been given Benadryl and Compazine and a second dose of Ativan. Patient does have an elevated EtOH of 297. I discussed this with the patient. She is not wanting alcohol treatment. She denies suicidal or homicidal ideations and does not want psychiatric admission. I have encouraged the patient to stop drinking alcohol excessively. Reevaluation(s): Time: 13:53 Reevaluation #2: After Benadryl Compazine and Ativan, the patient is feeling better. Vomiting has resolved. Patient is declining psychiatric admission. Will plan for discharge home. Will give her Phenergan to take every 4-6 hours as needed for nausea and vomiting. Ice to the sore areas. Return if problems. Vital Signs: Vital signs: Vital Signs Temperature 98.6 F 02/27/24 11:24 Pulse Rate 120 H 02/27/24 11:24 Respiratory Rate 20 H 02/27/24 12:10 Blood Pressure 156/93 02/27/24 13:05 Pulse Oximetry 94 02/27/24 13:05 Oxygen Delivery Me thod Room Air 02/27/24 11:24 MDM - Alcohol Medical Decision Making 48-year-old female who presents after falling down flight of steps yesterday while being intoxicated. The patient has bruising to her left lateral lower chest wall area. She does have equal breath sounds. Will obtain a chest x-ray to screen for pneumothorax. Will proceed with CT head, cervical spine, chest abdomen and pelvis. The patient is having nausea and vomiting, suspect related to alcohol withdrawal. Will give her IV Zofran for nausea and morphine for pain. Will do screening labs as well. Differential includes head injury, cervical spine fracture, thoracic spine or lumbar spine fracture, rib fracture, pneumothorax, hemothorax, intra-abdominal organ injury, alcohol intoxication Lab Data 02/27/24 11:56 02/27/24 11:56 Radiology Impressions Cervical Spine CT 02/27/24 11:30 IMPRESSION: 1. No acute findings. 2. Multilevel arthritic changes noted Chest X-Ray 02/27/24 11:30 IMPRESSION: No acute findings. Chest/Abdomen/Pelvis CT 02/27/24 11:30 IMPRESSION: No acute findings. IMPRESSION: No acute findings. Head CT 02/27/24 11:30 IMPRESSION: No acute intracranial abnormality. Thoracic Spine CT 02/27/24 11:50 IMPRESSION: No acute findings. Lumbar Spine CT 02/27/24 11:51 IMPRESSION: 1. No acute findings. 2. Multilevel degenerative disc disease 3. Multilevel disc bulge Laboratory Results WBC 9.81 10^3/uL (3.29-11.43) 02/27/24 11:56 RBC 4.46 10^6/uL (3.85-5.65) 02/27/24 11:56 Hgb 16.40 g/dL (11.27-16.99) 02/27/24 11:56 Hct 45.6 % (36-47) 02/27/24 11:56 MCV 102.2 fl (85-98) H 02/27/24 11:56 MCH 36.8 pg (27-33) H 02/27/24 11:56 MCHC 36.0 g/dL (30-55) 02/27/24 11:56 RDW 12.5 % (12.1-15.1) 02/27/24 11:56 Plt Count 305 10^3/cmm (157-399) 02/27/24 11:56 MPV 8.8 fL (7.4-10.4) 02/27/24 11:56 Neut % (Auto) 66.2 % 02/27/24 11:56 Lymph % (Auto) 24.7 % 02/27/24 11:56 Humphreys % (Auto) 8.2 % 02/27/24 11:56 Eos % (Auto) 0.1 % 02/27/24 11:56 Baso % (Auto) 0.5 % 02/27/24 11:56 Neut # (Auto) 6.50 10^3/uL (1.8-7.7) 02/27/24 11:56 Lymph # (Auto) 2.4 10^3/uL (0.8-4.8) 02/27/24 11:56 Humphreys # (Auto) 0.8 10^3/uL (0.2-0.9) 02/27/24 11:56 Eos # (Auto) 0.0 10^3/uL (0.0-0.8) 02/27/24 11:56 Baso # (Auto) 0.1 10^3/uL (0.0-0.1) 02/27/24 11:56 Nucleated RBC % (auto) 0 % 02/27/24 11:56 Nucleated RBCs # 0.0 /100WBC 02/27/24 11:56 PT 13.30 SECONDS (12.1-14.9) 02/27/24 11:56 INR 0.98 (0.8-1.2) 02/27/24 11:56 Sodium 137 mmol/L (136-145) 02/27/24 11:56 Potassium 3.3 mmol/L (3.5-5.1) L 02/27/24 11:56 Chloride 99 mmol/L (98-107) 02/27/24 11:56 Carbon Dioxide 21 mmol/L (22-29) L 02/27/24 11:56 Anion Gap 20.3 (5-19) H 02/27/24 11:56 BUN 22 mg/dL (6-20) H 02/27/24 11:56 Creatinine 0.6 mg/dL (0.5-0.9) 02/27/24 11:56 GFR Calculation 106.3 mL/min (90-130) 02/27/24 11:56 Glucose 107 mg/dL (65-115) 02/27/24 11:56 Calculated Osmolality 288 mOsm/kg (285-295) 02/27/24 11:56 Calcium 8.9 mg/dL (8.5-10.5) 02/27/24 11:56 Total Bilirubin 0.5 mg/dL (0.15-1.2) 02/27/24 11:56 AST 45 U/L (0-32) H 02/27/24 11:56 ALT 42 U/L (0-33) H 02/27/24 11:56 Alkaline Phosphatase 122 U/L (35-105) H 02/27/24 11:56 Total Protein 7.4 g/dL (6.6-8.7) 02/27/24 11:56 Albumin 4.4 g/dL (3.5-5.2) 02/27/24 11:56 Globulin 3.0 g/dL (1.3-4.6) 02/27/24 11:56 HCG, Qual Negative (Negative) 02/27/24 13:15 Amorphous Sediment Not Reportable 02/27/24 13:15 Urine Opiates Screen Positive ng/mL (Negative) H 02/27/24 13:15 Ur Barbiturates Screen Negative ng/mL (Negative) 02/27/24 13:15 Ur Phencyclidine Scrn Negative ng/mL (Negative) 02/27/24 13:15 Ur Amphetamines Screen Negative ng/mL (Negative) 02/27/24 13:15 U Benzodiazepines Scrn Negative ng/mL (Negative) 02/27/24 13:15 Urine Cocaine Screen Negative ng/mL (Negative) 02/27/24 13:15 U Marijuana (THC) Screen Positive ng/mL (Negative) H 02/27/24 13:15 Ethyl Alcohol 295 mg/dL (0-10) H 02/27/24 11:56 Blood Type A Positive 02/27/24 11:56 Rho(D) Type Rh positive 02/27/24 11:56 Antibody Screen Negative 02/27/24 11:56 All radiology interpretation(s) finalized by discharge ED provider radiology interpretation(s): Chest x-ray from interpretation shows no rib fractures, no pneumothorax or other acute findings. Discharge Plan Discharge Patient Disposition: Home Clinical Impression: Alcoholic intoxication, Chest wall contusion, Vomiting Condition: Stable Prescriptions: New promethazine 25 mg tablet 25 mg PO Q4H PRN (Reason: nausea and vomiting) Qty: 20 0RF No Action albuterol sulfate 90 mcg/actuation Hfa Aerosol Inhaler 2 puff INHALATION QID PRN (Reason: Shortness Of Breath) Hair Skin Nails Gummies 2 tab PO DAILY lisinopril 40 mg tablet 40 mg PO QAM acetaminophen [Tylenol Ex Str Rapid Release] 500 mg Tablet 1,000 mg PO BID PRN (Reason: Pain) potassium gluconate 595 mg (99 mg) Tablet 595 mg PO DAILY hydrocodone-acetaminophen 5-325 mg tablet 1 tab PO Q6H PRN (Reason: pain) Qty: 10 0RF ondansetron 4 mg tablet,disintegrating 4 mg PO Q6H PRN (Reason: nausea and vomiting) Qty: 14 0RF Discharge Orders: Discharge ED (Routine); Ordered 02/27/24 Ordered By: Shanda Levin Referrals: Karen Patrick DO [Primary Care Provider] - Discharge Diet: Advance as tolerated Discharge Activity: Increase activity as tolerated Patient Instructions: Opioid Safety, Pain Management Activity Restrictions/Additional Instructions: Take the Phenergan every 4-6 hours as needed for nausea and vomiting. Try to stop drinking alcohol excessively. You can take Tylenol and/or ibuprofen as needed for pain. Ice to the sore areas. Return if you are having problems. Follow-up as needed with your primary care provider Coding Level of Care Code ED Airway Controller for Isiah Mao
--- NOTE | 2024-02-27 11:30 | CTR_ITS ---
PROCEDURE INFORMATION: Exam: CT Chest With Contrast; Diagnostic Exam date and time: 02/27/2024 12:31 PM Age: 48 years old Clinical indication: Injury or trauma; Fall; Generalized; Blunt trauma (contusions or hematomas); Additional info: Fall, with thoracic and lumbar spine reformations TECHNIQUE: Imaging protocol: Diagnostic computed tomography of the chest with contrast. Radiation optimization: All CT scans at this facility use at least one of these dose optimization techniques: automated exposure control; mA and/or kV adjustment per patient size (includes targeted exams where dose is matched to clinical indication); or iterative reconstruction. Contrast material: OMNI 350; Contrast volume: 100 ml; Contrast route: INTRAVENOUS (IV); COMPARISON: CR (CHEST, ) 02/27/2024 11:45 AM RADIATION DOSE METRICS: Total DLP (mGy-cm): 744.06 FINDINGS: Lungs: Unremarkable. No consolidation. No masses. Pleural spaces: Unremarkable. No pneumothorax. No pleural effusion. Heart: Unremarkable. No cardiomegaly. No pericardial effusion. Lymph nodes: Unremarkable. No enlarged lymph nodes. Vasculature: Unremarkable. No aortic aneurysm. Bones/joints: Unremarkable. No acute fracture. Soft tissues: Unremarkable. PROCEDURE INFORMATION: Exam: CT Abdomen And Pelvis With Contrast Exam date and time: 02/27/2024 12:31 PM Age: 48 years old Clinical indication: Injury or trauma; Fall; Generalized; Blunt trauma (contusions or hematomas); Additional info: Fall, with thoracic and lumbar spine reformations TECHNIQUE: Imaging protocol: Computed tomography of the abdomen and pelvis with contrast. Radiation optimization: All CT scans at this facility use at least one of these dose optimization techniques: automated exposure control; mA and/or kV adjustment per patient size (includes targeted exams where dose is matched to clinical indication); or iterative reconstruction. Contrast material: OMNI 350; Contrast volume: 100 ml; Contrast route: INTRAVENOUS (IV); COMPARISON: CT abdomen pelvis w con* [id number] 09/16/2023 6:18 PM RADIATION DOSE METRICS: Total DLP (mGy-cm): 744.06 FINDINGS: Lungs: Lung bases are clear. No pleural effusion. Liver: Normal. No mass. Gallbladder and biliary ducts: Normal. No calcified stones. No ductal dilation. Pancreas: Normal. No ductal dilation. Spleen: Normal. No splenomegaly. Adrenal glands: Normal. No mass. Kidneys and ureters: Normal. No hydronephrosis. Stomach and bowel: Unremarkable. No obstruction. No mucosal thickening. Appendix: No evidence of appendicitis. Intraperitoneal space: Unremarkable. No free air. No significant fluid collection. Vasculature: Unremarkable. No abdominal aortic aneurysm. Lymph nodes: Unremarkable. No enlarged lymph nodes. Urinary bladder: Unremarkable as visualized. Reproductive: Unremarkable as visualized. Bones/joints: Unremarkable. No acute fracture. Soft tissues: Unremarkable. CT/CT chest abdpel w/*[id number] IMPRESSION: No acute findings. IMPRESSION: No acute findings.
--- NOTE | 2024-02-27 11:30 | CTR_ITS ---
PROCEDURE INFORMATION: Exam: CT Head Without Contrast Exam date and time: 02/27/2024 12:26 PM Age: 48 years old Clinical indication: Injury or trauma; Fall; Blunt trauma (contusions or hematomas); Consciousness not specified TECHNIQUE: Imaging protocol: Computed tomography of the head without contrast. Radiation optimization: All CT scans at this facility use at least one of these dose optimization techniques: automated exposure control; mA and/or kV adjustment per patient size (includes targeted exams where dose is matched to clinical indication); or iterative reconstruction. COMPARISON: CT cervical spin wo con* [id number] 02/27/2024 12:26 PM RADIATION DOSE METRICS: Total DLP (mGy-cm): 1125.6 FINDINGS: Brain: Normal. No hemorrhage. Unremarkable white matter. No mass effect or acute infarct. Cerebral ventricles: No ventriculomegaly. No midline shift. Paranasal sinuses: Visualized sinuses are unremarkable. No fluid levels. Mastoid air cells: Visualized mastoid air cells are well aerated. Bones: Unremarkable. No acute fracture. Soft tissues: Unremarkable. CT/CT head wo con* [id number] IMPRESSION: No acute intracranial abnormality.
--- NOTE | 2024-02-27 11:50 | CTR_ITS ---
PROCEDURE INFORMATION: Exam: CT Thoracic Spine Without Contrast Exam date and time: 02/27/2024 12:31 PM Age: 48 years old Clinical indication: Injury or trauma; Fall; Blunt trauma (contusions or hematomas); Injury details: ETOH TECHNIQUE: Imaging protocol: Computed tomography of the thoracic spine without contrast. Radiation optimization: All CT scans at this facility use at least one of these dose optimization techniques: automated exposure control; mA and/or kV adjustment per patient size (includes targeted exams where dose is matched to clinical indication); or iterative reconstruction. COMPARISON: CT chest abdpel w/*[id number] 02/27/2024 12:31 PM RADIATION DOSE METRICS: Total DLP (mGy-cm): 268.6 FINDINGS: Bones/joints: Vertebral body spurring can be seen at multiple levels. No fracture or subluxation noted. Soft tissues: Unremarkable. CT/CT thoracic spine recon [id number] IMPRESSION: No acute findings.
--- NOTE | 2024-02-27 11:51 | CTR_ITS ---
PROCEDURE INFORMATION: Exam: CT Lumbar Spine Without Contrast Exam date and time: 02/27/2024 12:31 PM Age: 48 years old Clinical indication: Injury or trauma; Fall; Blunt trauma (contusions or hematomas) TECHNIQUE: Imaging protocol: Computed tomography of the lumbar spine without contrast. Radiation optimization: All CT scans at this facility use at least one of these dose optimization techniques: automated exposure control; mA and/or kV adjustment per patient size (includes targeted exams where dose is matched to clinical indication); or iterative reconstruction. COMPARISON: CT lumbar spine wo con* [id number] 08/16/2017 7:37 PM RADIATION DOSE METRICS: Total DLP (mGy-cm): 445.6 FINDINGS: Bones/joints: There is degenerative disc disease along with vertebral body spurring noted at the L3-L4, L4-L5 and L5-S1 level(s). No acute fracture or subluxation noted. Bulging discs are noted at L3-L4, L4-L5 and L5-S1. Soft tissues: Unremarkable. CT/CT lumbar spine recon [id number] IMPRESSION: 1. No acute findings. 2. Multilevel degenerative disc disease 3. Multilevel disc bulge
[2024-02-27 12:05] LABS: Basophils # 0.1 10^3/uL (0.0-0.1); Basophils % 0.5 %; Eosinophils % 0.1 %; Hematocrit 45.6 % (36-47); Lymphocytes # 2.4 10^3/uL (0.8-4.8); Lymphocytes % 24.7 %; Mean Corpuscular Hemoglobin 36.8 pg (27-33); Mean Corpuscular Volume 102.2 fl (85-98); Mean Platelet Volume 8.8 fL (7.4-10.4); Monocytes # 0.8 10^3/uL (0.2-0.9); Monocytes % 8.2 %; Neutrophils % 66.2 %; Nucleated Red Blood Cells % 0 %; Platelet Count 305 10^3/cmm (157-399); Red Blood Count 4.46 10^6/uL (3.85-5.65); Red Cell Distribution Width 12.5 % (12.1-15.1); White Blood Count 9.81 10^3/uL (3.29-11.43)
[2024-02-27] MEDS: sodium chloride 0.9% 1,000 ML 999 ML IV (12:07)
[2024-02-27 12:10] VITALS: RESP 20; O2SAT 97
[2024-02-27] MEDS: ondansetron 2 mg/ML SDV 2 mL 4 MG IVP (12:10)
[2024-02-27] MEDS: morphine 4 mg/mL SDV 1 mL IVP (12:10)
[2024-02-27 12:18] LABS: INR 0.98 (0.8-1.2)
[2024-02-27 12:23] LABS: Alanine Aminotransferase 42 U/L (0-33); Albumin Level 4.4 g/dL (3.5-5.2); Alcohol Level 295 mg/dL (0-10); Alkaline Phosphatase 122 U/L (35-105); Anion Gap 20.3 (5-19); Aspartate Amino Transferase 45 U/L (0-32); Blood Urea Nitrogen 22 mg/dL (6-20); Calcium 8.9 mg/dL (8.5-10.5); Carbon Dioxide 21 mmol/L (22-29); Chloride 99 mmol/L (98-107); Glomerular Filtration Rate 106.3 mL/min (90-130); Glucose 107 mg/dL (65-115); Osmolality Calculated 288 mOsm/kg (285-295); Potassium 3.3 mmol/L (3.5-5.1); Sodium 137 mmol/L (136-145); Total Bilirubin 0.5 mg/dL (0.15-1.2); Total Protein 7.4 g/dL (6.6-8.7)
[2024-02-27 12:45] VITALS: O2SAT 92
[2024-02-27 13:05] VITALS: BP 156/93; O2SAT 94
[2024-02-27 13:18] LABS: Charge for UA Resulting for Rev
[2024-02-27 13:23] LABS: Bilirubin Urine Negative (Negative); Blood Urine Non-haemolysed trace (Negative); Glucose Urine UA Negative (Normal); Ketones Urine Negative (Negative); Leukocyte Esterase Urine Negative (Negative); Nitrate Urine Negative (Negative); Protein Urine Trace (Negative); Urine Appearance Clear (CLEAR); Urine Color Yellow (Yellow)
[2024-02-27 13:28] LABS: Bacteria Urine None Seen /hpf; HCG Qualitative Urine. Negative (Negative); Hyaline Casts Urine 1.65 /lpf; Squamous Epithelial Cell Urine 0-5 /hpf (0-5); WBC Urine 0-5 /hpf (0-5)
[2024-02-27 13:30] VITALS: BP 156/93
[2024-02-27 13:30] LABS: Amphetamines Screen Urine Negative (Negative); Barbiturates Screen Urine Negative (Negative); Benzodiazepines Screen Urine Negative (Negative); Cocaine Screen Urine Negative (Negative); Opiate Screen Urine Positive (Negative); PCP Screen Urine Negative (Negative); THC Screen Urine Positive (Negative)
[2024-02-27] MEDS: LORazepam 2 mg/mL INJ 1 mL 1 MG IVP (13:46)
[2024-02-27] MEDS: diphenhydrAMINE 50 mg/mL SDV 1mL IVP (13:46)
[2024-02-27] MEDS: prochlorperazine 10 mg/2 mL Inj IVP (13:46)
[2024-02-27 14:08] LABS: Specific Gravity, Urine 1.044 (1.005-1.030)
[2024-02-27 14:30] VITALS: BP 156/93
[2024-02-27] MEDS: iohexol 350 mg/mL 500 mL Btl (per mL) IV (15:09)
== END 2024-02-27 14:59 | disposition home or self-care (01) ==
PROVIDERS: Emergency Provider Emergency Medicine; PCP Family Medicine
DX: F10.129 Alcohol abuse with intoxication, unspecified (principal); Y90.8 Blood alcohol level of 240 mg/100 ml or more; R11.11 Vomiting without nausea; S20.212A Contusion of left front wall of thorax, initial encounter; I10 Essential (primary) hypertension; F17.210 Nicotine dependence, cigarettes, uncomplicated; W10.8XXA Fall (on) (from) other stairs and steps, initial encounter
CPT/HCPCS: 70450; 71045; 71260; 72125; 74177; 80053; 80306; 80307; 81003; 81015; 81025; 85025; 85610; 86850; 86900; 96374; 96375; 99285; J0780; J1200; J2060; J2270; J2405; J7030

== ENCOUNTER 2024-05-04 20:52 | Emergency (ER) | payer BC, MEDICAID, SELFPAY ==
[2024-05-04 20:55] VITALS: BP 151/93; PULSE 118; RESP 28; TEMP 37; O2SAT 95; BMI 24.5
--- NOTE | 2024-05-04 20:59 | ECG_ITS ---
[facility]24[facility] Pat Name: Jaz Posada Department: Room: Gender: Female Tack Maker: : 1975 Requested By: Gil Sterling Order Number: [id number] Nellie MD: FRANCINE BORRERO Measurements Intervals [place] Rate: 125 P: 83 SC: 155 QRS: 89 QRSD: 81 T: 61 QT: 306 QTc: 442 Interpretive Statements SINUS TACHYCARDIA ABNORMAL RHYTHM ECG Compared to ECG 09/19/2023 12:09:58 Sinus rhythm no longer present Electronically Signed On 05-06-2024 00:32:48 SENIOR ENGINEER by FRANCINE BORRERO [email or web address]
[2024-05-04 21:27] LABS: Basophils # 0.1 10^3/uL (0.0-0.1); Eosinophils # 0.1 10^3/uL (0.0-0.8); Hematocrit 49.4 % (36-47); Lymphocytes # 4.3 10^3/uL (0.8-4.8); Lymphocytes % 39.7 %; Mean Corpuscular HGB Conc 35.4 g/dL (30-55); Mean Corpuscular Hemoglobin 36.1 pg (27-33); Mean Corpuscular Volume 101.9 fl (85-98); Mean Platelet Volume 9.2 fL (7.4-10.4); Monocytes % 9.7 %; Neutrophils # 5.21 10^3/uL (1.8-7.7); Neutrophils % 48.4 %; Nucleated Red Blood Cells % 0 %; Platelet Count 343 10^3/cmm (157-399); Red Blood Count 4.85 10^6/uL (3.85-5.65); Red Cell Distribution Width 11.8 % (12.1-15.1); White Blood Count 10.76 10^3/uL (3.29-11.43)
[2024-05-04] MEDS: ketorolac 30 mg/mL INJ IVP (21:27)
[2024-05-04] MEDS: ondansetron 2 mg/ML SDV 2 mL 4 MG IVP (21:28)
[2024-05-04 21:34] VITALS: BP 189/116; PULSE 110; RESP 22; O2SAT 90
[2024-05-04 21:41] LABS: Alanine Aminotransferase 65 U/L (0-33); Albumin Level 4.5 g/dL (3.5-5.2); Alkaline Phosphatase 119 U/L (35-105); Anion Gap 17.9 (5-19); Aspartate Amino Transferase 144 U/L (0-32); Blood Urea Nitrogen 15 mg/dL (6-20); Calcium 8.5 mg/dL (8.5-10.5); Carbon Dioxide 22 mmol/L (22-29); Chloride 101 mmol/L (98-107); Creatinine Clr Calc Pharmacy 105.2204; Globulin 2.6 g/dL (1.3-4.6); Glomerular Filtration Rate 106.3 mL/min (90-130); Glucose 146 mg/dL (65-115); Osmolality Calculated 287 mOsm/kg (285-295); Potassium 3.9 mmol/L (3.5-5.1); Sodium 137 mmol/L (136-145); Total Bilirubin 0.6 mg/dL (0.15-1.2); Total Protein 7.1 g/dL (6.6-8.7)
[2024-05-04 21:45] LABS: Bilirubin Urine Negative (Negative); Blood Urine Negative (Negative); Glucose Urine UA Negative (Normal); Ketones Urine Negative (Negative); Leukocyte Esterase Urine Trace (Negative); Nitrate Urine Negative (Negative); Protein Urine Negative (Negative); Specific Gravity, Urine 1.019 (1.005-1.030); Urine Appearance Clear (CLEAR); Urine Color Yellow (Yellow); pH Urine 6.5 (5-7)
[2024-05-04 21:51] LABS: Add Urine Microscopic? YES; Bacteria Urine None Seen /hpf; Hyaline Casts Urine 0-4 /lpf; WBC Urine 0-5 /hpf (0-5)
--- NOTE | 2024-05-04 21:52 | ED_ITS ---
HPI - Back Pain/Injury 2 General: Chief Complaint: Back Pain/Injury Stated Complaint: sob Time Seen by Provider: 05/04/24 21:10 History of Present Illness: Presents with bile kidneys are swollen. There are knots over the areas where her kidneys are. Patient says she has lots of kidney stones. Patient also admits to being an alcoholic. Patient has no known back trauma or overuse. Patient said she has had these before and is usually always her kidneys. Related Data Home Medications Medication Instructions Recorded Confirmed acetaminophen 500 mg tablet 1,000 mg PO BID PRN Pain 12/27/22 09/19/23 potassium gluconate 595 mg (99 mg) 595 mg PO DAILY 12/27/22 09/19/23 tablet Hair Skin Nails Gummies 2 tab PO DAILY 09/19/23 09/19/23 albuterol sulfate 90 mcg/actuation 2 puff inhalation QID PRN 09/19/23 09/19/23 aerosol inhaler Shortness Of Breath lisinopril 40 mg tablet 40 mg PO QAM 09/19/23 09/19/23 Previous Rx's Medication Instructions Recorded hydrocodone 5 mg-acetaminophen 325 1 tab PO Q6H PRN pain #10 tabs 09/16/23 mg tablet ondansetron 4 mg disintegrating 4 mg PO Q6H PRN nausea and 09/16/23 tablet vomiting #14 tabs promethazine 25 mg tablet 25 mg PO Q4H PRN nausea and 02/27/24 vomiting #20 tabs nitrofurantoin 100 mg PO BID 7 days #14 caps 05/04/24 monohydrate/macrocrystals 100 mg capsule (Macrobid) Allergies Allergy/AdvReac Type Severity Reaction Status Date / Time duloxetine [From Cymbalta] Allergy ADR-Halluci Verified 05/04/24 21:02 nating erythromycin base Allergy ADR-Itching Verified 05/04/24 21:02 levofloxacin [From Levaquin] Allergy ADR-Itching Verified 05/04/24 21:02 Penicillins Allergy ADR-Itching Verified 05/04/24 21:02 sulfamethoxazole Allergy ADR-Itching Verified 05/04/24 21:02 [From Bactrim] trimethoprim [From Bactrim] Allergy ADR-Itching Verified 05/04/24 21:02 vancomycin Allergy ADR-Itching Verified 05/04/24 21:02 venlafaxine [From Effexor] Allergy ADR-Halluci Verified 05/04/24 21:02 nating Review of Systems 2 General: Reports: 10 or more systems reviewed and unremarkable except in HPI and below PFSH ED 2 PFSH: Medical History Nephrolithiasis Alcohol abuse Essential hypertension Hidradenitis HTN (hypertension) Seizures Surgical History History of hysterectomy Social History Smoking and tobacco/nicotine status: current every day tobacco/nicotine user cigarettes Alcohol intake: current Substance/Drug Use: current Substance/Drug use frequency: daily Physical Exam 2 Const: COMMON NORMALS: no acute distress, average body habitus, patient oriented x3, no limitations, healthy appearing, alert and well nourished HENMT: COMMON NORMALS: normocephalic, atraumatic, hearing grossly normal bilaterally, external ears normal, Normal external nose present and moist oral mucous membranes HEAD & SCALP: normocephalic and atraumatic NOSE: Normal external nose present EXTERNAL EAR: Yes external ears normal Neck/C-Spine: COMMON NORMALS: no JVD Chest: COMMONS NORMALS: normal inspection of the chest and normal palpation of entire chest wall Resp: COMMON NORMALS: normal respiratory effort, No retractions, No use of accessory muscles and clear to auscultation bilaterally AUSCULTATION: clear to auscultation bilaterally Cardio: COMMON NORMALS: no JVD, regular rate, regular rhythm, S1 normal heart sound present, S2 normal heart sound present, No gallops present (Cardio), No clicks present (Cardio), No murmurs present (Cardio) and No rub (Cardio) R ATE: regular rate RHYTHM: regular rhythm HEART SOUNDS: S1 normal heart sound present and S2 normal heart sound present GI: COMMON NORMALS: Normal to inspection, nondistended, normoactive bowel sounds present, Soft to palpation, non-tender, No hepatosplenomegaly present and no masses PALPATION: Yes Soft to palpation and Yes No hepatosplenomegaly present Back/Pelvis: OTHER: Tender to palpate over bilateral lumbar flank areas Neuro: COMMON NORMALS: patient oriented x3 SENSORIUM/ORIENTATION: Yes alert Course 2 Vital Signs: Vital signs: Vital Signs Temperature 98.6 F 05/04/24 20:55 Pulse Rate 98 05/04/24 22:14 Respiratory Rate 16 05/04/24 22:14 Blood Pressure 167/108 05/04/24 22:14 Pulse Oximetry 94 05/04/24 22:14 Oxygen Delivery Me thod Room Air 05/04/24 22:14 MDM - Back Pain/Injury Medical Decision Making CBC CMP unremarkable except for mildly elevated liver enzymes, urinalysis showed trace leukocyte Estrace otherwise benign, patient was given Toradol Norflex Macrobid and Zofran. Patient be discharged home. Medical Records I reviewed the patient's medical records. Labs I reviewed the patient's lab results. 05/04/24 21:20 05/04/24 21:20 Laboratory Results WBC 10.76 10^3/uL (3.29-11.43) 05/04/24 21:20 RBC 4.85 10^6/uL (3.85-5.65) 05/04/24 21:20 Hgb 17.50 g/dL (11.27-16.99) H 05/04/24 21:20 Hct 49.4 % (36-47) H 05/04/24 21:20 MCV 101.9 fl (85-98) H 05/04/24 21:20 MCH 36.1 pg (27-33) H 05/04/24 21:20 MCHC 35.4 g/dL (30-55) 05/04/24 21:20 RDW 11.8 % (12.1-15.1) L 05/04/24 21:20 Plt Count 343 10^3/cmm (157-399) 05/04/24 21:20 MPV 9.2 fL (7.4-10.4) 05/04/24 21:20 Neut % (Auto) 48.4 % 05/04/24 21:20 Lymph % (Auto) 39.7 % 05/04/24 21:20 [place] % (Auto) 9.7 % 05/04/24 21:20 Eos % (Auto) 1.0 % 05/04/24 21:20 Baso % (Auto) 1.0 % 05/04/24 21:20 Neut # (Auto) 5.21 10^3/uL (1.8-7.7) 05/04/24 21:20 Lymph # (Auto) 4.3 10^3/uL (0.8-4.8) 05/04/24 21:20 [place] # (Auto) 1.0 10^3/uL (0.2-0.9) H 05/04/24 21:20 Eos # (Auto) 0.1 10^3/uL (0.0-0.8) 05/04/24 21:20 Baso # (Auto) 0.1 10^3/uL (0.0-0.1) 05/04/24 21:20 Nucleated RBC % (auto) 0 % 05/04/24 21:20 Nucleated RBCs # 0.0 /100WBC 05/04/24 21:20 Sodium 137 mmol/L (136-145) 05/04/24 21:20 Potassium 3.9 mmol/L (3.5-5.1) 05/04/24 21:20 Chloride 101 mmol/L (98-107) 05/04/24 21:20 Carbon Dioxide 22 mmol/L (22-29) 05/04/24 21:20 Anion Gap 17.9 (5-19) 05/04/24 21:20 BUN 15 mg/dL (6-20) 05/04/24 21:20 Creatinine 0.6 mg/dL (0.5-0.9) 05/04/24 21:20 GFR Calculation 106.3 mL/min (90-130) 05/04/24 21:20 Glucose 146 mg/dL (65-115) H 05/04/24 21:20 Calculated Osmolality 287 mOsm/kg (285-295) 05/04/24 21:20 Calcium 8.5 mg/dL (8.5-10.5) 05/04/24 21:20 Total Bilirubin 0.6 mg/dL (0.15-1.2) 05/04/24 21:20 AST 144 U/L (0-32) H 05/04/24 21:20 ALT 65 U/L (0-33) H 05/04/24 21:20 Alkaline Phosphatase 119 U/L (35-105) H 05/04/24 21:20 Total Protein 7.1 g/dL (6.6-8.7) 05/04/24 21:20 Albumin 4.5 g/dL (3.5-5.2) 05/04/24 21: Globulin 2.6 g/dL (1.3-4.6) 05/04/24 21:20 Urine Color Yellow (Yellow) 05/04/24 21: Urine Appearance Clear (CLEAR) 05/04/24 21: Urine pH 6.5 (5-7) 05/04/24 21:33 Ur Specific [place] 1.019 (1.005-1.030) 05/04/24 21: Urine Protein Negative (Negative) 05/04/24 21: Urine Glucose (UA) Negative (Normal) 05/04/24 21: Urine Ketones Negative (Negative) 05/04/24 21: Urine Blood Negative (Negative) 05/04/24 21: Urine Nitrate Negative (Negative) 05/04/24 21: Urine Bilirubin Negative (Negative) 05/04/24 21: Urine Urobilinogen 1.0 mg/dL (Negative) 05/04/24 21: Ur Leukocyte Esterase Trace (Negative) A 05/04/24 21: Urine RBC 3-5 /hpf (0-2) 05/04/24 21: Urine WBC 0-5 /hpf (0-5) 05/04/24 21: Ur Squamous Epith Cells 11-20 /hpf (0-5) 05/04/24 21: Amorphous Sediment Not Reportable 05/04/24 21: Urine Bacteria None seen /hpf (NONE) 05/04/24 21: Hyaline Casts 0-4 /lpf H 05/04/24 21:33 All radiology interpretation(s) finalized by discharge Discharge Plan Discharge Patient Disposition: Home Clinical Impression: Pyelonephritis Condition: Stable Prescriptions: New nitrofurantoin monohyd/m-cryst [Macrobid] 100 mg capsule 100 mg PO BID 7 Days Qty: 14 0RF Rx Instructions: must administer with a meal/food No Action albuterol sulfate 90 mcg/actuation Hfa Aerosol Inhaler 2 puff INHALATION QID PRN (Reason: Shortness Of Breath) Hair Skin Nails Gummies 2 tab PO DAILY lisinopril 40 mg tablet 40 mg PO QAM acetaminophen [Tylenol Ex Str Rapid Release] 500 mg Tablet 1,000 mg PO BID PRN (Reason: Pain) potassium gluconate 595 mg (99 mg) Tablet 595 mg PO DAILY hydrocodone-acetaminophen 5-325 mg tablet 1 tab PO Q6H PRN (Reason: pain) Qty: 10 0RF ondansetron 4 mg tablet,disintegrating 4 mg PO Q6H PRN (Reason: nausea and vomiting) Qty: 14 0RF promethazine 25 mg tablet 25 mg PO Q4H PRN (Reason: nausea and vomiting) Qty: 20 0RF Discharge Orders: Discharge ED (Routine); Ordered 05/04/24 Ordered By: Gil Sterling Referrals: Karen Patrick DO [Primary Care Provider] - Patient Instructions: Kidney Infection (ED) Activity Restrictions/Additional Instructions: Antibiotic has been sent to your pharmacy, please pick it up tomorrow and start taking as directed. Thank you for choosing [facility] for your healthcare needs today. Please realize that you were seen in the emergency department and that we are providing you with an emergency medical screening exam and this may not be a complete and all exclusive of all testing and/or medical workup we may need to determine your element or severity of your illness. It is very important that you follow-up as instructed with your primary care provider or specialist for the additional evaluation and to discuss your medical treatment plan. You may return to the emergency department should you have concerns or if your condition changes or worsens in any way. Coding Level of Care Code ED [employer] for Isiah Mao
[2024-05-04 22:14] VITALS: BP 167/108; PULSE 98; RESP 16; O2SAT 94
[2024-05-04] MEDS: nitrofurantoin SR (BID) 100 mg Capsule PO (22:16)
[2024-05-04] MEDS: orphenadrine 30 mg/mL Inj 2 mL 60 MG IM (22:17)
[2024-05-04 22:38] VITALS: BP 167/108; PULSE 113; O2SAT 99
== END 2024-05-04 22:39 | disposition home or self-care (01) ==
PROVIDERS: Emergency Provider Emergency Medicine; PCP Family Medicine
DX: N12 Tubulo-interstitial nephritis, not specified as acute or chronic (principal); Z72.0 Tobacco use; I10 Essential (primary) hypertension
CPT/HCPCS: 80053; 81001; 85025; 93005; 96374; 96375; 99284; J1885; J2360; J2405

== ENCOUNTER 2024-05-25 03:06 | Emergency (ER) | payer BC, MEDICAID, SELFPAY ==
[2024-05-25] VITALS (13 sets, daily range): BP systolic 117–146; BP diastolic 91–107; PULSE 88–122; RESP 16–19; TEMP 36.6; O2SAT 91–97; BMI 24.0
--- NOTE | 2024-05-25 03:20 | W.ED.ABDPA2 ---
Documented by User: Mera Chu MD 05/25/24 03:22 HPI - Abdominal Pain General: Chief Complaint: Abdominal Pain Stated Complaint: flank pain Time Seen by Provider: 05/25/24 03:12 History of Present Illness: 48-year-old female who presents emergency room with bilateral flank pain. She was seen here about 3 weeks ago and diagnosed with kidney infection and started on antibiotics. She then saw her primary who changed her antibiotics and started her on pain medications. She ran out of pain meds last night. She reports here with worsening pain. No fevers. Related Data Home Medications Medication Instructions Recorded Confirmed acetaminophen 500 mg tablet 1,000 mg PO BID PRN Pain 12/27/22 09/19/23 potassium gluconate 595 mg (99 mg) 595 mg PO DAILY 12/27/22 09/19/23 tablet Hair Skin Nails Gummies 2 tab PO DAILY 09/19/23 09/19/23 albuterol sulfate 90 mcg/actuation 2 puff inhalation QID PRN 09/19/23 09/19/23 aerosol inhaler Shortness Of Breath lisinopril 40 mg tablet 40 mg PO QAM 09/19/23 09/19/23 Previous Rx's Medication Instructions Recorded hydrocodone 5 mg-acetaminophen 325 1 tab PO Q6H PRN pain #10 tabs 09/16/23 mg tablet ondansetron 4 mg disintegrating 4 mg PO Q6H PRN nausea and 09/16/23 tablet vomiting #14 tabs promethazine 25 mg tablet 25 mg PO Q4H PRN nausea and 02/27/24 vomiting #20 tabs Allergies Allergy/AdvReac Type Severity Reaction Status Date / Time duloxetine [From Cymbalta] Allergy ADR-Halluci Verified 05/25/24 03:17 nating erythromycin base Allergy ADR-Itching Verified 05/25/24 03:17 levofloxacin [From Levaquin] Allergy ADR-Itching Verified 05/25/24 03:17 Penicillins Allergy ADR-Itching Verified 05/25/24 03:17 sulfamethoxazole Allergy ADR-Itching Verified 05/25/24 03:17 [From Bactrim] trimethoprim [From Bactrim] Allergy ADR-Itching Verified 05/25/24 03:17 vancomycin Allergy ADR-Itching Verified 05/25/24 03:17 venlafaxine [From Effexor] Allergy ADR-Halluci Verified 05/25/24 03:17 crissy Review of Systems Narrative: Constitutional symptoms: Negative except as documented in HPI. Skin symptoms: Negative except as documented in HPI. Eye symptoms: Negative except as documented in HPI. ENMT symptoms: Negative except as documented in HPI. Respiratory symptoms: Negative except as documented in HPI. Cardiovascular symptoms: Negative except as documented in HPI. Gastrointestinal symptoms: Negative except as documented in HPI. Genitourinary symptoms: Negative except as documented in HPI. Musculoskeletal symptoms: Negative except as documented in HPI. Neurologic symptoms: Negative except as documented in HPI. Psychiatric symptoms: Negative except as documented in HPI. Endocrine symptoms: Negative except as documented in HPI. PFSH ED PFSH: Medical History Nephrolithiasis Alcohol abuse Essential hypertension Hidradenitis HTN (hypertension) Seizures Surgical History History of hysterectomy Social History Smoking and tobacco/nicotine status: current every day tobacco/nicotine user cigarettes Alcohol intake: current Substance/Drug Use: current Substance/Drug use frequency: daily Physical Exam Narrative: EXAM NARRATIVE: General: Alert, no acute distress. Skin: Warm, dry. Head: Normocephalic, atraumatic. Neck: Supple, trachea midline. Eye: Extraocular movements are intact. Ears, nose, mouth and throat: mucosa moist. Cardiovascular: Regular, Normal peripheral perfusion. Respiratory: Lungs are clear to auscultation, respirations are non-labored, breath sounds are equal, Symmetrical chest wall expansion. Gastrointestinal: Soft, Nontender, Non distended Musculoskeletal: Normal ROM, no deformity. Neurological: Alert and oriented, No focal neurological deficit observed. Psychiatric: Cooperative, patient is tearful Course Vital Signs: Vital signs: Vital Signs Temperature 97.9 F 05/25/24 03:12 Pulse Rate 100 05/25/24 06:14 Respiratory Rate 19 H 05/25/24 04:00 Blood Pressure 130/100 05/25/24 06:14 Pulse Oximetry 94 05/25/24 06:14 Oxygen Delivery Me thod Room Air 05/25/24 05:00 MDM - Abdominal Pain Medical Decision Making Medical decision making: Differential diagnosis including but not limited to and based on the above HPI, review of systems and physical exam: Ureterolithiasis. Urinary tract infection. Appendicitis. Cholecystis. Musculoskeletal / back pain. Pyelonephritis Orders placed to evaluate differential diagnosis based on the above differential, HPI and physical exam Lab Review: Laboratory results were reviewed and interpreted by myself the emergency room physician. I reviewed the patient's medical record. Reexamination: Lab Data 05/25/24 03:22 05/25/24 03:22 Labs/Radiology: Radiology Impressions Abdomen/Pelvis CT 05/25/24 04:09 IMPRESSION: 1. No acute findings. 2. Three 3 mm, 1 mm, and 1 mm nonobstructing calculi in the lower pole of the right kidney and a 1 mm nonobstructing calculus in the lower pole of the left kidney. No hydronephrosis and no ureteral calculi. 3. Previous hysterectomy. 4. No acute fractures. Advanced degenerative disc disease at L3-L4, L4-L5 and L5-S1 levels. Laboratory Results WBC 7.50 10^3/uL (3.29-11.43) 05/25/24 03:22 RBC 4.72 10^6/uL (3.85-5.65) 05/25/24 03:22 Hgb 17.00 g/dL (11.27-16.99) H 05/25/24 03:22 Hct 47.2 % (36-47) H 05/25/24 03:22 MCV 100.0 fl (85-98) H 05/25/24 03:22 MCH 36.0 pg (27-33) H 05/25/24 03:22 MCHC 36.0 g/dL (30-55) 05/25/24 03:22 RDW 11.8 % (12.1-15.1) L 05/25/24 03:22 Plt Count 333 10^3/cmm (157-399) 05/25/24 03:22 MPV 9.4 fL (7.4-10.4) 05/25/24 03:22 Neut % (Auto) 45.0 % 05/25/24 03:22 Lymph % (Auto) 41.6 % 05/25/24 03:22 [place] % (Auto) 8.3 % 05/25/24 03:22 Eos % (Auto) 3.1 % 05/25/24 03:22 Baso % (Auto) 1.7 % 05/25/24 03:22 Neut # (Auto) 3.38 10^3/uL (1.8-7.7) 05/25/24 03:22 Lymph # (Auto) 3.1 10^3/uL (0.8-4.8) 05/25/24 03:22 [place] # (Auto) 0.6 10^3/uL (0.2-0.9) 05/25/24 03:22 Eos # (Auto) 0.2 10^3/uL (0.0-0.8) 05/25/24 03:22 Baso # (Auto) 0.1 10^3/uL (0.0-0.1) 05/25/24 03:22 Nucleated RBC % (auto) 0 % 05/25/24 03:22 Nucleated RBCs # 0.0 /100WBC 05/25/24 03:22 Sodium 137 mmol/L (136-145) 05/25/24 03:22 Potassium 3.9 mmol/L (3.5-5.1) 05/25/24 03:22 Chloride 102 mmol/L (98-107) 05/25/24 03:22 Carbon Dioxide 21 mmol/L (22-29) L 05/25/24 03:22 Anion Gap 17.9 (5-19) 05/25/24 03:22 BUN 22 mg/dL (6-20) H 05/25/24 03:22 Creatinine 0.7 mg/dL (0.5-0.9) 05/25/24 03:22 GFR Calculation 88.9 mL/min (90-130) L 05/25/24 03:22 Glucose 135 mg/dL (65-115) H 05/25/24 03:22 Calculated Osmolality 289 mOsm/kg (285-295) 05/25/24 03:22 Lactic Acid 1.8 mmol/L (0.5-2.2) 05/25/24 03:22 Calcium 8.7 mg/dL (8.5-10.5) 05/25/24 03:22 Total Bilirubin 0.5 mg/dL (0.15-1.2) 05/25/24 03:22 AST 801 U/L (0-32) H 05/25/24 03:22 ALT 289 U/L (0-33) H 05/25/24 03:22 Alkaline Phosphatase 121 U/L (35-105) H 05/25/24 03:22 C-Reactive Protein 3.0 mg/L (0.0-4.9) 05/25/24 03:22 Total Protein 6.6 g/dL (6.6-8.7) 05/25/24 03:22 Albumin 4.0 g/dL (3.5-5.2) 05/25/24 03:22 Globulin 2.6 g/dL (1.3-4.6) 05/25/24 03:22 Urine Color Yellow (Yellow) 05/25/24 03:22 Urine Appearance Clear (CLEAR) 05/25/24 03:22 Urine pH 6.0 (5-7) 05/25/24 03:22 Ur Specific Branch 1.018 (1.005-1.030) 05/25/24 03:22 Urine Protein Negative (Negative) 05/25/24 03:22 Urine Glucose (UA) Negative (Normal) 05/25/24 03:22 Urine Ketones Negative (Negative) 05/25/24 03:22 Urine Blood Negative (Negative) 05/25/24 03:22 Urine Nitrate Negative (Negative) 05/25/24 03:22 Urine Bilirubin Negative (Negative) 05/25/24 03:22 Urine Urobilinogen 0.2 mg/dL (Negative) 05/25/24 03:22 Ur Leukocyte Esterase Negative (Negative) 05/25/24 03:22 Urine RBC 0-2 /hpf (0-2) 05/25/24 03:22 Urine WBC 0-5 /hpf (0-5) 05/25/24 03:22 Ur Squamous Epith Cells 6-10 /hpf (0-5) 05/25/24 03:22 Amorphous Sediment Not Reportable 05/25/24 03:22 Urine Bacteria None seen /hpf (NONE) 05/25/24 03:22 Hyaline Casts 0-4 /lpf H 05/25/24 03:22 Ethyl Alcohol 161 mg/dL (0-10) H 05/25/24 03:22 Discharge Plan Discharge Patient Disposition: Home Clinical Impression: Low back pain, Alcohol abuse, Alcohol intoxication, Transaminitis Condition: Stable Prescriptions: No Action albuterol sulfate 90 mcg/actuation Hfa Aerosol Inhaler 2 puff INHALATION QID PRN (Reason: Shortness Of Breath) Hair Skin Nails Gummies 2 tab PO DAILY lisinopril 40 mg tablet 40 mg PO QAM acetaminophen [Tylenol Ex Str Rapid Release] 500 mg Tablet 1,000 mg PO BID PRN (Reason: Pain) potassium gluconate 595 mg (99 mg) Tablet 595 mg PO DAILY hydrocodone-acetaminophen 5-325 mg tablet 1 tab PO Q6H PRN (Reason: pain) Qty: 10 0RF ondansetron 4 mg tablet,disintegrating 4 mg PO Q6H PRN (Reason: nausea and vomiting) Qty: 14 0RF promethazine 25 mg tablet 25 mg PO Q4H PRN (Reason: nausea and vomiting) Qty: 20 0RF Discharge Orders: Discharge ED (Routine); Ordered 05/25/24 Ordered By: Martín Shaffer Referrals: Karen Patrick, [Primary Care Provider] - Discharge Diet: Usual diet Discharge Activity: Increase activity as tolerated Patient Instructions: Abuse of Alcohol (ED), Opioid Safety, Pain Management Activity Restrictions/Additional Instructions: You must stop drinking. You are starting to have serious damage to your liver which may end up being irreversible. Thank you for choosing [facility] for your healthcare needs today. Please realize this is an emergency room and that we are providing you with a medical screening exam and this may not be complete and all inclusive of all the testing and or work up that you may need to determine your ailment or severity of your illness. You have been screened and evaluated and felt safe for discharge. Health conditions do change or evolve sometimes and as such it is important that you follow up with your Primary Doctor to be re checked, 3-5 days is a general good time frame for follow up. You are always welcome to return to the ED for re assessment if your symptoms are worsening or you have new concerns Coding Level of Care Code ED Telecom Manager for Chg Fwd Documented by User: Martín Shaffer MD 05/25/24 06:19 HPI - Abdominal Pain General: Chief Complaint: Abdominal Pain Stated Complaint: flank pain Time Seen by Provider: 05/25/24 03:12 Related Data Home Medications Medication Instructions Recorded Confirmed acetaminophen 500 mg tablet 1,000 mg PO BID PRN Pain 12/27/22 09/19/23 potassium gluconate 595 mg (99 mg) 595 mg PO DAILY 12/27/22 09/19/23 tablet Hair Skin Nails Gummies 2 tab PO DAILY 09/19/23 09/19/23 albuterol sulfate 90 mcg/actuation 2 puff inhalation QID PRN 09/19/23 09/19/23 aerosol inhaler Shortness Of Breath lisinopril 40 mg tablet 40 mg PO QAM 09/19/23 09/19/23 Previous Rx's Medication Instructions Recorded hydrocodone 5 mg-acetaminophen 325 1 tab PO Q6H PRN pain #10 tabs 09/16/23 mg tablet ondansetron 4 mg disintegrating 4 mg PO Q6H PRN nausea and 09/16/23 tablet vomiting #14 tabs promethazine 25 mg tablet 25 mg PO Q4H PRN nausea and 02/27/24 vomiting #20 tabs Allergies Allergy/AdvReac Type Severity Reaction Status Date / Time duloxetine [From Cymbalta] Allergy ADR-Halluci Verified 05/25/24 03:17 nating erythromycin base Allergy ADR-Itching Verified 05/25/24 03:17 levofloxacin [From Levaquin] Allergy ADR-Itching Verified 05/25/24 03:17 Penicillins Allergy ADR-Itching Verified 05/25/24 03:17 sulfamethoxazole Allergy ADR-Itching Verified 05/25/24 03:17 [From Bactrim] trimethoprim [From Bactrim] Allergy ADR-Itching Verified 05/25/24 03:17 vancomycin Allergy ADR-Itching Verified 05/25/24 03:17 venlafaxine [From Effexor] Allergy ADR-Halluci Verified 05/25/24 03:17 nating [facility] ED PFSH: Medical History Nephrolithiasis Alcohol abuse Essential hypertension Hidradenitis HTN (hypertension) Seizures Surgical History History of hysterectomy Social History Smoking and tobacco/nicotine status: current every day tobacco/nicotine user cigarettes Alcohol intake: current Substance/Drug Use: current Substance/Drug use frequency: daily Course Vital Signs: Vital signs: Vital Signs Temperature 97.9 F 05/25/24 03:12 Pulse Rate 100 05/25/24 06:14 Respiratory Rate 19 H 05/25/24 04:00 Blood Pressure 130/100 05/25/24 06:14 Pulse Oximetry 94 05/25/24 06:14 Oxygen Delivery Me thod Room Air 05/25/24 05:00 MDM - Abdominal Pain Medical Decision Making Medical decision making: Differential diagnosis including but not limited to and based on the above HPI, review of systems and physical exam: Ureterolithiasis. Urinary tract infection. Appendicitis. Cholecystis. Musculoskeletal / back pain. Pyelonephritis Orders placed to evaluate differential diagnosis based on the above differential, HPI and physical exam Lab Review: Laboratory results were reviewed and interpreted by myself the emergency room physician. I reviewed the patient's medical record. Reexamination: CT showed no acute finding she stable for discharge she is follow-up with PCP return if worsening. Lab Data 05/25/24 03:22 05/25/24 03:22 Labs/Radiology: Radiology Impressions Abdomen/Pelvis CT 05/25/24 04:09 IMPRESSION: 1. No acute findings. 2. Three 3 mm, 1 mm, and 1 mm nonobstructing calculi in the lower pole of the right kidney and a 1 mm nonobstructing calculus in the lower pole of the left kidney. No hydronephrosis and no ureteral calculi. 3. Previous hysterectomy. 4. No acute fractures. Advanced degenerative disc disease at L3-L4, L4-L5 and L5-S1 levels. Laboratory Results WBC 7.50 10^3/uL (3.29-11.43) 05/25/24 03:22 RBC 4.72 10^6/uL (3.85-5.65) 05/25/24 03:22 Hgb 17.00 g/dL (11.27-16.99) H 05/25/24 03:22 Hct 47.2 % (36-47) H 05/25/24 03:22 MCV 100.0 fl (85-98) H 05/25/24 03:22 MCH 36.0 pg (27-33) H 05/25/24 03:22 MCHC 36.0 g/dL (30-55) 05/25/24 03:22 RDW 11.8 % (12.1-15.1) L 05/25/24 03:22 Plt Count 333 10^3/cmm (157-399) 05/25/24 03:22 MPV 9.4 fL (7.4-10.4) 05/25/24 03:22 Neut % (Auto) 45.0 % 05/25/24 03:22 Lymph % (Auto) 41.6 % 05/25/24 03:22 [place] % (Auto) 8.3 % 05/25/24 03:22 Eos % (Auto) 3.1 % 05/25/24 03:22 Baso % (Auto) 1.7 % 05/25/24 03:22 Neut # (Auto) 3.38 10^3/uL (1.8-7.7) 05/25/24 03:22 Lymph # (Auto) 3.1 10^3/uL (0.8-4.8) 05/25/24 03:22 [place] # (Auto) 0.6 10^3/uL (0.2-0.9) 05/25/24 03:22 Eos # (Auto) 0.2 10^3/uL (0.0-0.8) 05/25/24 03:22 Baso # (Auto) 0.1 10^3/uL (0.0-0.1) 05/25/24 03:22 Nucleated RBC % (auto) 0 % 05/25/24 03:22 Nucleated RBCs # 0.0 /100WBC 05/25/24 03:22 Sodium 137 mmol/L (136-145) 05/25/24 03:22 Potassium 3.9 mmol/L (3.5-5.1) 05/25/24 03:22 Chloride 102 mmol/L (98-107) 05/25/24 03:22 Carbon Dioxide 21 mmol/L (22-29) L 05/25/24 03:22 Anion Gap 17.9 (5-19) 05/25/24 03:22 BUN 22 mg/dL (6-20) H 05/25/24 03:22 Creatinine 0.7 mg/dL (0.5-0.9) 05/25/24 03:22 GFR Calculation 88.9 mL/min (90-130) L 05/25/24 03:22 Glucose 135 mg/dL (65-115) H 05/25/24 03:22 Calculated Osmolality 289 mOsm/kg (285-295) 05/25/24 03:22 Lactic Acid 1.8 mmol/L (0.5-2.2) 05/25/24 03:22 Calcium 8.7 mg/dL (8.5-10.5) 05/25/24 03:22 Total Bilirubin 0.5 mg/dL (0.15-1.2) 05/25/24 03:22 AST 801 U/L (0-32) H 05/25/24 03:22 ALT 289 U/L (0-33) H 05/25/24 03:22 Alkaline Phosphatase 121 U/L (35-105) H 05/25/24 03:22 C-Reactive Protein 3.0 mg/L (0.0-4.9) 05/25/24 03:22 Total Protein 6.6 g/dL (6.6-8.7) 05/25/24 03:22 Albumin 4.0 g/dL (3.5-5.2) 05/25/24 03:22 Globulin 2.6 g/dL (1.3-4.6) 05/25/24 03:22 Urine Color Yellow (Yellow) 05/25/24 03:22 Urine Appearance Clear (CLEAR) 05/25/24 03:22 Urine pH 6.0 (5-7) 05/25/24 03:22 Ur Specific Branch 1.018 (1.005-1.030) 05/25/24 03:22 Urine Protein Negative (Negative) 05/25/24 03:22 Urine Glucose (UA) Negative (Normal) 05/25/24 03:22 Urine Ketones Negative (Negative) 05/25/24 03:22 Urine Blood Negative (Negative) 05/25/24 03:22 Urine Nitrate Negative (Negative) 05/25/24 03:22 Urine Bilirubin Negative (Negative) 05/25/24 03:22 Urine Urobilinogen 0.2 mg/dL (Negative) 11/27/24 03:22 Ur Leukocyte Esterase Negative (Negative) 05/25/24 03:22 Urine RBC 0-2 /hpf (0-2) 05/25/24 03:22 Urine WBC 0-5 /hpf (0-5) 05/25/24 03:22 Ur Squamous Epith Cells 6-10 /hpf (0-5) 05/25/24 03:22 Amorphous Sediment Not Reportable 05/25/24 03:22 Urine Bacteria None seen /hpf (NONE) 05/25/24 03:22 Hyaline Casts 0-4 /lpf H 05/25/24 03:22 Ethyl Alcohol 161 mg/dL (0-10) H 05/25/24 03:22 All radiology interpretation(s) finalized by discharge Discharge Plan Discharge Patient Disposition: Home Clinical Impression: Low back pain, Alcohol abuse, Alcohol intoxication, Transaminitis Condition: Stable Prescriptions: No Action albuterol sulfate 90 mcg/actuation Hfa Aerosol Inhaler 2 puff INHALATION QID PRN (Reason: Shortness Of Breath) Hair Skin Nails Gummies 2 tab PO DAILY lisinopril 40 mg tablet 40 mg PO QAM acetaminophen [Tylenol Ex Str Rapid Release] 500 mg Tablet 1,000 mg PO BID PRN (Reason: Pain) potassium gluconate 595 mg (99 mg) Tablet 595 mg PO DAILY hydrocodone-acetaminophen 5-325 mg tablet 1 tab PO Q6H PRN (Reason: pain) Qty: 10 0RF ondansetron 4 mg tablet,disintegrating 4 mg PO Q6H PRN (Reason: nausea and vomiting) Qty: 14 0RF promethazine 25 mg tablet 25 mg PO Q4H PRN (Reason: nausea and vomiting) Qty: 20 0RF Discharge Orders: Discharge ED (Routine); Ordered 05/25/24 Ordered By: Martín Shaffer Referrals: Karen Patrick DO [Primary Care Provider] - Discharge Diet: Usual diet Discharge Activity: Increase activity as tolerated Patient Instructions: Abuse of Alcohol (ED), Opioid Safety, Pain Management Activity Restrictions/Additional Instructions: You must stop drinking. You are starting to have serious damage to your liver which may end up being irreversible. Thank you for choosing [facility] for your healthcare needs today. Please realize this is an emergency room and that we are providing you with a medical screening exam and this may not be complete and all inclusive of all the testing and or work up that you may need to determine your ailment or severity of your illness. You have been screened and evaluated and felt safe for discharge. Health conditions do change or evolve sometimes and as such it is important that you follow up with your Primary Doctor to be re checked, 3-5 days is a general good time frame for follow up. You are always welcome to return to the ED for re assessment if your symptoms are worsening or you have new concerns Coding Level of Care Code ED Telecom Manager for Isiah Mao
[2024-05-25 03:40] LABS: Basophils # 0.1 10^3/uL (0.0-0.1); Basophils % 1.7 %; Eosinophils # 0.2 10^3/uL (0.0-0.8); Eosinophils % 3.1 %; Hematocrit 47.2 % (36-47); Lymphocytes # 3.1 10^3/uL (0.8-4.8); Lymphocytes % 41.6 %; Mean Platelet Volume 9.4 fL (7.4-10.4); Monocytes # 0.6 10^3/uL (0.2-0.9); Monocytes % 8.3 %; Neutrophils # 3.38 10^3/uL (1.8-7.7); Nucleated Red Blood Cells % 0 %; Platelet Count 333 10^3/cmm (157-399); Red Blood Count 4.72 10^6/uL (3.85-5.65); Red Cell Distribution Width 11.8 % (12.1-15.1)
[2024-05-25 03:47] LABS: Bilirubin Urine Negative (Negative); Blood Urine Negative (Negative); Glucose Urine UA Negative (Normal); Ketones Urine Negative (Negative); Leukocyte Esterase Urine Negative (Negative); Nitrate Urine Negative (Negative); Protein Urine Negative (Negative); Specific Gravity, Urine 1.018 (1.005-1.030); Urine Appearance Clear (CLEAR); Urine Color Yellow (Yellow); Urobilinogen Urine 0.2 mg/dL (Negative)
[2024-05-25 03:52] LABS: Bacteria Urine None Seen /hpf; Hyaline Casts Urine 0-4 /lpf; RBC Urine 0-2 /hpf (0-2); WBC Urine 0-5 /hpf (0-5)
[2024-05-25 03:56] LABS: Lactic Sepsis W/Reflex 1.8 mmol/L (0.5-2.2)
[2024-05-25 03:57] LABS: Alanine Aminotransferase 289 U/L (0-33); Alkaline Phosphatase 121 U/L (35-105); Anion Gap 17.9 (5-19); Blood Urea Nitrogen 22 mg/dL (6-20); Calcium 8.7 mg/dL (8.5-10.5); Carbon Dioxide 21 mmol/L (22-29); Chloride 102 mmol/L (98-107); Creatinine Clr Calc Pharmacy 89.3534; Globulin 2.6 g/dL (1.3-4.6); Glomerular Filtration Rate 88.9 mL/min (90-130); Glucose 135 mg/dL (65-115); Osmolality Calculated 289 mOsm/kg (285-295); Potassium 3.9 mmol/L (3.5-5.1); Sodium 137 mmol/L (136-145); Total Bilirubin 0.5 mg/dL (0.15-1.2); Total Protein 6.6 g/dL (6.6-8.7)
[2024-05-25 04:06] LABS: Aspartate Amino Transferase 801 U/L (0-32)
--- NOTE | 2024-05-25 04:09 | CTR_ITS ---
PROCEDURE INFORMATION: Exam: CT Abdomen And Pelvis With Contrast Exam date and time: 05/25/2024 4:30 AM Age: 48 years old Clinical indication: Nausea and vomiting; Abdominal pain; Generalized; Prior surgery; Surgery date: 6+ months; Surgery type: Hysterectomy TECHNIQUE: Imaging protocol: Computed tomography of the abdomen and pelvis with contrast. Radiation optimization: All CT scans at this facility use at least one of these dose optimization techniques: automated exposure control; mA and/or kV adjustment per patient size (includes targeted exams where dose is matched to clinical indication); or iterative reconstruction. Contrast material: OMNI 350; Contrast volume: 100 ml; Contrast route: INTRAVENOUS (IV); COMPARISON: CT chest abdpel w/*[id number] 02/27/2024 12:31 PM RADIATION DOSE METRICS: Total DLP (mGy-cm): 430.6 FINDINGS: Liver: Normal. No liver mass. Gallbladder and biliary ducts: No gallstones, gallbladder wall thickening or pericholecystic fluid. Common bile duct is not dilated. Pancreas: Unremarkable. No significant pancreatic duct dilation. Spleen: Normal. No splenomegaly. Adrenal glands: Normal. No adrenal mass. Kidneys and ureters: Three 3 mm, 1 mm, and 1 mm nonobstructing calculi in the lower pole of the right kidney and a 1 mm nonobstructing calculus in the lower pole of the left kidney. No hydronephrosis and no ureteral calculi. Stomach and bowel: No evidence of bowel obstruction, ileus, diverticulitis or colitis. No significant mucosal thickening. Appendix: No CT evidence of appendicitis. Intraperitoneal space: No free air or fluid in the abdomen. No abnormal fluid collection. Vasculature: Several small bilateral pelvic phleboliths. Lymph nodes: No abdominal lymphadenopathy. Urinary bladder: Unremarkable as visualized. Reproductive: Previous hysterectomy. Bones/joints: No acute fractures. Advanced degenerative disc disease at L3-L4, L4-L5 and L5-S1 levels. Soft tissues: Unremarkable. CT/CT abdomen pelvis w con* [id number] IMPRESSION: 1. No acute findings. 2. Three 3 mm, 1 mm, and 1 mm nonobstructing calculi in the lower pole of the right kidney and a 1 mm nonobstructing calculus in the lower pole of the left kidney. No hydronephrosis and no ureteral calculi. 3. Previous hysterectomy. 4. No acute fractures. Advanced degenerative disc disease at L3-L4, L4-L5 and L5-S1 levels.
[2024-05-25] MEDS: HYDROcodone-acetaminophen 10-325 mg Tablet 1 TAB PO (04:13)
[2024-05-25 04:20] LABS: Alcohol Level 161 mg/dL (0-10)
[2024-05-25] MEDS: ondansetron 2 mg/ML SDV 2 mL 4 MG IVP (04:20)
[2024-05-25] MEDS: iohexol 350 mg/mL 500 mL Btl (per mL) IV (04:31)
== END 2024-05-25 06:18 | disposition home or self-care (01) ==
PROVIDERS: Emergency Medicine; Emergency Provider Emergency Medicine; PCP Family Medicine
DX: M54.50 Low back pain, unspecified (principal); F10.129 Alcohol abuse with intoxication, unspecified; Y90.6 Blood alcohol level of 120-199 mg/100 ml; R74.01 Elevation of levels of liver transaminase levels; F17.210 Nicotine dependence, cigarettes, uncomplicated; I10 Essential (primary) hypertension
CPT/HCPCS: 36415; 74177; 80053; 80307; 81001; 83605; 85025; 86140; 87040; 96374; 99285; J2405

== ENCOUNTER 2024-08-12 06:40 | Emergency (ER) | payer BC, MEDICAID, SELFPAY ==
[2024-08-12 06:47] VITALS: BP 158/110; PULSE 87; RESP 21; TEMP 36.6; O2SAT 95; BMI 23.8
--- NOTE | 2024-08-12 06:54 | ECG_ITS ---
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
[2024-08-12] MEDS: orphenadrine 30 mg/mL Inj 2 mL 60 MG IVP (07:13)
[2024-08-12] MEDS: ketorolac 30 mg/mL INJ IVP (07:14)
[2024-08-12] MEDS: methylPREDNISolone sod succ 125 mg/2 mL INJ IVP (07:15)
[2024-08-12 07:17] VITALS: RESP 26
[2024-08-12] MEDS: morphine 4 mg/mL SDV 1 mL IVP (07:17)
[2024-08-12 07:22] LABS: Basophils # 0.1 10^3/uL (0.0-0.1); Basophils % 0.5 %; Eosinophils # 0.3 10^3/uL (0.0-0.8); Eosinophils % 2.3 %; Hematocrit 37.8 % (36-47); Lymphocytes % 37.4 %; Mean Corpuscular HGB Conc 34.1 g/dL (30-55); Mean Corpuscular Hemoglobin 32.4 pg (27-33); Mean Platelet Volume 9.8 fL (7.4-10.4); Monocytes # 1.5 10^3/uL (0.2-0.9); Monocytes % 14.3 %; Neutrophils # 4.83 10^3/uL (1.8-7.7); Neutrophils % 45.2 %; Nucleated Red Blood Cells % 0 %; Platelet Count 343 10^3/cmm (157-399); Red Blood Count 3.98 10^6/uL (3.85-5.65); Red Cell Distribution Width 12.4 % (12.1-15.1); White Blood Count 10.68 10^3/uL (3.29-11.43)
[2024-08-12 07:40] LABS: Troponin(5th) Baseline < 6 ng/L (0-10)
--- NOTE | 2024-08-12 07:48 | XR_ITS ---
WS: [id number] XR chest 1V portable [id number] REASON FOR EXAM: dyspnea/cough FINDINGS: The heart and the mediastinum are within normal limits. The left lung field is clear. In the lower right lung field there are coarse reticular interstitial opacities with peribronchial cuffing and mild bronchiectasis. Compared to previous examinations 09/19/2023 and 02/27/2024 these predominantly are chronic abnormalities, however there is an overall vague increased opacity to the right lower lung field compared to the previous examinations and an early acute superimposed inflammatory process may be present. There are subtle additional areas of reticular opacities in the mid right lung field. XR/XR chest 1V portable [id number] IMPRESSION: Chronic abnormalities in the right lower lobe and possibly superimposition of a n acute/subacute pneumonitis.
[2024-08-12 07:52] VITALS: BP 136/85; PULSE 66; RESP 17; O2SAT 98
--- NOTE | 2024-08-12 08:00 | ED_ITS ---
HPI - Neck Pain/Injury 2 General: Chief Complaint: Neck Pain/Injury Stated Complaint: left side neck pain Time Seen by Provider: 08/12/24 06:50 History of Present Illness: 49-year-old female presents emergency ro om complaining of severe left-sided neck pain. She woke up with it. Is aggravated by any movement at all. She has no recent trauma. No chest pain no shortness of breath no other irregular irregularities or injuries. She has no pain radiating to her arms. No shortness of breath. No previous neck injury or surgeries. Pain is consistently reproducible with movement in the neck Related Data Home Medications ?Medication ?Instructions ?Recorded ?Confirmed acetaminophen 500 mg tablet 1,000 mg PO BID PRN Pain 0 12/27/22 08/12/24 albuterol sulfate 90 mcg/actuation 2 puff inhalation Q ID PRN 09/19/23 08/12/24 aerosol inhaler Shortness Of Breath lisinopril 40 mg tablet 40 mg PO QAM 09/19/23 Previous Rx's ?Medication ?Instructions ?Recorded diclofenac sodium 75 mg 75 mg PO Q12H PRN pain #20 t abs 08/12/24 tablet,delayed release prednisone 20 mg tablet 20 mg PO TID #15 tabs tizanidine 4 mg tablet 4 mg PO Q6H PRN muscle spast icity 08/12/24 #20 tabs Allergies Allergy/AdvReac Type Severity Reaction Status Date / Time duloxetine (From Cymbalta) Allergy ADR-Halluci Verified 08/12/24 07:01 nating erythromycin base Allergy ADR-Itching Verified 08/12/24 07:01 levofloxacin (From Levaquin) Allergy ADR-Itching Verified 08/12/24 07:01 Penicillins Allergy ADR-Itching Verified 08/12/24 07:01 sulfamethoxazole (From Allergy ADR-Itching Verified 08/12/24 07:01 Bactrim) trimethoprim (From Bactrim) Allergy ADR-Itching Verified 08/12/24 07:01 vancomycin Allergy ADR-Itching Verified 08/12/24 07:01 venlafaxine (From Effexor) Allergy ADR-Halluci Verified 08/12/24 07:01 nating Review of Systems 2 Const: Denies: fever(s) or chills Card: Denies: chest pain Resp: Denies: dyspnea GI: Denies: abdominal pain : Denies: dysuria, urinary frequency or urinary urgency Musc: Reports: neck pain; Denies: back pain Skin/Breast: Denies: rash PFSH ED 2 PFSH: Medical History Nephrolithiasis Alcohol abuse Essential hypertension Hidradenitis HTN (hypertension) Seizures Surgical History History of hysterectomy Social History Smoking and tobacco/nicotine status: current every day tobacco/nicotine user cigarettes Alcohol intake: current Substance/Drug Use: current Substance/Drug use frequency: daily Physical Exam 2 Const: COMMON NORMALS: no acute distress GENERAL APPEARANCE: cooperative and comfortable ORIENTATION/CONSCIOUSNESS: Yes awake, Yes oriented to person, Yes oriented to place and Yes oriented to time HENMT: COMMON NORMALS: normocephalic, atraumatic and hearing grossly normal bilaterally HEAD & SCALP: normocephalic and atraumatic Resp: COMMON NORMALS: normal respiratory effort, No retractions, No use of accessory muscles and clear to auscultation bilaterally AUSCULTATION: clear to auscultation bilaterally Cardio: COMMON NORMALS: regular rate, regular rhythm and No murmurs present (Cardio) RATE: regular rate RHYTHM: regular rhythm GI: COMMON NORMALS: Soft to palpation and No hepatosplenomegaly present A USCULTATION: Yes normoactive bowel sounds PALPATION: Yes Soft to palpation, No Tenderness to palpation present (GI), No Guarding due to palpation present (GI) and Yes No hepatosplenomegaly present Extremity: COMMON NORMALS: normal to inspection, capillary refill normal, no clubbing, cyanosis or edema, no calf tenderness and no pedal edema Neuro: SENSORIUM/ORIENTATION: Yes oriented to person, Yes oriented to place and Yes oriented to time OTHER: No focal neurologic deficits Skin: COMMON NORMALS: no rashes or lesions noted GENERAL SKIN EXAM: no rashes or lesions noted Course 2 Vital Signs: Vital signs: Vital Signs Temperature 97.8 F 08/12/24 06:47 Pulse Rate 64 08/12/24 11:15 Respiratory Rate 17 08/12/24 11:15 Blood Pressure 129/86 08/12/24 11:15 Pulse Oximetry 91 08/12/24 11:15 Oxygen Delivery Me thod Room Air 08/12/24 06:47 MDM - Neck Pain/Injury Medical Decision Making Cardiac enzymes and EKG is negative. No other findings noted. Will discharge patient home with steroids and muscle relaxers and anti-inflammatories patient improved with medications given in the emergency room. Medical Records I reviewed the patient's medical records. Lab Data I reviewed the patient's lab results. 08/12/24 06:55 08/12/24 07:58 Radiology Impressions Chest X-Ray 08/12/24 07:48 IMPRESSION: Chronic abnormalities in the right lower lobe and possibly superimposition of an acute/subacute pneumonitis. Laboratory Results WBC 10.68 10^3/uL (3.29-11.43) 08/12/24 06:55 RBC 3.98 10^6/uL (3.85-5.65) 08/12/24 06:55 Hgb 12.90 g/dL (11.27-16.99) 08/12/24 06:55 Hct 37.8 % (36-47) 08/12/24 06:55 MCV 95.0 fl (85-98) 08/12/24 06:55 MCH 32.4 pg (27-33) 08/12/24 06:55 MCHC 34.1 g/dL (30-55) 08/12/24 06:55 RDW 12.4 % (12.1-15.1) 08/12/24 06:55 Plt Count 343 10^3/cmm (157-399) 08/12/24 06:55 MPV 9.8 fL (7.4-10.4) 08/12/24 06:55 Neut % (Auto) 45.2 % 08/12/24 06:55 Lymph % (Auto) 37.4 % 08/12/24 06:55 [place] % (Auto) 14.3 % 08/12/24 06:55 Eos % (Auto) 2.3 % 08/12/24 06:55 Baso % (Auto) 0.5 % 08/12/24 06:55 Neut # (Auto) 4.83 10^3/uL (1.8-7.7) 08/12/24 06:55 Lymph # (Auto) 4.0 10^3/uL (0.8-4.8) 08/12/24 06:55 [place] # (Auto) 1.5 10^3/uL (0.2-0.9) H 08/12/24 06:55 Eos # (Auto) 0.3 10^3/uL (0.0-0.8) 08/12/24 06:55 Baso # (Auto) 0.1 10^3/uL (0.0-0.1) 08/12/24 06:55 Nucleated RBC % (auto) 0 % 08/12/24 06:55 Nucleated RBCs # 0.0 /100WBC 08/12/24 06:55 Sodium 139 mmol/L (136-145) 08/12/24 07:58 Potassium 3.3 mmol/L (3.5-5.1) L 08/12/24 07:58 Chloride 103 mmol/L (98-107) 08/12/24 07:58 Carbon Dioxide 20 mmol/L (22-29) L 08/12/24 07:58 Anion Gap 19.3 (5-19) H 08/12/24 07:58 BUN 15 mg/dL (6-20) 08/12/24 07:58 Creatinine 0.6 mg/dL (0.5-0.9) 08/12/24 07:58 GFR Calculation 105.8 mL/min (90-130) 08/12/24 07:58 Glucose 88 mg/dL (65-115) 08/12/24 07:58 Calculated Osmolality 288 mOsm/kg (285-295) 08/12/24 07:58 Calcium 9.2 mg/dL (8.5-10.5) 08/12/24 07:58 Total Bilirubin 0.3 mg/dL (0.15-1.2) 08/12/24 07:58 AST 19 U/L (0-32) 08/12/24 07:58 ALT 14 U/L (0-33) 08/12/24 07:58 Alkaline Phosphatase 80 U/L (35-105) 08/12/24 07:58 Troponin T Baseline < 6 ng/L (0-10) 08/12/24 06:55 Troponin T 120 Minute 6.00 ng/L (0-10) 08/12/24 08:54 Delta Troponin T 0.20267 ABS# (0-10) 08/12/24 08:54 Total Protein 6.7 g/dL (6.6-8.7) 08/12/24 07:58 Albumin 4.0 g/dL (3.5-5.2) 08/12/24 07:58 Globulin 2.7 g/dL (1.3-4.6) 08/12/24 07:58 All radiology interpretation(s) finalized by discharge Discharge Plan Discharge Patient Disposition: Home Clinical Impression: Torticollis, acute Condition: Stable Prescriptions: New tizanidine 4 mg tablet 4 mg PO Q6H PRN (Reason: muscle spasticity) Qty: 20 0RF Rx Instructions: do not exceed 3 doses per 24 hrs prednisone 20 mg tablet 20 mg PO TID Qty: 15 0RF Rx Instructions: 1 p.o. 3 times daily x3 days, 1 p.o. twice daily x2 days, 1 p.o. daily x2 days diclofenac sodium 75 mg tablet,delayed release (DR/EC) 75 mg PO Q12H PRN (Reason: pain) Qty: 20 0RF No Action albuterol sulfate 90 mcg/actuation Hfa Aerosol Inhaler 2 puff INHALATION QID PRN (Reason: Shortness Of Breath) lisinopril 40 mg tablet 40 mg PO QAM acetaminophen [Tylenol Ex Str Rapid Release] 500 mg Tablet 1,000 mg PO BID PRN (Reason: Pain) Discharge Orders: Discharge ED (Routine); Ordered 08/12/24 Ordered By: Oziel Walton Referrals: Karen Patrick DO [Primary Care Provider] - Discharge Diet: Usual diet Discharge Activity: Increase activity as tolerated Patient Instructions: Opioid Safety, Pain Management Activity Restrictions/Additional Instructions: Thank you for choosing [facility] for your healthcare needs today. It is very important that you follow up as instructed or that you return to the Emergency Department should you have concerns or if your condition changes or worsens in any way. You are seen emergency for neck pain on exam it appears to be more musculoskeletal. You are given a prescription for medications to help with pain. Recommend heat to the affected muscles and follow-up as needed or if not improving Print Language: [place] Zealander Coding Level of Care Code ED Medical Office Supervisor for Isiah Mao
[2024-08-12 08:27] LABS: Alanine Aminotransferase 14 U/L (0-33); Alkaline Phosphatase 80 U/L (35-105); Anion Gap 19.3 (5-19); Aspartate Amino Transferase 19 U/L (0-32); Blood Urea Nitrogen 15 mg/dL (6-20); Calcium 9.2 mg/dL (8.5-10.5); Carbon Dioxide 20 mmol/L (22-29); Chloride 103 mmol/L (98-107); Creatinine Clr Calc Pharmacy 102.7785; Globulin 2.7 g/dL (1.3-4.6); Glomerular Filtration Rate 105.8 mL/min (90-130); Glucose 88 mg/dL (65-115); Osmolality Calculated 288 mOsm/kg (285-295); Potassium 3.3 mmol/L (3.5-5.1); Sodium 139 mmol/L (136-145); Total Bilirubin 0.3 mg/dL (0.15-1.2); Total Protein 6.7 g/dL (6.6-8.7)
--- NOTE | 2024-08-12 08:54 | ECG_ITS ---
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
[2024-08-12 09:15] LABS: Troponin 5 2HR Delta 0.00001 ABS# (0-10)
[2024-08-12 09:30] VITALS: BP 166/108; PULSE 76; RESP 24; O2SAT 99
[2024-08-12 10:00] VITALS: BP 127/82; PULSE 70; RESP 14; O2SAT 97
[2024-08-12 11:15] VITALS: BP 129/86; PULSE 64; RESP 17; O2SAT 91
== END 2024-08-12 11:17 | disposition home or self-care (01) ==
PROVIDERS: Emergency Provider Family Medicine; PCP Family Medicine
DX: M43.6 Torticollis (principal); F17.210 Nicotine dependence, cigarettes, uncomplicated; I10 Essential (primary) hypertension
CPT/HCPCS: 36415; 71045; 80053; 84484; 85025; 93005; 96374; 96375; 99285; J1885; J2270; J2360; J2919

== ENCOUNTER 2024-09-09 12:54 | Outpatient (CLI) | payer BC, MEDICAID, SELFPAY ==
--- NOTE | 2024-09-09 12:56 | USR_ITS ---
PROCEDURE INFORMATION: Exam: US Soft Tissue Head and Neck, Soft Tissue Exam date and time: 09/09/2024 1:05 PM Age: 49 years old Clinical indication: Neck pain TECHNIQUE: Imaging protocol: Real-time ultrasound scan of the head and neck with image documentation. Exam focused on the soft tissue in the region of clinical concern. COMPARISON: CT cervical spin wo con* [id number] 02/27/2024 12:26 PM FINDINGS: Soft tissues: Evaluation of the left shoulder just inferior to the neck demonstrates no free fluid or collection. There is a 0.6 x 0.5 cm node with an echogenic fatty hilum. US/US soft tissue head neck [id number] IMPRESSION: There are no acute concerning abnormalities.
== END 2024-09-09 12:55 | disposition home or self-care (01) ==
PROVIDERS: PCP Nurse Practitioner Family; Visit Provider Nurse Practitioner Family
DX: M54.2 Cervicalgia (principal); R22.42 Localized swelling, mass and lump, left lower limb
CPT/HCPCS: 76536

== ENCOUNTER 2024-12-19 10:10 | Outpatient (CLI) | payer BC, MEDICAID, SELFPAY ==
--- NOTE | 2024-12-19 10:12 | MM_ITS ---
WS: [id number] SCREENING DIGITAL BREAST TOMOSYNTHESIS MAMMOGRAM WITH CAD HISTORY: SCREENING COMPARISON: 01/07/2011 Bilateral CC and MLO with tomosynthesis and synthetic mammography submitted. Computer aided detection analyzed. Breast composition: There are scattered areas of fibroglandular density. Numerous calcifications and distortion in the upper outer quadrant of the LEFT breast. These changes are at the site of a prior lumpectomy and removal of the LEFT breast mass described in 2011. No interval mammogram evaluations. Benign calcifications in the RIGHT breast. No nipple retraction. Note: Changes in the upper outer quadrant of the LEFT breast may all be postsurgical and related to scarring and fibrosis with dystrophic calcifications. With no intervening exam since 2010 recommend additional diagnostic evaluation. MM/MM scr tomosynthesis [id number] IMPRESSION: BI-RADS: 0 - Incomplete: Need additional imaging evaluation. FOLLOW UP: Need Additional Imaging LEFT breast: Spot compression views (CC and MLO). True ML. Ultrasound to follow if abnormality persists. Additional magnification views of the LEFT breast diamond cifications.
== END 2024-12-19 10:11 | disposition home or self-care (01) ==
PROVIDERS: PCP Nurse Practitioner Family; Visit Provider Nurse Practitioner Family
DX: Z12.31 Encounter for screening mammogram for malignant neoplasm of breast (principal); R92.323 Mammographic fibroglandular density, bilateral breasts; R92.1 Mammographic calcification found on diagnostic imaging of breast; Z98.890 Other specified postprocedural states; N63.21 Unspecified lump in the left breast, upper outer quadrant
CPT/HCPCS: 77063; 77067

== ENCOUNTER 2025-01-10 08:16 | Outpatient (CLI) | payer BC, MEDICAID, SELFPAY ==
--- NOTE | 2025-01-10 08:23 | MM_ITS ---
WS: [id number] ADDITIONAL VIEWS LEFT MAMMOGRAM WITH DIGITAL BREAST TOMOSYNTHESIS. LEFT breast ultrasound, limited HISTORY: ABNORMAL MAMMOGRAM INCONCLUSIVE FINDINGS COMPARISON: 12/19/2024, 01/07/2011 Spot compression views LEFT breast in CC, MLO projections and true ML submitted with digital breast tomosynthesis and SM. Additional magnification views of the calcifications at 12:00. Breast composition: There are scattered areas of fibroglandular density. Asymmetry persists at 12:00 at a middle depth with calcifications in the asymmetry. These calcifications are predominantly round with no branching or pleomorphism. These are probably dystrophic calcifications. There is mild asymmetry and distortion of the soft tissues at 12:00 which may be related to t he prior surgery. Ultrasound to follow. LEFT breast ultrasound, limited. Ultrasound directed to the upper outer quadrant. There is very dense fibroglandular tissue. There is no shadowing or mass. There is a small ovoid cyst at 12:00 measuring 0.7 x 0.8 x 0.5 cm. MM/MM diag LT tomosynthesis [id number] IMPRESSION: BI-RADS: 2 - Benign. FOLLOW UP: 1 Year Follow-up Return to annual screening mammography. The asymmetry and calcifications in the upper outer quadrant appear benign.
== END 2025-01-10 08:17 | disposition home or self-care (01) ==
LOC: RAD 08:17
PROVIDERS: PCP Nurse Practitioner Family; Visit Provider Nurse Practitioner Family
DX: R92.8 Other abnormal and inconclusive findings on diagnostic imaging of breast (principal); N64.89 Other specified disorders of breast; N60.02 Solitary cyst of left breast
CPT/HCPCS: 76642; 77061; G0279

== ENCOUNTER 2025-01-20 07:30 | Outpatient (CLI) | payer BC, MEDICAID, SELFPAY ==
--- NOTE | 2025-01-20 07:51 | CTR_ITS ---
PROCEDURE INFORMATION: Exam: CT Neck With Contrast Exam date and time: 01/20/2025 7:53 AM Age: 49 years old Clinical indication: Mass, lump, or swelling in neck; Left anterior neck swelling; Additional info: Left neck pain, swelling TECHNIQUE: Imaging protocol: Computed tomography of the neck with contrast. Radiation optimization: All CT scans at this facility use at least one of these dose optimization techniques: automated exposure control; mA and/or kV adjustment per patient size (includes targeted exams where dose is matched to clinical indication); or iterative reconstruction. Contrast material: [id number]; Contrast volume: 80 ml; Contrast route: INTRAVENOUS (IV); COMPARISON: CT cervical spin wo con* [id number] 02/27/2024 12:26 PM RADIATION DOSE METRICS: Total DLP (mGy-cm): 202.28 FINDINGS: Salivary glands: Normal. Glands are normal in size. Teeth: No dental pathology; edentulous patient. Pharynx: Unremarkable. No significant tonsillar enlargement. Larynx: There is subtle asymmetry of the true vocal cords. There is also asymmetry of the aryepiglottic folds and localized edema along the left inferior hypopharynx that is obliterating the left piriform sinus. Series 3, image 66, image 50 series 5. Thyroid: Normal. No enlarged or calcified nodules. Trachea: Visualized trachea is unremarkable. Lungs: Unremarkable as visualized. Lymph nodes: Unremarkable. No lymphadenopathy. Bones/joints: Mild to advanced multilevel cervical spondylosis including disc space collapse at C3-C4 with grade 1 spondylolisthesis and severe disc space narrowing at remaining lower cervical levels below C3. Scattered degenerative changes are also noted in the facet joints particularly on the left at C3-C4. Soft tissues: There is a small midline fat pad adjacent to the anterior midline mandible. Platysma in this region seems to be slightly thickened compared to other portions of the neck on either side of midline. If there is any tenderness to palpation in this region it may be an indicator of localized cellulitis. No abscess. CT/CT neck w con* [id number] IMPRESSION: 1. Equivocal evidence of potential cellulitis at the inferior midline chin region that can be correlated clinically. 2. Asymmetry of the aryepiglottic folds and true vocal cords. The possibility of mucosal neoplastic disease might be considered and direct examination is recommended.
[2025-01-20] MEDS: iohexol 350 mg/mL 500 mL Btl (per mL) IV (08:17)
== END 2025-01-20 07:31 | disposition home or self-care (01) ==
LOC: RAD 07:31
PROVIDERS: PCP Nurse Practitioner Family; Visit Provider Otolaryngology
DX: R22.1 Localized swelling, mass and lump, neck (principal); H92.09 Otalgia, unspecified ear
CPT/HCPCS: 70491